=== PATIENT | female | born 1945 | race Caucasian/White ===

== ENCOUNTER → 2020-06-15 10:42 | Outpatient (BNVA) | payer MEDICARE, MEDICAID, SELFPAY | PROVIDERS: PCP Internal Medicine; Visit Provider Anesthesiology | DX: M47.816 Spondylosis without myelopathy or radiculopathy, lumbar region (principal) | CPT/HCPCS: 99203 ==

== ENCOUNTER 2020-08-09 17:00 | Outpatient (RCR) | payer MEDICARE, MEDICAID, SELFPAY ==
--- NOTE | 2020-08-09 17:51 | MHC.PT.DC ---
[facility] [place] Office [place] Office [place] Office [address] Myla Tuttle [address] [phone] F: [phone] F: [phone] F: [phone] F: [phone] Physical Therapy Discharge Report Diagnosis: This is a 74 yo female presenting to skilled PT with a script for spondylosis w/o myelopathy or radiculopathy Date of Surgery: L5 partial discectomy 1982 Date of Evaluation: 07/03/20 Date of Discharge: 08/09/20 Treatments to Date: 6 Cancellations to Date: 0 No Shows to Date: 3 Discharge Status: Achieved Goals Improved Function Independent with HEP Discharge Summary: Patient has been doing well, no pain has been increased throughout our sessions. She feels ready for DC and is independent in herp HEP. She has had improved pain and symptoms, demos good ROM and strength and good tolerance with functional mobility and transfers. DC to HEP at this time. Electronically signed by: Daisy Espinoza PT Please sign and return to therapist. Thank you for your referral.
== END 2020-08-10 11:57 | disposition home or self-care (01) ==
LOC: HO.PTCHIC 17:00
PROVIDERS: PCP Internal Medicine; Visit Provider Anesthesiology
DX: M47.816 Spondylosis without myelopathy or radiculopathy, lumbar region (principal)
CPT/HCPCS: 97110; 97140; 97161

== ENCOUNTER → 2020-09-20 11:38 | Outpatient (BNVA) | payer MEDICARE, MEDICAID, SELFPAY | PROVIDERS: PCP Internal Medicine; Referring Provider Internal Medicine; Visit Provider Internal Medicine Endocrinology, Diabetes & Metabolism | DX: E11.65 Type 2 diabetes mellitus with hyperglycemia (principal); E11.42 Type 2 diabetes mellitus with diabetic polyneuropathy; Z79.4 Long term (current) use of insulin; I10 Essential (primary) hypertension; E78.5 Hyperlipidemia, unspecified; E66.9 Obesity, unspecified | CPT/HCPCS: Q3014 ==

== ENCOUNTER 2020-09-29 11:25 | Outpatient (REF) | payer MEDICARE, MEDICAID, SELFPAY ==
[2020-09-29 13:55] LABS: Estimated Average Glucose 255 mg/dL; Hemoglobin A1c % 10.5 %
[2020-09-29 14:29] LABS: Creatinine Urine 141.17 mg/dL; Microalbum/Creatinine Ratio Ur 18.4 ug/mg cr
[2020-09-29 14:47] LABS: Alanine Aminotransferase 27 U/L (0-31); Albumin Level 4.1 g/dL (3.5-5.0); Alkaline Phosphatase 97 U/L (39-117); Anion Gap 13 (12-20); Aspartate Amino Transferase 23 U/L (5-31); Bilirubin Total 1.8 mg/dL (0.0-1.0); Blood Urea Nitrogen 16 mg/dL (9-16); Calcium 9.5 mg/dL (8.4-10.2); Carbon Dioxide 29 mmol/L (22-29); Chloride 101 mmol/L (96-108); Cholesterol 133 mg/dL; Estimated Glomerular Filt Rate 42; Glucose Fasting 176 mg/dL (60-99); HDL Cholesterol 43 mg/dL; LDL Cholesterol Calculated 65 mg/dl; Potassium 4.7 mmol/L (3.3-5.1); Sodium 138 mmol/L (135-145); Total Protein 6.7 g/dL (6.5-8.0); Triglycerides 128 mg/dL
[2020-09-29 14:59] LABS: Free T4 (Free Thyroxine) 1.11 ng/dL (0.71-1.85)
[2020-09-29 15:01] LABS: Thyroid Stimulating Hormone 2.67 uIU/mL (0.32-4.0)
[2020-09-30 08:17] LABS: LDL Cholesterol Direct 75 mg/dL (<100)
[2020-10-02 16:16] LABS: Vitamin B12 515 pg/mL (200-900)
== END 2020-09-29 11:26 | disposition home or self-care (01) ==
LOC: HO.10HDL 11:25
PROVIDERS: Visit Provider Internal Medicine Endocrinology, Diabetes & Metabolism
DX: E11.65 Type 2 diabetes mellitus with hyperglycemia (principal)
CPT/HCPCS: 36415; 80053; 80061; 82043; 82607; 83036; 83721; 84439; 84443

== ENCOUNTER → 2020-11-21 13:34 | Outpatient (BNVA) | payer MEDICARE, MEDICAID, SELFPAY | PROVIDERS: PCP Internal Medicine; Visit Provider Internal Medicine | DX: I25.10 Atherosclerotic heart disease of native coronary artery without angina pectoris (principal); I10 Essential (primary) hypertension; E11.8 Type 2 diabetes mellitus with unspecified complications; Z95.5 Presence of coronary angioplasty implant and graft | CPT/HCPCS: 93005; 99212 ==

== ENCOUNTER 2020-11-27 08:45 | Outpatient (REF) | payer MEDICARE, MEDICAID, SELFPAY ==
[2020-11-27 10:41] LABS: Alanine Aminotransferase 20 U/L (0-31); Anion Gap 16 (12-20); Aspartate Amino Transferase 22 U/L (5-31); Blood Urea Nitrogen 22 mg/dL (9-16); Calcium 8.9 mg/dL (8.4-10.2); Carbon Dioxide 26 mmol/L (22-29); Chloride 99 mmol/L (96-108); Cholesterol 116 mg/dL; Estimated Glomerular Filt Rate 52; Glucose Fasting 154 mg/dL (60-99); HDL Cholesterol 40 mg/dL; LDL Cholesterol Calculated 53 mg/dl; Sodium 137 mmol/L (135-145); Triglycerides 118 mg/dL
== END 2020-11-27 08:46 | disposition home or self-care (01) ==
LOC: HO.10HDL 08:45
PROVIDERS: Visit Provider Internal Medicine
DX: I10 Essential (primary) hypertension (principal); E78.5 Hyperlipidemia, unspecified
CPT/HCPCS: 36415; 80048; 80061; 84450; 84460

== ENCOUNTER → 2021-02-02 12:54 | Outpatient (BNVA) | payer MEDICARE, MEDICAID, SELFPAY | PROVIDERS: PCP Internal Medicine; Visit Provider Internal Medicine Endocrinology, Diabetes & Metabolism | DX: E11.65 Type 2 diabetes mellitus with hyperglycemia (principal); E11.42 Type 2 diabetes mellitus with diabetic polyneuropathy; E78.5 Hyperlipidemia, unspecified; E66.9 Obesity, unspecified; Z79.4 Long term (current) use of insulin | CPT/HCPCS: 82947; 99212 ==

== ENCOUNTER → 2021-02-20 08:30 | Outpatient (BNVA) | payer MEDICARE, MEDICAID, SELFPAY | PROVIDERS: PCP Internal Medicine; Visit Provider Internal Medicine Endocrinology, Diabetes & Metabolism | CPT/HCPCS: Q3014 ==

== ENCOUNTER 2021-04-02 15:03 | Outpatient (REF) | payer MEDICARE, MEDICAID, SELFPAY | END 2021-04-02 15:04 | disposition home or self-care (01) | LOC: HO.LAB 15:03 | PROVIDERS: Visit Provider Nurse Practitioner Family | DX: N39.0 Urinary tract infection, site not specified (principal) | CPT/HCPCS: 87086; 87088; 87186 ==

== ENCOUNTER 2021-05-11 08:24 | Outpatient (REF) | payer MEDICARE, MEDICAID, SELFPAY ==
--- NOTE | ~2021-05-11 | MM_ITS ---
EXAMINATION: MM SCREENING DIGITAL BREAST TOMOSYNTHESIS, BILATERAL CLINICAL INFORMATION: Screening. Asymptomatic. The lifetime risk of breast cancer based on the Tyrer-Cuzick Model is 2%. COMPARISON: Mammography: 05/05/2020, 02/04/2018, 12/16/2016 TECHNIQUE: Digital breast tomosynthesis is performed in both the craniocaudal and mediolateral oblique views along with computer-aided detection (CAD). Synthesized 2D images are generated from the tomosynthesis. FINDINGS: There are scattered areas of fibroglandular density (ACR BI-RADS breast composition Category b). There are no significant masses, abnormal calcifications, or other abnormalities. Again, there are numerous bilateral scattered ductal secretory and vascular calcifications. The axilla and skin contours are unremarkable. No significant changes. MM/MM tomosynthesis screening BI IMPRESSION: No mammographic evidence of malignancy. ASSESSMENT: BI-RADS 2: Benign RECOMMENDATION: Routine annual mammography screening. This patient's information was entered into a reminder system with a target due date for their next mammogram.
[2021-05-11 12:01] LABS: Alanine Aminotransferase 21 U/L (0-31); Anion Gap 13 (12-20); Aspartate Amino Transferase 22 U/L (5-31); Blood Urea Nitrogen 21 mg/dL (9-16); Calcium 10.3 mg/dL (8.4-10.2); Carbon Dioxide 29 mmol/L (22-29); Chloride 101 mmol/L (96-108); Cholesterol 133 mg/dL; Estimated Glomerular Filt Rate 47; Glucose Fasting 128 mg/dL (60-99); HDL Cholesterol 41 mg/dL; LDL Cholesterol Calculated 69 mg/dl; Potassium 4.4 mmol/L (3.3-5.1); Sodium 139 mmol/L (135-145); Triglycerides 116 mg/dL
== END 2021-05-11 08:25 | disposition home or self-care (01) ==
LOC: HO.MAMMO 08:24
PROVIDERS: PCP Internal Medicine; Visit Provider Internal Medicine
DX: Z12.31 Encounter for screening mammogram for malignant neoplasm of breast (principal); I25.10 Atherosclerotic heart disease of native coronary artery without angina pectoris; I10 Essential (primary) hypertension; E78.5 Hyperlipidemia, unspecified
CPT/HCPCS: 36415; 77063; 77067; 80048; 80061; 84450; 84460

== ENCOUNTER → 2021-05-24 08:52 | Outpatient (BNVA) | payer MEDICARE, MEDICAID, SELFPAY | PROVIDERS: PCP Internal Medicine; Visit Provider Nurse Practitioner Gerontology | DX: E11.42 Type 2 diabetes mellitus with diabetic polyneuropathy (principal); E78.5 Hyperlipidemia, unspecified; E66.9 Obesity, unspecified; I10 Essential (primary) hypertension | CPT/HCPCS: 82947; 99212 ==

== ENCOUNTER 2021-05-24 10:15 | Outpatient (REF) | payer MEDICARE, MEDICAID, SELFPAY ==
[2021-05-24 14:59] LABS: Creatinine Urine 163.15 mg/dL; Microalbum/Creatinine Ratio Ur 7.9 ug/mg cr
== END 2021-05-24 10:16 | disposition home or self-care (01) ==
LOC: HO.10HDL 10:15
PROVIDERS: Visit Provider Nurse Practitioner Gerontology
DX: E11.42 Type 2 diabetes mellitus with diabetic polyneuropathy (principal)
CPT/HCPCS: 82043

== ENCOUNTER → 2021-05-29 12:43 | Outpatient (BNVA) | payer MEDICARE, MEDICAID, SELFPAY | PROVIDERS: PCP Internal Medicine; Referring Provider Internal Medicine; Visit Provider Internal Medicine | DX: I25.10 Atherosclerotic heart disease of native coronary artery without angina pectoris (principal); I10 Essential (primary) hypertension; E11.8 Type 2 diabetes mellitus with unspecified complications; Z95.5 Presence of coronary angioplasty implant and graft | CPT/HCPCS: 99212 ==

== ENCOUNTER 2021-09-10 08:31 | Outpatient (REF) | payer MEDICARE, MEDICAID, SELFPAY ==
[2021-09-10 12:28] LABS: Alanine Aminotransferase 22 U/L (0-31); Anion Gap 12 (12-20); Aspartate Amino Transferase 22 U/L (5-31); Blood Urea Nitrogen 18 mg/dL (9-16); Calcium 9.8 mg/dL (8.4-10.2); Carbon Dioxide 29 mmol/L (22-29); Chloride 99 mmol/L (96-108); Cholesterol 122 mg/dL; Estimated Glomerular Filt Rate 42; Glucose Fasting 110 mg/dL (60-99); HDL Cholesterol 42 mg/dL; LDL Cholesterol Calculated 57 mg/dl; Potassium 4.5 mmol/L (3.3-5.1); Sodium 135 mmol/L (135-145); Triglycerides 117 mg/dL
[2021-09-10 12:50] LABS: Folate 8.1 ng/mL (> or = 4.0); Vitamin B12 666 pg/mL (200-900)
[2021-09-10 12:51] LABS: Vitamin D 25-OH Total 57.4 ng/mL (>30)
== END 2021-09-10 08:32 | disposition home or self-care (01) ==
LOC: HO.HMGCLDS 08:31
PROVIDERS: PCP Internal Medicine; Visit Provider Internal Medicine
DX: E78.5 Hyperlipidemia, unspecified (principal); I10 Essential (primary) hypertension; I25.10 Atherosclerotic heart disease of native coronary artery without angina pectoris; Z95.5 Presence of coronary angioplasty implant and graft; Z78.0 Asymptomatic menopausal state
CPT/HCPCS: 36415; 80048; 80061; 82306; 82607; 82746; 84450; 84460

== ENCOUNTER 2021-10-01 13:46 | Outpatient (REF) | payer MEDICARE, MEDICAID, SELFPAY ==
[2021-10-01 14:07] LABS: Appearance Urine CLEAR; Color Urine STRAW; Glucose Urine UA NEG (NEG); Leukocyte Esterase Urine 3+ (NEG); Nitrite Urine NEG (NEG); Specific Gravity - Urine 1.015 (1.005-1.025); UACC Culture Trigger YES; Urine Blood NEG (NEG); Urine Ketones NEG (NEG); Urine Protein NEG (NEG-TRACE)
[2021-10-01 14:38] LABS: RBC Urine 0 /HPF (0); Squamous Epithelial Cell Urine 2+ /LPF
== END 2021-10-01 13:47 | disposition home or self-care (01) ==
LOC: HO.LNP 13:46
PROVIDERS: Visit Provider Physician Assistant
DX: N39.0 Urinary tract infection, site not specified (principal); J32.9 Chronic sinusitis, unspecified
CPT/HCPCS: 81001; 81003; 87086

== ENCOUNTER → 2021-11-13 13:06 | Outpatient (BNVA) | payer MEDICARE, MEDICAID, SELFPAY | PROVIDERS: PCP Internal Medicine; Referring Provider Internal Medicine; Visit Provider Internal Medicine | DX: I25.10 Atherosclerotic heart disease of native coronary artery without angina pectoris (principal); E11.9 Type 2 diabetes mellitus without complications; I10 Essential (primary) hypertension; I25.2 Old myocardial infarction; Z79.82 Long term (current) use of aspirin; Z79.899 Other long term (current) drug therapy; Z95.5 Presence of coronary angioplasty implant and graft | CPT/HCPCS: 93005; 99212 ==

== ENCOUNTER → 2021-11-21 10:55 | Outpatient (BNVA) | payer MEDICARE, MEDICAID, SELFPAY | PROVIDERS: PCP Internal Medicine; Visit Provider Nurse Practitioner Gerontology | DX: E11.42 Type 2 diabetes mellitus with diabetic polyneuropathy (principal); E78.5 Hyperlipidemia, unspecified; I10 Essential (primary) hypertension; E66.9 Obesity, unspecified; Z68.32 Body mass index [BMI] 32.0-32.9, adult | CPT/HCPCS: 82947; 83036; 99212 ==

== ENCOUNTER 2022-01-18 10:02 | Outpatient (REF) | payer MEDICARE, MEDICAID, SELFPAY ==
[2022-01-18 11:53] LABS: Vitamin D 25-OH Total 49.6 ng/mL (>30)
[2022-01-18 12:04] LABS: Alanine Aminotransferase 22 U/L (0-31); Anion Gap 12 (12-20); Aspartate Amino Transferase 21 U/L (5-31); Blood Urea Nitrogen 24 mg/dL (9-16); Calcium 9.8 mg/dL (8.4-10.2); Carbon Dioxide 30 mmol/L (22-29); Chloride 100 mmol/L (96-108); Cholesterol 134 mg/dL; Estimated Glomerular Filt Rate 42; Glucose Fasting 122 mg/dL (60-99); HDL Cholesterol 39 mg/dL; LDL Cholesterol Calculated 73 mg/dl; Potassium 4.6 mmol/L (3.3-5.1); Sodium 137 mmol/L (135-145); Triglycerides 112 mg/dL
[2022-01-18 16:58] LABS: Creatinine Urine 115.73 mg/dL
== END 2022-01-18 10:03 | disposition home or self-care (01) ==
LOC: HO.HMGCLDS 10:02
PROVIDERS: PCP Internal Medicine; Visit Provider Internal Medicine
DX: E11.8 Type 2 diabetes mellitus with unspecified complications (principal); E78.5 Hyperlipidemia, unspecified; I10 Essential (primary) hypertension; Z95.5 Presence of coronary angioplasty implant and graft
CPT/HCPCS: 36415; 80048; 80061; 82043; 82306; 84450; 84460

== ENCOUNTER → 2022-01-23 10:37 | Outpatient (BNVA) | payer MEDICARE, MEDICAID, SELFPAY | PROVIDERS: PCP Internal Medicine; Visit Provider Registered Nurse Diabetes Educator | DX: E11.9 Type 2 diabetes mellitus without complications (principal) | CPT/HCPCS: 95250 ==

== ENCOUNTER → 2022-02-25 08:48 | Outpatient (BNVA) | payer MEDICARE, MEDICAID, SELFPAY | PROVIDERS: PCP Internal Medicine; Visit Provider Nurse Practitioner Gerontology | DX: E11.42 Type 2 diabetes mellitus with diabetic polyneuropathy (principal); E78.5 Hyperlipidemia, unspecified; I10 Essential (primary) hypertension; E66.9 Obesity, unspecified; Z79.4 Long term (current) use of insulin; Z79.84 Long term (current) use of oral hypoglycemic drugs | CPT/HCPCS: Q3014 ==

== ENCOUNTER → 2022-05-02 13:44 | Outpatient (REF) | payer MEDICARE, MEDICAID, SELFPAY ==
--- NOTE | 2022-05-02 13:47 | CA_ITS ---
Transthoracic Echocardiogram Amended Patient (Last, First, Middle): Savanna Fernandez A Gender: Female Date of : 1945 Age: 76 Procedure Date: 05/02/2022 Procedure Type: Transthoracic Echocardiogram Location: OP Height: 160.02 cm Weight: 82.56 kg BSA: 1.86 m2 Heart Rate: bpm BP: 90 / 50 mmHg Joiners Supervisor: CP/TO Referring MD: Casa Blackburn MD Hydraulic Technician: Austin Ayon MD Symptoms: I25.10 - Atherosclerotic heart disease of [place] coronary... Study Quality: Fair ECG Rhythm: Sinus Conclusions: - 1. Normal LV systolic function with grade 1 diastolic dysfunction 2. Trivial aortic regurgitation 3. No gross pericardial effusion Findings Left Ventricle Normal left ventricular size, thickness, and systolic function. The visually estimated ejection fraction is between 55-60%. Spectral Doppler is indicative of an impaired relaxation filling pattern. E/E prime ratio is <8, consistent with normal filling pressures. Evidence suggests grade I (mild) diastolic dysfunction. Right Ventricle Normal right ventricular cavity size and systolic function. Atria The left atrium is likely dilated. There is no evidence of interatrial shunt. The right atrium is normal in size. Aortic Valve The aortic valve structure and function is likely normal. There is mild calcification of the aortic valve. There is no aortic valve stenosis. There is trace (trivial) aortic valve regurgitation. Mitral Valve There is mild anterior mitral leaflet thickening. There is mild mitral annular calcification. There is trace mitral valve regurgitation. There is no mitral valve stenosis. Pulmonic Valve The pulmonic valve was not well visualized. Tricuspid Valve Likely normal tricuspid valve structure and function. Tricuspid regurgitation envelope is inadequate for calculation of right ventricular systolic pressure. Normal right atrial pressure. Great Vessels All visible segments of the aorta are normal in size. The pulmonary artery was not well visualized. Venous The inferior vena cava is normal in size and collapses greater than 50% with inspiration. Pericardium/Pleural There is no evidence of pericardial effusion. Prior Study Comparison Changes noted compared to prior study dated: 02/20/2018. LV wall thickness is measured to be normal on this study Measurements 2D Linear Measurements IVSd: 1.03 0.6-0.9/0.6-1.0 cm LVIDd: 4.84 3.9-5.3/4.2-5.9 cm LVIDd Index: 2.60 2.4-3.2/2.2-3.1 cm/m2 LVIDs: 3.15 2.0-3.6 cm LVPWd: 0.89 0.7-1.1 cm LA Diam: 3.90 2.7-3.8/3.0-4.0 cm LAIDs Index: 2.10 1.5-2.3 cm/m2 LV Mass: 203.50 67-162/88-224 g LV Mass Index: 109.41 43-95/49-115 g/m2 LVOT Diam: 2.00 3.0+(-)1.3 cm 2D Volumes LA Vol: 26.60 2D Systolic Function EF 4C: 57.70 >55% EF 2C: 53.60 >55% EF BiP: 56.40 >55% Mitral Valve MV Pk E: 0.75 MV PK A: 1.09 MV Decel Time: 300.00 E/A: 0.70 E'Lateral: 4.24 E'Medial: 4.13 E/E' Med: 18.10 E/E' Lat: 17.70 PHT: 88.00 MVA PHT: 2.50 Decel Burnet: 2.50 Aortic Valve AoV Pk Arthur: 1.21 AoV Mn Arthur: 0.89 AoV VTI: 0.29 AoV Pk Grad: 6.00 Aov Mn Grad: 3.00 ELY Cont.VTI: 2.46 AI Pk Arthur: 3.66 AI Burnet: 2.24 LVOT LVOT Pk Arthur: 0.89 LVOT Mn Arthur: 0.66 LVOT VTI: 0.22 LVOT Pk Grad: 3.00 LVOT Mn Grad: 2.00 LVOT Diam: 2.00 LVOT Area: 3.14 Diastolic Function MV Pk E: 0.75 MV Pk A: 1.09 E/A: 0.70 E'Medial: 4.13 E/E' Med: 18.10 E' Laterial: 4.24 E/E' Lat: 17.70 Right Ventricle TAPSE (mm): 20.30 TVS' Arthur: 7.72 Tricuspid Valve RA Press: 3.00 Great Vessels Aorta Sinus of Valsalva: 3.79 2.0-3.[address] Ridge: 2.93 1.7-3.4 cm Ao Asc: 3.70 2.1-3.4 cm Updated in Other Vendor System with Status of Final Austin Ayon MD electronically signed on 05/03/2022 4:17:01 PM with status of Final
== END ==
LOC: HO.CARD 13:44
PROVIDERS: Visit Provider Internal Medicine
DX: I25.10 Atherosclerotic heart disease of native coronary artery without angina pectoris (principal)
CPT/HCPCS: 93306

== ENCOUNTER → 2022-05-14 13:38 | Outpatient (BNVA) | payer MEDICARE, MEDICAID, SELFPAY | PROVIDERS: PCP Internal Medicine; Referring Provider Internal Medicine; Visit Provider Internal Medicine | DX: I25.10 Atherosclerotic heart disease of native coronary artery without angina pectoris (principal); E11.8 Type 2 diabetes mellitus with unspecified complications; I10 Essential (primary) hypertension | CPT/HCPCS: 99212 ==

== ENCOUNTER 2022-05-30 14:01 | Outpatient (REF) | payer MEDICARE, MEDICAID, SELFPAY | END 2022-05-30 14:02 | disposition home or self-care (01) | LOC: HO.LNP 14:01 | PROVIDERS: Visit Provider Internal Medicine | DX: N39.0 Urinary tract infection, site not specified (principal) | CPT/HCPCS: 87086; 87088; 87186 ==

== ENCOUNTER 2022-06-24 11:18 | Outpatient (REF) | payer MEDICARE, MEDICAID, SELFPAY ==
[2022-06-24 14:06] LABS: Alanine Aminotransferase 23 U/L (0-31); Albumin Level 4.1 g/dL (3.5-5.0); Alkaline Phosphatase 105 U/L (39-117); Anion Gap 15 (12-20); Aspartate Amino Transferase 23 U/L (5-31); Bilirubin Total 1.5 mg/dL (0.0-1.0); Blood Urea Nitrogen 16 mg/dL (9-16); Calcium 9.8 mg/dL (8.4-10.2); Carbon Dioxide 29 mmol/L (22-29); Chloride 101 mmol/L (96-108); Cholesterol 147 mg/dL; Estimated Glomerular Filt Rate 47; Glucose Fasting 115 mg/dL (60-99); HDL Cholesterol 46 mg/dL; LDL Cholesterol Calculated 81 mg/dl; Potassium 4.6 mmol/L (3.3-5.1); Sodium 140 mmol/L (135-145); Total Protein 6.9 g/dL (6.5-8.0); Triglycerides 100 mg/dL
[2022-06-24 14:08] LABS: Estimated Average Glucose 151 mg/dL; Hemoglobin A1c % 6.9 %
[2022-06-24 14:29] LABS: Vitamin D 25-OH Total 57.4 ng/mL (>30)
[2022-06-24 14:50] LABS: Folate 5.3 ng/mL (> or = 4.0); Vitamin B12 > 2000 pg/mL (200-900)
== END 2022-06-24 11:19 | disposition home or self-care (01) ==
LOC: HO.HMGCLDS 11:18
PROVIDERS: PCP Internal Medicine; Visit Provider Internal Medicine
DX: N95.9 Unspecified menopausal and perimenopausal disorder (principal); I25.10 Atherosclerotic heart disease of native coronary artery without angina pectoris; E11.42 Type 2 diabetes mellitus with diabetic polyneuropathy; I10 Essential (primary) hypertension; E78.5 Hyperlipidemia, unspecified; E66.9 Obesity, unspecified; Z86.39 Personal history of other endocrine, nutritional and metabolic disease; Z79.4 Long term (current) use of insulin
CPT/HCPCS: 36415; 80053; 80061; 82306; 82607; 82746; 83036

== ENCOUNTER 2022-09-23 11:53 | Outpatient (REF) | payer MEDICARE, MEDICAID, SELFPAY ==
[2022-09-23 14:15] LABS: Estimated Average Glucose 229 mg/dL; Hemoglobin A1c % 9.6 %
[2022-09-23 14:40] LABS: Alanine Aminotransferase 20 U/L (0-31); Anion Gap 14 (12-20); Aspartate Amino Transferase 19 U/L (5-31); Blood Urea Nitrogen 21 mg/dL (9-16); Calcium 9.7 mg/dL (8.4-10.2); Carbon Dioxide 29 mmol/L (22-29); Chloride 101 mmol/L (96-108); Cholesterol 131 mg/dL; Estimated Glomerular Filt Rate 44; Glucose Fasting 220 mg/dL (60-99); HDL Cholesterol 42 mg/dL; LDL Cholesterol Calculated 66 mg/dl; Potassium 4.5 mmol/L (3.3-5.1); Sodium 139 mmol/L (135-145); Triglycerides 118 mg/dL
[2022-09-23 14:44] LABS: Creatinine Urine 172.28 mg/dL
[2022-09-23 14:45] LABS: Vitamin D 25-OH Total 68.7 ng/mL (>30)
[2022-09-23 15:07] LABS: Folate 5.9 ng/mL (> or = 4.0); Vitamin B12 1024 pg/mL (200-900)
== END 2022-09-23 11:54 | disposition home or self-care (01) ==
LOC: HO.HMGCLDS 11:53
PROVIDERS: PCP Internal Medicine; Visit Provider Internal Medicine
DX: E11.42 Type 2 diabetes mellitus with diabetic polyneuropathy (principal); E66.9 Obesity, unspecified; E78.5 Hyperlipidemia, unspecified; I10 Essential (primary) hypertension; N95.9 Unspecified menopausal and perimenopausal disorder; R74.8 Abnormal levels of other serum enzymes; Z79.4 Long term (current) use of insulin
CPT/HCPCS: 36415; 80048; 80061; 82043; 82306; 82607; 82746; 83036; 84450; 84460

== ENCOUNTER 2022-09-24 11:29 | Outpatient (AMB) | payer MEDICARE, MEDICAID, SELFPAY ==
--- NOTE | 2022-09-24 11:51 | A.OFFPC_ITS ---
Vital Signs 09/24/22 11:53 Height 5 ft 3 in Weight 179 lb BMI 31.6 BP 124/52 L Blood Pressure Location Lt brachial Position Sitting Pulse 64 Pulse Source Pulse Oximeter Pulse Oximetry (%) 97 Oxygen Delivery Method Room Air Intake Visit Reasons: 3 MO follow up Intake Note: Pt is here today for her 3 months f/u Allergies codeine [CODEINE] Allergy (Intermediate, Verified 08/16/24 10:15) HIVES morphine [MORPHINE] Allergy (Intermediate, Verified 08/16/24 10:15) HIVES oxycodone [OXYCODONE] Allergy (Intermediate, Verified 08/16/24 10:15) HIVES Sulfa (Sulfonamide Antibiotics) [SULFA (SULFONAMIDE ANTIBIOTICS)] Allergy (Intermediate, Verified 08/16/24 10:15) DEHYDRATION, hives, hives OPIATES Allergy (Unknown, Uncoded 08/16/24 10:15) hives Medication List - Last Reconciled 09/24/22 by Jasmine Vasquez MD aspirin 81 mg PO DAILY atorvastatin 80 mg PO DAILY blood sugar diagnostic ([employer]uch Verio test strips) 3 times a day blood-glucose meter ([employer] Verio Flex Meter) 3 times a day famotidine-Ca carb-mag hydrox 10-800-165 mg (Acid Process Improvement Engineer Complete (famotidine)) 1 tab PO BEDTIME PRN hydrochlorothiazide 25 mg PO QAM insulin degludec (Tresiba FlexTouch U-100 insulin) 36 units (0.36 mL) subcut BEDTIME lancets ([employer] Delica Lancets) 3 times a day liraglutide (Victoza 3-Yoni) 1.2 mg (0.2 mL) subcut DAILY 90 days lisinopril 20 mg PO QAM mecobalamin (vitamin B12) 5,000 mcg PO metformin 500 mg PO BID 90 days metoprolol tartrate 50 mg PO BID naproxen (EC-Naproxen) 500 mg PO BID PRN omega-3 fatty acids 1,000 mg PO DAILY pen needle, diabetic Twice a day triamcinolone acetonide 0.1% 1 appl topical BID 10 days Tobacco use date assessed: 09/24/22 Fall risk assessment: No Falls in past year Last assessed Fall Risk: 09/24/22 HPI 3 MO follow up HPI Details 77-year-old Lady here today for follow-u p on her diabetes mellitus , hypertension and dyslipidemia. Has been taking her medicines as directed but has not been very compliant with taking her metformin, keeps missing her dose and has been off her diet, with no regular exercise. Latest hemoglobin A1c went to 9.6% with decreasing renal function, but lipids are within normal limit. [facility] Medical History Depression with anxiety Generalized anxiety disorder with panic attacks Arthritis of carpometacarpal (CMC) joint of right thumb Tenosynovitis of right wrist Dermatitis, contact Elevated vitamin B12 level Essential hypertension Atherosclerotic cardiovascular disease Obesity (BMI 30-39.9) Dyslipidemia 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 type 2 diabetes mellitus custodial (current) use of insulin Spondylosis of lumbar region without myelopathy or radiculopathy Sacroiliitis Surgical History Stented coronary artery Hx of shoulder surgery History of back surgery Hx of section Hx of hysterectomy Hx of colonoscopy Family History Father Colon cancer Family history of prostate cancer in father Mother Diabetes CVA (cerebral vascular accident) Social History Housing: Apartment Alcohol intake: current Patient Tobacco Use Status: Former Tobacco user Years Smoked: 2 e-Cigarette/Vaping Use: Never Used Advance Directives Date on File: 06/01/24 service: No Current occupational status: retired Cognitive needs: No Hearing needs: No Vision needs: No Questionnaire PHQ-9 Over the last 2 weeks, how often have you been bothered by any of the following problems? 1. Little interest or pleasure in doing things: not at all 2. Feeling down, depressed, or hopeless: not at all 3. Trouble falling or staying asleep, or sleeping too much: not at all 4. Feeling tired or having little energy: not at all 5. Poor appetite or overeating: not at all 6. Feeling bad about yourself - or that you are a failure or have let yourself or your family down: not at all 7. Trouble concentrating on things, such as reading the newspaper or watching television: not at all 8. Moving or speaking so slowly that other people could have noticed. Or the opposite - being so fidgety or restless that you have been moving around a lot more than usual: not at all 9. Thoughts that you would be better off or of hurting yourself in some wa y: not at all Total score: 0 Depression Screening Interpretation: Negative Source: Developed by Drs. Golden Moe, Devin Mckenna and colleagues, with an educational arlen from [employer]. Thrive Questionnaire Date Thrive assessed: 09/24/22 I am a: Patient What is your living situation today?: I have a steady place to live Within the past 12 months, did the food you bought not last and you didn't have the money to get more?: Never true Within the past 12 months, did you worry whether your food would run out before you got money to buy more?: Never true Do you have trouble paying for medicines?: No Do you have trouble getting transportation to medical appointments?: No Do you have trouble paying your heating and electricity bill?: No Do you have trouble taking care of your child, family member or friend?: No Do you have trouble with day-to-day activities such as bathing, preparing meals, shopping, managing finances, etc.?: No Are you currently unemployed and looking for a job?: No Are you interested in more education?: No SACHA-7 AMB Questionnaire SACHA-7 Date SACHA - 7 assessed: 09/24/22 Feeling nervous, anxious, or on edge: 0 = Not at all Not being able to stop or control worryin = Not at all Worrying too much about different things: 0 = Not at all Trouble relaxin = Not at all Being so restless that it is hard to sit still: 0 = Not at all Becoming easily annoyed or irritable: 0 = Not at all Feeling afraid as if something awful might happen: 0 = Not at all Total SACHA-7 score (0-4 normal; 5-9 mild; 10-14 moderate; 15-21 severe): 0 Source: Developed by Drs. Golden Moe, Devin Mckenna and colleagues, with an educational arlen from [employer]. SACHA-7 Assessment Billing SACHA-7 Assessment Tool: SACHA-7 Assessment 12154 Review of Systems Const Denies body aches, Denies difficulty sleeping, Denies fatigue, Denies headache(s), Denies lethargy and Reports weight gain Eyes Denies change in vision ENT Reports Normal hearing present, Denies headache(s) and Denies sore throat Card Denies chest pain, Denies irregular heart rhythm, Denies palpitations and Denies dyspnea Resp Denies cough and Denies dyspnea GI Denies abdominal pain, Denies melena, Denies hematochezia, Denies change in bowel habits, Denies constipation and Denies diarrhea Denies urinary frequency and Denies dysuria Musc Denies muscle cramps, Denies muscle weakness, Reports numbness and Reports tingling Skin/Breast Denies lesions and Denies rash Neuro Reports Normal hearing present, Denies burning sensations, Denies headache(s), Reports numbness, Denies Sensory deficit (Neuro), Reports tingling and Denies paresthesias Psych Denies depression Endo Denies fatigue, Denies polydipsia, Denies polyuria and Denies palpitations Seymour/Lymph Denies easy bruising Aller/Immun Reports no additional complaints Physical exam (Primary Care) Vital Signs: Last Vital Signs Pulse 64 09/24/22 11:53 BP 124/52 L 09/24/22 11:53 Pulse Ox 97 09/24/22 11:53 Oxygen Delivery Method Room Air 09/24/22 11:53 BMI result Body Mass Index 31.6 Tobacco/Smoking Status: Tobacco use Status Tobacco use date assessed 09/24/22 09/24/22 11:59 Patient Tobacco Use Status Former Tobacco user 09/24/22 11:59 e-Cigarette/Vaping Use Never Used 09/24/22 11:59 PHQ-9: PHQ-9 Score PHQ-9: Total score 0 09/24/22 12:48 Depression Screening Interpretation: Negative Thrive Assessment: Date of Thrive Assessment Date Thrive assessed 09/24/22 09/24/22 11:59 Const General: alert and awake Nutritional Appearance: obese Orientation/consciousness: patient oriented x3 HENMT Face and sinus: Yes face symmetric Mouth: Normal oral and palatal mucosa present, oropharynx normal and moist mucous membranes Eyes General: appearance normal, both eyes and all related structures Neck Other: Supple, full range of motion, no lymphadenopathy Resp Effort & Inspection: normal respiratory effort and able to speak in complete sentences Auscultation: clear to auscultation bilaterally Cardio Other: S1-S2 present regular rate and rhythm GI Palpation (GI): Soft to palpation, nontender, no guarding and no masses General: Yes no CVA tenderness Back/Spine/Pelvis Back: no CVA tenderness Skin General skin exam: no rashes or lesions noted Neuro General: patient oriented x3, gait normal, tone normal, moves all extremities, Normal light touch and pain sensation, no focal motor deficits and CN's II-XI intact bilaterally Cranial nerves: Yes Normal hearing present Sensory Exam: No Sensory deficit (Neuro) Extrem General: Yes full ROM, Yes no joint enlargement, Yes no clubbing, cyanosis or edema, Yes no calf tenderness and Yes normal gait Psych Appearance: grossly normal and well kempt Mental Status: mental status grossly normal Speech and movement: Normal speech and movement present Affect: Sad affect present Attitude: cooperative Thought process: Normal thought process present Thought content: Normal thought content present Results Reviewed Results Reviewed: Laboratory Tests 01/18/22 06/24/22 06/24/22 10:15 11:24 11:24 Sodium 140 Potassium 4.6 BUN 16 Creatinine 1.13 Estimated GFR 47 Fasting Glucose 115 H Estimat Average Glucose 151 Hemoglobin A1c % 6.9 Calcium 9.8 Total Bilirubin 1.5 H AST 23 ALT 23 Alkaline Phosphatase 105 Total Protein 6.9 Albumin 4.1 Triglycerides 100 Cholesterol 147 LDL Cholesterol, Calc 81 HDL Cholesterol 46 Vitamin B12 25-OH Vitamin D Total 57.4 Folate Microalb/Creat Ratio 6.0 06/24/22 09/23/22 11:24 12:01 Sodium Potassium BUN Creatinine Estimated GFR Fasting Glucose Estimat Average Glucose 229 Hemoglobin A1c % 9.6 Calcium Total Bilirubin AST ALT Alkaline Phosphatase Total Protein Albumin Triglycerides Cholesterol LDL Cholesterol, Calc HDL Cholesterol Vitamin B12 > 2000 H 25-OH Vitamin D Total Folate 5.3 Microalb/Creat Ratio ENTERED: 09/23/22-1200 OTHR : ORDERED: Met Prof Fast, AST, ALT, Lipid Panel, Vitamin D 25-OH Test Result Flag Reference Site Sodium 139 135-145 mmol/L Potassium 4.5 3.3-5.1 mmol/L CL 101 96-108 mmol/L CO2 29 22-29 mmol/L Gap 14 12-20 BUN 21 H 9-16 mg/dL Creat 1.18 0.5-1.4 mg/dL EGFR 44 NOTE: For -[place] individuals, multiply the result by 1.210. Chronic Kidney Disease: Estimated GFR < 60 mL/min/1.73m2 Severe Kidney Disease: Estimated GFR < 15 mL/min/1.73m2 FBS 220 H 60-99 mg/dL A fasting glucose of 126 mg/dl or greater on more than one occasion is considered diagnostic of diabetes. CA 9.7 8.4-10.2 mg/dL AST (GOT) 19 5-31 U/L ALT (GPT) 20 0-31 U/L Triglyceride 118 mg/dL Desirable Triglyceride: less than 150 mg/dL Borderline High Triglyceride 150-199 mg/dL High Triglyceride: 200-499 mg/dL Very High Triglyceride: greater than or equal to 5OO mg/dL Chol 131 mg/dL Desirable Cholesterol: less than 200 mg/dL Borderline High Cholesterol: 200-239 mg/dL High Cholesterol: greater than 239 mg/dL LDL Calculated 66 mg/dl Desirable LDL: less than 100 mg/dL Near Optimal/Above Optimal LDL: 110-129 mg/dL Borderline High LDL: 130-159 mg/dL High LDL: 160-189 mg/dL Very High LDL: greater than or equal to 190 mg/dL HDL 42 mg/dL Desirable HDL: greater than 40 mg/dL Note: This HDL assay may give artificially low results in patients with liver disease. Vit D 25-OH Tot 68.7 >30 ng/mL Health Based Reference Values* < 20 ng/mL Deficient 20-30 ng/mL Insufficient > 30 ng/mL Sufficient Coding Level of Care Code Est Pt Level 4 (58803) Complex EM visit Add On G2211 Diagnoses 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 type 2 diabetes mellitus E11.42 Dyslipidemia E78.5 Essential hypertension I10 Elevated vitamin B12 level R74.8 Additional Codes SACHA-7 Assessment Billing - SACHA-7 Assessment Tool: SACHA-7 Assessment 59962 ([id number])
[2022-09-24 11:53] VITALS: BP 124/52; PULSE 64; O2SAT 97; BMI 31.6
== END 2022-09-24 13:10 | disposition home or self-care (01) ==
LOC: HO.HMGC 11:29
PROVIDERS: PCP Internal Medicine; Visit Provider Internal Medicine
DX: E11.42 Type 2 diabetes mellitus with diabetic polyneuropathy (principal); E78.5 Hyperlipidemia, unspecified; I10 Essential (primary) hypertension; R74.8 Abnormal levels of other serum enzymes
CPT/HCPCS: 99499

== ENCOUNTER 2022-11-27 10:35 | Outpatient (REF) | payer MEDICARE, MEDICAID, SELFPAY ==
[2022-11-27 12:23] LABS: Anion Gap 12 (12-20); Blood Urea Nitrogen 18 mg/dL (9-16); Calcium 9.7 mg/dL (8.4-10.2); Carbon Dioxide 30 mmol/L (22-29); Chloride 102 mmol/L (96-108); Estimated Glomerular Filt Rate 51; Glucose Fasting 106 mg/dL (60-99); Potassium 4.9 mmol/L (3.3-5.1); Sodium 139 mmol/L (135-145)
== END 2022-11-27 10:36 | disposition home or self-care (01) ==
LOC: HO.HMGCLDS 10:35
PROVIDERS: PCP Internal Medicine; Visit Provider Internal Medicine
DX: E11.42 Type 2 diabetes mellitus with diabetic polyneuropathy (principal); E66.9 Obesity, unspecified; E78.5 Hyperlipidemia, unspecified; I10 Essential (primary) hypertension; N95.9 Unspecified menopausal and perimenopausal disorder; R74.8 Abnormal levels of other serum enzymes; Z79.4 Long term (current) use of insulin
CPT/HCPCS: 36415; 80048

== ENCOUNTER 2022-12-03 11:39 | Outpatient (AMB) | payer MEDICARE, MEDICAID, SELFPAY ==
[2022-12-03 12:10] VITALS: BP 120/58; PULSE 73; O2SAT 98; BMI 31.4
--- NOTE | 2022-12-03 12:10 | A.OFFPC_ITS ---
Vital Signs 12/03/22 12:10 Height 5 ft 3 in Weight 177 lb 8 oz BMI 31.4 BP 120/58 L Blood Pressure Location Lt brachial Position Sitting Pulse 73 Pulse Source Pulse Oximeter Pulse Oximetry (%) 98 Oxygen Delivery Method Room Air Intake Visit Reasons: Annual Physical Intake Note: pt is here for PE Allergies codeine [CODEINE] Allergy (Intermediate, Verified 07/11/24 18:18) HIVES morphine [MORPHINE] Allergy (Intermediate, Verified 07/11/24 18:18) HIVES oxycodone [OXYCODONE] Allergy (Intermediate, Verified 07/11/24 18:18) HIVES Sulfa (Sulfonamide Antibiotics) [SULFA (SULFONAMIDE ANTIBIOTICS)] Allergy (Intermediate, Verified 07/11/24 18:18) DEHYDRATION, hives, hives OPIATES Allergy (Unknown, Uncoded 07/11/24 18:18) hives Medication List - Last Reconciled 12/03/22 by Jasmine Vasquez MD aspirin 81 mg PO DAILY atorvastatin 80 mg PO DAILY blood sugar diagnostic ([employer] Verio test strips) 3 times a day blood-glucose meter (Cater to uTouch Verio Flex Meter) 3 times a day famotidine-Ca carb-mag hydrox 10-800-165 mg (Acid Data Collection Technician Complete (famotidine)) 1 tab PO BEDTIME PRN hydrochlorothiazide 25 mg PO QAM insulin degludec (Tresiba FlexTouch U-100 insulin) 36 units (0.36 mL) subcut BEDTIME lancets (Cater to uTouch Delica Lancets) 3 times a day liraglutide (Victoza 3-Yoni) 1.2 mg (0.2 mL) subcut DAILY 90 days lisinopril 20 mg PO QAM metformin 500 mg PO BID 90 days metoprolol tartrate 50 mg PO BID pen needle, diabetic use for injecting med Twice a day triamcinolone acetonide 0.1% 1 appl topical BID 10 days Tobacco use date assessed: 12/03/22 Fall risk assessment: No Falls in past year Last assessed Fall Risk: 12/03/22 HPI Annual Physical HPI Details 77-year-old lady here history of diabete s mellitus, dyslipidemia, os teoarthritis, obesity, essential hypertension, atherosclerotic cardiovascular disease, here today for a physical examination. She is overdue to get her screening mammogram, last done in 2020, up-to-date with her screening colonoscopy done in 2014, with benign findings seen, repeat again in 2024. She is also overdue for diabetes retinopathy screening, and has not yet had her flu vaccine or shingles vaccine and does not want to get a COVID vaccine. [facility] Medical History (Updated 07/16/24 @ 13:38 by Ирина Arciniega APRN) Depression with anxiety Generalized anxiety disorder with panic attacks Arthritis of carpometacarpal (CMC) joint of right thumb Tenosynovitis of right wrist Dermatitis, contact Elevated vitamin B12 level Essential hypertension Atherosclerotic cardiovascular disease Obesity (BMI 30-39.9) Dyslipidemia 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 type 2 diabetes mellitus residential (current) use of insulin Spondylosis of lumbar region without myelopathy or radiculopathy Sacroiliitis Surgical History Stented coronary artery Hx of shoulder surgery History of back surgery Hx of section Hx of hysterectomy Hx of colonoscopy Family History Father Colon cancer Family history of prostate cancer in father Mother Diabetes CVA (cerebral vascular accident) Social History (Updated 07/11/24 @ 18:31 by Jasmine Vasquez MD) Housing: Apartment Alcohol intake: current Patient Tobacco Use Status: Former Tobacco user Years Smoked: 2 e-Cigarette/Vaping Use: Never Used Advance Directives Date on File: 06/01/24 service: No Current occupational status: retired Cognitive needs: No Hearing needs: No Vision needs: No Questionnaire PHQ-9 Over the last 2 weeks, how often have you been bothered by any of the following problems? 1. Little interest or pleasure in doing things: not at all 2. Feeling down, depressed, or hopeless: not at all 3. Trouble falling or staying asleep, or sleeping too much: not at all 4. Feeling tired or having little energy: several days 5. Poor appetite or overeating: not at all 6. Feeling bad about yourself - or that you are a failure or have let yourself or your family down: not at all 7. Trouble concentrating on things, such as reading the newspaper or watching television: not at all 8. Moving or speaking so slowly that other people could have noticed. Or the opposite - being so fidgety or restless that you have been moving around a lot more than usual: not at all 9. Thoughts that you would be better off or of hurting yourself in some way: not at all Total score: 1 Depression Screening Interpretation: Negative 37537 - PHQ-9 Billing: Yes Source: Developed by Drs. Golden Moe, Palma Sullivan, Deivn Orozco and colleagues, with an educational arlen from [employer]. Thrive Questionnaire Date Thrive assessed: 12/03/22 I am a: Patient What is your living situation today?: I have a steady place to live Within the past 12 months, did the food you bought not last and you didn't have the money to get more?: Never true Within the past 12 months, did you worry whether your food would run out before you got money to buy more?: Never true Do you have trouble paying for medicines?: No Do you have trouble getting transportation to medical appointments?: No Do you have trouble paying your heating and electricity bill?: No Do you have trouble taking care of your child, family member or friend?: No Do you have trouble with day-to-day activities such as bathing, preparing meals, shopping, managing finances, etc.?: No Are you currently unemployed and looking for a job?: No Are you interested in more education?: No SACHA-7 AMB Questionnaire SACHA-7 Date SACHA - 7 assessed: 12/03/22 Feeling nervous, anxious, or on edge: 0 = Not at all Not being able to stop or control worryin = Not at all Worrying too much about different things: 0 = Not at all Trouble relaxin = Not at all Being so restless that it is hard to sit still: 0 = Not at all Becoming easily annoyed or irritable: 0 = Not at all Feeling afraid as if something awful might happen: 0 = Not at all Total SACHA-7 score (0-4 normal; 5-9 mild; 10-14 moderate; 15-21 severe): 0 Source: Developed by Drs. Golden Moe, Palma Sullivan, Devin Orozco and colleagues, with an educational arlen from [employer]. SACHA-7 Assessment Billing SACHA-7 Assessment Tool: SACHA-7 Assessment 65530 Review of Systems Const Denies chills, Denies fever(s), Denies frequent falls, Denies weakness and Reports weight loss Eyes Denies change in vision ENT Denies dizziness Card Denies chest pain, Denies leg edema, Denies lightheadedness, Denies palpitations, Denies dyspnea, Denies dyspnea on exertion and Denies orthopnea Resp Denies cough, Denies dyspnea and Denies dyspnea on exertion GI Denies hematochezia and Denies change in bowel habits Denies genital pruritis, Denies dysuria, Reports urinary hesitancy and Reports urinary urgency Musc Reports as per HPI, Denies abnormal gait, Denies muscle weakness, Denies numbness and Denies tingling Skin/Breast Details: Complaining of pruritic rash underneath both breasts Neuro Denies abnormal gait, Denies dizziness, Denies frequent falls, Denies numbness, Denies tingling and Denies weakness Psych Reports no additional complaints Endo Denies palpitations Seymour/Lymph Reports no additional complaints Aller/Immun Reports no additional complaints Physical exam (Primary Care) Vital Signs: Last Vital Signs Pulse 73 12/03/22 12:10 BP 120/58 L 12/03/22 12:10 Pulse Ox 98 12/03/22 12:10 Oxygen Delivery Method Room Air 12/03/22 12:10 BMI result Body Mass Index 31.4 Tobacco/Smoking Status: Tobacco use Status Tobacco use date assessed 12/03/22 12/03/22 12:17 Patient Tobacco Use Status Former Tobacco user 12/03/22 12:17 e-Cigarette/Vaping Use Never Used 12/03/22 12:17 PHQ-9: PHQ-9 Score PHQ-9: Total score 1 12/03/22 12:45 Depression Screening Interpretation: Negative Thrive Assessment: Date of Thrive Assessment Date Thrive assessed 12/03/22 12/03/22 12:21 Const General: alert and awake Nutritional Appearance: obese Orientation/consciousness: patient oriented x3 HENMT Face and sinus: Yes face symmetric Mouth: Normal oral and palatal mucosa present, oropharynx normal and moist mucous membranes Eyes General: appearance normal, both eyes and all related structures Neck Other: Supple, full range of motion, no lymphadenopathy Resp Effort & Inspection: normal respiratory effort and able to speak in complete sentences Auscultation: clear to auscultation bilaterally Cardio Other: S1-S2 present regular rate and rhythm GI Palpation (GI): Soft to palpation, nontender, no guarding and no masses Back/Spine/Pelvis Back: No back tenderness Skin General skin exam: no rashes or lesions noted Neuro General: patient oriented x3, gait normal, tone normal, moves all extremities, Normal light touch and pain sensation, no focal motor deficits and CN's II-XI intact bilaterally Extrem General: Yes full ROM, Yes no joint enlargement, Yes no clubbing, cyanosis or edema, Yes no calf tenderness and Yes normal gait Psych Appearance: grossly normal and well kempt Mental Status: mental status grossly normal Speech and movement: Normal speech and movement present Affect: Sad affect present Attitude: cooperative Thought process: Normal thought process present Thought content: Normal thought content present Results Reviewed Results Reviewed: RUN: 12/03/22 1243 PAGE 1 [facility] [address] [place] [id number] [place] Operator: Ralf Watkins M.D. Specimen Inquiry Name: Savanna Fernandez Age/Sex: 77/F : 1945 Unit#: [id number] Attend Dr: Jasmine Vasquez MD Re11/27/22 Status: DEP [facility]F [facility] Disch: SPEC : [id number] JEFRY: 11/27/22 STATUS: COMP REQ : [id number] RECD: 11/27/[address]: Jasmine Vasquez MD COMP: 11/27/22 ENTERED: 11/27/22-[address]: ORDERED: Met Prof Fast Test Result Flag Reference Site Sodium 139 135-145 mmol/L Potassium 4.9 3.3-5.1 mmol/L CL 102 96-108 mmol/L CO2 30 H 22-29 mmol/L Gap 12 12-20 BUN 18 H 9-16 mg/dL Creat 1.05 0.5-1.4 mg/dL EGFR 51 NOTE: For -[place] individuals, multiply the result by 1.210. Chronic Kidney Disease: Estimated GFR < 60 mL/min/1.73m2 Severe Kidney Disease: Estimated GFR < 15 mL/min/1.73m2 FBS 106 H 60-99 mg/dL A fasting glucose from 100-125 mg/dl is considered impaired (pre-diabetes). CA 9.7 8.4-10.2 mg/dL Name: Savanna Fernandez Age/Sex: 77/F : 1945 Unit#: [id number] Attend Dr: Jasmine Vasquez MD Re09/23/22 Status: DEP REF Location: [facility] Disch: SPEC : [id number] JEFRY: 09/23/22-120 STATUS: COMP REQ : [id number] RECD: 09/23/22-[address]: Jasmine Vasquez MD COMP: 09/23/22-1445 ENTERED: 09/23/22-[address]: ORDERED: Met Prof Fast, AST, ALT, Lipid Panel, Vitamin D 25-OH Test Result Flag Reference Sodium 139 135-145 mmol/L Potassium 4.5 3.3-5.1 mmol/L CL 101 96-108 mmol/L CO2 29 22-29 mmol/L Gap 14 12-20 BUN 21 H 9-16 mg/dL Creat 1.18 0.5-1.4 mg/dL EGFR 44 NOTE: For -[place] individuals, multiply the result by 1.210. Chronic Kidney Disease: Estimated GFR < 60 mL/min/1.73m2 Severe Kidney Disease: Estimated GFR < 15 mL/min/1 .73m2 FBS 220 H 60-99 mg/dL A fasting glucose of 126 mg/dl or greater on more than one occasion is considered diagnostic of diabetes. CA 9.7 8.4-10.2 mg/dL AST (GOT) 19 5-31 U/L ALT (GPT) 20 0-31 U/L Triglyceride 118 mg/dL Desirable Triglyceride: less than 150 mg/dL Borderline High Triglyceride 150-199 mg/dL High Triglyceride: 200-499 mg/dL Very High Triglyceride: greater than or equal to 5OO mg/dL Chol 131 mg/dL Desirable Cholesterol: less than 200 mg/dL Borderline High Cholesterol: 200-239 mg/dL High Cholesterol: greater than 239 mg/dL LDL Calculated 66 mg/dl Desirable LDL: less than 100 mg/dL Near Optimal/Above Optimal LDL: 110-129 mg/dL Borderline High LDL: 130-159 mg/dL High LDL: 160-189 mg/dL Very High LDL: greater than or equal to 190 mg/dL HDL 42 mg/dL Desirable HDL: greater than 40 mg/dL Note: This HDL assay may give artificially low results in patients with liver disease. Vit D 25-OH Tot 68.7 >30 ng/mL Health Based Reference Values* < 20 ng/mL Deficient 20-30 ng/mL Insufficient > 30 ng/mL Sufficient *Alex MAYO. N Engl J Med. 2007;357:266-280 Care must be taken in interpreting Vitamin D results from different laboratories and methodologies. Published data demonstrated that results from patients undergoing hemodialysis may show a negative bias when tested with various automated 25-OH vitamin D assays when compared to LC-MS/MS. When testing samples from patients whose predominant form of Laboratory Tests 09/23/22 12:01 Vitamin B12 1024 H Laboratory Tests 09/23/22 12:01 Estimat Average Glucose 229 Hemoglobin A1c % 9.6 Coding Level of Care Code Est Pt Prev Care >65y(82589) Diagnoses Annual visit for general adult medical examination with abnormal findings Z00.01 Elevated vitamin B12 level R74.8 Obesity (BMI 30-39.9) E66.9 Essential hypertension I10 Dyslipidemia E78.5 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 type 2 diabetes mellitus E11.42 Additional Codes SACHA-7 Assessment Billing - SACHA-7 Assessment Tool: SACHA-7 Assessment 78425 ([id number])
== END 2022-12-03 13:07 | disposition home or self-care (01) ==
LOC: HO.HMGC 11:39
PROVIDERS: PCP Internal Medicine; Visit Provider Internal Medicine
DX: Z00.01 Encounter for general adult medical examination with abnormal findings (principal); R74.8 Abnormal levels of other serum enzymes; E66.9 Obesity, unspecified; I10 Essential (primary) hypertension; E78.5 Hyperlipidemia, unspecified; E11.42 Type 2 diabetes mellitus with diabetic polyneuropathy
CPT/HCPCS: 99499

== ENCOUNTER → 2022-12-24 12:55 | Outpatient (BNVA) | payer MEDICARE, MEDICAID, SELFPAY | PROVIDERS: PCP Internal Medicine; Referring Provider Internal Medicine; Visit Provider Internal Medicine | DX: I25.10 Atherosclerotic heart disease of native coronary artery without angina pectoris (principal); I10 Essential (primary) hypertension; E11.42 Type 2 diabetes mellitus with diabetic polyneuropathy; E78.5 Hyperlipidemia, unspecified; E67.8 Other specified hyperalimentation; Z79.82 Long term (current) use of aspirin; Z79.4 Long term (current) use of insulin; Z95.5 Presence of coronary angioplasty implant and graft | CPT/HCPCS: 93005; 99212 ==

== ENCOUNTER 2023-01-13 18:03 | Emergency (ER) | payer MEDICARE, MEDICAID, SELFPAY ==
--- NOTE | 2023-01-13 18:28 | ED_ITS ---
HPI - Extremity Injury (Upper) General Chief Complaint: Wound/Laceration <Romina Vigil NP - Last Filed: 01/13/23 18:34> Stated Complaint: right finger injury day <Romina Vigil NP - Last Filed: 01/13/23 18:34> Time Seen by Provider: 01/13/23 19:40 <Romina Vigil NP - Last Filed: 01/13/23 18:34> Source: patient and family (Spouse) <Adina Malin MD - Last Filed: 01/13/23 20:26> Mode of arrival: ambulatory <Adina Malin MD - Last Filed: 01/13/23 20:26> Limitations: no limitations <Adina Malin MD - Last Filed: 01/13/23 20:26> History of Present Illness HPI narrative: Right middle finger injury. Patient sliced her right middle finger in the mandoline while cooking causing skin fold region of the tip of the right 3rd middle finger and the tip of the nail of the finger causing the patient to bleed patient is not taking AC only take aspirin. <Adina Malin MD - Last Filed: 01/13/23 20:26> Related Data Home Medications: Home Medications Medication Instructions Recorded Confirmed aspirin 81 mg tablet,delayed 81 mg PO DAILY 06/15/20 12/24/22 release famotidine-Ca carb-mag hydrox 10 1 tab PO BEDTIME PRN 02/02/21 12/24/22 mg-800 mg-165 mg chewable tablet (Acid Mink Rancher Complete (famotidine)) Previous Rx's Medication Instructions Recorded blood-glucose meter (Surefire SocialTouch #1 ea 02/16/21 Verio Flex Meter) blood sugar diagnostic (Surefire SocialTouch #300 ea 02/01/22 Verio test strips) liraglutide 0.6 mg/0.1 mL (18 mg/3 1.2 mg (0.2 mL) subcut DAILY 90 02/19/22 mL) subcutaneous pen injector days #18 mL (Victoza 3-Yoni) lancets 33 gauge (Surefire SocialTouch Delica #300 ea 08/06/22 Lancets) hydrochlorothiazide 25 mg tablet 25 mg PO QAM #90 tabs 09/04/22 metoprolol tartrate 50 mg tablet 50 mg PO BID #180 tabs 11/05/22 pen needle, diabetic 31 gauge x #200 ea 11/05/22 3/16 atorvastatin 80 mg tablet 80 mg PO DAILY #90 tabs 12/03/22 insulin degludec 100 unit/mL (3 36 unit (0.36 mL) subcut BEDTIME 12/03/22 mL) subcutaneous pen (Tresiba #15 mL FlexTouch U-100 insulin) lisinopril 20 mg tablet 20 mg PO QAM #90 tabs 12/03/22 metformin 500 mg tablet 500 mg PO BID 90 days #180 tabs 12/03/22 <Romina Vigil NP - Last Filed: 01/13/23 18:34> Allergies/Adverse Reactions: Allergies Allergy/AdvReac Type Severity Reaction Status Date / Time codeine [CODEINE] Allergy Intermediate HIVES Verified 01/13/23 18:29 morphine [MORPHINE] Allergy Intermediate HIVES Verified 01/13/23 18:29 oxycodone [OXYCODONE] Allergy Intermediate HIVES Verified 01/13/23 18:29 Sulfa (Sulfonamide Allergy Intermediate DEHYDRATION, Verified 01/13/23 18:29 Antibiotics) hives, [SULFA (SULFONAMIDE hives ANTIBIOTICS)] OPIATES Allergy Unknown hives Uncoded 12/24/22 13:29 <Romina Vigil NP - Last Filed: 01/13/23 18:34> Review of Systems Review of Systems: All other systems are reviewed and are negative Constitutional: Reports as per HPI and Reports no additional constitutional complaints Eyes: Reports as per HPI and Reports no additional eye complaints Reports system reviewed and no additional complaints, except as documented Cardiovascular: Reports as per HPI and Reports no additional cardiovascular complaints Respiratory: Reports as per HPI and Reports no additional respiratory complaints Gastrointestinal: Reports as per HPI and Reports no additional gastrointestinal complaints Genitourinary: Reports no additional female genitourinary complaints Musculoskeletal: Reports no additional musculoskeletal complaints Skin/Breast: Reports system reviewed and no additional complaints, except as docu Psychiatric: Reports no additional psychiatric complaints Endocrine: Reports no additional endocrine complaints Hematologic/Lymphatic: Reports no additional hematologic/lymphatic complaints Allergic/Immunologic: Reports no additional allergic/immunologic complaints Reports system reviewed and no additional complaints, except as documented and Reports Abnormal speech present <Adina Malin MD - Last Filed: 01/13/23 20:26> [facility] Past Medical History Medical History: Medical History Atherosclerotic cardiovascular disease Dermatitis, contact 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 type 2 diabetes mellitus Dyslipidemia Elevated vitamin B12 level Essential hypertension [facility] (current) use of insulin Obesity (BMI 30-39.9) Sacroiliitis Spondylosis of lumbar region without myelopathy or radiculopathy <Romina Vigil NP - Last Filed: 01/13/23 18:34> Surgical History: Surgical History History of back surgery Hx of section Hx of colonoscopy Hx of hysterectomy Hx of shoulder surgery Stented coronary artery <Romina Vigil NP - Last Filed: 01/13/23 18:34> Family History Family History: Family History Father Colon cancer Family history of prostate cancer in father Mother Diabetes CVA (cerebral vascular accident) <Romina Vigil NP - Last Filed: 01/13/23 18:34> Social History Social History: Social History Household Members: Spouse Housing: Apartment Alcohol intake: current Patient Tobacco Use Status: Former Tobacco user Years Smoked: 2 e-Cigarette/Vaping Use: Never Used Advance Directives: No Advance Directives Information Provided: Yes service: No Current occupational status: retired Cognitive needs: No Hearing needs: No Vision needs: No <Romina Vigil NP - Last Filed: 01/13/23 18:34> Physical Exam Vital Signs: Vital Signs: Last Vital Signs Temp 97.8 F 01/13/23 18:29 Pulse 67 01/13/23 18:29 Resp 18 01/13/23 18:29 BP 146/59 H 01/13/23 18:29 Pulse Ox 98 01/13/23 18:29 O2 Del Method Room Air 01/13/23 18:29 BMI result Body Mass Index 32.9 <Romina Vigil NP - Last Filed: 01/13/23 18:34> Vital Signs: Last Vital Signs Temp 97.8 F 01/13/23 18:29 Pulse 67 01/13/23 18:29 Resp 18 01/13/23 18:29 BP 146/59 H 01/13/23 18:29 Pulse Ox 98 01/13/23 18:29 O2 Del Method Room Air 01/13/23 18:29 BMI result Body Mass Index 32.9 Vital signs have been reviewed as appeared to be correct. Blood pressure normal. Heart rate normal. Respiration rate normal. Temperature normal. Oxygen saturation normal. <Adina Malin MD - Last Filed: 01/13/23 20:26> Appearance: Alert. Oriented X3. No acute distress. Head: Normal external exam. Normocephalic. Atraumatic. No Hoffman signs noted. N o raccoon eyes noted Eyes: PERRLA. EOMI. Conjunctiva and sclera normal. Eyelids normal. ENT: TM's Normal. Pharynx normal. Uvula midline. Moist mucous membranes. No trismus noted. No drooling noted. No muffled voice noted. Neck: Normal inspection. Neck supple. FROM. No adenopathy. Thyroid Normal. No meningeal signs. No neck mass noted. CVS: Normal heart rate and rhythm. Heart sound normal. No murmurs noted. Pulses normal throughout. Respiratory: No respiratory distress. Painless inspiration. Breath sounds normal. No wheezes/rales/rhonchi noted. Chest nontender. No accessory muscle usage noted or decreased air movement noted. Abdomen: Soft and nontender. Bowel sounds normal in all 4 quadrants. No distention noted. No organomegaly noted. No visible injury noted. Back: No CVA tenderness. Full range of motion noted. Skin: Skin warm and dry. Normal skin color. Normal skin turgor. No rashes/lesions/lacerations noted. Extremities: Right middle finger with avulsion of 0.5 x 0.5 cm area at the tip of the finger causing active bleeding otherwise neurovascular exam is intact. Neuro: Oriented X 3. Cranial nerve exam: II-XII are grossly intact No motor deficit. No sensory deficit. Reflexes normal. <Adina Malin MD - Last Filed: 01/13/23 20:26> Course Course Course Narrative: This is a rapid medical exam. Deferred additional HPI, ROS, PE to primary provider. 77 yo female with history of DM, HTN, CAD w/ stents, HLD, right handed here with laceration to right hand 3rd digit from mandolin. Too the distal dorsal apsect here is a nail avulsion with active bleeding. Dressing reinforced. Tetanus status unknown. VSS <Romina Vigil NP - Last Filed: 01/13/23 18:34> Reevaluation(s) Reevaluation #1: 77-year-old female not on any AC has an avulsion injury to the tip of the right 3rd finger causing bleeding, bleeding is controlled with applying a pressure dressing on the finger. Missing skin on the tip of the finger suturing will not be an option. <Adina Malin MD - Last Filed: 01/13/23 20:26> Medications Administered Discontinued Medications Generic Name Dose Route Start Last Admin Trade Name Freq PRN Reason Stop Dose Admin Diphtheria/Tetanus/Acell Pertussis 0.5 ml 01/13/23 18:33 01/13/23 19:15 Diphth,Pertus(Acell),Tet Adult 0.5 Ml Syringe IM 01/13/23 18:34 0.5 ml .ONCE ONE Administration <Romina Vigil NP - Last Filed: 01/13/23 18:34> Medications Administered Discontinued Medications Generic Name Dose Route Start Last Admin Trade Name Freq PRN Reason Stop Dose Admin Diphtheria/Tetanus/Acell Pertussis 0.5 ml 01/13/23 18:33 01/13/23 19:15 Diphth,Pertus(Acell),Tet Adult 0.5 Ml Syringe IM 01/13/23 18:34 0.5 ml .ONCE ONE Administration <Adina Malin MD - Last Filed: 01/13/23 20:26> Medical Decision Making Differential Diagnosis Differential Diagnoses: The differential diagnosis associated with the presentation includes (Right finger laceration, bleeding controlled.) <Adina Malin MD - Last Filed: 01/13/23 20:26> Discharge Plan Discharge Clinical Impression: Finger laceration <Romina Vigil NP - Last Filed: 01/13/23 18:34> Patient Disposition: Home, Self-Care <Romina Vigil NP - Last Filed: 01/13/23 18:34> Instructions: Laceration (ED) <Romina Vigil NP - Last Filed: 01/13/23 18:34> Additional Instructions: Do not remain with the dressing from the finger, return to the emergency department in 2 days for dressing removal. <Romina Vigil NP - Last Filed: 01/13/23 18:34> Prescriptions: No Action (DME) blood-glucose meter [OneTouch Verio Flex meter] Misc See Rx Instructions .ROUTE .MEDSUPPLY Qty: 1 0RF Rx Instructions: 3 times a day (DME) OneTouch Verio test strips Strip See Rx Instructions .MEDSUPPLY Qty: 300 2RF Rx Instructions: 3 times a day Victoza 3-Yoni 0.6 mg/0.1 mL (18 mg/3 mL) pen injector 1.2 mg subcut DAILY 90 Days Qty: 18 2RF (DME) lancets [OneTouch Delica Lancets] 33 gauge misc See Rx Instructions miscellaneous .MEDSUPPLY Qty: 300 0RF Rx Instructions: 3 times a day hydrochlorothiazide 25 mg tablet 25 mg PO QAM Qty: 90 1RF metoprolol tartrate 50 mg tablet 50 mg PO BID Qty: 180 1RF (DME) pen needle, diabetic 31 gauge x 3/16 needle See Rx Instructions subcut BID Qty: 200 1RF Rx Instructions: use for injecting med Twice a day atorvastatin 80 mg tablet 80 mg PO DAILY Qty: 90 3RF Tresiba FlexTouch U-100 100 unit/mL (3 mL) insulin pen 36 unit subcut BEDTIME Qty: 15 5RF lisinopril 20 mg tablet 20 mg PO QAM Qty: 90 3RF metformin 500 mg tablet 500 mg PO BID 90 Days Qty: 180 3RF Acid Mink Rancher Complete (famot) 10-800-165 mg tablet,chewable 1 tab PO BEDTIME PRN aspirin 81 mg tablet,delayed release (DR/EC) 81 mg PO DAILY <Romina Vigil NP - Last Filed: 01/13/23 18:34>
[2023-01-13 18:29] VITALS: BP 146/59; PULSE 67; RESP 18; TEMP 36.6; O2SAT 98; BMI 32.9
[2023-01-13] MEDS: Diphth,Pertus(ACell),Tet Adult 0.5 ML SYRINGE IM (19:15)
== END 2023-01-13 20:43 | disposition home or self-care (01) ==
PROVIDERS: Emergency Provider Emergency Medicine; PCP Internal Medicine
DX: S61.212A Laceration without foreign body of right middle finger without damage to nail, initial encounter (principal); S60.412A Abrasion of right middle finger, initial encounter; X58.XXXA Exposure to other specified factors, initial encounter; Y93.9 Activity, unspecified; Y92.9 Unspecified place or not applicable; Y99.9 Unspecified external cause status; Z87.891 Personal history of nicotine dependence; Z79.899 Other long term (current) drug therapy; Z23 Encounter for immunization
CPT/HCPCS: 90471; 90715; 99282; 99284

== ENCOUNTER 2023-01-15 13:56 | Emergency (ER) | payer MEDICARE, MEDICAID, SELFPAY ==
[2023-01-15 14:47] VITALS: BP 93/75; PULSE 72; RESP 18; TEMP 36.7; O2SAT 98; BMI 32.1
--- NOTE | 2023-01-15 14:51 | ED.WOUNDLAC ---
HPI - Wound/Laceration General Chief Complaint: Wound/Laceration Stated Complaint: R middle finger laceration/ redress wound? Time Seen by Provider: 01/15/23 14:58 Source: patient Mode of arrival: ambulatory Limitations: no limitations History of Present Illness HPI narrative: Patient is a 77 yo F with a PMH of diabetes presenting for a dressing change of her finger. She was here on the 15 after being cut by a mandellin and had a dressing put on at that time. There was an alvusion and she was instructed to come back in two days for a dressing chanfe and wound inspection. She has ongoing pain, but no bleeding through the dressing. Onset (ago): day(s) (2) Extremity Location: right: hand Place: home Context: accidental Treatments prior to arrival: bandage Related Data Home Medications Medication Instructions Recorded Confirmed aspirin 81 mg tablet,delayed 81 mg PO DAILY 06/15/20 12/24/22 release famotidine-Ca carb-mag hydrox 10 1 tab PO BEDTIME PRN 02/02/21 12/24/22 mg-800 mg-165 mg chewable tablet (Acid Body Straightener Complete (famotidine)) Previous Rx's Medication Instructions Recorded blood-glucose meter (SocialExpressTouch #1 ea 02/16/21 Verio Flex Meter) blood sugar diagnostic (OneTouch #300 ea 02/01/22 Verio test strips) liraglutide 0.6 mg/0.1 mL (18 mg/3 1.2 mg (0.2 mL) subcut DAILY 90 02/19/22 mL) subcutaneous pen injector days #18 mL (Victoza 3-Yoni) lancets 33 gauge (OneTouch Delica #300 ea 08/06/22 Lancets) hydrochlorothiazide 25 mg tablet 25 mg PO QAM #90 tabs 09/04/22 metoprolol tartrate 50 mg tablet 50 mg PO BID #180 tabs 11/05/22 pen needle, diabetic 31 gauge x #200 ea 11/05/2211/14 atorvastatin 80 mg tablet 80 mg PO DAILY #90 tabs 12/03/22 insulin degludec 100 unit/mL (3 36 unit (0.36 mL) subcut BEDTIME 12/03/22 mL) subcutaneous pen (Tresiba #15 mL FlexTouch U-100 insulin) lisinopril 20 mg tablet 20 mg PO QAM #90 tabs 12/03/22 metformin 500 mg tablet 500 mg PO BID 90 days #180 tabs 12/03/22 Allergies Allergy/AdvReac Type Severity Reaction Status Date / Time codeine [CODEINE] Allergy Intermediate HIVES Verified 01/15/23 14:57 morphine [MORPHINE] Allergy Intermediate HIVES Verified 01/15/23 14:57 oxycodone [OXYCODONE] Allergy Intermediate HIVES Verified 01/15/23 14:57 Sulfa (Sulfonamide Allergy Intermediate DEHYDRATION, Verified 01/15/23 14:57 Antibiotics) hives, [SULFA (SULFONAMIDE hives ANTIBIOTICS)] OPIATES Allergy Unknown hives Uncoded 12/24/22 13:29 Review of Systems Review of Systems: Yes all other systems are reviewed and are negative PMFSH Past Medical History Medical History Atherosclerotic cardiovascular disease Dermatitis, contact 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 type 2 diabetes mellitus Dyslipidemia Elevated vitamin B12 level Essential hypertension residential (current) use of insulin Obesity (BMI 30-39.9) Sacroiliitis Spondylosis of lumbar region without myelopathy or radiculopathy Surgical History History of back surgery Hx of section Hx of colonoscopy Hx of hysterectomy Hx of shoulder surgery Stented coronary artery Family History Family History Father Colon cancer Family history of prostate cancer in father Mother Diabetes CVA (cerebral vascular accident) Social History Social History Household Members: Spouse Housing: Apartment Alcohol intake: current Patient Tobacco Use Status: Former Tobacco user Years Smoked: 2 e-Cigarette/Vaping Use: Never Used Advance Directives: No Advance Directives Information Provided: No service: No Current occupational status: retired Cognitive needs: No Hearing needs: No Vision needs: No Physical Exam Vital Signs: Vital Signs: Last Vital Signs Temp 98.0 F 01/15/23 14:47 Pulse 72 01/15/23 14:47 Resp 18 01/15/23 14:47 BP 93/75 01/15/23 14:47 Pulse Ox 98 01/15/23 14:47 O2 Del Method Room Air 01/15/23 14:47 BMI result Body Mass Index 32.1 Appearance: Alert. Oriented X3. No acute distress. HEENT: normal inspection CVS: Normal heart rate and rhythm. Pulses normal. Respiratory: No respiratory distress. Skin: Right index finger was in a dressing. The finger was bloody when the dressing was removed and there was a tip avulsion not involving the nail, no active bleeding, non-erythematous and non-infectious appearing Neuro: Oriented X 3. No motor deficit. No sensory deficit. Medical Decision Making Medical Decision Making [facility] Narrative: We took the dressing down, redressed it, and sent her ome with wound care supplies. The finger does not appear infected, so she does not need antibiotics. Differential Diagnosis Differential Diagnoses: The differential diagnosis associated with the presentation includes appropriate wound healing delayed wound healing acute wound infection Discharge Plan Discharge Clinical Impression: Avulsion of skin Patient Disposition: Home, Self-Care Instructions: Skin Avulsion (ED) Additional Instructions: Change the dressing daily similar to what we did the ER - small piece of the yellow gauze, followed by nonstick gauze and gentle wrap Allow the wound to be open to air for a few hours between dressing changes so it can dry out. If you develop new or worsening symptoms call 911 or come back to the ER for further evaluation. Prescriptions: No Action (DME) blood-glucose meter [OneTouch Verio Flex meter] Mis See Rx Instructions .ROUTE .MEDSUPPLY Qty: 1 0RF Rx Instructions: 3 times a day (DME) OneTouch Verio test strips Strip See Rx Instructions .MEDSUPPLY Qty: 300 2RF Rx Instructions: 3 times a day Victoza 3-Yoni 0.6 mg/0.1 mL (18 mg/3 mL) pen injector 1.2 mg subcut DAILY 90 Days Qty: 18 2RF (DME) lancets [OneTouch Delica Lancets] 33 gauge misc See Rx Instructions miscellaneous .MEDSUPPLY Qty: 300 0RF Rx Instructions: 3 times a day hydrochlorothiazide 25 mg tablet 25 mg PO QAM Qty: 90 1RF metoprolol tartrate 50 mg tablet 50 mg PO BID Qty: 180 1RF (DME) pen needle, diabetic 31 gauge x 3/16 needle See Rx Instructions subcut BID Qty: 200 1RF Rx Instructions: use for injecting med Twice a day atorvastatin 80 mg tablet 80 mg PO DAILY Qty: 90 3RF Tresiba FlexTouch U-100 100 unit/mL (3 mL) insulin pen 36 unit subcut BEDTIME Qty: 15 5RF lisinopril 20 mg tablet 20 mg PO QAM Qty: 90 3RF metformin 500 mg tablet 500 mg PO BID 90 Days Qty: 180 3RF Acid Body Straightener Complete (famot) 10-800-165 mg tablet,chewable 1 tab PO BEDTIME PRN aspirin 81 mg tablet,delayed release (DR/EC) 81 mg PO DAILY Interventions: ED Discharge Assessment Last Done: 01/15/23 15:08 Discharge Date/Time: 01/15/23 15:10
== END 2023-01-15 15:10 | disposition home or self-care (01) ==
LOC: HO.ED 15:08
PROVIDERS: Emergency Provider Student in an Organized Health Care Education/Training Program; PCP Internal Medicine
DX: S61.202A Unspecified open wound of right middle finger without damage to nail, initial encounter (principal); X58.XXXA Exposure to other specified factors, initial encounter; Y93.9 Activity, unspecified; Y92.9 Unspecified place or not applicable; Y99.9 Unspecified external cause status; Z79.899 Other long term (current) drug therapy; Z87.891 Personal history of nicotine dependence
CPT/HCPCS: 99282

== ENCOUNTER 2023-03-31 10:15 | Outpatient (REF) | payer MEDICARE, MEDICAID, SELFPAY ==
[2023-03-31 14:24] LABS: Creatinine Urine 146.13 mg/dL; Microalbum/Creatinine Ratio Ur 19.1 ug/mg cr
[2023-03-31 14:42] LABS: Folate 7.5 ng/mL (> or = 4.0); Vitamin B12 776 pg/mL (200-900)
[2023-03-31 14:52] LABS: Estimated Average Glucose 223 mg/dL; Hemoglobin A1c % 9.4 %
[2023-03-31 14:58] LABS: Alanine Aminotransferase 25 U/L (0-31); Anion Gap 17 (12-20); Aspartate Amino Transferase 22 U/L (5-31); Blood Urea Nitrogen 25 mg/dL (9-16); Calcium 10.3 mg/dL (8.4-10.2); Carbon Dioxide 25 mmol/L (22-29); Chloride 99 mmol/L (96-108); Cholesterol 115 mg/dL; Estimated Glomerular Filt Rate 34; Glucose Fasting 327 mg/dL (60-99); HDL Cholesterol 34 mg/dL; LDL Cholesterol Calculated 51 mg/dl; Potassium 4.7 mmol/L (3.3-5.1); Sodium 136 mmol/L (135-145); Triglycerides 153 mg/dL; Vitamin D 25-OH Total 52.9 ng/mL (>30)
== END 2023-03-31 10:16 | disposition home or self-care (01) ==
LOC: HO.HMGCLDS 10:15
PROVIDERS: PCP Internal Medicine; Visit Provider Internal Medicine
DX: E11.42 Type 2 diabetes mellitus with diabetic polyneuropathy (principal); E66.9 Obesity, unspecified; E78.5 Hyperlipidemia, unspecified; I10 Essential (primary) hypertension; R74.8 Abnormal levels of other serum enzymes; Z78.0 Asymptomatic menopausal state
CPT/HCPCS: 36415; 80048; 80061; 82043; 82306; 82607; 82746; 83036; 84450; 84460

== ENCOUNTER 2023-04-02 11:55 | Outpatient (AMB) | payer MEDICARE, MEDICAID, SELFPAY ==
--- NOTE | 2023-04-02 12:53 | A.OFFPC_ITS ---
Vital Signs 04/02/23 12:54 Height 5 ft 3 in Weight 174 lb BMI 30.8 BP 118/62 Blood Pressure Location Lt brachial Position Sitting Pulse 48 L Pulse Source Pulse Oximeter Pulse Oximetry (%) 98 Oxygen Delivery Method Room Air Intake Visit Reasons: follow up Intake Note: Pt is here today for her f/u lab results Allergies codeine [CODEINE] Allergy (Intermediate, Verified 04/02/23 13:26) HIVES morphine [MORPHINE] Allergy (Intermediate, Verified 04/02/23 13:26) HIVES oxycodone [OXYCODONE] Allergy (Intermediate, Verified 04/02/23 13:26) HIVES Sulfa (Sulfonamide Antibiotics) [SULFA (SULFONAMIDE ANTIBIOTICS)] Allergy (Intermediate, Verified 04/02/23 13:26) DEHYDRATION, hives, hives OPIATES Allergy (Unknown, Uncoded 04/02/23 13:26) hives Medication List - Last Reconciled 04/02/23 by Jasmine Vasquez MD aspirin 81 mg PO DAILY atorvastatin 80 mg PO DAILY blood sugar diagnostic ([employer] Verio test strips) 3 times a day blood-glucose meter ([employer] Verio Flex Meter) 3 times a day clotrimazole-betamethasone 1-0.05 % 1 appl topical BID 10 days famotidine-Ca carb-mag hydrox 10-800-165 mg (Acid Chemical Sprayer Complete (famotidine)) 1 tab PO BEDTIME PRN hydrochlorothiazide 25 mg PO QAM insulin degludec (Tresiba FlexTouch U-100 insulin) 42 units (0.42 mL) subcut BEDTIME lancets (GoGo TechTouch Delica Lancets) 3 times a day liraglutide (Victoza 3-Yoni) 1.2 mg (0.2 mL) subcut DAILY 90 days lisinopril 20 mg PO QAM metformin 500 mg PO BID 90 days metoprolol tartrate 50 mg PO BID pen needle, diabetic use for injecting med Twice a day Tobacco use date assessed: 04/02/23 Fall risk assessment: No Falls in past year Last assessed Fall Risk: 04/02/23 Dental Screening Dental Screen Date: 04/02/23 Did you have a dental visit in the last 12 months?: Yes Did you have a dental problem in the last 6 months where you did not have access to dental care?: Yes Was dental information given to patient?: Patient has dentist HPI follow up HPI Details 77-year-old lady here today for follow-up on her lipids and diabetes mellitus, currently taking atorvastatin 80 mg daily, and on Victoza 1.2 mg once a day, metformin 500 mg twice a day and takes lisinopril 20 mg daily in a.m. and metoprolol tartrate 50 mg twice a day. She however has not been will compliant with diet and has been staying sedentary, no exercise at all. He also states that she has been forgetting to take her evening does specially her 2nd dose of metformin. Latest fasting labs showed serum creatinine 1.5 with a GFR at 34, marked change from previous, hemoglobin A1c is at 9.4% with fasting lipids within normal limits. Complains of a pruritic rash that is underneath both breasts present now for the last several days. 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 Obesity (BMI 30-39.9) Sacroiliitis Spondylosis of lumbar region without myelopathy or radiculopathy Tenosynovitis of right wrist Surgical History History of back surgery Hx of section Hx of colonoscopy Hx of hysterectomy Hx of shoulder surgery Stented coronary artery Family History Father Colon cancer Family history of prostate cancer in father Mother Diabetes CVA (cerebral vascular accident) Social History Household Members: Spouse Housing: Apartment Alcohol intake: current Patient Tobacco Use Status: Former Tobacco user Years Smoked: 2 e-Cigarette/Vaping Use: Never Used service: No Current occupational status: retired Cognitive needs: No Hearing needs: No Vision needs: No Questionnaire Thrive Questionnaire Date Thrive assessed: 12/03/22 AUDIT C Alcohol Use Questionnaire (AUDIT-C) 1. How often do you have a drink containing alcohol?: Never Total Score: 0 SACHA-7 AMB Questionnaire SACHA-7 Date SACHA - 7 assessed: 12/03/22 Source: Developed by Drs. Golden Moe, Palma Sullivan, Devin Orozco and colleagues, with an educational arlen from [employer]. Review of Systems Const Denies chills, Denies fever(s), Denies frequent falls, Denies weakness and Reports weight loss Eyes Denies change in vision ENT Denies dizziness Card Denies chest pain, Denies leg edema, Denies lightheadedness, Denies palpitations, Denies dyspnea, Denies dyspnea on exertion and Denies orthopnea Resp Denies cough, Denies dyspnea and Denies dyspnea on exertion GI Denies hematochezia and Denies change in bowel habits Denies genital pruritis, Denies dysuria, Reports urinary hesitancy and Reports urinary urgency Musc Reports as per HPI, Denies abnormal gait, Denies muscle weakness, Denies numbness and Denies tingling Skin/Breast Details: Complaining of pruritic rash underneath both breasts Neuro Denies abnormal gait, Denies dizziness, Denies frequent falls, Denies numbness, Denies tingling and Denies weakness Psych Reports no additional complaints Endo Denies palpitations Seymour/Lymph Reports no additional complaints Aller/Immun Reports no additional complaints Physical exam (Primary Care) Vital Signs: Last Vital Signs Pulse 48 L 04/02/23 12:54 BP 118/62 04/02/23 12:54 Pulse Ox 98 04/02/23 12:54 Oxygen Delivery Method Room Air 04/02/23 12:54 BMI result Body Mass Index 30.8 BMI Assessment/Plan discussion: High BMI High, discussed plan: lifestyle, weight reduction, dietary and physical activity Tobacco/Smoking Status: Tobacco use Status Tobacco use date assessed 04/02/23 04/02/23 12:57 Patient Tobacco Use Status Former Tobacco user 04/02/23 12:57 e-Cigarette/Vaping Use Never Used 04/02/23 12:57 Thrive Assessment: Date of Thrive Assessment Date Thrive assessed 12/03/22 04/02/23 12:57 Const Other: Alert oriented x3, no acute distress noted ambulatory with normal gait, able to get up and walk without any assistance, present in room Nutritional Appearance: obese Orientation/consciousness: patient oriented x3 HENTX Ears: hearing grossly normal bilaterally and external ears normal General nose exam: Normal external nose present and No nasal discharge present Face and sinus: Yes face symmetric Mouth: Normal oral and palatal mucosa present, tongue normal, oropharynx normal and moist mucous membranes Eyes General: appearance normal, both eyes and all related structures Neck Other: Supple, full range of motion, no lymphadenopathy Chest Other: Erythematous moist patch underneath both breasts Chest palpation & inspection: normal inspection of the chest Breast/axilla inspection: normal inspection of the breasts Breast/axilla palpation: normal palpation of the breasts Resp Effort & Inspection: normal respiratory effort and able to speak in complete sentences Auscultation: clear to auscultation bilaterally Cardio Other: S1-S2 present regular rate and rhythm GI Palpation (GI): Soft to palpation, nontender, no guarding and no masses General: Yes no CVA tenderness Back/Spine/Pelvis Back: no CVA tenderness and No back tenderness Skin Other: Erythematous moist patch underneath both breasts Neuro General: patient oriented x3, gait normal, tone normal, moves all extremities, N ormal light touch and pain sensation, no focal motor deficits and CN's II-XI intact bilaterally Extrem Other: Tenderness on palpation over right MCP joint, with aching sitting hyper flexion and extension of right thumb, positive Yulisa's test General: Yes full ROM, Yes no joint enlargement, Yes no clubbing, cyanosis or edema, Yes no calf tenderness and Yes normal gait Results Reviewed Results Reviewed: SPEC : [id number] JEFRY: 03/31/23 STATUS: COMP REQ : [id number] RECD: 03/31/[address]: Jasmine Vasquez MD COMP: 03/31/23 ENTERED: 03/31/231025 OTHR DR: ORDERED: Met Prof Fast, AST, ALT, Lipid Panel, Vitamin D 25-OH Test Result Flag Reference Site Sodium 136 135-145 mmol/L Potassium 4.7 3.3-5.1 mmol/L CL 99 96-108 mmol/L CO2 25 22-29 mmol/L Gap 17 12-20 BUN 25 H 9-16 mg/dL Creat 1.50 H 0.5-1.4 mg/dL EGFR 34 NOTE: For -[place] individuals, multiply the result by 1.210. Chronic Kidney Disease: Estimated GFR < 60 mL/min/1.73m2 Severe Kidney Disease: Estimated GFR < 15 mL/min/1.73m2 FBS 327 H 60-99 mg/dL A fasting glucose of 126 mg/dl or greater on more than one occasion is considered diagnostic of diabetes. CA 10.3 # H 8.4-10.2 mg/dL AST (GOT) 22 5-31 U/L ALT (GPT) 25 0-31 U/L Triglyceride 153 mg/dL Desirable Triglyceride: less than 150 mg/dL Borderline High Triglyceride 150-199 mg/dL High Triglyceride: 200-499 mg/dL Very High Triglyceride: greater than or equal to 5OO mg/dL Chol 115 mg/dL Desirable Cholesterol: less than 200 mg/dL Borderline High Cholesterol: 200-239 mg/dL High Cholesterol: greater than 239 mg/dL LDL Calculated 51 mg/dl Desirable LDL: less than 100 mg/dL Near Optimal/Above Optimal LDL: 110-129 mg/dL Borderline High LDL: 130-159 mg/dL High LDL: 160-189 mg/dL Very High LDL: greater than or equal to 190 mg/dL HDL 34 mg/dL Desirable HDL: greater than 40 mg/dL Note: This HDL assay may give artificially low results in patients with liver disease. Vit D 25-OH Tot 52.9 >30 ng/mL Health Based Reference Values* < 20 ng/mL Deficient 20-30 ng/mL Insufficient > 30 ng/mL Sufficient Laboratory Tests 03/31/23 03/31/23 10:24 10:26 Estimat Average Glucose 223 Hemoglobin A1c % 9.4 Urine Creatinine 146.13 Urine Microalbumin 28.0 Microalb/Creat Ratio 19.1 Assessment and Plan Assessment & Plan (1) Obesity (BMI 30-39.9): Code(s): E66.9 - Obesity, unspecified Plan: Discussed need to increase activity and wt reduction. Recommended focusing on improving your health instead of dieting. : Eat Mediterranean diet, limit foods high in fat, sugar, and calories, eat slowly, pay attention to portion sizes, plan your meals ahead of time, start regular physical activity 150 minutes of moderate intensity exercise or 90 minutes/week of vigorous exercise and increase water intake. (2) Essential hypertension: Code(s): I10 - Essential (primary) hypertension Plan: Blood pressure at goal of less than 130/80. Continue with current medication. Reinforced importance of following a low sodium diet, getting regular exercise, and lowering stress levels. 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 Referred to double end chucking machine operator for guidance with diet and how to manage diabetes (5) Dyslipidemia: Code(s): E78.5 - Hyperlipidemia, unspecified Plan: Reviewed recent fasting lipid profile with patient with levels within normal limit . Continue with atorvastatin 80 mg daily , in addition to adherence to low-cholesterol diet and regular exercise, at least 30 minutes 3 to 4 times a week. Advised patient to make healthy food choices, eat more fruits, vegetables, whole grains, wild caught fish and low-fat dairy. Limit amount of meat and fried or fatty food products, as well as processed foods and fast foods. Follow-up scheduled with repeat fasting lipid panel in 3 months. (6) Pruritic intertrigo: Code(s): L30.4 - Erythema intertrigo Plan: Prescription sent for clotrimazole-betamethasone cream to apply sparingly to affected areas under both breasts twice a day for no more than 10 days. Apply to clean dry areas, (7) Tenosynovitis of right wrist: Code(s): M65.9 - Synovitis and tenosynovitis, unspecified Plan: Referred to orthopedics (8) Urinary frequency: Code(s): R35.0 - Frequency of micturition Plan: Urine analysis with reflex culture ordered (9) Decreased GFR: Code(s): R94.4 - Abnormal results of kidney function studies Plan: Reached Tyrel another BMP in a month, advised to stay well-hydrated, avoid NSAIDs Orders: Orders UA CC w/rflx Micro + Cult Today R35.0 - Frequency of micturition Basic Metabolic Panel Fasting Today R94.4 - Abnormal results of kidney function studies Hemoglobin A1c 3 Months E11.42 - Type 2 diabetes mellitus with diabetic polyneuropathy, E66.9 - Obesity, unspecified, E78.5 - Hyperlipidemia, unspecified, I10 - Essential (primary) hypertension Lipid Panel 3 Months E11.42 - Type 2 diabetes mellitus with diabetic polyneuropathy, E66.9 - Obesity, unspecified, E78.5 - Hyperlipidemia, unspecified, I10 - Essential (primary) hypertension Basic Metabolic Panel Fasting 3 Months E11.42 - Type 2 diabetes mellitus with diabetic polyneuropathy, E66.9 - Obesity, unspecified, E78.5 - Hyperlipidemia, unspecified, I10 - Essential (primary) hypertension Alanine Aminotransferase 3 Months E11.42 - Type 2 diabetes mellitus with diabetic polyneuropathy, E66.9 - Obesity, unspecified, E78.5 - Hyperlipidemia, unspecified, I10 - Essential (primary) hypertension Aspartate Amino Transferase 3 Months E11.42 - Type 2 diabetes mellitus with diabetic polyneuropathy, E66.9 - Obesity, unspecified, E78.5 - Hyperlipidemia, unspecified, I10 - Essential (primary) hypertension Referrals Orthopedics Referral M65.9 - Synovitis and tenosynovitis, unspecified Medications: New clotrimazole-betamethasone 1-0.05 % 1 appl topical BID 45 grams 0RF 10 days L30.4 - Erythema intertrigo Changed From pen needle, diabetic use for injecting med Twice a day 200 ea 1RF E11.65 - Type 2 diabetes mellitus with hyperglycemia To pen needle, diabetic use for injecting med Twice a day E11.65 - Type 2 diabetes mellitus with hyperglycemia From insulin degludec (Tresiba FlexTouch U-100 insulin) 36 units (0.36 mL) subcut BEDTIME 15 mL 5RF E11.65 - Type 2 diabetes mellitus with hyperglycemia To insulin degludec (Tresiba FlexTouch U-100 insulin) 42 units (0.42 mL) subcut BEDTIME 15 mL 5RF E11.65 - Type 2 diabetes mellitus with hyperglycemia Coding Level of Care Code Est Pt Level 4 (98483) Diagnoses Obesity (BMI 30-39.9) E66.9 Essential hypertension I10 shelter (current) use of insulin Z79.4 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 type 2 diabetes mellitus E11.42 Dyslipidemia E78.5 Pruritic intertrigo L30.4 Tenosynovitis of right wrist M65.9 Urinary frequency R35.0 Decreased GFR R94.4
[2023-04-02 12:54] VITALS: BP 118/62; PULSE 48; O2SAT 98; BMI 30.8
== END 2023-04-02 14:02 | disposition home or self-care (01) ==
PROVIDERS: Visit Provider Internal Medicine
DX: E11.42 Type 2 diabetes mellitus with diabetic polyneuropathy (principal); Z79.4 Long term (current) use of insulin; E66.9 Obesity, unspecified; Z68.30 Body mass index [BMI] 30.0-30.9, adult; I10 Essential (primary) hypertension; E78.5 Hyperlipidemia, unspecified; L30.4 Erythema intertrigo; M65.9 Synovitis and tenosynovitis, unspecified; R35.0 Frequency of micturition; R94.4 Abnormal results of kidney function studies
CPT/HCPCS: 99214

== ENCOUNTER 2023-04-02 13:45 | Outpatient (REF) | payer MEDICARE, MEDICAID, SELFPAY ==
[2023-04-02 16:28] LABS: Appearance Urine Turbid; Color Urine Yellow; Glucose Urine UA 500 mg/dL (Negative); Leukocyte Esterase Urine Large (3+) (Negative); Nitrite Urine Positive (Negative); PH 5.5 (5.0-9.0); UMIC TRIGGER UACC YES; Urine Blood Small (1+) (Negative); Urine Ketones Negative (Negative); Urine Protein 30 (1+) mg/dL (Neg-Trace)
[2023-04-02 16:32] LABS: Anion Gap 16 (12-20); Blood Urea Nitrogen 19 mg/dL (9-16); Calcium 9.6 mg/dL (8.4-10.2); Carbon Dioxide 24 mmol/L (22-29); Chloride 100 mmol/L (96-108); Estimated Glomerular Filt Rate 41; Glucose Fasting 242 mg/dL (60-99); Sodium 136 mmol/L (135-145)
[2023-04-02 16:49] LABS: Bacteria Urine 4+ (None Seen); Hyaline Casts Urine 0-2 /LPF (0-2); UACC Culture Trigger YES; WBC Urine >50 /HPF (0-5)
== END 2023-04-02 13:46 | disposition home or self-care (01) ==
LOC: HO.HMGCLDS 13:45
PROVIDERS: PCP Internal Medicine; Visit Provider Internal Medicine
DX: R94.4 Abnormal results of kidney function studies (principal); R35.0 Frequency of micturition
CPT/HCPCS: 36415; 80048; 81001; 87086; 87088; 87186

== ENCOUNTER 2023-04-30 10:10 | Outpatient (REF) | payer MEDICARE, MEDICAID, SELFPAY ==
--- NOTE | ~2023-04-30 | XR_ITS ---
EXAMINATION: XR WRIST, RIGHT XR HAND, RIGHT CLINICAL INFORMATION: Primary osteoarthritis COMPARISON: None available. TECHNIQUE: PA, lateral, and oblique views of the right wrist and PA, lateral, and oblique views of the right hand FINDINGS: RIGHT WRIST: Mineralization is normal. There is no fracture or dislocation. The joint spaces appear preserved. There is minimal marginal spurring at the distal interphalangeal joints. No erosive changes are seen. There is no focal soft tissue swelling. RIGHT HAND: Mineralization is normal. There is no fracture or malalignment. There is joint space narrowing and subchondral sclerosis at the first carpometacarpal joint. The other joint spaces are preserved. No erosive changes are seen. There is no focal soft tissue swelling. XR/XR hand wrist RT IMPRESSION: Mild degenerative arthritis in the distal interphalangeal joints. Moderate degenerative arthritis at the first carpometacarpal joint.
== END 2023-04-30 10:11 | disposition home or self-care (01) ==
LOC: HO.HOSX 10:10
PROVIDERS: PCP Internal Medicine; Visit Provider Physical Medicine & Rehabilitation
DX: M19.041 Primary osteoarthritis, right hand (principal); M65.9 Synovitis and tenosynovitis, unspecified
CPT/HCPCS: 73110; 73130; 99202

== ENCOUNTER 2023-04-30 10:10 | Outpatient (AMB) | payer MEDICARE, MEDICAID, SELFPAY ==
[2023-04-30 10:13] VITALS: BMI 30.8
--- NOTE | 2023-04-30 10:13 | A.OFFVIS_ITS ---
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 Patient reports that she has had ongoing right wrist pain for about a month now with no injury. No previous treatment. She was wearing a brace that she purchased over the counter, which she does report offered mild releif. She does not take anything currently for her pain. Denies numbness and tingling Allergies codeine [CODEINE] Allergy (Intermediate, Verified 04/02/23 13:26) HIVES morphine [MORPHINE] Allergy (Intermediate, Verified 04/02/23 13:26) HIVES oxycodone [OXYCODONE] Allergy (Intermediate, Verified 04/02/23 13:26) HIVES Sulfa (Sulfonamide Antibiotics) [SULFA (SULFONAMIDE ANTIBIOTICS)] Allergy (Intermediate, Verified 04/02/23 13:26) DEHYDRATION, hives, hives OPIATES Allergy (Unknown, Uncoded 04/02/23 13:26) hives HPI HPI Comments History of Present Illness Details 1 month of right thumb/wrist pain. No falls or injury. 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 Got over the counter wrist brace which did not help much. No new numbness. no swelling on fingers. No weakness. Still doing the essie/peeling despite the pain. Treatment done so far: NSAIDs - none therapy - none injection - none History of diabetic neuropathy. 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 Obesity (BMI 30-39.9) Sacroiliitis Spondylosis of lumbar region without myelopathy or radiculopathy Tenosynovitis of right wrist Surgical History History of back surgery Hx of section Hx of colonoscopy Hx of hysterectomy Hx of shoulder surgery Stented coronary artery Family History Father Colon cancer Family history of prostate cancer in father Mother Diabetes CVA (cerebral vascular accident) Social History Household Members: Spouse Housing: Apartment Alcohol intake: current Patient Tobacco Use Status: Former Tobacco user Years Smoked: 2 e-Cigarette/Vaping Use: Never Used service: No Current occupational status: retired Cognitive needs: No Hearing needs: No Vision needs: No Review of Systems Const All systems reviewed & are unremarkable except as noted in HPI and below Physical Exam Vital Signs: BMI result Body Mass Index 30.8 Constitutional: Patient appears to be in no acute distress, well nourished and well developed. MSK: Inspection reveals appropriate head and neck positioning. No pain with palpation over the neck musculature. Cervical ROM was full. Spurling's sign negative. Bilateral shoulder ROM WNL. No ligamentous laxity or crepitance. No increased effusion. Hawkin's test is negative. No joint effusion noted. No deformity noted. No intrinsic hand weakness noted. No atrophy noted. Yulisa test right positive. Carpal compression test negative. Tinel sign negative. Tender right CMC joint. Strength is 5/5 in all muscle groups tested. No increased tone noted. Neurological: Neurologic examination of the upper and lower extremities was nonfocal with intact sensation, muscle stretch reflexes and without focal motor deficits . Buenrostro?s negative bilaterally Gait is non-antalgic without loss of balance. Results Reviewed Results Reviewed: No prior imaging done. I reviewed records from the following: PCP Assessment & Plan Assessment & Plan (1) CMC arthritis: Code(s): M19.049 - Primary osteoarthritis, unspecified hand (2) Tenosynovitis of right wrist: Code(s): M65.9 - Synovitis and tenosynovitis, unspecified Plan Most likely right de Quervain tenosynovitis, repetitive use with scanning at home. Ruling out CMC joint arthritis. Getting x-ray today. Advising/providing a better fitted thumb spica splint, to wear during the day. Assessment and plan discussed with patent, and patient was agreeable. All questions were answered thoroughly. Re-evaluate in 1 month. Orders: Orders XR hand wrist RT Today M19.049 - Primary osteoarthritis, unspecified hand, M65.9 - Synovitis and tenosynovitis, unspecified Coding Level of Care Code New Pt Level 3 (28823) Diagnoses CMC arthritis M19.049 Tenosynovitis of right wrist M65.9
== END 2023-04-30 10:53 | disposition home or self-care (01) ==
PROVIDERS: PCP Internal Medicine; Visit Provider Physical Medicine & Rehabilitation
DX: M19.041 Primary osteoarthritis, right hand (principal); M65.9 Synovitis and tenosynovitis, unspecified
CPT/HCPCS: 99203

== ENCOUNTER 2023-06-04 11:03 | Outpatient (AMB) | payer MEDICARE, MEDICAID, SELFPAY ==
[2023-06-04 11:15] VITALS: BMI 30.8
--- NOTE | 2023-06-04 11:15 | A.OFFVIS_ITS ---
Intake Vital Signs 06/04/23 11:15 Height 5 ft 3 in Weight 174 lb BMI 30.8 Intake Visit Reasons: OV-Right wrist F/U Intake Note: Savanna 77 yr old female presents today for her follow up visit for her right hand CMC arthritis & Tenosynovitis of right wrist. States she cont's to have soreness. States she is wearing brace as directed and also purchased another brace so she is able to switch for hygiene purposes. Allergies codeine [CODEINE] Allergy (Intermediate, Verified 06/04/23 11:23) HIVES morphine [MORPHINE] Allergy (Intermediate, Verified 06/04/23 11:23) HIVES oxycodone [OXYCODONE] Allergy (Intermediate, Verified 06/04/23 11:23) HIVES Sulfa (Sulfonamide Antibiotics) [SULFA (SULFONAMIDE ANTIBIOTICS)] Allergy (Intermediate, Verified 06/04/23 11:23) DEHYDRATION, hives, hives OPIATES Allergy (Unknown, Uncoded 06/04/23 11:23) hives HPI HPI Comments History of Present Illness Details I saw previously for at least 1 month of right thumb/wrist pain. No falls or injury. 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 Got over the counter wrist brace which did not help much. No new numbness. no swelling on fingers. No weakness. Still doing the essie/peeling despite the pain. History of diabetic neuropathy. We gave her a thumb spica splint which she said was too small and kept falling off. She preferred to wear to resting wrist splint she got [id number]. Pain is about the same but not constant. On and off. No swelling. 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 Spondylosis of lumbar region without myelopathy or radiculopathy Sacroiliitis Surgical History Stented coronary artery Hx of shoulder surgery History of back surgery Hx of section Hx of hysterectomy Hx of colonoscopy Family History Father Colon cancer Family history of prostate cancer in father Mother Diabetes CVA (cerebral vascular accident) Social History Household Members: Spouse Housing: Apartment Alcohol intake: current Patient Tobacco Use Status: Former Tobacco user Years Smoked: 2 e-Cigarette/Vaping Use: Never Used service: No Current occupational status: retired Cognitive needs: No Hearing needs: No Vision needs: No Physical Exam Vital Signs: BMI result Body Mass Index 30.8 Constitutional: Patient appears to be in no acute distress, well nourished and well developed. MSK: Inspection reveals appropriate head and neck positioning. No joint effusion noted. No deformity noted. No intrinsic hand weakness noted. No atrophy noted. Yulisa test is now negative. There is no tenderness in the soft tissue are tendons. Carpal compression test negative. Tinel sign negative. Tender right CMC joint. Strength is 5/5 in all muscle groups tested. No increased tone noted. Neurological: Neurologic examination of the upper and lower extremities was nonfocal with intact sensation, muscle stretch reflexes and without focal motor deficits . Buenrostro?s negative bilaterally Gait is non-antalgic without loss of balance. Results Reviewed Results Reviewed: FINDINGS: RIGHT WRIST: Mineralization is normal. There is no fracture or dislocation. The joint spaces appear preserved. There is minimal marginal spurring at the distal interphalangeal joints. No erosive changes are seen. There is no focal soft tissue swelling. RIGHT HAND: Mineralization is normal. There is no fracture or malalignment. There is joint space narrowing and subchondral sclerosis at the first carpometacarpal joint. The other joint spaces are preserved. No erosive changes are seen. There is no focal soft tissue swelling. XR/XR hand wrist RT IMPRESSION: Mild degenerative arthritis in the distal interphalangeal joints. Moderate degenerative arthritis at the first carpometacarpal joint. Assessment & Plan Assessment & Plan (1) Arthritis of carpometacarpal (CMC) joint of right thumb: Code(s): M18.11 - Unilateral primary osteoarthritis of first carpometacarpal joint, right hand Plan We looked at the x-ray images together. There is arthritis on right CMC joint. The de Quervain tenosynovitis has resolved with wearing the wrist splint/thumb spica. Offered to do steroid injection today but her pain is not constant and she is diabetic. She decides to reserve this for when pain is more severe. Continue to wear the wrist splint as much as possible. Assessment and plan discussed with patient, and patient was agreeable. All questions were answered thoroughly. Sangeetha Berger MD, SUZAN Board Certified, [place] [employer] and Rehabilitation (ABPMR) Board Certified, [place] Board [employer] Electrodiagnostic [employer] (ABEM) Coding Level of Care Code Est Pt Level 3 (91311) Diagnoses Arthritis of carpometacarpal (CMC) joint of right thumb M18.11
== END 2023-06-04 11:42 | disposition home or self-care (01) ==
PROVIDERS: PCP Internal Medicine; Visit Provider Physical Medicine & Rehabilitation
DX: M18.11 Unilateral primary osteoarthritis of first carpometacarpal joint, right hand (principal)
CPT/HCPCS: 99213

== ENCOUNTER → 2023-06-04 11:03 | Outpatient (BNVA) | payer MEDICARE, MEDICAID, SELFPAY | PROVIDERS: PCP Internal Medicine; Visit Provider Physical Medicine & Rehabilitation | DX: M18.11 Unilateral primary osteoarthritis of first carpometacarpal joint, right hand (principal) | CPT/HCPCS: 99212 ==

== ENCOUNTER 2023-07-01 10:39 | Outpatient (AMB) | payer MEDICARE, MEDICAID, SELFPAY ==
[2023-07-01 10:44] VITALS: BP 132/58; PULSE 65; BMI 31.0
--- NOTE | 2023-07-01 10:44 | A.OFFVIS_ITS ---
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 Required: No Accompanied by: Self / Same As Patient Allergies codeine [CODEINE] Allergy (Intermediate, Verified 07/01/23 10:46) HIVES morphine [MORPHINE] Allergy (Intermediate, Verified 07/01/23 10:46) HIVES oxycodone [OXYCODONE] Allergy (Intermediate, Verified 07/01/23 10:46) HIVES Sulfa (Sulfonamide Antibiotics) [SULFA (SULFONAMIDE ANTIBIOTICS)] Allergy (Intermediate, Verified 07/01/23 10:46) DEHYDRATION, hives, hives OPIATES Allergy (Unknown, Uncoded 07/01/23 10:46) hives Medication List - Last Reconciled 07/01/23 by Casa Blackburn MD aspirin 81 mg PO DAILY atorvastatin 80 mg PO DAILY blood sugar diagnostic ([employer] Verio test strips) 3 times a day blood-glucose meter (OneAdenovir [employer] Verio Flex Meter) 3 times a day ciprofloxacin HCl 250 mg PO Q12H 7 days clotrimazole-betamethasone 1-0.05 % 1 appl topical BID 10 days famotidine-Ca carb-mag hydrox 10-800-165 mg (Acid Wrapper Operator Complete (famotidine)) 1 tab PO BEDTIME PRN hydrochlorothiazide 25 mg PO QAM insulin degludec (Tresiba FlexTouch U-100 insulin) 42 units (0.42 mL) subcut BEDTIME lancets (OneTouch Delica Lancets) 3 times a day liraglutide (Victoza 3-Yoni) 1.2 mg (0.2 mL) subcut DAILY 90 days lisinopril 20 mg PO QAM metformin 500 mg PO BID 90 days metoprolol tartrate 50 mg PO BID pen needle, diabetic use for injecting med Twice a day HPI HPI Comments History of Present Illness Details Savanna returns for follow-up regarding coronary disease. To recall, she has a history of myocardial infarction and stent placement around 2000. Multiple cardiovascular risk factors including diabetes, hypertension, dyslipidemia. She states that she is doing okay from cardiac. No complaints like angina or shortness of breath or in fact anything cardiac sounding. Seems to be getting along fine. 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 Spondylosis of lumbar region without myelopathy or radiculopathy Sacroiliitis Surgical History Stented coronary artery Hx of shoulder surgery History of back surgery Hx of section Hx of hysterectomy Hx of colonoscopy Family History Father Colon cancer Family history of prostate cancer in father Mother Diabetes CVA (cerebral vascular accident) Social History Household Members: Spouse Housing: Apartment Alcohol intake: current Patient Tobacco Use Status: Former Tobacco user Years Smoked: 2 e-Cigarette/Vaping Use: Never Used service: No Current occupational status: retired Cognitive needs: No Hearing needs: No Vision needs: No Review of Systems Const Denies weakness ENT Denies dizziness Card Denies chest pain, Denies chest pain with activity, Denies syncope, Denies rapid heart rate, Denies pedal edema, Denies edema, Denies leg edema, Denies lighth eadedness, Denies palpitations, Denies dyspnea, Denies dyspnea on exertion and Denies orthopnea Resp Denies cough, Denies dyspnea and Denies dyspnea on exertion GI Denies hematochezia and Denies change in stool character Musc Denies abnormal gait, Denies muscle cramps, Denies muscle weakness, Denies numbness, Denies radiating pain into limb and Denies tingling Neuro Denies abnormal gait, Denies dizziness, Denies syncope, Denies numbness, Denies tingling and Denies weakness Endo Denies palpitations Physical Exam Vital Signs: Last Vital Signs Pulse 65 07/01/23 10:44 BP 132/58 L 07/01/23 10:44 BMI result Body Mass Index 31.0 Const General: comfortable and no acute distress Orientation/consciousness: patient oriented x3 HEENT Other: Unremarkable Head: Yes normal to inspection Neck Neck: Yes normal visual inspection Chest Chest palpation & inspection: normal inspection of the chest Resp Auscultation: clear to auscultation bilaterally Cardio Palpation: normal PMI Heart sounds: S1 normal heart sound present, S2 normal heart sound present, no gallops, no murmurs and no rubs GI Palpation (GI): Soft to palpation Back/Spine/Pelvis Other: unremarkable Skin General skin exam: no rashes or lesions noted Neuro General: patient oriented x3 Extrem General: Yes normal to inspection Psych Mental Status: mental status grossly normal Assessment & Plan Assessment & Plan (1) Atherosclerotic cardiovascular disease: Code(s): I25.10 - Atherosclerotic heart disease of [place] coronary artery without angina pectoris Plan: Cardiac [id number] occluded circumflex; status post balloon angioplasty and stenting; indeterminate mid LAD lesion, FFR negative. Myocardial perfusion [id number] and apical ischemia. She has absolutely no symptoms, continue medical management. Continue aspirin, beta-blockers and high-dose statins. Well controlled lipids. (2) Type 2 diabetes mellitus with unspecified complications: Code(s): E11.8 - Type 2 diabetes mellitus with unspecified complications Plan: On combination regimen including insulin, Victoza, metformin. Hemoglobin A1c is quite high at 9.4%. Discussed. (3) Essential hypertension: Code(s): I10 - Essential (primary) hypertension Plan: Stable. No changes. Plan Total time spent including review of data, counseling, documentation, coordination of care-31 minutes. Coding Level of Care Code Est Pt Level 4 (41660) Diagnoses Atherosclerotic cardiovascular disease I25.10 Type 2 diabetes mellitus with unspecified complications E11.8 Essential hypertension I10
== END 2023-07-01 10:55 | disposition home or self-care (01) ==
PROVIDERS: Visit Provider Internal Medicine
DX: I25.10 Atherosclerotic heart disease of native coronary artery without angina pectoris (principal); E11.8 Type 2 diabetes mellitus with unspecified complications; I10 Essential (primary) hypertension
CPT/HCPCS: 99214

== ENCOUNTER → 2023-07-01 10:39 | Outpatient (BNVA) | payer MEDICARE, MEDICAID, SELFPAY | PROVIDERS: Visit Provider Internal Medicine | DX: I25.10 Atherosclerotic heart disease of native coronary artery without angina pectoris (principal); I10 Essential (primary) hypertension; E11.8 Type 2 diabetes mellitus with unspecified complications | CPT/HCPCS: 99212 ==

== ENCOUNTER 2023-07-21 11:56 | Outpatient (AMB) | payer MEDICARE, MEDICAID, SELFPAY ==
[2023-07-21 12:07] VITALS: BP 118/52; PULSE 63; O2SAT 97; BMI 30.5
--- NOTE | 2023-07-21 12:07 | AM.OFFWIN_ITS ---
Intake Vital Signs 07/21/23 12:07 Height 5 ft 3 in Weight 172 lb 2 oz BMI 30.5 BP 118/52 L Blood Pressure Location Lt brachial Position Sitting Pulse 63 Pulse Source Pulse Oximeter Pulse Oximetry (%) 97 Oxygen Delivery Method Room Air Intake Visit Reasons: EST.nerve pain (lobby) Intake Note: Patient is here today for nerve pain Patient Tobacco Use Status: Former Tobacco user Allergies codeine [CODEINE] Allergy (Intermediate, Verified 07/21/23 12:17) HIVES morphine [MORPHINE] Allergy (Intermediate, Verified 07/21/23 12:17) HIVES oxycodone [OXYCODONE] Allergy (Intermediate, Verified 07/21/23 12:17) HIVES Sulfa (Sulfonamide Antibiotics) [SULFA (SULFONAMIDE ANTIBIOTICS)] Allergy ( Intermediate, Verified 07/21/23 12:17) DEHYDRATION, hives, hives OPIATES Allergy (Unknown, Uncoded 07/21/23 12:17) hives Medication List - Last Reconciled 07/21/23 by Manoj Berg MD aspirin 81 mg PO DAILY atorvastatin 80 mg PO DAILY blood sugar diagnostic ([employer] Verio test strips) 3 times a day blood-glucose meter ([employer] Verio Flex Meter) 3 times a day ciprofloxacin HCl 250 mg PO Q12H 7 days clotrimazole-betamethasone 1-0.05 % 1 appl topical BID 10 days famotidine-Ca carb-mag hydrox 10-800-165 mg (Acid Roof Service Technician Complete (famotidine)) 1 tab PO BEDTIME PRN hydrochlorothiazide 25 mg PO QAM insulin degludec (Tresiba FlexTouch U-100 insulin) 42 units (0.42 mL) subcut BEDTIME lancets (OneTouch Delica Lancets) 3 times a day liraglutide (Victoza 3-Yoni) 1.2 mg (0.2 mL) subcut DAILY 90 days lisinopril 20 mg PO QAM metformin 500 mg PO BID 90 days metoprolol tartrate 50 mg PO BID pen needle, diabetic use for injecting med Twice a day Do you need a note to return to daycare/school/sports/work: No HPI EST.nerve pain (lobby) HPI Details 78-year-old female presents to [facility] [place] [facility] for a sick visit. Patient is complaining of right hip pain. Symptoms started a few days ago after she was trying to pull a mattress. Pain radiating up to the right knee. Patient ambulates with a cane at baseline. 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 Spondylosis of lumbar region without myelopathy or radiculopathy Sacroiliitis Surgical History Stented coronary artery Hx of shoulder surgery History of back surgery Hx of section Hx of hysterectomy Hx of colonoscopy Family History Father Colon cancer Family history of prostate cancer in father Mother Diabetes CVA (cerebral vascular accident) Social History Household Members: Spouse Housing: Apartment Alcohol intake: current Patient Tobacco Use Status: Former Tobacco user Years Smoked: 2 e-Cigarette/Vaping Use: Never Used service: No Current occupational status: retired Cognitive needs: No Hearing needs: No Vision needs: No Physical Exam Vital Signs: Last Vital Signs Pulse 63 07/21/23 12:07 BP 118/52 L 07/21/23 12:07 Pulse Ox 97 07/21/23 12:07 Oxygen Delivery Method Room Air 07/21/23 12:07 BMI result Body Mass Index 30.5 Extrem Other: Right hip: Urine internal and external rotation elicits no pain. Flexion at the hip elicits minimal discomfort. No tenderness over the bursa. Assessment & Plan Assessment & Plan (1) Right hip pain: Code(s): M25.551 - Pain in right hip Plan: Anti-inflammatories and muscle relaxant called in. Physical therapy ordered. If symptoms do not improve to follow-up here. Coding Level of Care Code Est Pt Level 4 (50981) Diagnoses Right hip pain M25.551
== END 2023-07-21 12:46 | disposition home or self-care (01) ==
PROVIDERS: PCP Internal Medicine; Visit Provider Internal Medicine
DX: M25.551 Pain in right hip (principal)
CPT/HCPCS: 99214

== ENCOUNTER 2023-07-29 09:19 | Outpatient (REF) | payer MEDICARE, MEDICAID, SELFPAY ==
[2023-07-29 11:29] LABS: Estimated Average Glucose 166 mg/dL; Hemoglobin A1c % 7.4 % (<6.0)
[2023-07-29 11:38] LABS: Alanine Aminotransferase 16 U/L (0-31); Anion Gap 11 (12-20); Aspartate Amino Transferase 21 U/L (5-31); Blood Urea Nitrogen 26 mg/dL (9-16); Calcium 9.6 mg/dL (8.4-10.2); Carbon Dioxide 28 mmol/L (22-29); Chloride 103 mmol/L (96-108); Cholesterol 117 mg/dL (<200); Estimated Glomerular Filt Rate 38; Glucose Fasting 82 mg/dL (60-99); HDL Cholesterol 38 mg/dL (>40); LDL Cholesterol Calculated 62 mg/dL (<100); Potassium 3.9 mmol/L (3.3-5.1); Sodium 138 mmol/L (135-145); Triglycerides 87 mg/dL (<150)
== END 2023-07-29 09:20 | disposition home or self-care (01) ==
LOC: HO.HMGCLDS 09:19
PROVIDERS: PCP Internal Medicine; Visit Provider Internal Medicine
DX: E66.9 Obesity, unspecified (principal); I10 Essential (primary) hypertension; E11.42 Type 2 diabetes mellitus with diabetic polyneuropathy; E78.5 Hyperlipidemia, unspecified
CPT/HCPCS: 36415; 80048; 80061; 83036; 84450; 84460

== ENCOUNTER 2023-09-26 14:05 | Outpatient (AMB) | payer MEDICARE, MEDICAID, SELFPAY ==
[2023-09-26 14:22] VITALS: BP 120/60; PULSE 73; TEMP 36.3; O2SAT 96; BMI 30.6
--- NOTE | 2023-09-26 14:22 | AM.OFFWIN_ITS ---
Intake Vital Signs 09/26/23 14:22 Height 5 ft 3 in Weight 78.471 kg BMI 30.6 BP 120/60 Blood Pressure Location Lt brachial Position Sitting Pulse 73 Pulse Source Pulse Oximeter Temp 97.4 F Temp Source Temporal Artery Scan Pulse Oximetry (%) 96 Oxygen Delivery Method Room Air Intake Visit Reasons: EP UTI Intake Note: pt is here today for uti started 2 daus ago Patient Tobacco Use Status: Former Tobacco user Allergies codeine [CODEINE] Allergy (Intermediate, Verified 09/26/23 14:33) HIVES morphine [MORPHINE] Allergy (Intermediate, Verified 09/26/23 14:33) HIVES oxycodone [OXYCODONE] Allergy (Intermediate, Verified 09/26/23 14:33) HIVES Sulfa (Sulfonamide Antibiotics) [SULFA (SULFONAMIDE ANTIBIOTICS)] Allergy (Intermediate, Verified 09/26/23 14:33) DEHYDRATION, hives, hives OPIATES Allergy (Unknown, Uncoded 07/21/23 12:17) hives Do you need a note to return to daycare/school/sports/work: No HPI HPI Comments History of Present Illness Details 1424 70-year-old female history of diabetes, dermatitis, obesity, hypertension, presenting for evaluation of urinary frequency, urgency, dysuria for the past few days worsening. History of UTIs this feels similar. Denies flank pain, fevers, chills, nausea, vomiting, abdominal pain, chest pain, shortness of b reath. Physical exam benign Concerns for UTI or cystitis. Unlikely obstructing uropathy, pyelonephritis, systemic illness. rapid urine with UTI Plan will treat for UTI with outpatient p.o. antibiotics. Educated patient on diagnosis and treatment plan, answered all question, patient verbalizes understanding. At this time patient will be discharged home, advised to return with new or worsening symptoms. Educated on worrisome signs and symptoms and when to return. At this time I feel comfortable discharge home. [facility] Medical History Arthritis of carpometacarpal (CMC) joint of right thumb Tenosynovitis of right wrist Dermatitis, contact Elevated vitamin B12 level Essential hypertension Atherosclerotic cardiovascular disease Obesity (BMI 30-39.9) Dyslipidemia 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 type 2 diabetes mellitus custodial (current) use of insulin Spondylosis of lumbar region without myelopathy or radiculopathy Sacroiliitis Surgical History Stented coronary artery Hx of shoulder surgery History of back surgery Hx of section Hx of hysterectomy Hx of colonoscopy Family History Father Colon cancer Family history of prostate cancer in father Mother Diabetes CVA (cerebral vascular accident) Social History Household Members: Spouse Housing: Apartment Alcohol intake: current Patient Tobacco Use Status: Former Tobacco user Years Smoked: 2 e-Cigarette/Vaping Use: Never Used service: No Current occupational status: retired Cognitive needs: No Hearing needs: No Vision needs: No Review of Systems Const All systems reviewed & are unremarkable except as noted in HPI and below Physical Exam Vital Signs: Last Vital Signs Temp 97.4 F 09/26/23 14:22 Pulse 73 09/26/23 14:22 BP 120/60 09/26/23 14:22 Pulse Ox 96 09/26/23 14:22 Oxygen Delivery Method Room Air 09/26/23 14:22 BMI result Body Mass Index 30.6 vss Appearance: Alert.? Oriented X3.? No acute distress.? Head: Normocephalic, atraumatic, no step-offs or deformities Eyes: Pupils equal, round and reactive to light.? CVS: Normal heart rate and rhythm.? Pulses normal.? Respiratory: No respiratory distress.? Breath sounds normal.? Abdomen: Soft and nontender.? Skin: Skin warm and dry.? Normal skin color.? Normal skin turgor.? Extremities: No lower extremity edema.? No calf ttp. 5/5 strength to bilateral upper and lower extremities Back: No midline tenderness, no C-spine tenderness, full range of motion, no CVA tenderness bilaterally Neuro: Oriented X 3.? No motor deficit.? No sensory deficit. CN 2-12 intact Results AMB Urinalysis, Automated UA Leukoctes 500 Nae/uL Last Edit by Radha Iglesias CMA on 09/26/23 14:35 UA Nitrite Positive Last Edit by Radha Iglesias CMA on 09/26/23 14:35 UA Urobilinogen 0.2 mg/dL Last Edit by Radha Iglesias, ARSENIO on 09/26/23 14:35 UA Protein 30 mg/dL Last Edit by Radha Iglesias, COLOR GRINDER on 09/26/23 14:35 UA pH 6.0 Last Edit by Radha Iglesias, COLOR GRINDER on 09/26/23 14:35 UA Blood 10 Rakesh/uL Last Edit by Radha Iglesias, COLOR GRINDER on 09/26/23 14:35 UA Specific [place] 1.020 Last Edit by Radha Iglesias, COLOR GRINDER on 09/26/23 14:35 UA Ketone Negative Last Edit by Radha Iglesias, COLOR GRINDER on 09/26/23 14:35 UA Bilirubin 1 mg/dL Last Edit by Radha Iglesias, COLOR GRINDER on 09/26/23 14:35 UA Glucose 0 mg/dL Last Edit by Radha Iglesias, COLOR GRINDER on 09/26/23 14:35 Results Reviewed Results Reviewed: Laboratory Last Values Urine pH (Auto) 6.0 09/26/23 14:32 Specific [place] (Auto) 1.020 09/26/23 14:32 Urine Protein (Auto) 30 mg/dL 09/26/23 14:32 Glucose (UA)(Auto) 0 mg/dL 09/26/23 14:32 Urine Ketones (Auto) Negative 09/26/23 14:32 Urine Blood (Auto) 10 Rakesh/uL 09/26/23 14:32 Urine Nitrite (Auto) Positive 09/26/23 14:32 Urine Bilirubin (Auto) 1 mg/dL 09/26/23 14:32 Urine Urobilinogen (Auto) 0.2 mg/dL 09/26/23 14:32 Leukocyte Esterase (Auto) 500 Nae/uL 09/26/23 14:32 Assessment & Plan Assessment & Plan (1) UTI symptoms: Code(s): R39.9 - Unspecified symptoms and signs involving the genitourinary system Plan Take your medications as prescribed. If you were prescribed antibiotics today, it is important that you take your medication to their entirety, do not skip any doses, do not finish them early. Follow-up with your primary care provider this week. Return to the emergency department with new or worsening symptoms. Such as fevers, chills, chest pain, shortness of breath, nausea, vomiting, dizziness, headache, vision changes, lethargy In case of emergency call 911 Orders: Orders AMB Urinalysis Automated Today Z13.9 - Encounter for screening, unspecified Medications: New cefuroxime axetil 250 mg PO BID 14 tabs 0RF 7 days Coding Level of Care Code Est Pt Level 3 (99475) Diagnoses UTI symptoms R39.9
== END 2023-09-26 16:01 | disposition home or self-care (01) ==
PROVIDERS: PCP Internal Medicine; Visit Provider Physician Assistant
DX: R39.9 Unspecified symptoms and signs involving the genitourinary system (principal)
CPT/HCPCS: 81003; 99213

== ENCOUNTER 2023-10-17 13:00 | Outpatient (RCR) | payer MEDICARE, MEDICAID, SELFPAY ==
--- NOTE | 2023-09-24 13:52 | MHC.PT.EP ---
[facility] [place] [facility] [place] [facility] [place] [facility] [address] Myla Tuttle [address] [phone] F: [phone] F: [phone] F: [phone] F: [phone] Physical Therapy Plan of Care Date of Evaluation: 09/24/23 Date of Surgery: Diagnosis: This is a 78 yo female presenting to skilled PT with a script for pain in the R hip. Assessment: This is a 78 yo female presenting to skilled PT with a script for pain in the R hip. Patient reporting symptoms starting in Jun, insidiously. She reports that her symptoms have improved some since then. Pain is located R buttock/low back and is described as achy. Pain comes and goes. Pain increases with walking around 200 ft, rolling to the R and standing. She is here with a straight cane and has been using it since the pain started. She denies falls but is fearful of falling. These symptoms have happened before and she came to PT which was helpful (this was about a year ago). Assessment reveals pain that ranges from up to a 6/10 at the worst. Patient demos decreased R hip ROM, strength of R hip, core and back, TTP at R side low back and impaired posture with forward head and rounded shoulders as well as decreased gait pattern and balance. She demos some s/s of + illium rotation as noted above. Based on functional limitations, impaired QOL and pain tolerance patient is a good candidate for skilled PT 2x/wk for 4wks. Frequency and Duration: The patient will be seen 2x/wk for 4wks Short Term Goals: Pt will demonstrate improved postural awareness and understanding of core engagement with supine and standing tasks without cues throughout session to improve overall back safety in 2 weeks. Pt will continue to reinforce precautions, sitting, standing and ADL modifications with proper body mechanics in 2 wks. Pt will improve subjective pain and function by 50% in 3wks Barge Master Goals: Pt will demonstrate improved outcome measure by 5 points in 4 weeks for improved functional mobility. Pt will demonstrate ability to bend and lift WNL min to no pain for household tasks in 4 wks. Pt will be I in HEP and compliant in 4wks Return to normal gait pattern with subjective report of improved fear of falling. Treatment Plan: Modalities to reduce pain, spasms and effusion. Manual therapy to restore motion and function. Therapeutic exercise to improve strength and flexibility. Neuromuscular re-education for posture and balance. Therapeutic activities to return to functional activities of daily living. Electronically signed by: Daisy Espinoza PT Please sign and return to therapist. Thank you for your referral.
--- NOTE | 2023-10-24 08:15 | MHC.PT.DC ---
[facility] [place] Office [place] Office [place] Office [address] 140 [facility] [phone] F: [phone] F: [phone] F: [phone] F: [phone] Physical Therapy Discharge Report Diagnosis: This is a 78 yo female presenting to skilled PT with a script for pain in the R hip. Date of Surgery: Date of Evaluation: 09/24/23 Date of Discharge: 10/24/23 Treatments to Date: 6 Cancellations to Date: 0 No Shows to Date: 0 Discharge Status: Achieved Goals Improved Function Independent with HEP Patient Elected to Stop Discharge Summary: Patient demos normal ROM, MMT, gait and improved pain tolerance. She has met her goals and is I with her program. She has called and is ready for DC at this time. Electronically signed by: Daisy Espinoza PT Please sign and return to therapist. Thank you for your referral.
== END 2023-10-24 08:14 | disposition home or self-care (01) ==
LOC: HO.PTCHIC 13:00
PROVIDERS: PCP Internal Medicine; Visit Provider Internal Medicine
DX: M25.551 Pain in right hip (principal)
CPT/HCPCS: 97110; 97162

== ENCOUNTER 2023-12-10 14:19 | Outpatient (AMB) | payer MEDICARE, MEDICAID, SELFPAY ==
--- NOTE | 2023-12-10 14:31 | AM.OFFWIN_ITS ---
Intake Vital Signs 12/10/23 14:32 Height 5 ft 3 in Weight 173 lb 6 oz BMI 30.7 BP 104/66 Blood Pressure Location Lt brachial Position Sitting Pulse 70 Pulse Source Pulse Oximeter Temp 98.1 F Temp Source Temporal Artery Scan Pulse Oximetry (%) 96 Oxygen Delivery Method Room Air Intake Visit Reasons: EP UTI/cough traveling to [facility] (lobby) Intake Note: Pt presents to the office today for c/o UTI symptoms (burning and frequency) that started about 2 weeks ago. She also states she has a cough that started last week. Patient Tobacco Use Status: Former Tobacco user Allergies codeine [CODEINE] Allergy (Intermediate, Verified 12/10/23 14:34) HIVES morphine [MORPHINE] Allergy (Intermediate, Verified 12/10/23 14:34) HIVES oxycodone [OXYCODONE] Allergy (Intermediate, Verified 12/10/23 14:34) HIVES Sulfa (Sulfonamide Antibiotics) [SULFA (SULFONAMIDE ANTIBIOTICS)] Allergy (Intermediate, Verified 12/10/23 14:34) DEHYDRATION, hives, hives OPIATES Allergy (Unknown, Uncoded 12/10/23 14:34) hives HPI HPI Comments History of Present Illness Details 78 y/o female patient who presents to [facility] in clinic with c/o UTI symptoms. Reports urinary burning with frequency for few days. Pt also c/o Cough with chest tightness x 4 days. She has been using OTC medications with minimal relief. Denies any recent Sick contacts. Denies fevers, chills, nausea or vomiting. [facility] Medical History Arthritis of carpometacarpal (CMC) joint of right thumb Tenosynovitis of right wrist Dermatitis, contact Elevated vitamin B12 level Essential hypertension Atherosclerotic cardiovascular disease Obesity (BMI 30-39.9) Dyslipidemia 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 type 2 diabetes mellitus half-way (current) use of insulin Spondylosis of lumbar region without myelopathy or radiculopathy Sacroiliitis Surgical History Stented coronary artery Hx of shoulder surgery History of back surgery Hx of section Hx of hysterectomy Hx of colonoscopy Family History Father Colon cancer Family history of prostate cancer in father Mother Diabetes CVA (cerebral vascular accident) Social History Household Members: Spouse Housing: Apartment Alcohol intake: current Patient Tobacco Use Status: Former Tobacco user Years Smoked: 2 e-Cigarette/Vaping Use: Never Used service: No Current occupational status: retired Cognitive needs: No Hearing needs: No Vision needs: No Review of Systems Const All systems reviewed & are unremarkable except as noted in HPI and below Physical Exam Vital Signs: Last Vital Signs Temp 98.1 F 12/10/23 14:32 Pulse 70 12/10/23 14:32 BP 104/66 12/10/23 14:32 Pulse Ox 96 12/10/23 14:32 Oxygen Delivery Method Room Air 12/10/23 14:32 BMI result Body Mass Index 30.7 Const General: comfortable and no acute distress Nutritional Appearance: overweight Orientation/consciousness: patient oriented x3 HEENT Head: Yes normocephalic Ears: external ears normal and TM's normal bilaterally General nose exam: Abnormal mucous membranes and turbinates present boggy and erythematous Face and sinus: Yes sinuses nontender Mouth: moist mucous membranes Throat: Yes posterior oropharynx normal Resp Effort & Inspection: normal respiratory effort, able to speak in complete sentences, no audible wheezes and Actively coughing Auscultation: clear to auscultation bilaterally, no crackles, no rales, no rhonchi and no wheezes Cardio Rate: regular rate Rhythm: regular rhythm Neuro General: patient oriented x3, gait normal and moves all extremities Psych Speech and movement: Normal speech and movement present Results AMB Urinalysis, Automated UA Leukoctes 125 Nae/uL Last Edit by Leann Wei CMA on 12/10/23 14:47 UA Nitrite Positive Last Edit by Leann Wei CMA on 12/10/23 14:47 UA Urobilinogen 0.2 mg/dL Last Edit by Leann Wei CMA on 12/10/23 14:47 UA Protein 0 mg/dL Last Edit by Leann Wei CMA on 12/10/23 14:47 UA pH 5.0 Last Edit by Leann Wei CMA on 12/10/23 14:47 UA Blood Rakesh/uL Last Edit by Leann Wei CMA on 12/10/23 14:47 UA Specific [place] 1.015 Last Edit by Leann Wei CMA on 12/10/23 14:47 UA Ketone Negative Last Edit by Leann Wei CMA on 12/10/23 14:47 UA Bilirubin 0 mg/dL Last Edit by Laenn Wei CMA on 12/10/23 14:47 UA Glucose 100 mg/dL Last Edit by Leann Wei CMA on 12/10/23 14:47 Results Reviewed Results Reviewed: Laboratory Last Values Urine pH (Auto) 5.0 12/10/23 14:47 Specific [place] (Auto) 1.015 12/10/23 14:47 Urine Protein (Auto) 0 mg/dL 12/10/23 14:47 Glucose (UA)(Auto) 100 mg/dL 12/10/23 14:47 Urine Ketones (Auto) Negative 12/10/23 14:47 Urine Nitrite (Auto) Positive 12/10/23 14:47 Urine Bilirubin (Auto) 0 mg/dL 12/10/23 14:47 Urine Urobilinogen (Auto) 0.2 mg/dL 12/10/23 14:47 Leukocyte Esterase (Auto) 125 Nae/uL 12/10/23 14:47 Assessment & Plan Assessment & Plan (1) Cystitis: Code(s): N30.90 - Cystitis, unspecified without hematuria Plan: - Take medications as directed - Hydrate with plenty of fluids (2) Cough in adult: Code(s): R05.9 - Cough, unspecified Plan: - OTC cough remedies. Orders: Orders AMB Urinalysis Automated Today Z13.9 - Encounter for screening, unspecified SARS-CoV2/FLU/RSV Today R05.9 - Cough, unspecified Medications: New levofloxacin 500 mg PO Q24H 7 tabs 0RF 7 days N30.90 - Cystitis, unspecified without hematuria benzonatate 100 mg PO TID 30 caps 0RF R05.9 - Cough, unspecified Coding Level of Care Code Est Pt Level 3 (52491) Diagnoses Cystitis N30.90 Cough in adult R05.9 Time Spent (min) 15
[2023-12-10 14:32] VITALS: BP 104/66; PULSE 70; TEMP 36.7; O2SAT 96; BMI 30.7
== END 2023-12-10 15:02 | disposition home or self-care (01) ==
PROVIDERS: PCP Internal Medicine; Visit Provider Nurse Practitioner Family
DX: N30.90 Cystitis, unspecified without hematuria (principal); R05.9 Cough, unspecified
CPT/HCPCS: 81003; 99213

== ENCOUNTER 2023-12-10 15:02 | Outpatient (REF) | payer MEDICARE, MEDICAID, SELFPAY ==
[2023-12-10 17:29] LABS: Influenza A PCR NEGATIVE (Negative); Influenza B PCR NEGATIVE (Negative); Resp Syncy Virus RNA Qual PCR NEGATIVE (Negative); SARS COV2 PCR INHOUSE NEGATIVE (Negative)
== END 2023-12-10 15:03 | disposition home or self-care (01) ==
LOC: HO.LAB 15:02
PROVIDERS: Visit Provider Nurse Practitioner Family
DX: R05.9 Cough, unspecified (principal)
CPT/HCPCS: 0241U

== ENCOUNTER 2024-01-14 14:41 | Outpatient (AMB) | payer MEDICARE, MEDICAID, SELFPAY ==
--- NOTE | 2024-01-14 14:45 | AM.OFFWIN_ITS ---
Intake Vital Signs 01/14/24 14:47 Height 5 ft 3 in Weight 173 lb BMI 30.6 BP 106/62 Blood Pressure Location Rt brachial Position Sitting Pulse 64 Pulse Source Pulse Oximeter Temp 97.4 F Temp Source Temporal Artery Scan Pulse Oximetry (%) 97 Oxygen Delivery Method Room Air Intake Visit Reasons: EST/uti (lobby) Intake Note: pt is here for possible uti Patient Tobacco Use Status: Former Tobacco user Allergies codeine [CODEINE] Allergy (Intermediate, Verified 01/14/24 14:47) HIVES morphine [MORPHINE] Allergy (Intermediate, Verified 01/14/24 14:47) HIVES oxycodone [OXYCODONE] Allergy (Intermediate, Verified 01/14/24 14:47) HIVES Sulfa (Sulfonamide Antibiotics) [SULFA (SULFONAMIDE ANTIBIOTICS)] Allergy (Intermediate, Verified 01/14/24 14:47) DEHYDRATION, hives, hives OPIATES Allergy (Unknown, Uncoded 12/10/23 14:34) hives Do you need a note to return to daycare/school/sports/work: No HPI HPI Comments History of Present Illness Details Patient is a 78year old female who presents with concern of UTI She states ongoing since last week + urinary frequency and urgency No hematuria or dysuria but + discomfort No back pain or fevers States sweating at night No medicine taken for symptoms PFSH Medical History Arthritis of carpometacarpal (CMC) joint of right thumb Tenosynovitis of right wrist Dermatitis, contact Elevated vitamin B12 level Essential hypertension Atherosclerotic cardiovascular disease Obesity (BMI 30-39.9) Dyslipidemia 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 type 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 Spondylosis of lumbar region without myelopathy or radiculopathy Sacroiliitis Surgical History Stented coronary artery Hx of shoulder surgery History of back surgery Hx of section Hx of hysterectomy Hx of colonoscopy Family History Father Colon cancer Family history of prostate cancer in father Mother Diabetes CVA (cerebral vascular accident) Social History Household Members: Spouse Housing: Apartment Alcohol intake: current Patient Tobacco Use Status: Former Tobacco user Years Smoked: 2 e-Cigarette/Vaping Use: Never Used service: No Current occupational status: retired Cognitive needs: No Hearing needs: No Vision needs: No Review of Systems Const Denies body aches, Denies fatigue and Reports night sweats Eyes Denies blurry vision Card Denies chest pain Resp Denies cough GI Reports abdominal pain Denies hematuria, Denies dysuria, Reports urinary hesitancy and Reports urinary urgency Endo Denies fatigue Physical Exam Vital Signs: Last Vital Signs Temp 97.4 F 01/14/24 14:47 Pulse 64 01/14/24 14:47 BP 106/62 01/14/24 14:47 Pulse Ox 97 01/14/24 14:47 Oxygen Delivery Method Room Air 01/14/24 14:47 BMI result Body Mass Index 30.6 General: Non-toxic, NAD. Speaking full sentences. Skin: Warm dry throughout Eye: EOMI Respiratory: CTA bilaterally. No wheezes, rales or rhonchi Cardiac: RRR. No murmur Abdominal: BS present x 4. No tenderness. No CVAT MSK: Full ROM extremities. Neurology: A/O. No aphasia or facial droop. Gait without abnormality Psych: Good mood and affect Assessment & Plan Assessment & Plan (1) UTI (urinary tract infection): Code(s): N39.0 - Urinary tract infection, site not specified Qualifiers: Urinary tract infection type: acute cystitis Hematuria presence: with hematuria Qualified Code(s): N30.01 - Acute cystitis with hematuria Plan: Patient seen and evaluated. + leuks, nitrates and blood No CVAT on exam and abdomen not acute Keflex with food F/U with PCP as needed Increase fluid hydration Discussed e/r symptoms such as urinary retention, worsening abdominal or back pain Patient gave verbal understanding and had no additional questions or concerns at time of discharge All questions answered Medications: New cephalexin 500 mg PO BID 14 caps 0RF Coding Level of Care Code Est Pt Level 3 (43295) Diagnoses Acute cystitis with hematuria N30.01 Urinary tract infection type: acute cystitis Hematuria presence: with hematuria
[2024-01-14 14:47] VITALS: BP 106/62; PULSE 64; TEMP 36.3; O2SAT 97; BMI 30.6
== END 2024-01-14 16:12 | disposition home or self-care (01) ==
PROVIDERS: PCP Internal Medicine; Visit Provider Physician Assistant
DX: N30.01 Acute cystitis with hematuria (principal)
CPT/HCPCS: 99213

== ENCOUNTER 2024-01-19 13:40 | Outpatient (AMB) | payer MEDICARE, MEDICAID, SELFPAY ==
--- NOTE | 2024-01-19 13:47 | A.OFFVIS_ITS ---
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 Accompanied by: Significant Other Allergies codeine [CODEINE] Allergy (Intermediate, Verified 01/14/24 14:47) HIVES morphine [MORPHINE] Allergy (Intermediate, Verified 01/14/24 14:47) HIVES oxycodone [OXYCODONE] Allergy (Intermediate, Verified 01/14/24 14:47) HIVES Sulfa (Sulfonamide Antibiotics) [SULFA (SULFONAMIDE ANTIBIOTICS)] Allergy (Intermediate, Verified 01/14/24 14:47) DEHYDRATION, hives, hives OPIATES Allergy (Unknown, Uncoded 12/10/23 14:34) hives Medication List - Last Reconciled 01/19/24 by Casa Blackburn MD aspirin 81 mg PO DAILY atorvastatin 80 mg PO DAILY blood sugar diagnostic ([place] Verio test strips) 3 times a day blood-glucose meter ([place] Verio Flex Meter) 3 times a day cephalexin 500 mg PO BID famotidine-Ca carb-mag hydrox 10-800-165 mg (Acid [employer] Complete (famotidine)) 1 tab PO BEDTIME PRN flash glucose scanning reader (FreeStyle Halina 2 [place]) use as directed flash glucose sensor (FreeStyle Halina 2 Sensor kit) use As directed hydrochlorothiazide 25 mg PO QAM insulin degludec (Tresiba FlexTouch U-100 insulin) 42 units (0.42 mL) subcut BEDTIME lancets (BioFire DiagnosticsTouch Delica Lancets) 3 times a day lisinopril 20 mg PO QAM metformin 500 mg PO BID 90 days metoprolol tartrate 50 mg PO BID pen needle, diabetic use for injecting med once a day Trulicity (dulaglutide) 0.75 mg (0.5 mL) subcut QWEEK NS HPI Comments Details: Savanna returns for follow-up regarding coronary disease. To recall, she has a history of myocardial infarction and stent placement around 2000. Multiple cardiovascular risk factors including diabetes, hypertension, dyslipidemia. Since last seen, she does not have any new cardiac issues. Generally doing well. No chest pains or shortness of breath or any cardiac concerns whatsoever. 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 Spondylosis of lumbar region without myelopathy or radiculopathy Sacroiliitis Surgical History Stented coronary artery Hx of shoulder surgery History of back surgery Hx of section Hx of hysterectomy Hx of colonoscopy Family History Father Colon cancer Family history of prostate cancer in father Mother Diabetes CVA (cerebral vascular accident) Social History Household Members: Spouse Housing: Apartment Alcohol intake: current Patient Tobacco Use Status: Former Tobacco user Years Smoked: 2 e-Cigarette/Vaping Use: Never Used service: No Current occupational status: retired Cognitive needs: No Hearing needs: No Vision needs: No Review of Systems Const Denies chills, Denies fatigue, Denies fever(s), Denies frequent falls, Denies weakness, Denies weight gain and Denies weight loss ENT Denies dizziness Card Denies chest pain, Denies leg edema, Denies lightheadedness, Denies palpitations, Denies dyspnea and Denies dyspnea on exertion Resp Denies cough, Denies dyspnea and Denies dyspnea on exertion GI Denies hematochezia Musc Denies abnormal gait, Denies muscle weakness, Denies numbness, Denies radiating pain into limb and Denies tingling Neuro Denies abnormal gait, Denies dizziness, Denies frequent falls, Denies numbness, Denies tingling and Denies weakness Endo Denies fatigue and Denies palpitations Physical Exam Vital Signs: Last Vital Signs Pulse 65 01/19/24 13:48 BP 124/56 L 01/19/24 13:48 BMI result Body Mass Index 28.5 Const General: comfortable and no acute distress Orientation/consciousness: patient oriented x3 HEENT Other: Unremarkable Head: Yes normal to inspection Neck Neck: Yes normal visual inspection Chest Chest palpation & inspection: normal inspection of the chest Resp Auscultation: clear to auscultation bilaterally Cardio Palpation: normal PMI Heart sounds: S1 normal heart sound present, S2 normal heart sound present, no gallops, no murmurs and no rubs GI Palpation (GI): Soft to palpation Back/Spine/Pelvis Other: unremarkable Skin General skin exam: no rashes or lesions noted Neuro General: patient oriented x3 Extrem General: Yes normal to inspection Psych Mental Status: mental status grossly normal Office Procedures EKG Details: EKG with sinus rhythm at 65/Min; no significant ST-T changes. [id number], Complete Assessment & Plan Assessment & Plan (1) Atherosclerotic cardiovascular disease: Code(s): I25.10 - Atherosclerotic heart disease of qagan [place] coronary artery without angina pectoris Category: Medical Plan: Cardiac [id number] occluded circumflex; status post balloon angioplasty and stenting; indeterminate mid LAD lesion, FFR negative. Myocardial perfusion [id number] and apical ischemia. Clinically, she has got no symptoms whatsoever. No angina. Hence continue optimal medical therapy. Or aspirin, beta-blockers, statins. Last LDL 62 mg/dL. Triglycerides 87 mg/dL. (2) Type 2 diabetes mellitus with unspecified complications: Code(s): E11.8 - Type 2 diabetes mellitus with unspecified complications Category: Medical Plan: Current regimen includes insulin, metformin, Trulicity. Last hemoglobin A1c is 7.4%. (3) Essential hypertension: Code(s): I10 - Essential (primary) hypertension Category: Medical Plan: Stable. No changes. Coding Level of Care Code Est Pt Level 4 (61741) Diagnoses Atherosclerotic cardiovascular disease I25.10 Type 2 diabetes mellitus with unspecified complications E11.8 Essential hypertension I10 CPT Codes EKG - CPT: 87063-[id number], Complete ([id number])
[2024-01-19 13:48] VITALS: BP 124/56; PULSE 65; BMI 28.5
== END 2024-01-19 14:05 | disposition home or self-care (01) ==
LOC: HO.HCS 13:40
PROVIDERS: PCP Internal Medicine; Visit Provider Internal Medicine
DX: I25.10 Atherosclerotic heart disease of native coronary artery without angina pectoris (principal); E11.8 Type 2 diabetes mellitus with unspecified complications; I10 Essential (primary) hypertension
CPT/HCPCS: 93010; 99214

== ENCOUNTER → 2024-01-19 13:40 | Outpatient (BNVA) | payer MEDICARE, MEDICAID, SELFPAY | PROVIDERS: PCP Internal Medicine; Visit Provider Internal Medicine | DX: I25.10 Atherosclerotic heart disease of native coronary artery without angina pectoris (principal); I10 Essential (primary) hypertension; E11.8 Type 2 diabetes mellitus with unspecified complications | CPT/HCPCS: 93005; 99212 ==

== ENCOUNTER 2024-02-11 12:38 | Outpatient (AMB) | payer MEDICARE, MEDICAID, SELFPAY ==
[2024-02-11 12:38] VITALS: BP 132/64; PULSE 64; O2SAT 97; BMI 28.7
--- NOTE | 2024-02-11 12:38 | MHC.OFFWIV ---
Intake Vital Signs 02/11/24 12:38 Height 5 ft 3 in Weight 162 lb BMI 28.7 BP 132/64 Blood Pressure Location Rt brachial Position Sitting Pulse 64 Pulse Source Pulse Oximeter Pulse Oximetry (%) 97 Oxygen Delivery Method Room Air Intake Visit Reasons: EP UTI Patient Tobacco Use Status: Former Tobacco user Allergies codeine [CODEINE] Allergy (Intermediate, Verified 02/11/24 12:39) HIVES morphine [MORPHINE] Allergy (Intermediate, Verified 02/11/24 12:39) HIVES oxycodone [OXYCODONE] Allergy (Intermediate, Verified 02/11/24 12:39) HIVES Sulfa (Sulfonamide Antibiotics) [SULFA (SULFONAMIDE ANTIBIOTICS)] Allergy (Intermediate, Verified 02/11/24 12:39) DEHYDRATION, hives, hives OPIATES Allergy (Unknown, Uncoded 12/10/23 14:34) hives Medication List - Last Reconciled 02/11/24 by Celeste Louis MD aspirin 81 mg PO DAILY atorvastatin 80 mg PO DAILY blood sugar diagnostic ([employer] Verio test strips) 3 times a day blood-glucose meter ([employer] Verio Flex Meter) 3 times a day famotidine-Ca carb-mag hydrox 10-800-165 mg (Acid Firmware Manager Complete (famotidine)) 1 tab PO BEDTIME PRN flash glucose scanning reader (FreeStyle Halina 2 [place]) use as directed flash glucose sensor (FreeStyle Halina 2 Sensor kit) use As directed hydrochlorothiazide 25 mg PO QAM insulin degludec (Tresiba FlexTouch U-100 insulin) 42 units (0.42 mL) subcut BEDTIME lancets (Higher OneTouch Delica Lancets) 3 times a day lisinopril 20 mg PO QAM metformin 500 mg PO BID 90 days metoprolol tartrate 50 mg PO BID pen needle, diabetic use for injecting med once a day Trulicity (dulaglutide) 0.75 mg (0.5 mL) subcut QWEEK NS Do you need a note to return to daycare/school/sports/work: No HPI EP UTI HPI Details Patient is a 78-year-old female came in today to be evaluated for possible bladder infection Patient had similar infection in September I see she was treated with Cipro Patient is having frequency of urination and some dysuria Urinalysis shows positive leuk esterase and positive nitrite I have sent Cipro script again for the patient to 50 mg b.i.d. for 5 days We will also send culture Review system: There is no fever no chills, there is no nausea or vomiting, mild discomfort suprapubic just a feeling of pressure No new back pain. [facility] Medical History Arthritis of carpometacarpal (CMC) joint of right thumb Tenosynovitis of right wrist Dermatitis, contact Elevated vitamin B12 level Essential hypertension Atherosclerotic cardiovascular disease Obesity (BMI 30-39.9) Dyslipidemia 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 type 2 diabetes mellitus alf (current) use of insulin Spondylosis of lumbar region without myelopathy or radiculopathy Sacroiliitis Surgical History Stented coronary artery Hx of shoulder surgery History of back surgery Hx of section Hx of hysterectomy Hx of colonoscopy Family History Father Colon cancer Family history of prostate cancer in father Mother Diabetes CVA (cerebral vascular accident) Social History Household Members: Spouse Housing: Apartment Alcohol intake: current Patient Tobacco Use Status: Former Tobacco user Years Smoked: 2 e-Cigarette/Vaping Use: Never Used service: No Current occupational status: retired Cognitive needs: No Hearing needs: No Vision needs: No Review of Systems Const All systems reviewed & are unremarkable except as noted in HPI and below Physical Exam Vital Signs: Last Vital Signs Pulse 64 02/11/24 12:38 BP 132/64 02/11/24 12:38 Pulse Ox 97 02/11/24 12:38 Oxygen Delivery Method Room Air 02/11/24 12:38 BMI result Body Mass Index 28.7 Const General: no acute distress Orientation/consciousness: patient oriented x3 Eyes General: appearance normal, both eyes and all related structures Resp Effort & Inspection: normal respiratory effort and able to speak in complete sentences GI Other: Mild suprapubic pressure General: Yes no CVA tenderness Back/Spine/Pelvis Back: no CVA tenderness Neuro General: patient oriented x3 Psych Mental Status: mental status grossly normal Assessment & Plan Assessment & Plan (1) Acute cystitis: Code(s): N30.00 - Acute cystitis without hematuria Qualifiers: Hematuria presence: without hematuria Qualified Code(s): N30.00 - Acute cystitis without hematuria Plan Patient is a 78-year-old female came in today to be evaluated for possible bladder infection Patient had similar infection in September I see she was treated with Cipro Patient is having frequency of urination and some dysuria Urinalysis shows positive leuk esterase and positive nitrite I have sent Cipro script again for the patient to 50 mg b.i.d. for 5 days We will also send culture Review system: There is no fever no chills, there is no nausea or vomiting, mild discomfort suprapubic just a feeling of pressure No new back pain. Orders: Orders Urine Culture Today N30.00 - Acute cystitis without hematuria Medications: Changed From ciprofloxacin HCl 250 mg PO Q12H 7 days 14 tabs 0RF To ciprofloxacin HCl 250 mg PO Q12H 10 tabs 0RF 5 days Coding Level of Care Code Est Pt Level 3 (40459) Diagnoses Acute cystitis without hematuria N30.00 Hematuria presence: without hematuria
== END 2024-02-11 13:26 | disposition home or self-care (01) ==
PROVIDERS: PCP Internal Medicine; Visit Provider Internal Medicine
DX: N30.00 Acute cystitis without hematuria (principal)
CPT/HCPCS: 81003; 99213

== ENCOUNTER 2024-02-11 16:13 | Outpatient (REF) | payer MEDICARE, MEDICAID, SELFPAY | END 2024-02-11 16:14 | disposition home or self-care (01) | LOC: HO.LNP 16:13 | PROVIDERS: Visit Provider Internal Medicine | DX: N30.00 Acute cystitis without hematuria (principal); Z13.9 Encounter for screening, unspecified | CPT/HCPCS: 87086; 87088; 87186 ==

== ENCOUNTER 2024-02-28 19:41 | Emergency (ER) | payer MEDICARE, MEDICAID, SELFPAY ==
--- NOTE | 2024-02-28 | ECG_ITS ---
Test Reason : SOB Blood Pressure : / mmHG Vent. Rate : 070 BPM Atrial Rate : 070 BPM P-R Int : 178 ms QRS Dur : 094 ms QT Int : 420 ms P-R-T Axes : 045 017 052 degrees QTc Int : 453 ms Normal sinus rhythm with sinus arrhythmia Normal ECG When compared with ECG of 25-JAN-2015 14:15, No significant change was found Referred By: Chantelle Moore Electronically Signed By:KADEEM LEMA MD
--- NOTE | ~2024-02-28 | XR_ITS ---
EXAMINATION: XR CHEST CLINICAL INFORMATION: Shortness of breath. COMPARISON: None available. TECHNIQUE: Frontal view of the chest was obtained. FINDINGS: No significant abnormality is noted involving the heart, lungs, mediastinum, or soft tissues. Mild degenerative changes of the shoulders and spine. XR/XR chest 1V IMPRESSION: Unremarkable examination.
[2024-02-28 19:46] VITALS: BP 152/50; BP 160/80; PULSE 73; PULSE 84; RESP 23; TEMP 36.8; O2SAT 98; O2SAT 99; BMI 31.4
--- NOTE | 2024-02-28 20:05 | MHC.EDTECH ---
Patient BIBA,changed into hospital attire,vitals taken and placed on the clinical research monitor ,EKG completed per order and signed by provider,call arvizu in reach
[2024-02-28 20:19] LABS: MANUAL DIFF FLAG NO
[2024-02-28 20:21] LABS: Basophils Absolute Auto 0.1 X10*3/uL (0.0-0.2); Basophils Percent Auto 0.7 % (0-2); Eosinophils Absolute Auto 0.1 X10*3/uL (0.0-0.4); Eosinophils Percent Auto 1.6 % (0-4); Hemoglobin 12.1 g/dl (12.0-16.0); Imm Gran Abs Auto 0.02 X10*3/uL (0.00-0.03); Imm Gran Pct Auto 0.2 % (0.0-0.4); Lymphocytes Absolute Auto 2.9 X10*3/uL (1.2-4.9); Lymphocytes Percent Auto 32.6 % (20-40); Mean Corpuscular HGB Conc 35.6 g/dl (31.0-35.0); Mean Corpuscular Hemoglobin 31.4 pg (27.0-33.0); Mean Corpuscular Volume 88.3 fL (80.0-98.0); Mean Platelet Volume 10.9 fL (9.4-12.3); Monocytes Absolute Auto 0.8 X10*3/uL (0.1-1.2); Monocytes Percent Auto 8.6 % (2-11); Neutrophils Percent Auto 56.3 % (45-73); Platelet Count 314 X10*3/uL (160-400); Red Blood Count 3.85 X10*6/uL (4.20-5.50); Red Cell Distribution Width 13.2 % (11.0-16.0); White Blood Count 8.8 X10*3/uL (4.8-10.8)
[2024-02-28 20:34] LABS: Alanine Aminotransferase 17 U/L (0-31); Albumin Level 3.9 g/dL (3.5-5.0); Alkaline Phosphatase 79 U/L (39-117); Anion Gap 15 (12-20); Aspartate Amino Transferase 22 U/L (5-31); Bilirubin Total 1.2 mg/dL (0.0-1.0); Blood Urea Nitrogen 20 mg/dL (9-16); Calcium 9.9 mg/dL (8.4-10.2); Carbon Dioxide 24 mmol/L (22-29); Chloride 102 mmol/L (96-108); Creatinine Clr Calc Pharmacy 36.3; Estimated Glomerular Filt Rate 40; Glucose Random 156 mg/dL (60-115); Magnesium 1.7 mg/dL (1.6-2.6); Sodium 137 mmol/L (135-145); Total Protein 6.6 g/dL (6.5-8.0)
[2024-02-28 20:41] LABS: Troponin-I High Sensitivity 2.9 ng/L (<3.5-17.0)
[2024-02-28 20:50] LABS: B Type Natriuretic Peptide 28 pg/mL (<100)
[2024-02-28 21:05] VITALS: BP 154/52; BP 161/61; PULSE 68; PULSE 74
[2024-02-28 21:06] VITALS: BP 151/67; PULSE 76; O2SAT 98
--- NOTE | 2024-02-28 21:07 | MHC.EDTECH ---
Per providers request ,orthostatic vitals taken,O2 Sat on ambulation is 98% MD made aware
[2024-02-28 21:49] VITALS: BP 148/54; PULSE 69; RESP 17; TEMP 36.6
[2024-02-28 21:51] VITALS: BP 135/55; PULSE 62; RESP 11; TEMP 36.4; O2SAT 96
--- NOTE | 2024-02-28 22:04 | MHC.EDTECH ---
Vitals checked, documented, pt resting quietly with 3 family members, no questions asked, call arvizu within reach.
--- NOTE | 2024-02-28 22:43 | ED_ITS ---
HPI - General Adult General Chief complaint: Dyspnea Stated complaint: poss anxiety attack, hx of [place], HTN, diabetes Time Seen by Provider: 02/28/24 19:49 Source: patient Mode of arrival: ambulatory Limitations: no limitations History of Present Illness ED Provider: Dr. Chantelle Moore HPI narrative: Patient comes to the emergency room complaining of getting overwhelmed. Patient states that in the morning she had shortness of breath and it went away, then she started having random pains in her arms, legs. Than a went away. Patient is started feeling anxious around 19:00. 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 Patient states that now she has VNA services, a lot of people coming in and out of her house this is all new for her. Patient states that this time she has no chest pain or shortness of breath. Patient denies SI or HI Related Data Home Medications ?Medication ?Instructions ?Recorded ?Confirmed aspirin 81 mg tablet,delayed 81 mg PO DAILY 06/15/20 02/11/24 release famotidine-Ca carb-mag hydrox 10 1 tab PO BEDTIME PRN 02/02/21 02/11/24 mg-800 mg-165 mg chewable tablet (Acid Ship Steward Complete (famotidine)) Previous Rx's ?Medication ?Instructions ?Recorded blood-glucose meter (OneTouch #1 ea 02/16/21 Verio Flex Meter) blood sugar diagnostic (OneTouch #300 ea 02/01/22 Verio test strips) lancets 33 gauge (OneTouch Delica #300 ea 08/06/22 Lancets) flash glucose scanning reader #2 ea 08/01/23 (FreeStyle Halina 2 [place]) flash glucose sensor (FreeStyle #2 ea 08/01/23 Halina 2 Sensor kit) hydrochlorothiazide 25 mg tablet 25 mg PO QAM #90 tabs 09/14/23 metoprolol tartrate 50 mg tablet 50 mg PO BID #180 tabs 11/02/23 pen needle, diabetic 31 gauge x #100 ea 11/02/2311/14 lisinopril 20 mg tablet 20 mg PO QAM #90 tabs 12/07/23 insulin degludec 100 unit/mL (3 42 unit (0.42 mL) subcut BEDTIME 01/20/24 mL) subcutaneous pen (Tresiba #15 mL FlexTouch U-100 insulin) atorvastatin 80 mg tablet 80 mg PO DAILY #90 tabs 01/27/24 ciprofloxacin HCl 250 mg tablet 250 mg PO Q12H 5 days #10 tabs 02/11/24 metformin 500 mg tablet 500 mg PO BID 90 days #180 tabs 02/13/24 Trulicity 0.75 mg/0.5 mL 0.75 mg (0.5 mL) subcut QWEEK #2 mL 02/20/24 subcutaneous pen injector (dulaglutide) Allergies Allergy/AdvReac Type Severity Reaction Status Date / Time codeine [CODEINE] Allergy Intermediate HIVES Verified 02/11/24 12:39 morphine [MORPHINE] Allergy Intermediate HIVES Verified 02/28/24 19:54 oxycodone [OXYCODONE] Allergy Intermediate HIVES Verified 02/28/24 19:54 Sulfa (Sulfonamide Allergy Intermediate DEHYDRATION, Verified 02/28/24 19:54 Antibiotics) hives, [SULFA (SULFONAMIDE hives ANTIBIOTICS)] OPIATES Allergy Unknown hives Uncoded 02/28/24 19:54 Review of Systems 2 Review of Systems: Constitutional : No Weight loss, No Fever, No Chills, No Night Sweats, No Fatigue, No Malaise ENT/Mouth : No Hearing loss, No Ear Pain, No Nasal Congestion, No Sinus Pain, No Hoarseness, No sore throat, No Rhinorrhea, No Swallowing Difficulty Eyes: No Eye Pain, No Swelling, No Redness, No Foreign Body, No Discharge, No Vision Changes Cardiovascular : No Chest Pain, No SOB, No Dyspnea on Exertion, No Orthopnea, No Edema, No Palpitations Respiratory : No Cough, No Sputum, No Wheezing, No Smoke Exposure, No Dyspnea Gastrointestinal : No Nausea, No Vomiting, No Diarrhea, No Constipation, No abdominal Pain, No Hematochezia, No Melena Genitourinary : no irregular bleeding, No Dysuria, No Urinary Frequency, No Hematuria, No Urinary Incontinence, No Urgency, No Flank Pain, No Urinary Flow Changes, No Hesitancy Musculoskeletal : No joint pain, No Myalgias, No Joint Swelling Skin : No Skin Lesions, No rash Neuro : No Weakness, No Numbness, No Paresthesias, No Loss of Consciousness, No Dizziness, No Headache Psych : Complaining of feeling anxious and overwhelmed, No Depression, No SI/HI/AH/VH, No Social Issues, Heme/Lymph: No Bruising, No Bleeding,No Lymphadenopathy Endocrine : No Polyuria, No Polydipsia, No Temperature Intolerance [facility] Past Medical History Medical History Arthritis of carpometacarpal (CMC) joint of right thumb Tenosynovitis of right wrist Dermatitis, contact Elevated vitamin B12 level Essential hypertension Atherosclerotic cardiovascular disease Obesity (BMI 30-39.9) Dyslipidemia 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 type 2 diabetes mellitus retirement (current) use of insulin Spondylosis of lumbar region without myelopathy or radiculopathy Sacroiliitis Surgical History Stented coronary artery Hx of shoulder surgery History of back surgery Hx of section Hx of hysterectomy Hx of colonoscopy Family History Family History Father Colon cancer Family history of prostate cancer in father Mother Diabetes CVA (cerebral vascular accident) Social History Social History Household Members: Spouse Housing: Apartment Alcohol intake: current Patient Tobacco Use Status: Former Tobacco user Years Smoked: 2 Smoked in Last 30 Days: No e-Cigarette/Vaping Use: Never Used Advance Directives: No Advance Directives Information Provided: No Do you have a plan to hurt others: No Plan service: No Current occupational status: retired Cognitive needs: No Hearing needs: No Vision needs: No Physical Exam ED Vital Signs: Vital Signs - 24 hr 02/28/24 19:46 02/28/24 21:05 02/28/24 21:05 Temperature 98.2 F Pulse Rate 73 74 68 Respiratory Rate 23 H Blood Pressure 152/50 H 161/61 H 154/52 H Pulse Oximetry 98 Oxygen Delivery Method Room Air 02/28/24 21:06 02/28/24 21:06 02/28/24 21:49 Temperature 97.9 F Pulse Rate 76 69 Respiratory Rate 17 Blood Pressure 151/67 H 148/54 H Pulse Oximetry 98 Oxygen Delivery Method Room Air Room Air 02/28/24 21:51 Temperature 97.6 F Pulse Rate 62 Respiratory Rate 11 L Blood Pressure 135/55 L Pulse Oximetry 96 Oxygen Delivery Method Room Air BMI result Body Mass Index 31.4 Const Other: Appearance: Alert. Oriented X3. No acute distress. Eyes: Pupils equal, round and reactive to light. ENT: Pharynx normal. Neck: Normal inspection. Neck supple. No lymph nodes noted. No crepitus CVS: Normal heart rate and rhythm. Pulses normal. Normal S1 and S2 Respiratory: No respiratory distress. Breath sounds normal. No Wheezing. No rales Abdomen: Soft and nontender. No rigidity. No distention. Skin: Skin warm and dry. Normal skin color. Normal skin turgor. Extremities: No lower extremity edema. No Lacerations. No Rash Neuro: Oriented X 3. No motor deficit. No sensory deficit. Moving all extremities. No slurred speech. CN 2 through 12 grossly intact Psych: calm, cooperative, normal affect Medical Decision Making Medical Decision Making MDM Narrative: My interpretation of labs, hematology and chemistry within normal limits, troponin negative, BNP negative -my interpretation of chest x-ray, no pneumonia -my interpretation of EKG, normal sinus rhythm, heart rate 70, no ST segment depression or elevation, no T-wave inversion, QTC 453 -patient was walked around the emergency room, patient has good steady gait by herself, no oxygen desaturations, no tachycardia, no dizziness. Patient states that she feels well. Differential Diagnosis Differential Diagnoses: The differential diagnosis associated with the presentation includes (Anxiety, depression, viral syndrome) Lab Data [facility] Lab Attestation statement: I reviewed the patient's lab results. 02/28/24 20:14 02/28/24 20:14 Labs: Lab Results 02/28/24 Range/Units 20:14 WBC 8.8 (4.8-10.8) X10*3/uL RBC 3.85 L (4.20-5.50) X10*6/uL Hgb 12.1 (12.0-16.0) g/dl Hct 34.0 L (37.0-47.0) % MCV 88.3 (80.0-98.0) fL MCH 31.4 (27.0-33.0) pg MCHC 35.6 H (31.0-35.0) g/dl RDW 13.2 (11.0-16.0) % Plt Count 314 (160-400) X10*3/uL MPV 10.9 (9.4-12.3) fL Immature Gran % (Auto) 0.2 (0.0-0.4) % Neut % (Auto) 56.3 (45-73) % Lymph % (Auto) 32.6 (20-40) % [place] % (Auto) 8.6 (2-11) % Eos % (Auto) 1.6 (0-4) % Baso % (Auto) 0.7 (0-2) % Lymph # (Auto) 2.9 (1.2-4.9) X10*3/uL [place] # (Auto) 0.8 (0.1-1.2) X10*3/uL Eos # (Auto) 0.1 (0.0-0.4) X10*3/uL Baso # (Auto) 0.1 (0.0-0.2) X10*3/uL Abs Immat Gran (auto) 0.02 (0.00-0.03) X10*3/uL Absolute Neuts (auto) 5.0 (2.0-8.3) x10*3/uL Absolute Nucleated RBC 0.000 (0.0-0.012) X10*3/uL Nucleated RBC % (auto) 0.0 (0.0-0.2) /100WBC Sodium 137 (135-145) mmol/L Potassium 4.0 (3.3-5.1) mmol/L Chloride 102 (96-108) mmol/L Carbon Dioxide 24 (22-29) mmol/L Anion Gap 15 (12-20) BUN 20 H (9-16) mg/dL Creatinine 1.28 (0.5-1.4) mg/dL Estim Creat Clear Calc 36.3 Estimated GFR 40 Random Glucose 156 H (60-115) mg/dL Calcium 9.9 (8.4-10.2) mg/dL Magnesium 1.7 (1.6-2.6) mg/dL Total Bilirubin 1.2 H (0.0-1.0) mg/dL AST 22 (5-31) U/L ALT 17 (0-31) U/L Alkaline Phosphatase 79 (39-117) U/L Troponin I High Sens 2.9 (<3.5-17.0) ng/L B-Natriuretic Peptide 28 (<100) pg/mL Total Protein 6.6 (6.5-8.0) g/dL Albumin 3.9 (3.5-5.0) g/dL Independent Interpretation I performed an independent interpretation of an: EKG and Plain X-Ray Radiology Impression Discussion of test interpretation with radiology: I have reviewed the radiologist's reading. Radiologist Impression: FINDINGS: No significant abnormality is noted involving the heart, lungs, mediastinum, or soft tissues. Mild degenerative changes of the shoulders and spine. XR/XR chest 1V IMPRESSION: Unremarkable examination. Independent Historian Clinical information obtained from an independent historian. History obtained from or confirmed by: Other (Son) Discharge Plan Discharge Clinical Impression: Anxiety Patient Disposition: Home, Self-Care Instructions: Anxiety (ED) Additional Instructions: Please follow-up with your primary care physician tomorrow. If you have any worsening or new symptoms, please return to the emergency room or call 911 Prescriptions: No Action (DME) blood-glucose meter [OneTouch Verio Flex meter] Misc See Rx Instructions .ROUTE .MEDSUPPLY Qty: 1 0RF Rx Instructions: 3 times a day (DME) OneTouch Verio test strips Strip See Rx Instructions .MEDSUPPLY Qty: 300 2RF Rx Instructions: 3 times a day (DME) lancets [OneTouch Delica Lancets] 33 gauge misc See Rx Instructions miscellaneous .MEDSUPPLY Qty: 300 0RF Rx Instructions: 3 times a day (DME) FreeStyle Halina 2 [place] Misc See Rx Instructions .Route Qty: 2 11RF Rx Instructions: use as directed (DME) FreeStyle Halina 2 Sensor Kit See Rx Instructions .Route Qty: 2 11RF Rx Instructions: use As directed hydrochlorothiazide 25 mg tablet 25 mg PO QAM Qty: 90 1RF metoprolol tartrate 50 mg tablet 50 mg PO BID Qty: 180 1RF (DME) pen needle, diabetic 31 gauge x 3/16 needle See Rx Instructions subcut BID Qty: 100 1RF Rx Instructions: use for injecting med once a day lisinopril 20 mg tablet 20 mg PO QAM Qty: 90 1RF insulin degludec [Tresiba FlexTouch U-100] 100 unit/mL (3 mL) insulin pen 42 unit subcut BEDTIME Qty: 15 5RF atorvastatin 80 mg tablet 80 mg PO DAILY Qty: 90 1RF metformin 500 mg tablet 500 mg PO BID 90 Days Qty: 180 1RF Trulicity 0.75 mg/0.5 mL pen injector 0.75 mg subcut QWEEK Qty: 2 0RF ciprofloxacin HCl 250 mg tablet 250 mg PO Q12H 5 Days Qty: 10 0RF Acid Ship Steward Complete (famot) 10-800-165 mg tablet,chewable 1 tab PO BEDTIME PRN aspirin 81 mg tablet,delayed release (DR/EC) 81 mg PO DAILY Print Language: Mauritian
[2024-02-28 22:53] VITALS: BP 135/55; PULSE 62; RESP 11; TEMP 36.4; O2SAT 96
== END 2024-02-28 22:57 | disposition home or self-care (01) ==
PROVIDERS: Emergency Provider Emergency Medicine; PCP Internal Medicine
DX: F41.9 Anxiety disorder, unspecified (principal); R06.02 Shortness of breath; I10 Essential (primary) hypertension; E78.5 Hyperlipidemia, unspecified; Z79.4 Long term (current) use of insulin; Z79.84 Long term (current) use of oral hypoglycemic drugs; Z79.85 Long-term (current) use of injectable non-insulin antidiabetic drugs; Z79.899 Other long term (current) drug therapy; Z87.891 Personal history of nicotine dependence
CPT/HCPCS: 36415; 71045; 80053; 83735; 83880; 84484; 85025; 93005; 99283; 99284

== ENCOUNTER → 2024-02-28 19:56 | Outpatient (BNV) | payer MEDICARE, MEDICAID, SELFPAY | PROVIDERS: Emergency Provider Emergency Medicine; PCP Internal Medicine; Visit Provider Internal Medicine Cardiovascular Disease | DX: R06.02 Shortness of breath (principal) | CPT/HCPCS: 93010 ==

== ENCOUNTER 2024-03-08 11:18 | Outpatient (REF) | payer MEDICARE, MEDICAID, SELFPAY ==
[2024-03-08 14:19] LABS: Estimated Average Glucose 151 mg/dL; Hemoglobin A1c % 6.9 % (<6.0)
[2024-03-08 14:54] LABS: Microalbum/Creatinine Ratio Ur 7.2 ug/mg cr (<30)
[2024-03-08 15:19] LABS: Alanine Aminotransferase 19 U/L (0-31); Albumin Level 3.9 g/dL (3.5-5.0); Alkaline Phosphatase 76 U/L (39-117); Anion Gap 13 (12-20); Aspartate Amino Transferase 23 U/L (5-31); Bilirubin Total 1.3 mg/dL (0.0-1.0); Blood Urea Nitrogen 19 mg/dL (9-16); Calcium 9.8 mg/dL (8.4-10.2); Carbon Dioxide 25 mmol/L (22-29); Chloride 104 mmol/L (96-108); Cholesterol 123 mg/dL (<200); Estimated Glomerular Filt Rate 44; Glucose Fasting 101 mg/dL (60-99); HDL Cholesterol 41 mg/dL (>40); LDL Cholesterol Calculated 65 mg/dL (<100); Potassium 4.4 mmol/L (3.3-5.1); Sodium 138 mmol/L (135-145); Total Protein 6.7 g/dL (6.5-8.0); Triglycerides 87 mg/dL (<150); Vitamin D 25-OH Total 51.8 ng/mL (>30)
== END 2024-03-08 11:19 | disposition home or self-care (01) ==
LOC: HO.HMGCLDS 11:18
PROVIDERS: PCP Internal Medicine; Visit Provider Internal Medicine
DX: E66.9 Obesity, unspecified (principal); I10 Essential (primary) hypertension; I25.10 Atherosclerotic heart disease of native coronary artery without angina pectoris; E11.42 Type 2 diabetes mellitus with diabetic polyneuropathy; E78.5 Hyperlipidemia, unspecified
CPT/HCPCS: 36415; 80053; 80061; 82043; 82306; 82570; 83036

== ENCOUNTER 2024-03-29 21:23 | Emergency (ER) | payer MEDICARE, MEDICAID, SELFPAY ==
--- NOTE | 2024-03-29 | ECG_ITS ---
Test Reason : chest pain Blood Pressure : / mmHG Vent. Rate : 066 BPM Atrial Rate : 066 BPM P-R Int : 176 ms QRS Dur : 088 ms QT Int : 434 ms P-R-T Axes : 035 002 028 degrees QTc Int : 454 ms Normal sinus rhythm Normal ECG When compared with ECG of 28-FEB-2024 19:56, No significant change was found Referred By: Generic ED Physician Electronically Signed By:Shemar Thomas
--- NOTE | ~2024-03-29 | XR_ITS ---
EXAMINATION: XR CHEST CLINICAL INFORMATION: Chest pain. COMPARISON: Chest 02/28/2024 TECHNIQUE: Frontal view of the chest was obtained. FINDINGS: No significant abnormality is noted involving the heart, lungs, mediastinum, bony thorax or soft tissues. XR/XR chest 1V IMPRESSION: Unremarkable chest examination.
[2024-03-29 21:35] VITALS: BP 155/60; BP 162/64; PULSE 75; PULSE 79; RESP 22; TEMP 36.8; O2SAT 97; O2SAT 98; BMI 30.5
[2024-03-29 21:51] LABS: MANUAL DIFF FLAG NO
[2024-03-29 21:53] LABS: Basophils Percent Auto 0.4 % (0-2); Eosinophils Absolute Auto 0.1 X10*3/uL (0.0-0.4); Eosinophils Percent Auto 1.2 % (0-4); Hematocrit 34.4 % (37.0-47.0); Hemoglobin 12.6 g/dl (12.0-16.0); Imm Gran Abs Auto 0.02 X10*3/uL (0.00-0.03); Imm Gran Pct Auto 0.2 % (0.0-0.4); Lymphocytes Absolute Auto 2.8 X10*3/uL (1.2-4.9); Lymphocytes Percent Auto 29.6 % (20-40); Mean Corpuscular HGB Conc 36.6 g/dl (31.0-35.0); Mean Corpuscular Hemoglobin 31.3 pg (27.0-33.0); Mean Corpuscular Volume 85.6 fL (80.0-98.0); Monocytes Absolute Auto 0.9 X10*3/uL (0.1-1.2); Neutrophils Absolute Auto 5.6 x10*3/uL (2.0-8.3); Neutrophils Percent Auto 59.6 % (45-73); Platelet Count 294 X10*3/uL (160-400); Red Blood Count 4.02 X10*6/uL (4.20-5.50); White Blood Count 9.4 X10*3/uL (4.8-10.8)
--- NOTE | 2024-03-29 21:54 | ED.GENADULT ---
HPI - General Adult General Chief complaint: General Medical Stated complaint: L SHOULDER PAIN Time Seen by Provider: 03/29/24 21:45 History of Present Illness HPI narrative: Patient is a 78-year-old female with a history of diabetes, hypertension, high cholesterol. Previous history of having a cardiac stent. Presents today with having left shoulder blade pain that started about 18:00. It was sharp. Happened while patient was driving. There is no leg swelling. Patient is not on any blood thinners. No fever no chills. It is worsened with movement it is worsened with deep breath. No fever no chills. No coughing or congestion or upper respiratory symptoms. Patient is from home. The pain is different than previous bouts of chest pain. No history of travel. No history of leg swelling. No history of cancer Related Data Home Medications ?Medication ?Instructions ?Recorded ?Confirmed aspirin 81 mg tablet,delayed 81 mg PO DAILY 06/15/20 02/11/24 release famotidine-Ca carb-mag hydrox 10 1 tab PO BEDTIME PRN 02/02/21 02/11/24 mg-800 mg-165 mg chewable tablet (Acid Wind Turbine Performance Engineer Complete (famotidine)) Previous Rx's ?Medication ?Instructions ?Recorded blood-glucose meter (OneTouch #1 ea 02/16/21 Verio Flex Meter) blood sugar diagnostic (OneTouch #300 ea 02/01/22 Verio test strips) lancets 33 gauge (OneTouch Delica #300 ea 08/06/22 Lancets) flash glucose scanning reader #2 ea 08/01/23 (FreeStyle Halina 2 [place]) flash glucose sensor (FreeStyle #2 ea 08/01/23 Halina 2 Sensor kit) metoprolol tartrate 50 mg tablet 50 mg PO BID #180 tabs 11/02/23 pen needle, diabetic 31 gauge x #100 ea 11/02/2311/14 lisinopril 20 mg tablet 20 mg PO QAM #90 tabs 12/07/23 insulin degludec 100 unit/mL (3 42 unit (0.42 mL) subcut BEDTIME 01/20/24 mL) subcutaneous pen (Tresiba #15 mL FlexTouch U-100 insulin) atorvastatin 80 mg tablet 80 mg PO DAILY #90 tabs 01/27/24 ciprofloxacin HCl 250 mg tablet 250 mg PO Q12H 5 days #10 tabs 02/11/24 metformin 500 mg tablet 500 mg PO BID 90 days #180 tabs 02/13/24 hydrochlorothiazide 25 mg tablet 25 mg PO QAM #90 tabs 03/05/24 Trulicity 0.75 mg/0.5 mL 0.75 mg (0.5 mL) subcut QWEEK #2 mL 03/18/24 subcutaneous pen injector (dulaglutide) Allergies Allergy/AdvReac Type Severity Reaction Status Date / Time codeine [CODEINE] Allergy Intermediate HIVES Verified 03/29/24 21:50 morphine [MORPHINE] Allergy Intermediate HIVES Verified 03/29/24 21:50 oxycodone [OXYCODONE] Allergy Intermediate HIVES Verified 03/29/24 21:50 Sulfa (Sulfonamide Allergy Intermediate DEHYDRATION, Verified 03/29/24 21:50 Antibiotics) hives, [SULFA (SULFONAMIDE hives ANTIBIOTICS)] OPIATES Allergy Unknown hives Uncoded 03/29/24 21:50 Review of Systems Review of Systems: Positive left shoulder pain left scapular pain Yes all other systems are reviewed and are negative PMFSH Past Medical History Attestation statement: The following information was validated with the patient. Medical History Arthritis of carpometacarpal (CMC) joint of right thumb Tenosynovitis of right wrist Dermatitis, contact Elevated vitamin B12 level Essential hypertension Atherosclerotic cardiovascular disease Obesity (BMI 30-39.9) Dyslipidemia 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 type 2 diabetes mellitus residential (current) use of insulin Spondylosis of lumbar region without myelopathy or radiculopathy Sacroiliitis Surgical History Stented coronary artery Hx of shoulder surgery History of back surgery Hx of section Hx of hysterectomy Hx of colonoscopy Family History Family History Father Colon cancer Family history of prostate cancer in father Mother Diabetes CVA (cerebral vascular accident) Social History Social History Household Members: Spouse Housing: Apartment Alcohol intake: current Patient Tobacco Use Status: Former Tobacco user Years Smoked: 2 Smoked in Last 30 Days: No e-Cigarette/Vaping Use: Never Used Use of substances other than those prescribed or required for medical reasons: No Advance Directives: No Advance Directives Information Provided: No Do you have a plan to hurt others: No Plan service: No Current occupational status: retired Cognitive needs: No Hearing needs: No Vision needs: No Physical Exam ED Vital Signs: Vital Signs - 24 hr 03/29/24 21:35 Temperature 98.3 F Pulse Rate 75 Respiratory Rate 22 H Blood Pressure 155/60 H Pulse Oximetry 97 Oxygen Delivery Method Room Air BMI result Body Mass Index 30.5 Appearance: Alert. Oriented X3. No acute distress. Eyes: Pupils equal, round and reactive to light. ENT: Pharynx normal. Neck: Normal inspection. Neck supple. No lymph nodes noted. No crepitus CVS: Normal heart rate and rhythm. Pulses normal. Normal S1 and S2 Respiratory: No respiratory distress. Breath sounds normal. No Wheezing. No rales Abdomen: Soft and nontender. No rigidity. No distention. good BS x4 Skin: Skin warm and dry. Normal skin color. Normal skin turgor. Extremities: No lower extremity edema. Neurovascular intact to all extremities. No Lacerations. No Rash Neuro: Oriented X 3. No motor deficit. No sensory deficit. Moving all extermities. No slurred speech Medical Decision Making Medical Decision Making [facility] Narrative: Patient's scapular pain atypical for ACS. White count was normal. Troponin was negative. Patient's D-dimer when age adjusted is negative. In the setting of low risk unlikely secondary to PE. Chest x-ray showed no focal infiltrate no pneumonia no pneumothorax. Will discharge patient home Differential Diagnosis Differential Diagnoses: The differential diagnosis associated with the presentation includes ACS, pneumonia, pneumothorax, PE, dissection, musculoskeletal Admission/Observation Consideration of admission/observation: Escalation of care including admission/observation considered Lab Data [facility] Lab Attestation statement: I reviewed the patient's lab results. 03/29/24 21:46 03/29/24 21:46 Labs: Lab Results 03/29/24 03/29/24 03/29/24 Range/Units 21:46 22:52 23:53 WBC 9.4 (4.8-10.8) X10*3/uL RBC 4.02 L (4.20-5.50) X10*6/uL Hgb 12.6 (12.0-16.0) g/dl Hct 34.4 L (37.0-47.0) % MCV 85.6 (80.0-98.0) fL MCH 31.3 (27.0-33.0) pg MCHC 36.6 H (31.0-35.0) g/dl RDW 13.0 (11.0-16.0) % Plt Count 294 (160-400) X10*3/uL MPV 11.0 (9.4-12.3) fL Immature Gran % (Auto) 0.2 (0.0-0.4) % Neut % (Auto) 59.6 (45-73) % Lymph % (Auto) 29.6 (20-40) % [place] % (Auto) 9.0 (2-11) % Eos % (Auto) 1.2 (0-4) % Baso % (Auto) 0.4 (0-2) % Lymph # (Auto) 2.8 (1.2-4.9) X10*3/uL [place] # (Auto) 0.9 (0.1-1.2) X10*3/uL Eos # (Auto) 0.1 (0.0-0.4) X10*3/uL Baso # (Auto) 0.0 (0.0-0.2) X10*3/uL Abs Immat Gran (auto) 0.02 (0.00-0.03) X10*3/uL Absolute Neuts (auto) 5.6 (2.0-8.3) x10*3/uL Absolute Nucleated RBC 0.000 (0.0-0.012) X10*3/uL Nucleated RBC % (auto) 0.0 (0.0-0.2) /100WBC D-Dimer High Sensitivty 292 NG/ML Sodium 132 L (135-145) mmol/L Potassium 4.0 (3.3-5.1) mmol/L Chloride 97 (96-108) mmol/L Carbon Dioxide 25 (22-29) mmol/L Anion Gap 14 (12-20) BUN 16 (9-16) mg/dL Creatinine 1.07 (0.5-1.4) mg/dL Estim Creat Clear Calc 42.8 Estimated GFR 50 Random Glucose 117 H (60-115) mg/dL Calcium 9.9 (8.4-10.2) mg/dL Total Bilirubin 1.5 H (0.0-1.0) mg/dL AST 25 (5-31) U/L ALT 19 (0-31) U/L Alkaline Phosphatase 83 (39-117) U/L Troponin I High Sens 2.8 3.0 (<3.5-17.0) ng/L Total Protein 6.9 (6.5-8.0) g/dL Albumin 4.1 (3.5-5.0) g/dL Independent Interpretation I performed an independent interpretation of an: EKG (Sinus heart rate is 60 AR QRS QTC normal no acute ST segment elevation noted.) and Plain X-Ray (Chest x-ray negative for pneumonia no pneumothorax) Radiology Impression Discussion of test interpretation with radiology: I have reviewed the radiologist's reading. Independent Historian Clinical information obtained from an independent historian. History obtained from or confirmed by: EMS and Other (Family [facility]) External Record Review External record reviewed: Inpatient record Chronic Conditions Patient?s care impacted by: Hypertension Discharge Plan Discharge Clinical Impression: Pain in scapula Patient Disposition: Home, Self-Care Instructions: Chest Pain (ED) Prescriptions: No Action (DME) blood-glucose meter [OneTouch Verio Flex meter] Misc See Rx Instructions .ROUTE .MEDSUPPLY Qty: 1 0RF Rx Instructions: 3 times a day (DME) OneTouch Verio test strips Strip See Rx Instructions .MEDSUPPLY Qty: 300 2RF Rx Instructions: 3 times a day (DME) lancets [OneTouch Delica Lancets] 33 gauge misc See Rx Instructions miscellaneous .MEDSUPPLY Qty: 300 0RF Rx Instructions: 3 times a day (DME) FreeStyle Halina 2 [place] Misc See Rx Instructions .Route Qty: 2 11RF Rx Instructions: use as directed (DME) FreeStyle Halina 2 Sensor Kit See Rx Instructions .Route Qty: 2 11RF Rx Instructions: use As directed metoprolol tartrate 50 mg tablet 50 mg PO BID Qty: 180 1RF (DME) pen needle, diabetic 31 gauge x 3/16 needle See Rx Instructions subcut BID Qty: 100 1RF Rx Instructions: use for injecting med once a day lisinopril 20 mg tablet 20 mg PO QAM Qty: 90 1RF insulin degludec [Tresiba FlexTouch U-100] 100 unit/mL (3 mL) insulin pen 42 unit subcut BEDTIME Qty: 15 5RF atorvastatin 80 mg tablet 80 mg PO DAILY Qty: 90 1RF metformin 500 mg tablet 500 mg PO BID 90 Days Qty: 180 1RF hydrochlorothiazide 25 mg tablet 25 mg PO QAM Qty: 90 0RF Trulicity 0.75 mg/0.5 mL pen injector 0.75 mg subcut QWEEK Qty: 2 4RF ciprofloxacin HCl 250 mg tablet 250 mg PO Q12H 5 Days Qty: 10 0RF Acid Wind Turbine Performance Engineer Complete (famot) 10-800-165 mg tablet,chewable 1 tab PO BEDTIME PRN aspirin 81 mg tablet,delayed release (DR/EC) 81 mg PO DAILY Referrals: Shemar Thomas MD [Physician] - Physician,Unknown J [Primary Care Provider] - 04/02/24 Print Language: Malay
[2024-03-29 22:07] LABS: Alanine Aminotransferase 19 U/L (0-31); Albumin Level 4.1 g/dL (3.5-5.0); Alkaline Phosphatase 83 U/L (39-117); Anion Gap 14 (12-20); Aspartate Amino Transferase 25 U/L (5-31); Bilirubin Total 1.5 mg/dL (0.0-1.0); Blood Urea Nitrogen 16 mg/dL (9-16); Calcium 9.9 mg/dL (8.4-10.2); Carbon Dioxide 25 mmol/L (22-29); Chloride 97 mmol/L (96-108); Creatinine Clr Calc Pharmacy 42.8; Estimated Glomerular Filt Rate 50; Glucose Random 117 mg/dL (60-115); Sodium 132 mmol/L (135-145); Total Protein 6.9 g/dL (6.5-8.0)
[2024-03-29 22:14] LABS: Troponin-I High Sensitivity 2.8 ng/L (<3.5-17.0)
--- NOTE | 2024-03-29 22:31 | PC.NURSE ---
Pt presents to ED from home, reports 3 days of left shoulder pain, intermittent, sharp and dull, 02/08. Reports recent significant stressors in her life, is on hospice here at [facility] [place]. Denies falls or recent illnesses, no SOB. Alert and oriented, breathing even and unlabored, skin warm and dry. NSR on bedside vehicle monitor technician.
[2024-03-29 23:11] LABS: D Dimer High Sensitivity 292 NG/ML
[2024-03-30 02:09] VITALS: BP 155/60; PULSE 75; RESP 22; TEMP 36.8; O2SAT 97
== END 2024-03-30 01:50 | disposition home or self-care (01) ==
PROVIDERS: Emergency Provider Emergency Medicine Emergency Medical Services
DX: M25.512 Pain in left shoulder (principal); R07.89 Other chest pain; Z79.899 Other long term (current) drug therapy
CPT/HCPCS: 36415; 71045; 80053; 84484; 85025; 85379; 93005; 99283; 99284

== ENCOUNTER → 2024-03-29 21:35 | Outpatient (BNV) | payer MEDICARE, MEDICAID, SELFPAY | PROVIDERS: Emergency Provider Emergency Medicine Emergency Medical Services; Visit Provider Internal Medicine Cardiovascular Disease | DX: R07.9 Chest pain, unspecified (principal) | CPT/HCPCS: 93010 ==

== ENCOUNTER 2024-03-31 13:19 | Outpatient (AMB) | payer MEDICARE, MEDICAID, SELFPAY ==
--- NOTE | 2024-03-31 13:40 | MHC.PC.OV ---
Vital Signs 03/31/24 13:43 Height 5 ft 3 in Weight 172 lb BMI 30.5 BP 120/60 Blood Pressure Location Lt brachial Position Sitting Pulse 68 Pulse Source Pulse Oximeter Pulse Oximetry (%) 99 Oxygen Delivery Method Room Air Intake Visit Reasons: Anxiety disorder with panic attacks Intake Note: Pt is here today c/o panic attack due to in hospice Allergies codeine [CODEINE] Allergy (Intermediate, Verified 04/01/24 03:52) HIVES morphine [MORPHINE] Allergy (Intermediate, Verified 04/01/24 03:52) HIVES oxycodone [OXYCODONE] Allergy (Intermediate, Verified 04/01/24 03:52) HIVES Sulfa (Sulfonamide Antibiotics) [SULFA (SULFONAMIDE ANTIBIOTICS)] Allergy (Intermediate, Verified 04/01/24 03:52) DEHYDRATION, hives, hives OPIATES Allergy (Unknown, Uncoded 04/01/24 03:52) hives Medication List - Last Reconciled 04/01/24 by Jasmine Vasquez MD aspirin 81 mg PO DAILY atorvastatin 80 mg PO DAILY blood sugar diagnostic (PEMREDuch Verio test strips) 3 times a day blood-glucose meter (PEMREDuch Verio Flex Meter) 3 times a day escitalopram oxalate 10 mg PO DAILY famotidine-Ca carb-mag hydrox 10-800-165 mg (Acid Natural Gas Plant Technician Complete (famotidine)) 1 tab PO BEDTIME PRN flash glucose scanning reader (FreeStyle Halina 2 [place]) use as directed flash glucose sensor (FreeStyle Halina 2 Sensor kit) use As directed hydrochlorothiazide 25 mg PO QAM insulin degludec (Tresiba FlexTouch U-100 insulin) 42 units (0.42 mL) subcut BEDTIME lancets (PEMREDuch Delica Lancets) 3 times a day lisinopril 20 mg PO QAM lorazepam 0.5 mg PO DAILY PRN metformin 500 mg PO BID 90 days metoprolol tartrate 50 mg PO BID pen needle, diabetic use for injecting med once a day Trulicity (dulaglutide) 0.75 mg (0.5 mL) subcut QWEEK NS Tobacco use date assessed: 03/31/24 Fall risk assessment: No Falls in past year Last assessed Fall Risk: 03/31/24 Dental Screening Dental Screen Date: 03/31/24 Did you have a dental visit in the last 12 months?: No Did you have a dental problem in the last 6 months where you did not have access to dental care?: No Was dental information given to patient?: Patient declined HPI HPI Comments History of Present Illness Details 70-year-old lady with history of myocardial infarction status post stent placement in 2000, has diabetes mellitus, hypertension and dyslipidemia, here today complaining of generalized anxiety disorder with acute panic attacks. Patient is feeling overwhelmed, with recently diagnosed with liver cancer, now being transferred to hospice at [facility] today. States that she was on her way to visit him when she had a sudden panic attack while driving and had to return back home. She has a good family support system . Has had anxiety with panic attacks in the past but was always able to control it at taking any medication. 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 Spondylosis of lumbar region without myelopathy or radiculopathy Sacroiliitis Surgical History Stented coronary artery Hx of shoulder surgery History of back surgery Hx of section Hx of hysterectomy Hx of colonoscopy Family History Father Colon cancer Family history of prostate cancer in father Mother Diabetes CVA (cerebral vascular accident) Social History Household Members: Spouse Housing: Apartment Alcohol intake: current Patient Tobacco Use Status: Former Tobacco user Years Smoked: 2 e-Cigarette/Vaping Use: Never Used service: No Current occupational status: retired Cognitive needs: No Hearing needs: No Vision needs: No Questionnaire PHQ-9 Over the last 2 weeks, how often have you been bothered by any of the following problems? 1. Little interest or pleasure in doing things: several days 2. Feeling down, depressed, or hopeless: more than half the days 3. Trouble falling or staying asleep, or sleeping too much: not at all 4. Feeling tired or having little energy: several days 5. Poor appetite or overeating: several days 6. Feeling bad about yourself - or that you are a failure or have let yourself or your family down: not at all 7. Trouble concentrating on things, such as reading the newspaper or watching television: not at all 8. Moving or speaking so slowly that other people could have noticed. Or the opposite - being so fidgety or restless that you have been moving around a lot more than usual: not at all 9. Thoughts that you would be better off or of hurting yourself in some way: not at all Total score: 5 Depression Screening Interpretation: Positive Depression Screening Done: Yes 76958 - PHQ-9 Billing: Yes Source: Developed by Drs. Golden Moe, Palma Sullivan, Devin Orozco and colleagues, with an educational arlen from [employer]. Thrive Questionnaire Date Thrive assessed: 03/31/24 I am a: Patient What is your living situation today?: I have a steady place to live Within the past 12 months, did the food you bought not last and you didn't have the money to get more?: Never true Within the past 12 months, did you worry whether your food would run out before you got money to buy more?: Never true Do you have trouble paying for medicines?: No Do you have trouble getting transportation to medical appointments?: No Do you have trouble paying your heating and electricity bill?: No Do you have trouble taking care of your child, family member or friend?: No Do you have trouble with day-to-day activities such as bathing, preparing meals, shopping, managing finances, etc.?: No Are you currently unemployed and looking for a job?: No Are you interested in more education?: No THRIVE Score: 0 AUDIT C Alcohol Use Questionnaire (AUDIT-C) 1. How often do you have a drink containing alcohol?: Never Total Score: 0 SACHA-7 AMB Questionnaire SACHA-7 Date SACHA - 7 assessed: 03/31/24 Feeling nervous, anxious, or on edge: 2 = More than half the days Not being able to stop or control worryin = Nearly every day Worrying too much about different things: 2 = More than half the days Trouble relaxin = Several days Being so restless that it is hard to sit still: 2 = More than half the days Becoming easily annoyed or irritable: 0 = Not at all Feeling afraid as if something awful might happen: 1 = Several days Total SACHA-7 score (0-4 normal; 5-9 mild; 10-14 moderate; 15-21 severe): 11 Source: Developed by Drs. Golden Moe, Palma Sullivan, Devin Orozco and colleagues, with an educational arlen from [employer]. SACHA-7 Assessment Billing SACHA-7 Assessment Tool: SACHA-7 Assessment 31910 Review of Systems Const Denies fever(s), Denies frequent falls and Denies weakness ENT Denies dizziness Card Denies chest pain, Denies leg edema, Denies lightheadedness, Denies palpitations and Denies dyspnea Resp Denies cough and Denies dyspnea GI Denies abdominal pain, Denies melena, Denies hematochezia, Denies change in bowel habits and Denies heartburn Reports no additional complaints Musc Denies abnormal gait, Denies muscle weakness and Denies radiating pain into limb Neuro Denies abnormal gait, Denies dizziness, Denies frequent falls and Denies weakness Psych Reports as per HPI Endo Denies palpitations Physical exam (Primary Care) Vital Signs: Last Vital Signs Pulse 68 03/31/24 13:43 BP 120/60 03/31/24 13:43 Pulse Ox 99 03/31/24 13:43 Oxygen Delivery Method Room Air 03/31/24 13:43 BMI result Body Mass Index 30.5 Tobacco/Smoking Status: Tobacco use Status Tobacco use date assessed 03/31/24 03/31/24 13:46 Patient Tobacco Use Status Former Tobacco user 03/31/24 13:41 e-Cigarette/Vaping Use Never Used 03/31/24 13:41 Depression Screening Interpretation: Positive Thrive Assessment: Date of Thrive Assessment Date Thrive assessed 12/03/22 03/31/24 13:41 Const Other: tearful General: alert and awake Nutritional Appearance: obese Orientation/consciousness: patient oriented x3 HENMT Face and sinus: Yes face symmetric Mouth: Normal oral and palatal mucosa present, tongue normal, oropharynx normal and moist mucous membranes Eyes General: appearance normal, both eyes and all related structures Neck Other: Supple, full range of motion, no lymphadenopathy Resp Effort & Inspection: normal respiratory effort and able to speak in complete sentences Auscultation: clear to auscultation bilaterally Cardio Other: S1-S2 present regular rate and rhythm GI Palpation (GI): Soft to palpation, nontender, no guarding and no masses Neuro General: patient oriented x3, gait normal, tone normal, moves all extremities, Normal light touch and pain sensation, no focal motor deficits and CN's II-XI intact bilaterally Extrem General: Yes full ROM, Yes no joint enlargement, Yes no clubbing, cyanosis or edema, Yes no calf tenderness and Yes normal gait Psych Appearance: grossly normal and well kempt Mental Status: mental status grossly normal Speech and movement: Normal speech and movement present Affect: Sad affect present Attitude: cooperative Thought process: Normal thought process present Thought content: Normal thought content present Assessment and Plan Assessment & Plan (1) Generalized anxiety disorder with panic attacks: Code(s): F41.1 - Generalized anxiety disorder; F41.0 - Panic disorder [episodic paroxysmal anxiety] Plan: Will start on escitalopram 10 mg per tablet to take once a day in a.m., and prescription also sent for lorazepam 0.5 mg, to take 1 tablet once a day only for treatment of acute panic attacks. Patient warned that medication is habit forming, not to take on a regular basis. Referred to outpatient psychiatry for further evaluation management. Referred to Paty [facility] mental health coordinator for assistance as well in getting appointments for psychiatry. Will see her back for follow-up in 1 month Orders: Referrals Psychiatry Outpatient Consultation Service F41.0 - Panic disorder [episodic paroxysmal anxiety], F41.1 - Generalized anxiety disorder Medications: New escitalopram oxalate 10 mg PO DAILY 30 tabs 0RF F41.0 - Panic disorder [episodic paroxysmal anxiety], F41.1 - Generalized anxiety disorder lorazepam 0.5 mg PO DAILY PRN 14 tabs 0RF Acute panic attack Coding Level of Care Code Est Pt Level 4 (00107) Diagnoses Generalized anxiety disorder with panic attacks F41.1; F41.0 Additional Codes SACHA-7 Assessment Billing - SACHA-7 Assessment Tool: SACHA-7 Assessment 50342 ([id number])
[2024-03-31 13:43] VITALS: BP 120/60; PULSE 68; O2SAT 99; BMI 30.5
== END 2024-03-31 14:33 | disposition home or self-care (01) ==
PROVIDERS: Visit Provider Internal Medicine
DX: F41.1 Generalized anxiety disorder (principal); F41.0 Panic disorder [episodic paroxysmal anxiety]
CPT/HCPCS: 96127; 99214

== ENCOUNTER 2024-04-01 21:23 | Observation (INO) | payer MEDICARE, OTHER, SELFPAY ==
--- NOTE | 2024-04-01 | ECG_ITS ---
Test Reason : SOB Blood Pressure : / mmHG Vent. Rate : 063 BPM Atrial Rate : 063 BPM P-R Int : 160 ms QRS Dur : 090 ms QT Int : 452 ms P-R-T Axes : 000 009 058 degrees QTc Int : 462 ms Normal sinus rhythm T wave abnormality, consider lateral ischemia Abnormal ECG When compared with ECG of 29-MAR-2024 21:35, T wave inversion now evident in Lateral leads Referred By: Nancy Hayes Electronically Signed By:Shemar Thomas
--- NOTE | ~2024-04-01 | XR_ITS ---
EXAMINATION: XR CHEST CLINICAL INFORMATION: Dyspnea. COMPARISON: Chest radiograph dated 03/29/2024. TECHNIQUE: Frontal view of the chest was obtained. FINDINGS: The heart remains normal in size. Linear opacity at the right lung base is consistent with discoid atelectasis. No consolidation. No pleural effusion or pneumothorax. No acute osseous abnormality. XR/XR chest 1V IMPRESSION: No acute cardiopulmonary disease. Stable appearance of the heart and lungs.
[2024-04-01 21:29] VITALS: BP 130/94; PULSE 64; O2SAT 98
[2024-04-01 21:34] VITALS: BMI 33.4
[2024-04-01 21:40] VITALS: BP 142/52; PULSE 65; RESP 16; TEMP 36.4; O2SAT 97
[2024-04-01 21:51] LABS: Glucose, Whole Blood 124 mg/dL (60-115)
--- NOTE | 2024-04-01 21:51 | MHC.EDTECH ---
PATIENT WAS BIBA FROM HOME ,VITALS TAKEN ,EKG DONE AND WAS READ BY PROVIDER ,,PATIENT WAS HOOKED UP TO MINER OPERATOR ,PT GOT CHANGE INTO HOSPITAL GOWN ,BLOOD SUGAR CHECK ,CALL [facility] WITHIN REACH .
[2024-04-01] MEDS: LORazepam 0.5 MG TABLET PO (21:53)
[2024-04-01 21:54] LABS: MANUAL DIFF FLAG NO
[2024-04-01 21:55] LABS: Basophils Percent Auto 0.4 % (0-2); Eosinophils Absolute Auto 0.1 X10*3/uL (0.0-0.4); Eosinophils Percent Auto 0.7 % (0-4); Hematocrit 32.7 % (37.0-47.0); Hemoglobin 12.1 g/dl (12.0-16.0); Imm Gran Abs Auto 0.04 X10*3/uL (0.00-0.03); Imm Gran Pct Auto 0.4 % (0.0-0.4); Lymphocytes Absolute Auto 3.5 X10*3/uL (1.2-4.9); Lymphocytes Percent Auto 31.8 % (20-40); Mean Corpuscular Hemoglobin 31.4 pg (27.0-33.0); Mean Corpuscular Volume 84.9 fL (80.0-98.0); Mean Platelet Volume 11.1 fL (9.4-12.3); Monocytes Percent Auto 9.3 % (2-11); Neutrophils Absolute Auto 6.4 x10*3/uL (2.0-8.3); Neutrophils Percent Auto 57.4 % (45-73); Platelet Count 312 X10*3/uL (160-400); Red Blood Count 3.85 X10*6/uL (4.20-5.50); White Blood Count 11.1 X10*3/uL (4.8-10.8)
--- NOTE | 2024-04-01 22:10 | ED_ITS ---
HPI - Chest Pain General Chief Complaint: Chest Pain Stated Complaint: SOB Time Seen by Provider: 04/01/24 21:28 Source: patient and old records reviewed Mode of arrival: EMS Limitations: no limitations History of Present Illness ED Provider: AUDREY HPI narrative: 78 yo female with PMH of anxiety in ativan 0.5mg daily, escitalopram 10mg daily, arthritis, DM, CAD s/p stent, HLD has been dealing with significant stress due to her being at [facility] and terminally ill she also just got news that they do not take his insurance and they have to put through a new [facility] application. The patient notes she took a nap today and then woke up at 8am with sweats, rapid breathing, burning in her chest that will not go away. Her legs feel numb. She states she is very anxious she has to go to the [facility] office with her step son tomorrow. Was seen on 03/29 for similar event had negative age adjusted ddimer at that time MD complaint: chest pain Pertinent past history: coronary artery disease Onset (ago): hour(s) (8pm) Timing of current episode: constant Prior episodes: Yes Onset: during rest Pain location: substernal Pain radiation: none Severity: mild Quality: burning Relieving factors: nothing Exacerbating factors: stress Associated symptoms: nausea, diaphoresis and dyspnea Treatment prior to arrival: none Related Data Home Medications ?Medication ?Instructions ?Recorded ?Confirmed aspirin 81 mg tablet,delayed 81 mg PO DAILY 06/15/20 02/11/24 release famotidine-Ca carb-mag hydrox 10 1 tab PO BEDTIME PRN 02/02/21 02/11/24 mg-800 mg-165 mg chewable tablet (Acid Assistant Manager Of Operations Complete (famotidine)) Previous Rx's ?Medication ?Instructions ?Recorded blood-glucose meter (OneTouch #1 ea 02/16/21 Verio Flex Meter) blood sugar diagnostic (OneTouch #300 ea 02/01/22 Verio test strips) lancets 33 gauge (OneTouch Delica #300 ea 08/06/22 Lancets) flash glucose scanning reader #2 ea 08/01/23 (FreeStyle Halina 2 Shellman) flash glucose sensor (FreeStyle #2 ea 08/01/23 Halina 2 Sensor kit) metoprolol tartrate 50 mg tablet 50 mg PO BID #180 tabs 11/02/23 pen needle, diabetic 31 gauge x #100 ea 11/02/23 3/16 lisinopril 20 mg tablet 20 mg PO QAM #90 tabs 12/07/23 insulin degludec 100 unit/mL (3 42 unit (0.42 mL) subcut BEDTIME 01/20/24 mL) subcutaneous pen (Tresiba #15 mL FlexTouch U-100 insulin) atorvastatin 80 mg tablet 80 mg PO DAILY #90 tabs 01/27/24 metformin 500 mg tablet 500 mg PO BID 90 days #180 tabs 02/13/24 hydrochlorothiazide 25 mg tablet 25 mg PO QAM #90 tabs 03/05/24 Trulicity 0.75 mg/0.5 mL 0.75 mg (0.5 mL) subcut QWEEK #2 mL 03/18/24 subcutaneous pen injector (dulaglutide) escitalopram oxalate 10 mg tablet 10 mg PO DAILY #30 tabs 03/31/24 lorazepam 0.5 mg tablet 0.5 mg PO DAILY PRN Acute panic 03/31/24 attack #14 tabs Allergies Allergy/AdvReac Type Severity Reaction Status Date / Time codeine [CODEINE] Allergy Intermediate HIVES Verified 04/01/24 21:36 morphine [MORPHINE] Allergy Intermediate HIVES Verified 04/01/24 21:36 oxycodone [OXYCODONE] Allergy Intermediate HIVES Verified 04/01/24 21:36 Sulfa (Sulfonamide Allergy Intermediate DEHYDRATION, Verified 04/01/24 21:36 Antibiotics) hives, [SULFA (SULFONAMIDE hives ANTIBIOTICS)] OPIATES Allergy Unknown hives Uncoded 04/01/24 21:36 Review of Systems 2 Review of Systems: Constitutional : No Weight loss, No Fever, No Chills ENT/Mouth : No sore throat, No Rhinorrhea Eyes: No Eye Pain, No Swelling Cardiovascular : pos Chest Pain, pos SOB, no Dyspnea on Exertion, No Orthopnea, No Edema, No Palpitations Respiratory : No Cough, No Sputum Gastrointestinal : no Nausea, No Vomiting, No Diarrhea, No abdominal Pain, No Hematochezia, No Melena Genitourinary : No Dysuria, No Urinary Frequency Musculoskeletal : No joint pain, No Myalgias, No Joint Swelling Skin : No Skin Lesions, No rash Neuro : No Weakness, No Numbness, No Dizziness, No Headache Psych : No Anxiety/Panic, No Depression All other systems reviewed and are negative PMFSH Past Medical History Attestation statement: The following information was validated with the patient. Source: old records reviewed Medical History Generalized anxiety disorder with panic attacks Arthritis of carpometacarpal (CMC) joint of right thumb Tenosynovitis of right wrist Dermatitis, contact Elevated vitamin B12 level Essential hypertension Atherosclerotic cardiovascular disease Obesity (BMI 30-39.9) Dyslipidemia 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 type 2 diabetes mellitus penitentiary (current) use of insulin Spondylosis of lumbar region without myelopathy or radiculopathy Sacroiliitis Surgical History Stented coronary artery Hx of shoulder surgery History of back surgery Hx of section Hx of hysterectomy Hx of colonoscopy Family History Family History Father Colon cancer Family history of prostate cancer in father Mother Diabetes CVA (cerebral vascular accident) Social History Social History Household Members: Spouse Housing: Apartment Alcohol intake: current Patient Tobacco Use Status: Former Tobacco user Years Smoked: 2 e-Cigarette/Vaping Use: Never Used Advance Directives: No Advance Directives Information Provided: No Do you have a plan to hurt others: No Plan Nutrition Risks: No Nutritional Risk service: No Current occupational status: retired Cognitive needs: No Hearing needs: No Vision needs: No Physical Exam 2 Vital Signs: Vital Signs: Last Vital Signs Temp 98.1 F 04/02/24 05:07 Pulse 61 04/02/24 05:07 Resp 17 04/02/24 05:07 BP 148/50 H 04/02/24 05:07 Pulse Ox 96 04/02/24 05:07 O2 Del Method Room Air 04/02/24 05:07 BMI result Body Mass Index 33.4 Appearance: Alert. Oriented X3. No acute distress. Hyperventilating Eyes: Pupils equal, round and reactive to light. ENT: Pharynx normal. Neck: Normal inspection. Neck supple. CVS: Normal heart rate and rhythm. Pulses normal. Respiratory: No respiratory distress. Breath sounds normal. Abdomen: Soft and non-tender. Skin: Skin warm and dry. Normal skin color. Normal skin turgor. Extremities: No lower extremity edema. Neuro: Oriented X 3. No motor deficit. No sensory deficit. Course Course Course Narrative: patient states she is drinking a large amount of water a day Medications Administered Discontinued Medications Generic Name Dose Route Start Last Admin Trade Name Freq PRN Reason Stop Dose Admin Al Hydroxide/Mg Hydroxide 30 ml 04/02/24 02:07 04/02/24 03:11 Magnesium Hydrox/Alum Hydrox 30 Ml Oral.Susp PO 04/02/24 02:08 30 ml ONCE ONE Administration Insulin Glargine 20 unit 04/02/24 01:59 04/02/24 02:59 Insulin Glargine,Hum.Rec.Anlog 100 Unit/Ml 10 Ml Vial SUBCUT 04/02/24 02:00 Not Given ONCE ONE Lorazepam 0.5 mg 04/01/24 21:44 04/01/24 21:53 Lorazepam 0.5 Mg Tablet PO 04/01/24 21:45 0.5 mg ONCE ONE Administration Potassium Chloride 40 meq 04/02/24 02:04 04/02/24 03:11 Potassium Chloride Packet 20 Meq Packet PO 04/02/24 02:05 40 meq ONCE ONE Administration Sodium Chloride 1 gm 04/02/24 01:00 04/02/24 01:54 Sodium Chloride Tab 1 Gm Tablet PO 04/02/24 01:01 1 gm ONCE ONE Administration Medical Decision Making Medical Decision Making MDM Narrative: 78 yo female with PMH of anxiety in ativan 0.5mg daily, escitalopram 10mg daily, arthritis, DM, CAD s/p stent, HLD here with c/o waking up and just not feeling well with some burning in chest, nausea, more anxious than normal. No recent fevers, cough. She is under a lot of stress. Just had negative ddimer on 03/29. At this time will obtain EKG, troponin x 2 given CAD hx, lytes, PO ativan 0.5mg given anxiety. Dispo pending results. Differential Diagnosis Differential Diagnoses: The differential diagnosis associated with the presentation includes anxiety, atypical chest pain, atypical ACS Admission/Observation Consideration of admission/observation: Escalation of care including admission/observation considered repeat Na 128 ordered tab she swears she only drinks 20 ounces of water a day has no signs of volume overload could just be her meds will admit for monitoring Consult Healthcare Provider Management of the patient was discussed with: Hospitalist (will admit) Lab Data MDM Lab Attestation statement: I reviewed the patient's lab results. Na 129 on HCTZ and escitalopram 04/02/24 05:15 04/02/24 05:15 Labs: Lab Results 04/01/24 04/01/24 04/02/24 Range/Units 21:40 21:49 00:34 WBC 11.1 H (4.8-10.8) X10*3/uL RBC 3.85 L (4.20-5.50) X10*6/uL Hgb 12.1 (12.0-16.0) g/dl Hct 32.7 L (37.0-47.0) % MCV 84.9 (80.0-98.0) fL MCH 31.4 (27.0-33.0) pg MCHC 37.0 H (31.0-35.0) g/dl RDW 13.0 (11.0-16.0) % Plt Count 312 (160-400) X10*3/uL MPV 11.1 (9.4-12.3) fL Immature Gran % (Auto) 0.4 (0.0-0.4) % Neut % (Auto) 57.4 (45-73) % Lymph % (Auto) 31.8 (20-40) % [place] % (Auto) 9.3 (2-11) % Eos % (Auto) 0.7 (0-4) % Baso % (Auto) 0.4 (0-2) % Lymph # (Auto) 3.5 (1.2-4.9) X10*3/uL [place] # (Auto) 1.0 (0.1-1.2) X10*3/uL Eos # (Auto) 0.1 (0.0-0.4) X10*3/uL Baso # (Auto) 0.0 (0.0-0.2) X10*3/uL Abs Immat Gran (auto) 0.04 H (0.00-0.03) X10*3/uL Absolute Neuts (auto) 6.4 (2.0-8.3) x10*3/uL Absolute Nucleated RBC 0.000 (0.0-0.012) X10*3/uL Nucleated RBC % (auto) 0.0 (0.0-0.2) /100WBC Sodium 129 L 128 L (135-145) mmol/L Potassium 3.4 3.2 L (3.3-5.1) mmol/L Chloride 96 94 L (96-108) mmol/L Carbon Dioxide 21 L 23 (22-29) mmol/L Anion Gap 15 14 (12-20) BUN 20 H 19 H (9-16) mg/dL Creatinine 1.09 0.92 (0.5-1.4) mg/dL Estim Creat Clear Calc 47.4 56.2 Estimated GFR 49 59 POC Glucose 124 H (60-115) mg/dL Random Glucose 121 H 108 (60-115) mg/dL Calcium 9.3 D 9.4 (8.4-10.2) mg/dL Troponin I High Sens < 2.7 < 2.7 (<3.5-17.0) ng/L B-Natriuretic Peptide 34 (<100) pg/mL COVID-19 (KALLIE) Negative (Negative) COVID-19 Clin Com See Note Independent Interpretation I performed an independent interpretation of an: EKG and Plain X-Ray Interpretation: Rate: 63 Rhythm: NSR [place]: normal Normal P waves. Normal NIC. Normal QRS complex. ST T wave : nonspecific ST T wave changes lateral leads, no ASHLIE, inverted t waves V1 and V2 qTC: 462 prior studies: no acute ischemia The study has been interpreted contemporaneously by me. . Radiology Impression Discussion of test interpretation with radiology: I have reviewed the radiologist's reading. Independent Historian Clinical information obtained from an independent historian. History obtained from or confirmed by: EMS External Record Review External record reviewed: Inpatient record Discharge Plan Discharge Clinical Impression: Acute hyponatremia, Weakness Patient Disposition: Admitted As Inpatient
[2024-04-01 22:11] LABS: Anion Gap 15 (12-20); Blood Urea Nitrogen 20 mg/dL (9-16); Calcium 9.3 mg/dL (8.4-10.2); Carbon Dioxide 21 mmol/L (22-29); Chloride 96 mmol/L (96-108); Creatinine Clr Calc Pharmacy 47.4; Estimated Glomerular Filt Rate 49; Glucose Random 121 mg/dL (60-115); Potassium 3.4 mmol/L (3.3-5.1); Sodium 129 mmol/L (135-145)
[2024-04-01 22:24] LABS: Troponin-I High Sensitivity < 2.7 ng/L (<3.5-17.0)
[2024-04-01 22:29] LABS: COVID-19 Test Negative (Negative); IDNOW Serial# 58CA691E
[2024-04-01 22:33] LABS: B Type Natriuretic Peptide 34 pg/mL (<100)
[2024-04-02 00:29] VITALS: BP 138/49; PULSE 67; RESP 13; TEMP 36.4; O2SAT 97
[2024-04-02 00:52] LABS: Anion Gap 14 (12-20); Blood Urea Nitrogen 19 mg/dL (9-16); Calcium 9.4 mg/dL (8.4-10.2); Carbon Dioxide 23 mmol/L (22-29); Chloride 94 mmol/L (96-108); Creatinine Clr Calc Pharmacy 56.2; Estimated Glomerular Filt Rate 59; Glucose Random 108 mg/dL (60-115); Potassium 3.2 mmol/L (3.3-5.1); Sodium 128 mmol/L (135-145)
[2024-04-02 01:01] LABS: Troponin-I High Sensitivity < 2.7 ng/L (<3.5-17.0)
--- NOTE | 2024-04-02 01:49 | P.HPHOSP_ITS ---
History of Present Illness Date of Service: 04/02/24 Chief Complaint: dizziness, lethargy This is a 78-year-old female with pertinent history of insulin-dependent diabetes mellitus, coronary artery disease status post stent, hypertension, mood disorder who presents to the emergency department for evaluation of dizziness. Patient has multiple complaints at the time of my evaluation. States she felt a burning sensation in her chest on the day of presentation. Also complains of lethargy, dizziness and nausea. Patient states she has been stressed lately as her is ill. No fever, chills, confusion, nausea, vomiting, shortness of breath, palpitations, abdominal pain, changes in urinary or bowel habits. Of note, patient was seen in the ER on 03/29 for left shoulder blade pain and discharged home from the ER after ACS was ruled out In the emergency department, sodium was found to be 128 Review of Systems 2 Constitutional: Constitutional: Reports fatigue and Reports malaise ENT: Reports dizziness Cardiovascular: Cardiovascular: Reports no additional cardiovascular complaints Respiratory: Respiratory: Reports no additional respiratory complaints Gastrointestinal: Gastrointestinal: Reports nausea Genitourinary: Genitourinary: Reports no additional female genitourinary complaints Neurologic: Reports dizziness Endocrine: Endocrine: Reports fatigue PMFSH Medical History Generalized anxiety disorder with panic attacks Arthritis of carpometacarpal (CMC) joint of right thumb Tenosynovitis of right wrist Dermatitis, contact Elevated vitamin B12 level Essential hypertension Atherosclerotic cardiovascular disease Obesity (BMI 30-39.9) Dyslipidemia 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 type 2 diabetes mellitus halfway (current) use of insulin Spondylosis of lumbar region without myelopathy or radiculopathy Sacroiliitis Family History Father Colon cancer Family history of prostate cancer in father Mother Diabetes CVA (cerebral vascular accident) Surgical History Stented coronary artery Hx of shoulder surgery History of back surgery Hx of section Hx of hysterectomy Hx of colonoscopy Social History Household Members: Spouse Housing: Apartment Alcohol intake: current Patient Tobacco Use Status: Former Tobacco user Years Smoked: 2 e-Cigarette/Vaping Use: Never Used Advance Directives: No Advance Directives Information Provided: No Do you have a plan to hurt others: No Plan service: No Current occupational status: retired Cognitive needs: No Hearing needs: No Vision needs: No Meds Allergies Allergy/AdvReac Type Severity Reaction Status Date / Time codeine [CODEINE] Allergy Intermediate HIVES Verified 04/01/24 21:36 morphine [MORPHINE] Allergy Intermediate HIVES Verified 04/01/24 21:36 oxycodone [OXYCODONE] Allergy Intermediate HIVES Verified 04/01/24 21:36 Sulfa (Sulfonamide Allergy Intermediate DEHYDRATION, Verified 04/01/24 21:36 Antibiotics) hives, [SULFA (SULFONAMIDE hives ANTIBIOTICS)] OPIATES Allergy Unknown hives Uncoded 04/01/24 21:36 Home Medications ?Medication ?Instructions ?Recorded ?Confirmed ?Last Taken ?Type aspirin 81 mg tablet,delayed 81 mg PO DAILY 06/15/20 02/11/24 Unknown History release famotidine-Ca carb-mag hydrox 10 1 tab PO BEDTIME PRN 02/02/21 02/11/24 Unknown History mg-800 mg-165 mg chewable tablet (Acid Brazing Machine Operator Complete (famotidine)) Physical Exam 2 Vital Signs and Narrative: Vital Signs: Last Vital Signs Temp 97.6 F 04/02/24 00:29 Pulse 67 04/02/24 00:29 Resp 13 04/02/24 00:29 BP 138/49 L 04/02/24 00:29 Pulse Ox 97 04/02/24 00:29 O2 Del Method Room Air 04/02/24 00:29 BMI result Body Mass Index 33.4 Middle-aged female lying in bed in no distress Neck supple, no JVD Regular rate and rhythm, S1-S2 heard Regular breath sounds bilaterally, no wheezing or crackles appreciated Abdomen soft nontender, no guarding, no rigidity Patient is awake, alert and oriented to self, place, time and person ; no focal motor deficit Psych: Normal mood No pedal edema Results Labs 04/01/24 21:49 04/02/24 00:34 Labs: Laboratory Results - last 24 hr 04/01/24 04/01/24 04/02/24 21:40 21:49 00:34 MCV 84.9 MCH 31.4 MCHC 37.0 H RDW 13.0 Plt Count 312 MPV 11.1 Immature Gran % (Auto) 0.4 Neut % (Auto) 57.4 Lymph % (Auto) 31.8 [place] % (Auto) 9.3 Eos % (Auto) 0.7 Baso % (Auto) 0.4 Lymph # (Auto) 3.5 [place] # (Auto) 1.0 Eos # (Auto) 0.1 Baso # (Auto) 0.0 Abs Immat Gran (auto) 0.04 H Absolute Neuts (auto) 6.4 Absolute Nucleated RBC 0.000 Nucleated RBC % (auto) 0.0 Anion Gap 15 14 Estim Creat Clear Calc 47.4 56.2 Estimated GFR 49 59 POC Glucose 124 H Random Glucose 121 H 108 Calcium 9.3 D 9.4 Troponin I High Sens < 2.7 < 2.7 B-Natriuretic Peptide 34 COVID-19 (KALLIE) Negative COVID-19 Clin Com See Note Imaging Radiologist's Impressions: Impressions Chest X-Ray 04/01/24 22:05 IMPRESSION: No acute cardiopulmonary disease. Stable appearance of the heart and lungs. Assessment and Plan (1) Acute hyponatremia: Status: Acute Plan This is a 78-year-old female with pertinent history of insulin-dependent diabetes mellitus, coronary artery disease status post stent, hypertension, mood disorder who presents to the emergency department for evaluation of dizziness. #. Acute moderate symptomatic hyponatremia: Serum osmolality and urine studies pending. Will hold hydrochlorothiazide. Continue to monitor. #. Insulin-dependent diabetes mellitus: Initiating basal plus insulin regimen #. Hypokalemia: Repleted #. Coronary artery disease: On aspirin and high-intensity statin #. Hypertension: Continue home antihypertensives, hold hydrochlorothiazide as above #. Mood disorder: Continue home mood stabilizers Med rec pending DVT prophylaxis: Lovenox Full code Quality Stroke Does the patient have a stroke diagnosis?: No VTE Prior VTE?: No VTE Risk Level:: Medical - moderate - high VTE Device Contraindication: Treatment Not Indicated VTE Drug Contraindication: N/A - Med Ordered
[2024-04-02] MEDS: Sodium Chloride Tab 1 GM TABLET PO (01:54)
[2024-04-02 02:18] VITALS: BP 149/60; PULSE 57; RESP 16; TEMP 36.7; O2SAT 96
[2024-04-02 02:21] LABS: Osmolality, Serum 262 mosm/kg (281-305)
--- NOTE | 2024-04-02 02:35 | MHC.EDTECH ---
0200 ROUNDING DONE ,VITALS TAKEN ,BLOOD SUGAR CHECK ,EDY ATKINSON AWARE OF RESULT OF 109 ,PATIENT BELONGINGS LIST DONE , RN DEMETRIO HAS PATIENT PRESCRIPTION BOTTLE OF LORAZEPAM TO BRING TO PHARMACY ,PT CHOOSE TO KEEP HER JEANS ON ,PATIENT REQUESTED APPLE JUICE ,CALL [facility] WITHIN REACH .
[2024-04-02 02:45] LABS: Glucose, Whole Blood 109 mg/dL (60-115)
[2024-04-02] MEDS: Magnesium Hydrox/Alum Hydrox 30 ML ORAL.SUSP PO (03:11)
[2024-04-02] MEDS: Potassium Chloride Packet 20 MEQ PACKET 40 MEQ PO (03:11)
[2024-04-02 05:07] VITALS: BP 148/50; PULSE 61; RESP 17; TEMP 36.7; O2SAT 96
--- NOTE | 2024-04-02 05:15 | PC.NURSE ---
Admit for hyponatremia . 78 year old comes in with SOB and numbness to bilateral legs. Denies CP but sts been under a lot of stress lately with her who is terminally ill. PMH : Anxiety, , DM, CAD Bilateral IV in ACs. NA 129/128 repeat labs
[2024-04-02 05:30] LABS: MANUAL DIFF FLAG NO
[2024-04-02 05:39] LABS: Basophils Percent Auto 0.4 % (0-2); Eosinophils Absolute Auto 0.1 X10*3/uL (0.0-0.4); Eosinophils Percent Auto 0.7 % (0-4); Hematocrit 33.7 % (37.0-47.0); Hemoglobin 12.1 g/dl (12.0-16.0); Imm Gran Abs Auto 0.03 X10*3/uL (0.00-0.03); Imm Gran Pct Auto 0.3 % (0.0-0.4); Lymphocytes Absolute Auto 3.4 X10*3/uL (1.2-4.9); Lymphocytes Percent Auto 33.1 % (20-40); Mean Corpuscular HGB Conc 35.9 g/dl (31.0-35.0); Mean Corpuscular Hemoglobin 31.1 pg (27.0-33.0); Mean Corpuscular Volume 86.6 fL (80.0-98.0); Mean Platelet Volume 11.2 fL (9.4-12.3); Monocytes Absolute Auto 0.9 X10*3/uL (0.1-1.2); Monocytes Percent Auto 9.1 % (2-11); Neutrophils Absolute Auto 5.8 x10*3/uL (2.0-8.3); Neutrophils Percent Auto 56.4 % (45-73); Platelet Count 278 X10*3/uL (160-400); Red Blood Count 3.89 X10*6/uL (4.20-5.50); Red Cell Distribution Width 12.8 % (11.0-16.0); White Blood Count 10.3 X10*3/uL (4.8-10.8)
[2024-04-02 05:51] LABS: Anion Gap 13 (12-20); Blood Urea Nitrogen 17 mg/dL (9-16); Calcium 8.9 mg/dL (8.4-10.2); Carbon Dioxide 24 mmol/L (22-29); Chloride 95 mmol/L (96-108); Creatinine Clr Calc Pharmacy 57.5; Estimated Glomerular Filt Rate > 60; Glucose Random 106 mg/dL (60-115); Potassium 3.5 mmol/L (3.3-5.1); Sodium 128 mmol/L (135-145)
--- NOTE | 2024-04-02 06:27 | PC.NURSE ---
meds to pharmacy
--- NOTE | 2024-04-02 07:24 | PC.NURSE ---
Resumed care of pt at 0700, pt resting in bed quietly, respirations even and unlabored, no increased WOB/SOB, pt denies cp. Call ar[facility]u within reach, pt aware of plan of care.
[2024-04-02 07:39] LABS: Glucose, Whole Blood 102 mg/dL (60-115)
--- NOTE | 2024-04-02 08:26 | PM.DS ---
DS: Providers Provider Date of Service: 04/02/24 Date of admission: 04/02/24 01:43 Primary care physician: Jasmine Vasquez MD DS: Diagnosis Discharge Diagnosis (1) Acute hyponatremia: Status: Acute DS: Summary Hospital Course Hospital Course: from initial hpi: 78-year-old female with pertinent history of insulin-dependent diabetes mellitus, coronary artery disease status post stent, hypertension, mood disorder who presents to the emergency department for evaluation of dizziness. Patient has multiple complaints at the time of my evaluation. States she felt a burning sensation in her chest on the day of presentation. Also complains of lethargy, dizziness and nausea. Patient states she has been stressed lately as her is ill. No fever, chills, confusion, nausea, vomiting, shortness of breath, palpitations, abdominal pain, changes in urinary or bowel habits. Of note, patient was seen in the ER on 03/29 for left shoulder blade pain and discharged home from the ER after ACS was ruled out In the emergency department, sodium was found to be 128 hospital course: Patient was admitted for heartburn, diaphoresis likely triggered by increased vagal tone. Patient's symptoms have resolved. We will continue antacid at home. Also noted to incidentally have hyponatremia, likely combination of dehydration and hydrochlorothiazide. Given IV normal saline and hydrochlorothiazide has been held. Ideally would continue to monitor inpatient, however, patient has important obligations to take care of. Sodium is 128, minimally symptomatic, reasonable to follow up closely outpatient. Patient should have repeat labs next week follow up with PCP. For diabetes was continued on basal bolus insulin. For hypokalemia received replacement. For coronary disease was continued on aspirin statin. For hypertension HCTZ held as mentioned. Time Attestation Discharge Coordination Time (in mins): 32 Quality: Safe Use of Opioids Does Pt have an Active Cancer Diagnosis on the Problem List?: No Quality: Stroke Does the patient have a stroke diagnosis?: No Physical Exam Vital Signs: Vital Signs: Last Vital Signs Temp 98.1 F 04/02/24 05:07 Pulse 61 04/02/24 05:07 Resp 17 04/02/24 05:07 BP 148/50 H 04/02/24 05:07 Pulse Ox 96 04/02/24 05:07 O2 Del Method Room Air 04/02/24 05:07 BMI result Body Mass Index 33.4 Appearance: Alert. Oriented X3. No acute distress. Hyperventilating Eyes: Pupils equal, round and reactive to light. ENT: Pharynx normal. Neck: Normal inspection. Neck supple. CVS: Normal heart rate and rhythm. Pulses normal. Respiratory: No respiratory distress. Breath sounds normal. Abdomen: Soft and non-tender. Skin: Skin warm and dry. Normal skin color. Normal skin turgor. Extremities: No lower extremity edema. Neuro: Oriented X 3. No motor deficit. No sensory deficit. DS: Data Data Completed and Pending Labs on day of discharge: Laboratory Results - last 24 hr 04/01/24 04/01/24 04/02/24 21:40 21:49 00:34 WBC 11.1 H RBC 3.85 L Hgb 12.1 Hct 32.7 L MCV 84.9 MCH 31.4 MCHC 37.0 H RDW 13.0 Plt Count 312 MPV 11.1 Immature Gran % (Auto) 0.4 Neut % (Auto) 57.4 Lymph % (Auto) 31.8 Graves % (Auto) 9.3 Eos % (Auto) 0.7 Baso % (Auto) 0.4 Lymph # (Auto) 3.5 Graves # (Auto) 1.0 Eos # (Auto) 0.1 Baso # (Auto) 0.0 Abs Immat Gran (auto) 0.04 H Absolute Neuts (auto) 6.4 Absolute Nucleated RBC 0.000 Nucleated RBC % (auto) 0.0 Sodium 129 L 128 L Potassium 3.4 3.2 L Chloride 96 94 L Carbon Dioxide 21 L 23 Anion Gap 15 14 BUN 20 H 19 H Creatinine 1.09 0.92 Estim Creat Clear Calc 47.4 56.2 Estimated GFR 49 59 POC Glucose 124 H Random Glucose 121 H 108 Osmolality Calcium 9.3 D 9.4 Troponin I High Sens < 2.7 < 2.7 B-Natriuretic Peptide 34 COVID-19 (KALLIE) Negative COVID-19 Clin Com See Note 04/02/24 04/02/24 04/02/24 02:06 02:35 05:15 WBC 10.3 RBC 3.89 L Hgb 12.1 Hct 33.7 L MCV 86.6 MCH 31.1 MCHC 35.9 H RDW 12.8 Plt Count 278 MPV 11.2 Immature Gran % (Auto) 0.3 Neut % (Auto) 56.4 Lymph % (Auto) 33.1 Graves % (Auto) 9.1 Eos % (Auto) 0.7 Baso % (Auto) 0.4 Lymph # (Auto) 3.4 Graves # (Auto) 0.9 Eos # (Auto) 0.1 Baso # (Auto) 0.0 Abs Immat Gran (auto) 0.03 Absolute Neuts (auto) 5.8 Absolute Nucleated RBC 0.000 Nucleated RBC % (auto) 0.0 Sodium 128 L Potassium 3.5 Chloride 95 L Carbon Dioxide 24 Anion Gap 13 BUN 17 H Creatinine 0.90 Estim Creat Clear Calc 57.5 Estimated GFR > 60 POC Glucose 109 Random Glucose 106 Osmolality 262 L Calcium 8.9 Troponin I High Sens B-Natriuretic Peptide COVID-19 (KALLIE) COVID-[employer] 04/02/24 07:33 WBC RBC Hgb Hct MCV MCH MCHC RDW Plt Count MPV Immature Gran % (Auto) Neut % (Auto) Lymph % (Auto) Graves % (Auto) Eos % (Auto) Baso % (Auto) Lymph # (Auto) Graves # (Auto) Eos # (Auto) Baso # (Auto) Abs Immat Gran (auto) Absolute Neuts (auto) Absolute Nucleated RBC Nucleated RBC % (auto) Sodium Potassium Chloride Carbon Dioxide Anion Gap BUN Creatinine Estim Creat Clear Calc Estimated GFR POC Glucose 102 Random Glucose Osmolality Calcium Troponin I High Sens B-Natriuretic Peptide COVID-19 (KALLIE) COVID-[employer] Discharge Plan Discharge Anticipated Discharge Date/Time: 04/02/24 08:22 Patient Disposition: Home, Self-Care Discharge Diagnosis: heartburn, hyponatremia Referrals: Jasmine Vasquez MD [Primary Care Provider] - 1 Week Discharge Medications: Continued (DME) blood-glucose meter [OneTouch Verio Flex meter] Misc See Rx Instructions .ROUTE .MEDSUPPLY Qty: 1 0RF Rx Instructions: 3 times a day (DME) OneTouch Verio test strips Strip See Rx Instructions .MEDSUPPLY Qty: 300 2RF Rx Instructions: 3 times a day (DME) lancets [OneTouch Delica Lancets] 33 gauge misc See Rx Instructions miscellaneous .MEDSUPPLY Qty: 300 0RF Rx Instructions: 3 times a day (DME) FreeStyle Halina 2 [place] Misc See Rx Instructions .Route Qty: 2 11RF Rx Instructions: use as directed (DME) FreeStyle Halina 2 Sensor Kit See Rx Instructions .Route Qty: 2 11RF Rx Instructions: use As directed metoprolol tartrate 50 mg tablet 50 mg PO BID Qty: 180 1RF (DME) pen needle, diabetic 31 gauge x 3/16 needle See Rx Instructions subcut BID Qty: 100 1RF Rx Instructions: use for injecting med once a day lisinopril 20 mg tablet 20 mg PO QAM Qty: 90 1RF atorvastatin 80 mg tablet 80 mg PO DAILY Qty: 90 1RF metformin 500 mg tablet 500 mg PO BID 90 Days Qty: 180 1RF Trulicity 0.75 mg/0.5 mL pen injector 0.75 mg subcut QWEEK Qty: 2 4RF insulin degludec [Tresiba FlexTouch U-100] 100 unit/mL (3 mL) insulin pen 42 unit subcut BEDTIME escitalopram oxalate 10 mg tablet 10 mg PO DAILY Qty: 30 0RF lorazepam 0.5 mg tablet 0.5 mg PO DAILY PRN (Reason: Acute panic attack) Qty: 14 0RF Acid Chief Solution Architect Complete (famot) 10-800-165 mg tablet,chewable 1 tab PO BEDTIME PRN aspirin 81 mg tablet,delayed release (DR/EC) 81 mg PO DAILY Held hydrochlorothiazide 25 mg tablet 25 mg PO QAM Qty: 90 0RF Hold Instructions: Resume on 04/08/24. Discharge Orders: Discharge Order (Routine); Ordered 04/02/24 Ordered By: Doenll Teague Diet: Advance to usual diet Activity on Discharge: As tolerated Stand Alone Forms: Patient Portal Discharge page Print Language: Dominican Other Ambulatory Orders: Basic Metabolic Panel (Routine) Timeframe: 1 Week Facility: [facility] - Location: Laboratory Ordered By: Donell Teague Care Plan Goals: recvoery Health Concerns: low sodium, heart burn Plan of Treatment: check sodium levels next week, follow up with pcp, hold hctz for now Assessment: see above
[2024-04-02] MEDS: 0.9 % Sodium Chloride 1,000 ML 999 ML IV (08:32)
--- NOTE | 2024-04-02 09:03 | MHC.CM.PN ---
DP: PT HAS BEEN MEDICALLY CLEARED FOR DC HOME, NO SERVICES. PT HAS OWN RIDE HOME
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
--- NOTE | 2024-04-02 09:40 | HE.PHANOTE ---
Pharmacy attempted med rec, however when pharmacy technician infusion went to obtain patients medication list. RN stated patient is being discharged and to not bother with the med rec. Please reach out to pharmacy if anything changes. thank you.
[2024-04-02] MEDS: Famotidine 20 MG TABLET PO (09:53)
[2024-04-02] MEDS: Enoxaparin Sodium 40 MG/0.4 ML SYRINGE SUBCUT (09:53)
[2024-04-02 10:57] VITALS: BP 145/65; PULSE 65; RESP 18; TEMP 36.8; O2SAT 98
== END 2024-04-02 11:30 | disposition home or self-care (01) ==
LOC: HO.ED 04-02 01:06 → HO.EDOVER 04-02 01:51 → HO.S3 04-02 07:52 → HO.EDOVER 04-02 08:58
PROVIDERS: Admitting Provider Student in an Organized Health Care Education/Training Program; Emergency Provider Emergency Medicine; PCP Internal Medicine; Visit Provider Internal Medicine
DX: E87.1 Hypo-osmolality and hyponatremia (principal); R12 Heartburn; E11.9 Type 2 diabetes mellitus without complications; E87.6 Hypokalemia; R06.02 Shortness of breath; I10 Essential (primary) hypertension; I25.10 Atherosclerotic heart disease of native coronary artery without angina pectoris; R61 Generalized hyperhidrosis; R07.9 Chest pain, unspecified; E78.5 Hyperlipidemia, unspecified; R53.1 Weakness; R42 Dizziness and giddiness; Z79.4 Long term (current) use of insulin; Z79.899 Other long term (current) drug therapy
CPT/HCPCS: 36415; 71045; 80048; 82947; 83880; 83930; 84484; 85025; 87635; 93005; 96372; 99221; 99285; J1650

== ENCOUNTER → 2024-04-01 21:31 | Outpatient (BNV) | payer MEDICARE, MEDICAID, SELFPAY | PROVIDERS: Admitting Provider Student in an Organized Health Care Education/Training Program; Emergency Provider Emergency Medicine; PCP Internal Medicine; Visit Provider Internal Medicine Cardiovascular Disease | DX: R06.02 Shortness of breath (principal); R94.31 Abnormal electrocardiogram [ECG] [EKG] | CPT/HCPCS: 93010 ==

== ENCOUNTER → 2024-04-02 01:43 | Outpatient (BNV) | payer MEDICARE, MEDICAID, SELFPAY | PROVIDERS: Admitting Provider Student in an Organized Health Care Education/Training Program; Emergency Provider Emergency Medicine; PCP Internal Medicine; Visit Provider Student in an Organized Health Care Education/Training Program | DX: E87.1 Hypo-osmolality and hyponatremia (principal) | CPT/HCPCS: 99234; 99499 ==

== ENCOUNTER 2024-04-06 11:42 | Outpatient (AMB) | payer MEDICARE, MEDICAID, SELFPAY ==
[2024-04-06 12:14] VITALS: BP 130/64; PULSE 55; O2SAT 98
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
== END 2024-04-06 13:29 | disposition home or self-care (01) ==
PROVIDERS: PCP Internal Medicine; Visit Provider Internal Medicine
DX: E87.1 Hypo-osmolality and hyponatremia (principal); F41.1 Generalized anxiety disorder; F41.0 Panic disorder [episodic paroxysmal anxiety]
CPT/HCPCS: 99214; G2211

== ENCOUNTER 2024-04-06 13:12 | Outpatient (AMB) | payer MEDICARE, SELFPAY ==
--- NOTE | 2024-04-06 13:25 | MHC.OFFVISPS ---
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 Required: No Allergies codeine [CODEINE] Allergy (Intermediate, Verified 04/06/24 12:15) HIVES morphine [MORPHINE] Allergy (Intermediate, Verified 04/06/24 12:15) HIVES oxycodone [OXYCODONE] Allergy (Intermediate, Verified 04/06/24 12:15) HIVES Sulfa (Sulfonamide Antibiotics) [SULFA (SULFONAMIDE ANTIBIOTICS)] Allergy (Intermediate, Verified 04/06/24 12:15) DEHYDRATION, hives, hives OPIATES Allergy (Unknown, Uncoded 04/06/24 12:15) hives Medication List - Last Reconciled 04/06/24 by Ирина Arciniega APRN aspirin 81 mg PO DAILY atorvastatin 80 mg PO DAILY blood sugar diagnostic (Dgimed [employer]ouch Verio test strips) 3 times a day blood-glucose meter (Dgimed Orthouch Verio Flex Meter) 3 times a day escitalopram oxalate 10 mg PO DAILY famotidine-Ca carb-mag hydrox 10-800-165 mg (Acid Air Quality Manager Complete (famotidine)) 1 tab PO BEDTIME PRN flash glucose scanning reader (KXENStyle [place] 2 [place]) use as directed flash glucose sensor (FreeStyle Halina 2 Sensor kit) use As directed hydrochlorothiazide 25 mg PO QAM insulin degludec (Tresiba FlexTouch U-100 insulin) 42 units subcut BEDTIME lancets (FannectTouch Delica Lancets) 3 times a day lisinopril 20 mg PO QAM lorazepam 0.5 mg PO DAILY PRN metformin 500 mg PO BID 90 days metoprolol tartrate 50 mg PO BID pen needle, diabetic use for injecting med once a day Trulicity (dulaglutide) 0.75 mg (0.5 mL) subcut QWEEK NS HPI- Psychiatric Chief Complaint: consultation HPI Narrative: 78 yo woman referred by PCP for eval and treatment of SACHA with panic attacks pt states she took one dose of lexapro and felt sweaty and faint; says she has been to [facility] 3 times; her 04/02 after being very ill since July; she is tearful; denies SI or HI; pt states she has a big family that is keeping her busy and that is helping. She is taking ativan 0.5mg one tablet daily as need if she feels panicky; she denies sedation or dizziness from it; she says it does not make her tired; she thinks she will only need it for a few weeks; she does not want any new medication as she is afraid of side effects again; we discussed managing the hyponatremia and dehydration. She denies SI or HI Her PHQ9= 6 and her GAD7 = 8 Past Psychiatric History: outpt tx SACHA Subjective Subjective Subjective Medication Compliance: Yes Side effects from medications: No Review of Systems Medical Review of Systems: unchanged Mental Status Exam Mental Status Exam Patient Appearance: Well Grooomed and Appropriate Patient Orientation: Person, Place, Time and Situation Level of Consciousness: Awake Patient Behavior: Appropriate Mood Description: Sad Affect Description: Sad Patient Cognition Impaired: No Ability to Follow Directions: Good Speech Pattern: Clear Memory Description: Intact Hallucinations: None Thought Process: Intact Thought Content: positive for Intact Judgement: Fair Assessment and Plan Assessment & Plan (1) Generalized anxiety disorder with panic attacks: Status: Acute Code(s): F41.1 - Generalized anxiety disorder; F41.0 - Panic disorder [episodic paroxysmal anxiety] Plan continue ativan 0.5mg daily prn panic advised her to not take if doesn't need it return in one month to discuss alternatives if anxiety and panic still problematic Medications: Refilled lorazepam 0.5 mg PO DAILY PRN 12 tabs 0RF Acute panic attack lorazepam 0.5 mg PO DAILY PRN 14 tabs 0RF Acute panic attack Counseling and coordination of Care Medication management counseling: Effectiveness, Side effects, Dosing range, Duration, Drug interaction, Adherence and Other (alternatives) Diagnosis and Prognosis Counseling: Accuracy of diagnosis, Prognosis over time, Impact of diagnosis on life functions and Adequacy of current interventions Details: I spent 60 minutes reviewing the record, seeing the patient and documenting in the medical record. Counseling provided to the patient/caregiver as outlined below. Addressed patient/caregiver concerns regarding current medication regime including effective adherence. Addressed patient/caregiver concerns regarding diagnosis and prognosis including accuracy of diagnosis, prognosis over time, impact of diagnosis. Addressed patient/caregiver concerns regarding impact of recent stressors. 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 Spondylosis of lumbar region without myelopathy or radiculopathy Sacroiliitis Surgical History Stented coronary artery Hx of shoulder surgery History of back surgery Hx of section Hx of hysterectomy Hx of colonoscopy Family History Father Colon cancer Family history of prostate cancer in father Mother Diabetes CVA (cerebral vascular accident) Social History Household Members: Spouse Housing: Apartment Alcohol intake: current Patient Tobacco Use Status: Former Tobacco user Years Smoked: 2 e-Cigarette/Vaping Use: Never Used service: No Current occupational status: retired Cognitive needs: No Hearing needs: No Vision needs: No Social History: lives alone has 3 adult children and 13 grandchildren who all live nearby Substance History: denies Trauma History: loss of Coding Level of Care Code Psych Diag Eval w/Med (07201) Diagnoses Generalized anxiety disorder with panic attacks F41.1; F41.0
== END 2024-04-06 13:44 | disposition home or self-care (01) ==
LOC: HO.HOP 13:12
PROVIDERS: PCP Internal Medicine; Visit Provider Clinical Nurse Specialist Psychiatric/Mental Health
DX: F41.1 Generalized anxiety disorder (principal); F41.0 Panic disorder [episodic paroxysmal anxiety]
CPT/HCPCS: 90792

== ENCOUNTER → 2024-04-06 13:12 | Outpatient (BNVA) | payer MEDICARE, OTHER, SELFPAY | PROVIDERS: PCP Internal Medicine; Visit Provider Clinical Nurse Specialist Psychiatric/Mental Health ==

== ENCOUNTER 2024-04-06 13:52 | Outpatient (REF) | payer MEDICARE, OTHER, SELFPAY ==
[2024-04-06 15:07] LABS: Anion Gap 11 (12-20); Blood Urea Nitrogen 18 mg/dL (9-16); Calcium 9.8 mg/dL (8.4-10.2); Carbon Dioxide 28 mmol/L (22-29); Chloride 102 mmol/L (96-108); Estimated Glomerular Filt Rate 55; Glucose Random 76 mg/dL (60-115); Potassium 4.6 mmol/L (3.3-5.1); Sodium 136 mmol/L (135-145)
== END 2024-04-06 13:53 | disposition home or self-care (01) ==
LOC: HO.LAB 13:52
PROVIDERS: PCP Internal Medicine; Visit Provider Internal Medicine
DX: E87.1 Hypo-osmolality and hyponatremia (principal); F41.1 Generalized anxiety disorder; F41.0 Panic disorder [episodic paroxysmal anxiety]; Z79.899 Other long term (current) drug therapy
CPT/HCPCS: 36415; 80048; 90792

== ENCOUNTER 2024-04-10 11:37 | Outpatient (AMB) | payer MEDICARE, MEDICAID, SELFPAY ==
--- NOTE | 2024-04-10 12:20 | MHC.OFFWIV ---
Intake Vital Signs 04/10/24 12:25 Height 5 ft 3 in Weight 170 lb BMI 30.1 BP 138/72 Blood Pressure Location Lt brachial Position Sitting Pulse 56 Pulse Source Pulse Oximeter Temp 97.9 F Temp Source Oral Pulse Oximetry (%) 97 Intake Visit Reasons: EP ?tremors Intake Note: pt is here for tremors Patient Tobacco Use Status: Former Tobacco user Allergies codeine [CODEINE] Allergy (Intermediate, Verified 04/26/24 14:47) HIVES morphine [MORPHINE] Allergy (Intermediate, Verified 04/26/24 14:47) HIVES oxycodone [OXYCODONE] Allergy (Intermediate, Verified 04/26/24 14:47) HIVES Sulfa (Sulfonamide Antibiotics) [SULFA (SULFONAMIDE ANTIBIOTICS)] Allergy (Intermediate, Verified 04/26/24 14:47) DEHYDRATION, hives, hives OPIATES Allergy (Unknown, Uncoded 04/26/24 14:47) hives Do you need a note to return to daycare/school/sports/work: No HPI EP ?tremors HPI Details Patient is a 78-year-old female with multiple comorbidities including coronary artery disease, hypertension, diabetes with polyneuropathy, anxiety and depression, who comes to the walk-in clinic complaining of shaking/tremor like activity just after of her a few days ago. She had recent hospitalization for hyponatremia and associated panic attacks, also. She reports that she recently had an appointment with her psychiatrist regarding her panic attacks, which she attributes to acute grief response. She noticed this morning that she was shaking upon wakening, her arms and her legs, and it resolved with walking and doing daily activities of living. She denies loss of consciousness, fatigue or myalgias, altered mental status, vision changes, headache or dizziness, numbness or tingling, pain to the extremities, color changes, headache or dizziness, generalized weakness, difficulty ambulating, or other associated symptoms. She reports that her shaking has since stopped, and feels like symptoms are resolved now. 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 Spondylosis of lumbar region without myelopathy or radiculopathy Sacroiliitis Surgical History Stented coronary artery Hx of shoulder surgery History of back surgery Hx of section Hx of hysterectomy Hx of colonoscopy Family History Father Colon cancer Family history of prostate cancer in father Mother Diabetes CVA (cerebral vascular accident) Social History Household Members: Spouse Housing: Apartment Alcohol intake: current Patient Tobacco Use Status: Former Tobacco user Years Smoked: 2 e-Cigarette/Vaping Use: Never Used service: No Current occupational status: retired Cognitive needs: No Hearing needs: No Vision needs: No Review of Systems Const All systems reviewed & are unremarkable except as noted in HPI and below Neuro Denies Abnormal speech present and Denies confusion Psych Denies confusion Physical Exam Vital Signs: Last Vital Signs Temp 97.9 F 04/10/24 12:25 Pulse 56 04/10/24 12:25 BP 138/72 04/10/24 12:25 Pulse Ox 97 04/10/24 12:25 BMI result Body Mass Index 30.1 Const General: cooperative, healthy appearing, comfortable, no acute distress, alert, awake, Physically active and well groomed; No anxious, confusion, diaphoretic, ill appearing, intoxicated appearing, poor hygiene or tired appearing Orientation/consciousness: patient oriented x3 and No confusion Limitations: no limitations HEENT Head: Yes normal to inspection, Yes normocephalic and Yes atraumatic Neck Neck: Yes normal visual inspection and Yes full ROM Resp Effort & Inspection: normal respiratory effort, able to speak in complete sentences, no audible wheezes and no cough Cardio Rate: regular rate Skin Other: Good color, warm and dry Neuro Other: No tremors noted General: patient oriented x3, gait normal, tone normal, moves all extremities, CN's II-XI intact bilaterally and No confusion Cognition (Neuro): normal cognition Speech: No Abnormal speech present Motor exam (neuro): 5/5 motor strength present throughout and Normal motor muscle tone present throughout Coordination: [id number] test normal and rapid alternating movements of the distal lower extremity normal Romberg Test: Negative Extrem Right lower extremity: normal to inspection, full ROM and normal capillary refill Left lower extremity: normal to inspection, full ROM and normal capillary refill Psych Appearance: grossly normal Mental Status: mental status grossly normal Speech and movement: Normal speech and movement present Affect: normal affect Attitude: cooperative Thought process: Normal thought process present Insight: Good insight present (Psych) Judgement: Good judgement present (Psych) Assessment & Plan Assessment & Plan (1) Anxiety: Code(s): F41.9 - Anxiety disorder, unspecified Plan: Patient is a 78-year-old female with multiple comorbidities including coronary artery disease, hypertension, diabetes with polyneuropathy, anxiety and depression, who comes to the walk-in clinic complaining of shaking/tremor like activity upon wakening from sleep just after of her a few days ago. She had recent hospitalization for hyponatremia and associated panic attacks, also. She reports that she recently had an appointment with her psychiatrist regarding her panic attacks, which she attributes to acute grief response. She noticed this morning that she was shaking upon wakening, her arms and her legs, and it resolved with walking and doing daily activities of living. She denies loss of consciousness, fatigue or myalgias, altered mental status, vision changes, headache or dizziness, numbness or tingling, pain to the extremities, color changes, headache or dizziness, generalized weakness, difficulty ambulating, or other associated symptoms. She reports that her shaking has since stopped, and feels like symptoms are resolved now. I think she was likely having an anxious dream when she woke from sleep, as symptoms resolved with ambulating. There was no apparent seizure-like activity, and her neuro exam is normal now. We discussed how she is having panic attacks, and how shaking can be associated with that. It is also possible as she experienced some restless like feeling to her legs in the past, that she is developing restless leg syndrome. We discussed doing an iron profile, and monitoring symptoms. She should follow up if she has any worrisome symptoms, or go to the emergency department as needed. She has follow-up soon in regards to her hyponatremic hospitalization also. Plan Improved sodium level in setting of recent hyponatremia. Orders: Orders IRON PROFILE 04/10/24 G47.61 - Periodic limb movement disorder Coding Level of Care Code Est Pt Level 4 (27434) Diagnoses Anxiety F41.9
[2024-04-10 12:25] VITALS: BP 138/72; PULSE 56; TEMP 36.6; O2SAT 97; BMI 30.1
== END 2024-04-10 13:30 | disposition home or self-care (01) ==
PROVIDERS: PCP Internal Medicine; Visit Provider Physician Assistant Medical
DX: F41.9 Anxiety disorder, unspecified (principal)
CPT/HCPCS: 99051; 99214

== ENCOUNTER 2024-04-26 14:15 | Outpatient (AMB) | payer MEDICARE, MEDICAID, SELFPAY ==
--- NOTE | 2024-04-26 14:47 | MHC.OFFWIV ---
Intake Vital Signs 04/26/24 14:48 Height 5 ft 3 in Weight 172 lb BMI 30.5 BP 130/82 Blood Pressure Location Lt brachial Position Sitting Pulse 72 Pulse Source Pulse Oximeter Temp 98.2 F Temp Source Oral Pulse Oximetry (%) 98 Oxygen Delivery Method Room Air Intake Visit Reasons: EP UTI? Intake Note: pt c/o urinary frequency and foul smelling urine, Started 3 days ago Patient Tobacco Use Status: Former Tobacco user Allergies codeine [CODEINE] Allergy (Intermediate, Verified 04/26/24 14:47) HIVES morphine [MORPHINE] Allergy (Intermediate, Verified 04/26/24 14:47) HIVES oxycodone [OXYCODONE] Allergy (Intermediate, Verified 04/26/24 14:47) HIVES Sulfa (Sulfonamide Antibiotics) [SULFA (SULFONAMIDE ANTIBIOTICS)] Allergy (Intermediate, Verified 04/26/24 14:47) DEHYDRATION, hives, hives OPIATES Allergy (Unknown, Uncoded 04/26/24 14:47) hives Do you need a note to return to daycare/school/sports/work: No HPI HPI Comments History of Present Illness Details Patient is a 78-year-old female complaining of 3 days of increased urgency and frequency of urination. She states she usually does not get up at night to go to the bathroom or maybe we will get up once but she has been getting up 4 or 5 times a night to urinate. She denies any blood in her urine or fevers or low back pain. She denies a history of kidney stones. She denies any burning with urination. [facility] Medical History Generalized anxiety disorder with panic attacks Arthritis of carpometacarpal (CMC) joint of right thumb Tenosynovitis of right wrist Dermatitis, contact Elevated vitamin B12 level Essential hypertension Atherosclerotic cardiovascular disease Obesity (BMI 30-39.9) Dyslipidemia 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 type 2 diabetes mellitus [facility] (current) use of insulin Spondylosis of lumbar region without myelopathy or radiculopathy Sacroiliitis Surgical History Stented coronary artery Hx of shoulder surgery History of back surgery Hx of section Hx of hysterectomy Hx of colonoscopy Family History Father Colon cancer Family history of prostate cancer in father Mother Diabetes CVA (cerebral vascular accident) Social History Household Members: Spouse Housing: Apartment Alcohol intake: current Patient Tobacco Use Status: Former Tobacco user Years Smoked: 2 e-Cigarette/Vaping Use: Never Used service: No Current occupational status: retired Cognitive needs: No Hearing needs: No Vision needs: No Review of Systems Const All systems reviewed & are unremarkable except as noted in HPI and below Physical Exam Vital Signs: Last Vital Signs Temp 98.2 F 04/26/24 14:48 Pulse 72 04/26/24 14:48 BP 130/82 04/26/24 14:48 Pulse Ox 98 04/26/24 14:48 Oxygen Delivery Method Room Air 04/26/24 14:48 BMI result Body Mass Index 30.5 Const General: cooperative, healthy appearing, comfortable, no acute distress and well developed Orientation/consciousness: patient oriented x3 Limitations: no limitations HEENT Head: Yes normal to inspection Ears: hearing grossly normal bilaterally General nose exam: Normal external nose present Face and sinus: Yes normal facial exam Eyes General: appearance normal, both eyes and all related structures Neck Neck: Yes normal visual inspection and Yes full ROM Resp Effort & Inspection: normal respiratory effort and able to speak in complete sentences General: Yes no CVA tenderness Back/Spine/Pelvis Back: no CVA tenderness Skin General skin exam: no rashes or lesions noted Neuro General: patient oriented x3 Extrem General: Yes normal to inspection Results AMB Urinalysis, Automated UA Leukoctes 0 Nae/uL Last Edit by Rodney Rain CMA on 04/26/24 15:02 UA Nitrite Negative Last Edit by Rodney Rain CMA on 04/26/24 15:02 UA Urobilinogen 0.2 mg/dL Last Edit by Rodney Rain CMA on 04/26/24 15:02 UA Protein 0 mg/dL Last Edit by Rodney Rain CMA on 04/26/24 15:02 UA pH 6.0 Last Edit by Rodney Rain CMA on 04/26/24 15:02 UA Blood 0 Rakesh/uL Last Edit by Rodney Rain CMA on 04/26/24 15:02 UA Specific [place] 1.015 Last Edit by Rodney Rain, ARSNEIO on 04/26/24 15:02 UA Ketone Negative Last Edit by Rodney Rain CMA on 04/26/24 15:02 UA Bilirubin 0 mg/dL Last Edit by Rodney Rain, ARSENIO on 04/26/24 15:02 UA Glucose 0 mg/dL Last Edit by Rodney Rain CMA on 04/26/24 15:02 Results Reviewed Results Reviewed: Laboratory Last Values Urine pH (Auto) 6.0 04/26/24 15:01 Specific [place] (Auto) 1.015 04/26/24 15:01 Urine Protein (Auto) 0 mg/dL 04/26/24 15:01 Glucose (UA)(Auto) 0 mg/dL 04/26/24 15:01 Urine Ketones (Auto) Negative 04/26/24 15:01 Urine Blood (Auto) 0 Rakesh/uL 04/26/24 15:01 Urine Nitrite (Auto) Negative 04/26/24 15:01 Urine Bilirubin (Auto) 0 mg/dL 04/26/24 15:01 Urine Urobilinogen (Auto) 0.2 mg/dL 04/26/24 15:01 Leukocyte Esterase (Auto) 0 Nae/uL 04/26/24 15:01 Assessment & Plan Assessment & Plan (1) UTI (urinary tract infection): Code(s): N39.0 - Urinary tract infection, site not specified Qualifiers: Urinary tract infection type: acute cystitis Hematuria presence: with hematuria Qualified Code(s): N30.01 - Acute cystitis with hematuria Plan: Gave patient red flag warning signs on a kidney stone, there is no blood in her urine and the UA was negative however I will treat her for the UTI based on her symptoms Plan See above Orders: Orders AMB Urinalysis Automated Today Kimber Haro NP Z13.9 - Encounter for screening, unspecified Medications: New cefuroxime axetil 500 mg PO Q12H 10 tabs 0RF Ev Thomason PA-C Coding Level of Care Code Est Pt Level 3 (67991) Diagnoses Acute cystitis with hematuria N30.01 Urinary tract infection type: acute cystitis Hematuria presence: with hematuria
[2024-04-26 14:48] VITALS: BP 130/82; PULSE 72; TEMP 36.8; O2SAT 98; BMI 30.5
== END 2024-04-26 15:30 | disposition home or self-care (01) ==
PROVIDERS: PCP Internal Medicine; Visit Provider Physician Assistant
DX: N30.01 Acute cystitis with hematuria (principal); Z13.9 Encounter for screening, unspecified
CPT/HCPCS: 81003; 99213

== ENCOUNTER 2024-05-14 10:57 | Outpatient (REF) | payer MEDICARE, OTHER, SELFPAY | END 2024-05-14 10:58 | disposition home or self-care (01) | LOC: HO.LAB 10:57 | PROVIDERS: PCP Internal Medicine; Visit Provider Clinical Nurse Specialist Psychiatric/Mental Health | DX: F41.1 Generalized anxiety disorder (principal); F41.0 Panic disorder [episodic paroxysmal anxiety]; F43.21 Adjustment disorder with depressed mood; F32.A Depression, unspecified; N39.0 Urinary tract infection, site not specified | CPT/HCPCS: 87086; 87088; 87186; 99212 ==

== ENCOUNTER 2024-05-14 10:57 | Outpatient (AMB) | payer MEDICARE, SELFPAY ==
--- NOTE | 2024-05-14 11:06 | A.OFFPSYCH_ITS ---
Intake Intake Visit Reasons: Depression Allergies codeine [CODEINE] Allergy (Intermediate, Verified 04/26/24 14:47) HIVES morphine [MORPHINE] Allergy (Intermediate, Verified 04/26/24 14:47) HIVES oxycodone [OXYCODONE] Allergy (Intermediate, Verified 04/26/24 14:47) HIVES Sulfa (Sulfonamide Antibiotics) [SULFA (SULFONAMIDE ANTIBIOTICS)] Allergy (Intermediate, Verified 04/26/24 14:47) DEHYDRATION, hives, hives OPIATES Allergy (Unknown, Uncoded 04/26/24 14:47) hives Medication List - Last Reconciled 05/14/24 by Ирина Arciniega APRN aspirin 81 mg PO DAILY atorvastatin 80 mg PO DAILY blood sugar diagnostic (Tango Verio test strips) 3 times a day blood-glucose meter ([employer] Verio Flex Meter) 3 times a day cefuroxime axetil 500 mg PO Q12H escitalopram oxalate 10 mg PO DAILY famotidine-Ca carb-mag hydrox 10-800-165 mg (Acid Suit Maker Complete (famotidine)) 1 tab PO BEDTIME PRN flash glucose scanning reader (Synergis EducationStyle Halina 2 [place]) use as directed flash glucose sensor (FreeStyle Halina 2 Sensor kit) use As directed hydrochlorothiazide 25 mg PO QAM insulin degludec (Tresiba FlexTouch U-100 insulin) 42 units subcut BEDTIME lancets (OneTouch Delica Lancets) 3 times a day lisinopril 20 mg PO QAM lorazepam 0.5 mg PO DAILY PRN metformin 500 mg PO BID 90 days metoprolol tartrate 50 mg PO BID pen needle, diabetic use for injecting med once a day Trulicity (dulaglutide) 0.75 mg (0.5 mL) subcut QWEEK NS HPI- Psychiatric Chief Complaint: Depression HPI Narrative: pt reports improvement overall with mood symptoms; she is much less anxious most of the time; she does have specific triggers and uses the ativan approximately 2 times a week with good results and no side effects; no sedation no dizziness. she is trying to cope with 's and [place]. she has a celebration of life ceremony planned for next week. her family is supportive. no SI no HI; cries easily when talking about 's Past Psychiatric History: outpt tx SACHA Mental Status Exam Mental Status Exam Patient Appearance: Well Grooomed and Appropriate Patient Orientation: Person, Place, Time and Situation Level of Consciousness: Awake and Appropriate Patient Behavior: Appropriate and Cooperative Mood Description: Sad Affect Description: Appropriate and Sad Patient Cognition Impaired: No Ability to Follow Directions: Good Speech Pattern: Clear Memory Description: Intact Hallucinations: None Delusions: Not Present Thought Process: Intact Thought Content: positive for Intact Judgement: Good Assessment and Plan Assessment & Plan (1) Generalized anxiety disorder with panic attacks: Status: Acute Code(s): F41.1 - Generalized anxiety disorder; F41.0 - Panic disorder [episodic paroxysmal anxiety] (2) Complicated bereavement: Status: Acute Code(s): F43.21 - Adjustment disorder with depressed mood Plan conitnue ativan- encouraged not to take daily stay hydrated use care when taking ativan to reduce falls,accidents may retrun to PCP for follow up care and pcp can re-refer if needed Medications: Refilled lorazepam 0.5 mg PO DAILY PRN 14 tabs 1RF Acute panic attack Counseling and coordination of Care Pt. Self Management counseling: Maintenance-social rhythm, Mod caffeine/ETOH intake, Sleep hygiene, Behavior activation, General coping skills and Greif counseling Medication management counseling: Effectiveness, Side effects, Dosing range, Duration, Drug interaction and Adherence Diagnosis and Prognosis Counseling: Accuracy of diagnosis and Adequacy of current interventions Details: I spent [] minutes reviewing the record, seeing the patient and documenting in the medical record. Counseling provided to the patient/caregiver as outlined below. Addressed patient/caregiver concerns regarding current medication regime including effective adherence. Addressed patient/caregiver concerns regarding diagnosis and prognosis including accuracy of diagnosis, prognosis over time, impact of diagnosis. Addressed patient/caregiver concerns regarding impact of recent stressors. 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 Spondylosis of lumbar region without myelopathy or radiculopathy Sacroiliitis Surgical History Stented coronary artery Hx of shoulder surgery History of back surgery Hx of section Hx of hysterectomy Hx of colonoscopy Family History Father Colon cancer Family history of prostate cancer in father Mother Diabetes CVA (cerebral vascular accident) Social History Household Members: Spouse Housing: Apartment Alcohol intake: current Patient Tobacco Use Status: Former Tobacco user Years Smoked: 2 e-Cigarette/Vaping Use: Never Used service: No Current occupational status: retired Cognitive needs: No Hearing needs: No Vision needs: No Social History: lives alone has 3 adult children and 13 grandchildren who all live nearby Substance History: denies Trauma History: loss of Coding Level of Care Code Est Pt Level 4 (43667) Therapy 30m w/E&M (01673) Diagnoses Generalized anxiety disorder with panic attacks F41.1; F41.0 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
== END 2024-05-14 11:30 | disposition home or self-care (01) ==
LOC: HO.HOP 10:57
PROVIDERS: PCP Internal Medicine; Visit Provider Clinical Nurse Specialist Psychiatric/Mental Health
DX: F41.1 Generalized anxiety disorder (principal); F41.0 Panic disorder [episodic paroxysmal anxiety]; F43.21 Adjustment disorder with depressed mood
CPT/HCPCS: 90833; 99214

== ENCOUNTER 2024-05-14 14:24 | Outpatient (AMB) | payer MEDICARE, MEDICAID, SELFPAY ==
--- NOTE | 2024-05-14 14:28 | AM.OFFWIN_ITS ---
Intake Vital Signs 05/14/24 14:30 Height 5 ft 3 in Weight 174 lb BMI 30.8 BP 120/60 Blood Pressure Location Lt brachial Position Sitting Pulse 71 Pulse Source Pulse Oximeter Temp 98.4 F Temp Source Oral Pulse Oximetry (%) 98 Oxygen Delivery Method Room Air Intake Visit Reasons: EP-UTI Intake Note: pt c/o urinary frequency, and pain while urinating. Ongoing. States Cefuroxime did not work Patient Tobacco Use Status: Former Tobacco user Allergies codeine [CODEINE] Allergy (Intermediate, Verified 05/14/24 14:37) HIVES morphine [MORPHINE] Allergy (Intermediate, Verified 05/14/24 14:37) HIVES oxycodone [OXYCODONE] Allergy (Intermediate, Verified 05/14/24 14:37) HIVES Sulfa (Sulfonamide Antibiotics) [SULFA (SULFONAMIDE ANTIBIOTICS)] Allergy (Intermediate, Verified 05/14/24 14:37) DEHYDRATION, hives, hives OPIATES Allergy (Unknown, Uncoded 05/14/24 14:37) hives Do you need a note to return to daycare/school/sports/work: No HPI EP-UTI HPI Details 78 year old female patient presents to [facility] clinic today with report of urinary frequency, urgency, burning. She was seen at the [place] clinic on 04/26 for similar complaints and started on Cefuroxime for UTI. She returns today with worsening symptoms. States she never improved while on abx. This is at least her 4th UTI in the last 4-5 months per records. Denies fever, chills, or flank pain. 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 Spondylosis of lumbar region without myelopathy or radiculopathy Sacroiliitis Surgical History Stented coronary artery Hx of shoulder surgery History of back surgery Hx of section Hx of hysterectomy Hx of colonoscopy Family History Father Colon cancer Family history of prostate cancer in father Mother Diabetes CVA (cerebral vascular accident) Social History Household Members: Spouse Housing: Apartment Alcohol intake: current Patient Tobacco Use Status: Former Tobacco user Years Smoked: 2 e-Cigarette/Vaping Use: Never Used service: No Current occupational status: retired Cognitive needs: No Hearing needs: No Vision needs: No Review of Systems Const All systems reviewed & are unremarkable except as noted in HPI and below Physical Exam Vital Signs: Last Vital Signs Temp 98.4 F 05/14/24 14:30 Pulse 71 05/14/24 14:30 BP 120/60 05/14/24 14:30 Pulse Ox 98 05/14/24 14:30 Oxygen Delivery Method Room Air 05/14/24 14:30 BMI result Body Mass Index 30.8 Const General: cooperative, healthy appearing, comfortable and no acute distress Neck Neck: Yes no lymphadenopathy Resp Effort & Inspection: normal respiratory effort Auscultation: clear to auscultation bilaterally Cardio Rate: regular rate Rhythm: regular rhythm General: Yes bladder normal to palpation and Yes no CVA tenderness Bimanual exam- vagina & uterus: bladder normal to palpation Back/Spine/Pelvis Back: no CVA tenderness Skin General skin exam: no rashes or lesions noted Extrem General: Yes no clubbing, cyanosis or edema Psych Appearance: grossly normal Mental Status: mental status grossly normal Speech and movement: Normal speech and movement present Results AMB Urinalysis, Automated UA Leukoctes 500 Nae/uL Last Edit by Rodney Rain CMA on 05/14/24 14:44 UA Nitrite Positive Last Edit by Rodney Rain CMA on 05/14/24 14:44 UA Urobilinogen 0.2 mg/dL Last Edit by Rodney Rain CMA on 05/14/24 14:44 UA Protein 15 mg/dL Last Edit by Rodney Rain CMA on 05/14/24 14:44 UA pH 6.0 Last Edit by Rodney Rain CMA on 05/14/24 14:44 UA Blood 10 Rakesh/uL Last Edit by Rodney Rain CMA on 05/14/24 14:44 UA Specific [place] 1.020 Last Edit by Rodney Rain CMA on 05/14/24 14:44 UA Ketone Negative Last Edit by Rodney Rain CMA on 05/14/24 14:44 UA Bilirubin 1 mg/dL Last Edit by Rodney Rain CMA on 05/14/24 14:44 UA Glucose 0 mg/dL Last Edit by Rodney Rain CMA on 05/14/24 14:44 Results Reviewed Results Reviewed: Laboratory Last Values Urine pH (Auto) 6.0 05/14/24 14:42 Specific [place] (Auto) 1.020 05/14/24 14:42 Urine Protein (Auto) 15 mg/dL 05/14/24 14:42 Glucose (UA)(Auto) 0 mg/dL 05/14/24 14:42 Urine Ketones (Auto) Negative 05/14/24 14:42 Urine Blood (Auto) 10 Rakesh/uL 05/14/24 14:42 Urine Nitrite (Auto) Positive 05/14/24 14:42 Urine Bilirubin (Auto) 1 mg/dL 05/14/24 14:42 Urine Urobilinogen (Auto) 0.2 mg/dL 05/14/24 14:42 Leukocyte Esterase (Auto) 500 Nae/uL 05/14/24 14:42 Assessment & Plan Assessment & Plan (1) Urinary tract infection: Code(s): N39.0 - Urinary tract infection, site not specified Qualifiers: Hematuria presence: with hematuria Urinary tract infection type: acute cystitis Qualified Code(s): N30.01 - Acute cystitis with hematuria Plan: Persistent UTI despite recent treatment with cefuroxime. This is now 4+ UTIs in the last 5-6 months. Urine culture ordered/sent. Patient has an upcoming visit with her PCP, and I suggested she discuss possible urology referral due to frequent/recurrent UTIs. I am going to start her on a fluoroquinolone - Cipro b.i.d. 7 days. I will also send Pyridium due to her dysuria. We reviewed indications, use, possible side effects of these medications. Advised increased water intake. We reviewed red flags for return to clinic or emergency department, including fever/chills, flank pain. Patient verbalizes understanding and agrees to plan. Orders: Orders AMB Urinalysis Automated 05/14/24 Z13.9 - Encounter for screening, unspecified Urine Culture 05/14/24 N39.0 - Urinary tract infection, site not specified Medications: New ciprofloxacin HCl Take one tablet twice a day by mouth for 7 days. 500 mg PO BID 14 tabs 0RF 7 days N30.01 - Acute cystitis with hematuria phenazopyridine 200 mg PO TID PRN 6 tabs 0RF pain 6 doses R30.0 - Dysuria Coding Level of Care Code Est Pt Level 4 (66982) Diagnoses Acute cystitis with hematuria N30.01 Hematuria presence: with hematuria Urinary tract infection type: acute cystitis
[2024-05-14 14:30] VITALS: BP 120/60; PULSE 71; TEMP 36.9; O2SAT 98; BMI 30.8
== END 2024-05-14 15:01 | disposition home or self-care (01) ==
PROVIDERS: PCP Internal Medicine; Visit Provider Nurse Practitioner Family
DX: R35.0 Frequency of micturition (principal)
CPT/HCPCS: 81003; 99214

== ENCOUNTER 2024-05-26 10:22 | Outpatient (AMB) | payer MEDICARE, SELFPAY ==
[2024-05-26 10:39] VITALS: BP 130/64; PULSE 67; O2SAT 97; BMI 31.4
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
== END 2024-05-26 11:46 | disposition home or self-care (01) ==
PROVIDERS: PCP Internal Medicine; Visit Provider Internal Medicine
DX: F41.1 Generalized anxiety disorder (principal); F41.0 Panic disorder [episodic paroxysmal anxiety]

== ENCOUNTER → 2024-05-26 10:22 | Outpatient (BNVA) | payer MEDICARE, OTHER, SELFPAY | PROVIDERS: PCP Internal Medicine; Visit Provider Internal Medicine | DX: F41.1 Generalized anxiety disorder (principal); F41.0 Panic disorder [episodic paroxysmal anxiety]; E11.42 Type 2 diabetes mellitus with diabetic polyneuropathy; Z79.4 Long term (current) use of insulin | CPT/HCPCS: 96127; 99212 ==

== ENCOUNTER 2024-06-11 12:09 | Outpatient (AMB) | payer MEDICARE, SELFPAY ==
[2024-06-11 12:35] VITALS: BP 100/58; PULSE 67; O2SAT 95; BMI 32.3
--- NOTE | 2024-06-11 12:35 | AM.OFFWIN_ITS ---
Intake Vital Signs 06/11/24 12:35 Height 5 ft 1 in Weight 171 lb BMI 32.3 BP 100/58 L Blood Pressure Location Lt brachial Position Sitting Pulse 67 Pulse Source Pulse Oximeter Pulse Oximetry (%) 95 Oxygen Delivery Method Room Air Intake Visit Reasons: EP sharp pain on her back hurts when breathing Patient Tobacco Use Status: Former Tobacco user Allergies codeine [CODEINE] Allergy (Intermediate, Verified 05/26/24 11:23) HIVES morphine [MORPHINE] Allergy (Intermediate, Verified 05/26/24 11:23) HIVES oxycodone [OXYCODONE] Allergy (Intermediate, Verified 05/26/24 11:23) HIVES Sulfa (Sulfonamide Antibiotics) [SULFA (SULFONAMIDE ANTIBIOTICS)] Allergy (Intermediate, Verified 05/26/24 11:23) DEHYDRATION, hives, hives OPIATES Allergy (Unknown, Uncoded 05/26/24 11:23) hives HPI HPI Comments History of Present Illness Details This is a 78-year-old female with PMHx: CAD, HTN, HLD, T2DM who presented to the walk-in clinic complaining of pleuritic chest pain and shortness of breath x5 days. Patient states she is unable to take a deep breath as she gets a ?stabbing? pain in her right chest, which radiates into her right upper back. She denies any lower extremity edema, recent travel/surgeries, or estrogen use. She denies any cough. Patient does report a significant amount of stress and anxiety as her recently and she is having a difficult time paying for her rent. 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 Spondylosis of lumbar region without myelopathy or radiculopathy Sacroiliitis Surgical History Stented coronary artery Hx of shoulder surgery History of back surgery Hx of section Hx of hysterectomy Hx of colonoscopy Family History Father Colon cancer Family history of prostate cancer in father Mother Diabetes CVA (cerebral vascular accident) Social History Household Members: Spouse Housing: Apartment Alcohol intake: current Patient Tobacco Use Status: Former Tobacco user Years Smoked: 2 e-Cigarette/Vaping Use: Never Used service: No Current occupational status: retired Cognitive needs: No Hearing needs: No Vision needs: No Review of Systems Const All systems reviewed & are unremarkable except as noted in HPI and below Reports no additional complaints Eyes Reports no additional complaints ENT Reports no additional complaints Card Reports no additional complaints Resp Reports no additional complaints GI Reports no additional complaints Reports no additional complaints Musc Reports no additional complaints Skin/Breast Reports system reviewed and no additional complaints, except as documented Neuro Reports no additional complaints Psych Reports no additional complaints Endo Reports no additional complaints Seymour/Lymph Reports no additional complaints Aller/Immun Reports no additional complaints Physical Exam Vital Signs: Last Vital Signs Pulse 67 06/11/24 12:35 BP 100/58 L 06/11/24 12:35 Pulse Ox 95 06/11/24 12:35 Oxygen Delivery Method Room Air 06/11/24 12:35 BMI result Body Mass Index 32.3 Const Other: Vital signs reviewed. Constitutional: Non-toxic appearing. No acute distress. Well-developed and well-nourished. HEENT: Normocephalic and atraumatic. Skin: Warm and dry. No rashes or lesions noted. Neck: Full and painless range of motion. No cervical lymphadenopathy. Cardio: Regular rate and rhythm. No murmurs, gallops, or rubs. No lower extremity edema. No JVD. Pulmonary: No respiratory distress. No accessory muscle usage. Clear to auscultation bilaterally without wheezing, crackles, or rhonchi. Gastrointestinal: Soft, nontender, and nondistended in all 4 quadrants. Normoactive bowel sounds in all 4 quadrants. Genitourinary: No CVA tenderness. Musculoskeletal: Normal range of motion in joints throughout the body. No deformity or other signs of injury. Neuro: Alert and oriented x4. Cranial nerves 2-12 grossly intact. No focal deficits appreciated. Psych: Normal mood and affect. Assessment & Plan Assessment & Plan (1) Pleuritic chest pain: Code(s): R07.81 - Pleurodynia Plan: This is a 78-year-old female who presented to the walk-in clinic complaining of pleuritic chest pain radiating into her back with deep breaths and shortness of breath. Differential diagnosis includes costochondritis versus pleuritis versus pulmonary embolism versus anxiety. I explained to the patient that I can not rule out a pulmonary embolism at the walk-in clinic and recommended that she proceed to the emergency room for further workup. Patient verbalized und erstanding and states that she will be heading to [facility] Emergency room. I spoke with Sara at [facility] regarding patient's history, physical exam, and recommendations. Patient offered an ambulance; however she refused and prefers to drive herself. Patient is alert and oriented x4 and in my opinion, she has capacity to make her own medical decisions. Orders: Orders AMB EKG-In Office Today R07.9 - Chest pain, unspecified Coding Level of Care Code Est Pt Level 3 (29161) Diagnoses Pleuritic chest pain R07.81
== END 2024-06-11 13:25 | disposition home or self-care (01) ==
PROVIDERS: PCP Internal Medicine; Visit Provider Physician Assistant Medical
DX: R07.81 Pleurodynia (principal)

== ENCOUNTER → 2024-06-11 12:09 | Outpatient (BNVA) | payer MEDICARE, SELFPAY | PROVIDERS: PCP Internal Medicine; Visit Provider Physician Assistant Medical | DX: R07.81 Pleurodynia (principal) | CPT/HCPCS: 93005; 99212 ==

== ENCOUNTER 2024-06-11 13:49 | Emergency (ER) | payer MEDICARE, SELFPAY ==
--- NOTE | ~2024-06-11 | XR_ITS ---
EXAMINATION: XR RIBS, RIGHT CLINICAL INFORMATION: Pain in the right deep cage following injury COMPARISON: Chest radiograph from April 01, 2024 TECHNIQUE: 3 views of the right ribs were obtained. FINDINGS: Lungs are clear. No consolidation, pneumothorax, or pleural effusion. The cardiomediastinal silhouette and pulmonary vasculature are normal. Osseous structures are unremarkable. Ribs are intact. No fractures are identified. XR/XR ribs RT min 3V w CXR1V IMPRESSION: Unremarkable examination. Electronically signed by: Saulo Diaz MD 06/11/2024 08:45 PM EDT
[2024-06-11 14:06] VITALS: BP 133/56; PULSE 63; RESP 16; TEMP 36.3; O2SAT 98; BMI 31.0
[2024-06-11 17:35] VITALS: BP 133/53; PULSE 67; RESP 19; TEMP 36.3; O2SAT 98
--- NOTE | 2024-06-11 18:34 | ED_ITS ---
HPI - General Adult General Chief complaint: Back Pain/Injury Stated complaint: Back pain sent by urgent care Time Seen by Provider: 06/11/24 18:33 Source: patient Mode of arrival: ambulatory Limitations: no limitations History of Present Illness ED Provider: Komal Fletcher PA-C HPI narrative: 78 yof presents for evaluation for right shoulder pain and rib pain. She says that her pain began 1 week ago when she fell. Says she was hit by a closing door, was knocked forward and landed on a bent right upper extremity. She denies LOC, head strike. Says that her shoulder has not gotten better over the week but her right rib pain is preventing her from sleeping soundly. 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 She says she has increased pain when sleeping on the affected side. She has not used tylenol or motrin. Onset (ago): week(s) Location: right and upper extremity Radiation: non-radiation Severity: mild Quality: stabbing Pain Consistency: constant Relieving factors: none Exacerbating factors: other (sleeping on affected side ) Associated symptoms: denies other symptoms Treatments prior to arrival: NSAID and other (tylenol) Related Data Home Medications ?Medication ?Instructions ?Recorded ?Confirmed aspirin 81 mg tablet,delayed 81 mg PO DAILY 06/15/20 05/26/24 release famotidine-Ca carb-mag hydrox 10 1 tab PO BEDTIME PRN 02/02/21 05/26/24 mg-800 mg-165 mg chewable tablet (Acid Steward/Stewardess Tourist Class Complete (famotidine)) insulin degludec 100 unit/mL (3 42 unit subcut QAM 05/14/24 05/26/24 mL) subcutaneous pen (Tresiba FlexTouch U-100 insulin) Previous Rx's ?Medication ?Instructions ?Recorded blood-glucose meter (OneTouch #1 ea 02/16/21 Verio Flex Meter) blood sugar diagnostic (OneTouch #300 ea 02/01/22 Verio test strips) lancets 33 gauge (OneTouch Delica #300 ea 08/06/22 Lancets) flash glucose scanning reader #2 ea 08/01/23 (FreeStyle Halina 2 [place]) flash glucose sensor (FreeStyle #2 ea 08/01/23 Halina 2 Sensor kit) pen needle, diabetic 31 gauge x #100 ea 11/02/23 3/16 atorvastatin 80 mg tablet 80 mg PO DAILY #90 tabs 01/27/24 hydrochlorothiazide 25 mg tablet 25 mg PO QAM #90 tabs 03/05/24 metoprolol tartrate 50 mg tablet 50 mg PO BID #180 tabs 04/21/24 lorazepam 0.5 mg tablet 0.5 mg PO DAILY PRN Acute panic 05/14/24 attack #14 tabs lisinopril 20 mg tablet 20 mg PO QAM #90 tabs 05/25/24 BD Ultra-Fine Short Pen Needle 31 #100 ea 05/26/24 gauge x 5/16 (pen needle, diabetic) Trulicity 0.75 mg/0.5 mL 0.75 mg (0.5 mL) subcut QWEEK #2 mL 05/26/24 subcutaneous pen injector (dulaglutide) metformin 500 mg tablet 500 mg PO BID 90 days #180 tabs 06/10/24 Allergies Allergy/AdvReac Type Severity Reaction Status Date / Time codeine [CODEINE] Allergy Intermediate HIVES Verified 06/11/24 14:12 morphine [MORPHINE] Allergy Intermediate HIVES Verified 06/11/24 14:12 oxycodone [OXYCODONE] Allergy Intermediate HIVES Verified 06/11/24 14:12 Sulfa (Sulfonamide Allergy Intermediate DEHYDRATION, Verified 06/11/24 14:12 Antibiotics) hives, [SULFA (SULFONAMIDE hives ANTIBIOTICS)] OPIATES Allergy Unknown hives Uncoded 06/11/24 14:12 Review of Systems 2 Constitutional: Constitutional: Reports no additional constitutional complaints, Denies chills, Denies fever(s), Denies frequent falls and Denies night sweats Eyes: Eyes: Reports no additional eye complaints, Denies blurry vision, Denies change in vision, Denies diplopia, Denies eye discharge, Denies loss of vision and Denies eye pain ENT: Denies dizziness and Denies disequilibrium Cardiovascular: Cardiovascular: Reports no additional cardiovascular complaints, Denies chest pain, Denies lightheadedness, Denies Loss of Consciousness and Denies dyspnea Respiratory: Respiratory: Reports no additional respiratory complaints and Denies dyspnea Gastrointestinal: Gastrointestinal: Reports no additional gastrointestinal complaints, Denies abdominal pain, Denies melena, Denies hematochezia, Denies change in bowel habits and Denies change in stool character Genitourinary: Genitourinary: Denies hematuria, Denies urinary frequency, Denies dysuria, Denies urinary incontinence, Denies urinary hesitancy and Denies urinary urgency Musculoskeletal: Musculoskeletal: Denies numbness and Denies tingling C omments: right rib pain Neurologic: Denies dizziness, Denies frequent falls, Denies loss of vision, Denies numbness, Denies tingling and Denies disequilibrium Psychiatric: Psychiatric: Reports no additional psychiatric complaints Endocrine: Endocrine: Reports no additional endocrine complaints Hematologic/Lymphatic: Hematologic/Lymphatic: Reports no additional hematologic/lymphatic complaints Allergic/Immunologic: Allergic/Immunologic: Reports no additional allergic/immunologic complaints [facility] Past Medical History Attestation statement: The following information was validated with the patient. Source: old records reviewed and nursing notes reviewed Medical History Generalized anxiety disorder with panic attacks Arthritis of carpometacarpal (CMC) joint of right thumb Tenosynovitis of right wrist Dermatitis, contact Elevated vitamin B12 level Essential hypertension Atherosclerotic cardiovascular disease Obesity (BMI 30-39.9) Dyslipidemia 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 type 2 diabetes mellitus detention (current) use of insulin Spondylosis of lumbar region without myelopathy or radiculopathy Sacroiliitis Surgical History Stented coronary artery Hx of shoulder surgery History of back surgery Hx of section Hx of hysterectomy Hx of colonoscopy Family History Family History Father Colon cancer Family history of prostate cancer in father Mother Diabetes CVA (cerebral vascular accident) Social History Social History Household Members: Spouse Housing: Apartment Alcohol intake: current Patient Tobacco Use Status: Former Tobacco user Years Smoked: 2 e-Cigarette/Vaping Use: Never Used Advance Directives: No Advance Directives Information Provided: No Do you have a plan to hurt others: No Plan service: No Current occupational status: retired Cognitive needs: No Hearing needs: No Vision needs: No Physical Exam ED Vital Signs: Vital Signs - 24 hr 06/11/24 14:06 06/11/24 17:35 10/11/24 21:14 Temperature 97.3 F 97.4 F 97.8 F Pulse Rate 63 67 60 Respiratory Rate 16 19 14 Blood Pressure 133/56 L 133/53 L 145/57 H Pulse Oximetry 98 98 98 Oxygen Delivery Method Room Air Room Air Room Air BMI result Body Mass Index 31.0 Const General: cooperative, no acute distress, alert and awake Nutritional Appearance: well nourished Orientation/consciousness: patient oriented x3 Limitations: no limitations HENMT Head: Yes normal to inspection and Yes atraumatic Ears: hearing grossly normal bilaterally and external ears normal General nose exam: Normal external nose present, no nasal discharge noted and no epistaxis Face and sinus: Yes normal facial exam, No abrasion and No laceration Mouth: Normal oral and palatal mucosa present, no drooling and no muffled voice Eyes General: appearance normal, both eyes and all related structures Periorbital: periorbital findings normal Eyelids: Yes eyelids normal Conjunctivae: conjunctivae normal Pupils: Equal, round and reactive pupils present EOM: EOMs intact bilaterally Neck Neck: Yes normal visual inspection, Yes full ROM and Yes no lymphadenopathy Chest Other: pain with palpation of right ribs Chest palpation & inspection: normal inspection of the chest Resp Effort & Inspection: normal respiratory effort and able to speak in complete sentences GI Inspection: Yes normal to inspection General: No no CVA tenderness Back/Spine/Pelvis Other: TTP over right flank, pain is infrascapular. Back: No no CVA tenderness Thoracic/Lumbar Spine: thoraco-lumbar ROM normal Back/spine/pelvis image: 2 1. TTP Neuro General: patient oriented x3 and moves all extremities Cranial nerves: Yes Equal, round and reactive pupils present Cognition (Neuro): normal cognition Extrem General: Yes normal to inspection, Yes full ROM and Yes capillary refill normal Right upper extremity: normal to inspection, full ROM, normal capillary refill and shoulder/upper arm Details: normal to inspection and normal ROM Psych Appearance: grossly normal Mental Status: mental status grossly normal Affect: normal affect Attitude: cooperative Thought process: Normal thought process present Thought content: Normal thought content present Insight: Good insight present (Psych) Medications Administered Discontinued Medications Generic Name Dose Route Start Last Admin Trade Name Freq PRN Reason Stop Dose Admin Ketorolac Tromethamine 15 mg 06/11/24 18:51 06/11/24 19:06 Ketorolac Tromethamine 15 Mg/Ml Vial IM 06/11/24 18:52 15 mg ONCE ONE Administration Medical Decision Making Medical Decision Making [facility] Narrative: Patient is a 78 year old assigned female at with a history of DM, HTN, CAD, and OA presenting to the emergency department today with right rib pain after a fall. Patient's physical exam showed pain with palpation to the right rib cage but was otherwise unremarkable. Patient's ROM was intact. Patient's right rib / chest x-ray was negative for any acute process. I explained my physical exam findings to the patient. I answered all questions asked by the patient. I stressed the importance of the patient taking her medication as directed (either prescribed or as the over the counter packaging recommends). I stressed the importance of the patient following up with her primary care provider. I stressed the importance of the patient returning to the emergency department immediately if her symptoms were to worsen or if she were to develop any dizziness, shortness of breath, difficulty breathing, chest pain, blurry vision, loss of vision, nausea, vomiting, abdominal pain, fever, chills, back pain, or any other complaints. Patient verbalized agreement and understanding with this treatment plan and discharge. Differential Diagnosis Differential Diagnoses: The differential diagnosis associated with the presentation includes Rib fracture Rib contusion Musculoskeletal pain Admission/Observation Consideration of admission/observation: Escalation of care including admission/observation considered Patient would have been admitted to the hospital had her work up had any findings where hospital admission was appropriate and her clinical presentation warranted hospital admission. Independent Interpretation I performed an independent interpretation of an: Plain X-Ray Interpretation: My interpretation is in agreement with the radiologist's impression of this imaging study. L EXAMINATION: XR RIBS, RIGHT CLINICAL INFORMATION: Pain in the right deep cage following injury COMPARISON: Chest radiograph from April 01, 2024 TECHNIQUE: 3 views of the right ribs were obtained. FINDINGS: Lungs are clear. No consolidation, pneumothorax, or pleural effusion. The cardiomediastinal silhouette and pulmonary vasculature are normal. Osseous structures are unremarkable. Ribs are intact. No fractures are identified. XR/XR ribs RT min 3V w CXR1V IMPRESSION: Unremarkable examination. Electronically signed by: Saulo Diaz MD 06/11/2024 08:45 PM EDT Dictated By: Saulo Diaz MD Signed By: Electronically signed by Saulo Diaz MD 06/11/242044 Radiology Impression Discussion of test interpretation with radiology: I have reviewed the radiologist's reading. Discharge Plan Discharge Clinical Impression: Pain in rib Patient Disposition: Home, Self-Care Instructions: Musculoskeletal Pain (ED) Additional Instructions: Your x-ray showed nothing acute / broken. Follow up with your primary care provider. Return to the emergency department immediately if your symptoms worsen or if you develop any dizziness, shortness of breath, difficulty breathing, chest pain, blurry vision, loss of vision, nausea, vomiting, abdominal pain, fever, chills, back pain, or any other complaints. Prescriptions: No Action (DME) blood-glucose meter [OneTouch Verio Flex meter] Misc See Rx Instructions .ROUTE .MEDSUPPLY Qty: 1 0RF Rx Instructions: 3 times a day (DME) OneTouch Verio test strips Strip See Rx Instructions .MEDSUPPLY Qty: 300 2RF Rx Instructions: 3 times a day (DME) lancets [OneTouch Delica Lancets] 33 gauge misc See Rx Instructions miscellaneous .MEDSUPPLY Qty: 300 0RF Rx Instructions: 3 times a day (DME) FreeStyle Halina 2 [place] Misc See Rx Instructions .Route Qty: 2 11RF Rx Instructions: use as directed (DME) FreeStyle Halina 2 Sensor Kit See Rx Instructions .Route Qty: 2 11RF Rx Instructions: use As directed (DME) pen needle, diabetic 31 gauge x 3/16 needle See Rx Instructions subcut BID Qty: 100 1RF Rx Instructions: use for injecting med once a day atorvastatin 80 mg tablet 80 mg PO DAILY Qty: 90 1RF hydrochlorothiazide 25 mg tablet 25 mg PO QAM Qty: 90 0RF metoprolol tartrate 50 mg tablet 50 mg PO BID Qty: 180 0RF lisinopril 20 mg tablet 20 mg PO QAM Qty: 90 0RF metformin 500 mg tablet 500 mg PO BID 90 Days Qty: 180 0RF insulin degludec [Tresiba FlexTouch U-100] 100 unit/mL (3 mL) insulin pen 42 unit subcut QAM Acid Steward/Stewardess Tourist Class Complete (famot) 10-800-165 mg tablet,chewable 1 tab PO BEDTIME PRN aspirin 81 mg tablet,delayed release (DR/EC) 81 mg PO DAILY Trulicity 0.75 mg/0.5 mL pen injector 0.75 mg subcut QWEEK Qty: 2 5RF (DME) pen needle, diabetic [BD Ultra-Fine Short Pen Needle] 31 gauge x 5/16 needle See Rx Instructions .Route Qty: 100 5RF Rx Instructions: As directed once a day lorazepam 0.5 mg tablet 0.5 mg PO DAILY PRN (Reason: Acute panic attack) Qty: 14 1RF Referrals: Jasmine Vasquez MD [Primary Care Provider] - Interventions: ED Discharge Assessment Last Done: 06/11/24 21:45 Discharge Date/Time: 06/11/24 21:45 Print Language: Malay
[2024-06-11] MEDS: Ketorolac Tromethamine 15 MG/ML VIAL IM (19:06)
--- NOTE | 2024-06-11 19:07 | PC.NURSE ---
pt a&ox3, vss, pt c/o 12/09 back pain, pt medicated for pain per order, will continue to monitor
--- NOTE | 2024-06-11 19:10 | PC.NURSE ---
pt awaiting radiology
[2024-06-11 21:14] VITALS: BP 145/57; PULSE 60; RESP 14; TEMP 36.6; O2SAT 98
[2024-06-11 21:45] VITALS: BP 145/57; PULSE 60; RESP 14; TEMP 36.6; O2SAT 98
== END 2024-06-11 21:45 | disposition home or self-care (01) ==
PROVIDERS: Emergency Provider Emergency Medicine; PCP Internal Medicine
DX: R07.81 Pleurodynia (principal); M25.511 Pain in right shoulder; Z91.81 History of falling; E11.9 Type 2 diabetes mellitus without complications; I10 Essential (primary) hypertension; E78.5 Hyperlipidemia, unspecified; Z87.891 Personal history of nicotine dependence; Z79.4 Long term (current) use of insulin; Z79.02 Long term (current) use of antithrombotics/antiplatelets; Z79.84 Long term (current) use of oral hypoglycemic drugs; Z79.85 Long-term (current) use of injectable non-insulin antidiabetic drugs
CPT/HCPCS: 71101; 96372; 99283; 99284; J1885

== ENCOUNTER 2024-06-18 11:14 | Outpatient (AMB) | payer MEDICARE, SELFPAY ==
--- NOTE | 2024-06-18 11:15 | AM.OFFWIN_ITS ---
Intake Vital Signs 06/18/24 11:16 Weight 173 lb 8 oz BP 150/90 H Blood Pressure Location Lt brachial Position Sitting Pulse 57 Pulse Source Pulse Oximeter Pulse Oximetry (%) 98 Oxygen Delivery Method Room Air Intake Visit Reasons: EP Sharp pain in back/rt shoulder. Intake Note: Patient here for sharp back pain and shoulder pain that has been present for about 2 weeks. Patient Tobacco Use Status: Former Tobacco user Allergies codeine [CODEINE] Allergy (Intermediate, Verified 06/18/24 11:16) HIVES morphine [MORPHINE] Allergy (Intermediate, Verified 06/18/24 11:16) HIVES oxycodone [OXYCODONE] Allergy (Intermediate, Verified 06/18/24 11:16) HIVES Sulfa (Sulfonamide Antibiotics) [SULFA (SULFONAMIDE ANTIBIOTICS)] Allergy (Intermediate, Verified 06/18/24 11:16) DEHYDRATION, hives, hives OPIATES Allergy (Unknown, Uncoded 06/18/24 11:16) hives Do you need a note to return to daycare/school/sports/work: No HPI HPI Comments History of Present Illness Details 78 y/o female patient who presents to [facility] walk in clinic for right shoulder pain and rib pain. Reports that pain started ~ 1 week ago when she fell. Was hit by a closing door, knocked forward and landed on a bent right upper extremity. Denies LOC, head strike. Shoulder has not gotten any better over the week but her right rib pain is preventing her from sleeping soundly. 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 [facility] Medical History Generalized anxiety disorder with panic attacks Arthritis of carpometacarpal (CMC) joint of right thumb Tenosynovitis of right wrist Dermatitis, contact Elevated vitamin B12 level Essential hypertension Atherosclerotic cardiovascular disease Obesity (BMI 30-39.9) Dyslipidemia 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 type 2 diabetes mellitus senior care (current) use of insulin Spondylosis of lumbar region without myelopathy or radiculopathy Sacroiliitis Surgical History Stented coronary artery Hx of shoulder surgery History of back surgery Hx of section Hx of hysterectomy Hx of colonoscopy Family History Father Colon cancer Family history of prostate cancer in father Mother Diabetes CVA (cerebral vascular accident) Social History Household Members: Spouse Housing: Apartment Alcohol intake: current Patient Tobacco Use Status: Former Tobacco user Years Smoked: 2 e-Cigarette/Vaping Use: Never Used service: No Current occupational status: retired Cognitive needs: No Hearing needs: No Vision needs: No Physical Exam Vital Signs: Last Vital Signs Pulse 57 06/18/24 11:16 BP 150/90 H 06/18/24 11:16 Pulse Ox 98 06/18/24 11:16 Oxygen Delivery Method Room Air 06/18/24 11:16 Const General: cooperative, comfortable and no acute distress Nutritional Appearance: obese Orientation/consciousness: patient oriented x3 Neuro General: patient oriented x3, gait normal and moves all extremities Extrem Right upper extremity: shoulder/upper arm (Pain with Active/Passive ROM) Details: normal to inspection, tenderness (Back shoulder Trapezius muscle TTP) and normal ROM; no swelling Left upper extremity: normal to inspection, full ROM and shoulder/upper arm Details: inspection abnormal Psych Speech and movement: Normal speech and movement present Assessment & Plan Assessment & Plan (1) Right shoulder pain: Code(s): M25.511 - Pain in right shoulder Qualifiers: Chronicity: acute Qualified Code(s): M25.511 - Pain in right shoulder Plan: Images done in ED, Negtaive for Fx Ordered Physical Therapy. NSAIDs and Acetaminophen. Ice/Hot Orders: Orders PT Evaluation and Treatment Today M25.511 - Pain in right shoulder Coding Level of Care Code Est Pt Level 3 (45569) Diagnoses Acute pain of right shoulder M25.511 Chronicity: acute Time Spent (min) 15
[2024-06-18 11:16] VITALS: BP 150/90; PULSE 57; O2SAT 98
== END 2024-06-18 12:19 | disposition home or self-care (01) ==
PROVIDERS: PCP Internal Medicine; Visit Provider Nurse Practitioner Family
DX: M25.511 Pain in right shoulder (principal)

== ENCOUNTER → 2024-06-18 11:14 | Outpatient (BNVA) | payer MEDICARE, SELFPAY | PROVIDERS: PCP Internal Medicine; Visit Provider Internal Medicine | DX: M25.511 Pain in right shoulder (principal) | CPT/HCPCS: 99212 ==

== ENCOUNTER 2024-06-27 17:43 | Emergency (ER) | payer MEDICARE, OTHER, SELFPAY ==
--- NOTE | ~2024-06-27 | CT_ITS ---
EXAMINATION: CT ABDOMEN AND PELVIS WITH CONTRAST CLINICAL INFORMATION: Left lower quadrant pain COMPARISON: None available. TECHNIQUE: Multidetector volumetric images were obtained from the superior aspect of the liver through the pubic symphysis following administration 85 mL of Omnipaque 350 intravenous contrast. Sagittal and coronal reformatted images were obtained on the technologist's workstation. Oral contrast: No This CT examination was performed using dose optimization techniques as appropriate, variously including the following: *Automated exposure control *Adjustment of mA and/or kV according to patient size (this includes techniques or standardized protocols for targeted exams where dose is matched to indication/reason for exam; i.e. extremities or head) *Use of iterative reconstruction technique DLP: 512 mGy-cm FINDINGS: LUNG BASES: The lung bases are clear. The heart size is normal. There is a small hiatal hernia. LIVER, GALLBLADDER, AND BILIARY TREE: The liver is normal in size, shape, and attenuation. No focal hepatic lesion or biliary ductal dilatation is present. The gallbladder is unremarkable with no evidence of radiopaque gallstones, gallbladder wall thickening, or obvious pericholecystic inflammatory changes. PANCREAS: Unremarkable. SPLEEN: Unremarkable. ADRENAL GLANDS: Unremarkable. KIDNEYS AND URETERS: The kidneys are normal in size, shape, and attenuation. No hydronephrosis, hydroureter, or calculi seen. No perinephric stranding. There are small bilateral renal exophytic cysts. BLADDER: Unremarkable. GASTROINTESTINAL TRACT: There is diffuse colonic diverticulosis and stool without distention. There is diffuse mural thickening involving the entire colon with mild pericolonic fat stranding likely colitis secondary to inflammatory or infectious etiology. Moderate stool is seen in the right colon. The small bowel loops are normal caliber. Appendix is not visualized. No free air or free fluid seen. ABDOMINAL WALL: Small umbilical hernia containing fat. LYMPH NODES: Normal. VASCULAR: Unremarkable. PELVIC VISCERA: Unremarkable. OSSEOUS STRUCTURES: There is degenerative disc changes throughout lumbar spine spurring L4-with spondylosis. No lytic or sclerotic process seen. CT/CT abdomen pelvis w IV con IMPRESSION: Diffuse colonic diverticulosis with no diverticulitis suspected right Diffuse mural thickening involving the entire colon with mild pericolic stranding likely colitis. Fleischner guidelines were followed. Electronically signed by: Jan Garsia MD 06/27/2024 08:24 PM EDT
--- NOTE | 2024-06-27 17:47 | ED.GENADULT ---
HPI - General Adult General Chief complaint: GI Bleed Stated complaint: rectal bleeding Time Seen by Provider: 06/27/24 18:09 Source: patient Limitations: no limitations History of Present Illness ED Provider: Katheryn Ramirez PA-C HPI narrative: Patient is a 78 year old female who presents with rectal bleeding and abdominal pain x1 day. Her abdominal pain began this AM and was followed by a large amount of loose stools and light red blood when wiping. At this time she felt SOB, dizzy, nauseous, and was sweating. Patient has a history of constipation for which she takes metamucil, and said she had been straining for 2 days. She states her abdominal pain is 7/10 and describes it as a burning pain in the periumbilical region with no radiation. She admits to limited water intake and poor diet, consisting of mainly fast food. States she does not take her ASA 81 every day and hasn't in about a week. She denies recent illness, trauma to the abdomen, and history of same illness. Related Data Home Medications ?Medication ?Instructions ?Recorded ?Confirmed aspirin 81 mg tablet,delayed 81 mg PO DAILY 06/15/20 05/26/24 release famotidine-Ca carb-mag hydrox 10 1 tab PO BEDTIME PRN 02/02/21 05/26/24 mg-800 mg-165 mg chewable tablet (Acid Passenger Service Supervisor Complete (famotidine)) insulin degludec 100 unit/mL (3 42 unit subcut QAM 05/14/24 05/26/24 mL) subcutaneous pen (Tresiba FlexTouch U-100 insulin) cholecalciferol (vitamin D3) 25 25 mcg PO DAILY 06/18/24 mcg (1,000 unit) capsule Previous Rx's ?Medication ?Instructions ?Recorded blood-glucose meter (OneTouch #1 ea 02/16/21 Verio Flex Meter) blood sugar diagnostic (OneTouch #300 ea 02/01/22 Verio test strips) lancets 33 gauge (OneTouch Delica #300 ea 08/06/22 Lancets) flash glucose scanning reader #2 ea 08/01/23 (FreeStyle Halina 2 Virgilina) flash glucose sensor (FreeStyle #2 ea 08/01/23 Halina 2 Sensor kit) pen needle, diabetic 31 gauge x #100 ea 11/02/2311/14 atorvastatin 80 mg tablet 80 mg PO DAILY #90 tabs 01/27/24 hydrochlorothiazide 25 mg tablet 25 mg PO QAM #90 tabs 03/05/24 metoprolol tartrate 50 mg tablet 50 mg PO BID #180 tabs 04/21/24 lorazepam 0.5 mg tablet 0.5 mg PO DAILY PRN Acute panic 05/14/24 attack #14 tabs lisinopril 20 mg tablet 20 mg PO QAM #90 tabs 05/25/24 BD Ultra-Fine Short Pen Needle 31 #100 ea 05/26/24 gauge x 5/16 (pen needle, diabetic) Trulicity 0.75 mg/0.5 mL 0.75 mg (0.5 mL) subcut QWEEK #2 mL 05/26/24 subcutaneous pen injector (dulaglutide) metformin 500 mg tablet 500 mg PO BID 90 days #180 tabs 06/10/24 ciprofloxacin HCl 500 mg tablet 500 mg PO Q12H #14 tabs 06/27/24 metronidazole 500 mg tablet 500 mg PO Q8H #21 tabs 06/27/24 Allergies Allergy/AdvReac Type Severity Reaction Status Date / Time codeine [CODEINE] Allergy Intermediate HIVES Verified 06/27/24 17:51 morphine [MORPHINE] Allergy Intermediate HIVES Verified 06/27/24 17:51 oxycodone [OXYCODONE] Allergy Intermediate HIVES Verified 06/27/24 17:51 Sulfa (Sulfonamide Allergy Intermediate DEHYDRATION, Verified 06/27/24 17:51 Antibiotics) hives, [SULFA (SULFONAMIDE hives ANTIBIOTICS)] OPIATES Allergy Unknown hives Uncoded 06/18/24 11:16 Review of Systems Review of Systems: Yes all other systems are reviewed and are negative Constitutional: Constitutional: Denies fever(s) and Denies headache(s) Eyes: Eyes: Denies loss of vision ENT: Reports dizziness and Denies headache(s) Cardiovascular: Cardiovascular: Denies Abdominal Distension, Denies chest pain, Denies Epigastric Pain, Denies syncope, Denies leg edema, Denies palpitations and Reports dyspnea Respiratory: Respiratory: Denies cough and Reports dyspnea Gastrointestinal: Gastrointestinal: Reports abdominal pain, Denies melena, Reports constipation, Reports diarrhea, Reports loose stools, Reports nausea and Denies vomiting Genitourinary: Genitourinary: Denies hematuria, Denies dysuria and Denies urinary urgency Musculoskeletal: Musculoskeletal: Denies myalgias, Denies numbness and Denies tingling Neurologic: Denies confusion, Reports dizziness, Denies syncope, Denies headache(s), Denies loss of vision, Denies numbness and Denies tingling Psychiatric: Psychiatric: Reports anxiety, Denies confusion, Reports panic attacks, Denies homicidal ideation and Denies suicidal ideation Endocrine: Endocrine: Denies palpitations PMFSH Past Medical History Medical History Generalized anxiety disorder with panic attacks Arthritis of carpometacarpal (CMC) joint of right thumb Tenosynovitis of right wrist Dermatitis, contact Elevated vitamin B12 level Essential hypertension Atherosclerotic cardiovascular disease Obesity (BMI 30-39.9) Dyslipidemia 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 type 2 diabetes mellitus 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 Spondylosis of lumbar region without myelopathy or radiculopathy Sacroiliitis Surgical History Stented coronary artery Hx of shoulder surgery History of back surgery Hx of section Hx of hysterectomy Hx of colonoscopy Family History Family History Father Colon cancer Family history of prostate cancer in father Mother Diabetes CVA (cerebral vascular accident) Social History Social History Household Members: Spouse Housing: Apartment Alcohol intake: current Patient Tobacco Use Status: Former Tobacco user Years Smoked: 2 Smoked in Last 30 Days: No e-Cigarette/Vaping Use: Never Used Use of substances other than those prescribed or required for medical reasons: No Advance Directives: Yes Advance Directives Information Provided: No Advance Directives on File: No Advance Directives Date on File: 06/01/24 Do you have a plan to hurt others: No Plan service: No Current occupational status: retired Cognitive needs: No Hearing needs: No Vision needs: No Physical Exam ED Vital Signs: Vital Signs - 24 hr 06/27/24 17:49 06/27/24 18:17 06/27/24 19:53 Temperature 96.1 F L Pulse Rate 70 68 Respiratory Rate 20 25 H 14 Blood Pressure 142/51 H 132/40 L Pulse Oximetry 100 97 Oxygen Delivery Method Room Air Room Air 06/27/24 20:04 06/27/24 22:13 Temperature 97.6 F Pulse Rate 66 76 Respiratory Rate 19 16 Blood Pressure 129/47 L 144/60 H Pulse Oximetry 100 99 Oxygen Delivery Method Room Air Room Air BMI result Body Mass Index 31.0 Const General: cooperative, healthy appearing, comfortable and no acute distress; No confusion Nutritional Appearance: overweight Orientation/consciousness: patient oriented x3 and No confusion Limitations: no limitations Neck Neck: Yes normal visual inspection, Yes full ROM and Yes no meningeal signs Resp Effort & Inspection: normal respiratory effort, able to speak in complete sentences, no cough, no respiratory distress and no use of accessory muscles Auscultation: clear to auscultation bilaterally Cardio Jugular venous distension: no JVD Palpation: normal PMI Rate: regular rate Rhythm: regular rhythm Heart sounds: S1 normal heart sound present, S2 normal heart sound present, no gallops, no murmurs and no rubs GI Inspection: Yes normal to inspection, No distended and No visible herniation Palpation (GI): Soft to palpation, Tenderness to palpation present (GI) in the LLQ, no guarding, not rigid and No Rebound tenderness present Skin Other: warm and dry, no rash Neuro General: patient oriented x3, moves all extremities, no meningeal signs, no focal motor deficits, CN's II-XI intact bilaterally and No confusion Cranial nerves: Yes CN's II-XII intact bilaterally Cognition (Neuro): normal cognition Extrem General: Yes normal to inspection Psych Other: calm and cooperative Appearance: grossly normal Mental Status: mental status grossly normal Speech and movement: Normal speech and movement present and Clear speech present Affect: normal affect Attitude: cooperative Thought process: Normal thought process present Thought content: Normal thought content present Insight: Good insight present (Psych) Judgement: Good judgement present (Psych) Course Course Course Narrative: This is a rapid medical exam. Deferred additional HPI, ROS, PE to primary provider. 78 yo female with history of DM, HLD, HTN, CAD here with complaints of bloody stools x several hours, initially had normal colored diarrhea then several hours ago had several episodes of bloody stools with clots. +abdominal discomfort. +nausea. No vomiting. Takes 81mg ASA daily. Will obtain labs, EKG VSS -A. Pascucci MATERIALS HANDLER Medications Administered Discontinued Medications Generic Name Dose Route Start Last Admin Trade Name Deepthi PRN Reason Stop Dose Admin Sodium Chloride 500 mls @ 500 mls/hr 06/27/24 18:35 06/27/24 21:20 Ns IV 06/27/24 19:34 Infused .Q1H ONE Infusion Iohexol 85 ml 06/27/24 19:41 06/27/24 19:42 Iohexol 350 Mg/Ml 100 Ml Infus..Btl IV 06/27/24 19:42 85 ml ONCE ONE Administration Levofloxacin 750 mg 06/27/24 21:53 06/27/24 22:13 Levofloxacin 750 Mg Tablet PO 06/27/24 21:54 750 mg ONCE ONE Administration Metronidazole 500 mg 06/27/24 21:53 06/27/24 22:13 Metronidazole 500 Mg Tablet PO 06/27/24 21:54 500 mg ONCE ONE Administration Medical Decision Making Medical Decision Making [facility] Narrative: I Katheryn Ramirez PA-C have personally assessed and manage the patient, Jessica SWAN observed and helped to formulate the documentation Patient is a 78 year old female who presents with rectal bleeding and abdominal pain x1 day. Her abdominal pain began this AM and was followed by a large amount of loose stools and light red blood when wiping. At this time she felt SOB, dizzy, nauseous, and was sweating. Patient has a history of constipation for which she takes metamucil, and said she had been straining for 2 days. She states her abdominal pain is 7/10 and describes it as a burning pain in the periumbilical region with no radiation. She admits to limited water intake and poor diet, consisting of mainly fast food. States she does not take her ASA 81 every day and hasn't in about a week. She denies recent illness, trauma to the abdomen, and history of same illness. Patient has a history of HTN, dyslipidemia, atherosclerotic CVD, and DM. DDx: mesenteric ischemia, constipation, electrolyte imbalance, diverticulitis, UC, internal hemorrhoids, SBO, LBO, viral syndrome, UGIB Plan: Given the fact that this patient has chronic constipation and admits to straining for multiple days prior to her symptoms, lack of rectal pain, and blood on the toilet paper, it is likely that her symptoms are due to constipation and internal hemorrhoids. Mesenteric ischemia was considered as patient has multiple risk factors, however pain does not appear severe enough to equate an acute episode. Will rule out more likely causes first. Considered SBO and LBO, however patient was able to defecate today, has no distension, and N/V is not present at this time. It is possible that the patient has viral syndrome, however she denies upper respiratory symptoms and recent illness. It could be electrolyte imbalance as she admits to poor diet, however denies current weakness, headaches, and palpitations. Will rule out with CBC and CMP. As the LLQ is tender upon palpation and the patient has blood in her stools, she could have diverticulitis or UC. Given her history of chronic constipation, lack of fever, and likelihood of hemorrhoids being the cause of bleeding, I think this is unlikely. Will check X-Ray of abdomen and CBC to rule out constipation first. UGIB was considered, however, given that there was no melena, this is unlikely as well. Per Katheryn Ramirez PA-C I am concerned for lower GI bleed, she has objective blood-tinged stool on exam. She is having focal left lower quadrant pain, there was concern for diverticulitis. Obtaining a CT scan, giving gentle IV fluid. Right now, she has no pain. Screening labs were obtained from triage I have independently reviewed the following tests: Labs: Leukocytosis with left shift, not anemic, no electrolyte abnormality, creatinine bumped at 1.47 CT abdomen and pelvis: CT/CT abdomen pelvis w IV con IMPRESSION: Diffuse colonic diverticulosis with no diverticulitis suspected right Diffuse mural thickening involving the entire colon with mild pericolic stranding likely colitis. Fleischner guidelines were followed. Electronically signed by: Jan Garsia MD 06/27/2024 08:24 PM EDT RP Lab Data 06/27/24 18:03 06/27/24 21:30 Labs: Lab Results 06/27/24 06/27/24 Range/Units 18:03 21:30 WBC 18.9 H (4.8-10.8) X10*3/uL RBC 4.55 (4.20-5.50) X10*6/uL Hgb 13.8 (12.0-16.0) g/dl Hct 39.9 (37.0-47.0) % MCV 87.7 (80.0-98.0) fL MCH 30.3 (27.0-33.0) pg MCHC 34.6 (31.0-35.0) g/dl RDW 13.0 (11.0-16.0) % Plt Count 376 D (160-400) X10*3/uL MPV 10.9 (9.4-12.3) fL Immature Gran % (Auto) 0.5 H (0.0-0.4) % Neut % (Auto) 84.0 H (45-73) % Lymph % (Auto) 9.5 L (20-40) % [place] % (Auto) 5.5 (2-11) % Eos % (Auto) 0.2 (0-4) % Baso % (Auto) 0.3 (0-2) % Lymph # (Auto) 1.8 (1.2-4.9) X10*3/uL [place] # (Auto) 1.0 (0.1-1.2) X10*3/uL Eos # (Auto) 0.0 (0.0-0.4) X10*3/uL Baso # (Auto) 0.1 (0.0-0.2) X10*3/uL Abs Immat Gran (auto) 0.10 H (0.00-0.03) X10*3/uL Absolute Neuts (auto) 15.8 H (2.0-8.3) x10*3/uL Absolute Nucleated RBC 0.000 (0.0-0.012) X10*3/uL Nucleated RBC % (auto) 0.0 (0.0-0.2) /100WBC PT 10.2 L (10.9-12.4) SEC INR 0.9 (0.9-1.1) Sodium 133 L (135-145) mmol/L Potassium 4.1 (3.3-5.1) mmol/L Chloride 99 (96-108) mmol/L Carbon Dioxide 21 L (22-29) mmol/L Anion Gap 17 (12-20) BUN 29 H (9-16) mg/dL Creatinine 1.47 H 1.39 (0.5-1.4) mg/dL Estim Creat Clear Calc 31.5 33.2 Estimated GFR 34 37 Random Glucose 111 (60-115) mg/dL Calcium 10.3 H (8.4-10.2) mg/dL Total Bilirubin 1.4 H (0.0-1.0) mg/dL Direct Bilirubin 0.5 (0.0-0.5) mg/dL AST 49 H (5-31) U/L ALT 30 (0-31) U/L Alkaline Phosphatase 93 (39-117) U/L Total Protein 6.9 (6.5-8.0) g/dL Albumin 4.1 (3.5-5.0) g/dL Blood Type A Positive Antibody Screen NEGATIVE Discharge Plan Discharge Clinical Impression: Colitis Patient Disposition: Home, Self-Care Instructions: Colitis (ED) Additional Instructions: You were found to have colitis on the CT scan. See home care instructions. Take the ciprofloxacin and the metronidazole as directed, these are both antibiotics. Follow up with your primary care provider for a recheck within 5-7 days. Prescriptions: New ciprofloxacin HCl 500 mg tablet 500 mg PO Q12H Qty: 14 0RF metronidazole 500 mg tablet 500 mg PO Q8H Qty: 21 0RF No Action (DME) blood-glucose meter [OneTouch Verio Flex meter] Misc See Rx Instructions .ROUTE .MEDSUPPLY Qty: 1 0RF Rx Instructions: 3 times a day (DME) OneTouch Verio test strips Strip See Rx Instructions .MEDSUPPLY Qty: 300 2RF Rx Instructions: 3 times a day (DME) lancets [OneTouch Delica Lancets] 33 gauge misc See Rx Instructions miscellaneous .MEDSUPPLY Qty: 300 0RF Rx Instructions: 3 times a day (DME) FreeStyle Halina 2 Virgilina Misc See Rx Instructions .Route Qty: 2 11RF Rx Instructions: use as directed (DME) FreeStyle Halina 2 Sensor Kit See Rx Instructions .Route Qty: 2 11RF Rx Instructions: use As directed (DME) pen needle, diabetic 31 gauge x 3/16 needle See Rx Instructions subcut BID Qty: 100 1RF Rx Instructions: use for injecting med once a day atorvastatin 80 mg tablet 80 mg PO DAILY Qty: 90 1RF hydrochlorothiazide 25 mg tablet 25 mg PO QAM Qty: 90 0RF metoprolol tartrate 50 mg tablet 50 mg PO BID Qty: 180 0RF lisinopril 20 mg tablet 20 mg PO QAM Qty: 90 0RF metformin 500 mg tablet 500 mg PO BID 90 Days Qty: 180 0RF insulin degludec [Tresiba FlexTouch U-100] 100 unit/mL (3 mL) insulin pen 42 unit subcut QAM Acid Passenger Service Supervisor Complete (famot) 10-800-165 mg tablet,chewable 1 tab PO BEDTIME PRN aspirin 81 mg tablet,delayed release (DR/EC) 81 mg PO DAILY Trulicity 0.75 mg/0.5 mL pen injector 0.75 mg subcut QWEEK Qty: 2 5RF (DME) pen needle, diabetic [BD Ultra-Fine Short Pen Needle] 31 gauge x 5/16 needle See Rx Instructions .Route Qty: 100 5RF Rx Instructions: As directed once a day lorazepam 0.5 mg tablet 0.5 mg PO DAILY PRN (Reason: Acute panic attack) Qty: 14 1RF cholecalciferol (vitamin D3) 25 mcg (1,000 unit) capsule 25 mcg PO DAILY Print Language: Montserratian
[2024-06-27 17:49] VITALS: BP 142/51; PULSE 70; RESP 20; TEMP 35.6; O2SAT 100; BMI 31.0
--- NOTE | 2024-06-27 17:50 | ECG_ITS ---
Test Reason : WEAKNESS Blood Pressure : / mmHG Vent. Rate : 061 BPM Atrial Rate : 061 BPM P-R Int : 182 ms QRS Dur : 092 ms QT Int : 442 ms P-R-T Axes : 038 004 047 degrees QTc Int : 444 ms Normal sinus rhythm Cannot rule out Anterior infarct , age undetermined Abnormal ECG When compared with ECG of 01-APR-2024 21:31, No significant change was found Referred By: Romina Vigil Electronically Signed By:CESAR BENNETT
[2024-06-27 18:11] LABS: MANUAL DIFF FLAG NO
[2024-06-27 18:17] VITALS: RESP 25
[2024-06-27 18:19] LABS: INTERNATIONAL NORM RATIO 0.9 (0.9-1.1); Prothrombin Time 10.2 SEC (10.9-12.4)
--- NOTE | 2024-06-27 18:19 | PC.NURSE ---
patient presents through external triage from home with daughter. states this last week she was constipated and then today at home she had a few episodes of diarrhea of which the most recent two she noticed to have bright red blood in them. patient denies blood thinners, denies abdominal pain, or nausea or vomiting. states she feels weak, noted to be tachypneic upon assessment however O2 saturation WNL and HR WNL. BP 120s SBP. patient abdomen soft nontender. denies any other symptoms.
--- NOTE | 2024-06-27 18:23 | PC.NURSE ---
upon changing patient into gown patient noted to have blood tinged bowel movement in pamper. placed on monitoring and evaluation advisor, VS WNL, 18g PIV placed in LAC. blood work and EKG completed in triage. awaiting MD balderrama
[2024-06-27 18:27] LABS: Alanine Aminotransferase 30 U/L (0-31); Albumin Level 4.1 g/dL (3.5-5.0); Alkaline Phosphatase 93 U/L (39-117); Anion Gap 17 (12-20); Aspartate Amino Transferase 49 U/L (5-31); Basophils Absolute Auto 0.1 X10*3/uL (0.0-0.2); Basophils Percent Auto 0.3 % (0-2); Bilirubin Direct 0.5 mg/dL (0.0-0.5); Bilirubin Total 1.4 mg/dL (0.0-1.0); Blood Urea Nitrogen 29 mg/dL (9-16); Calcium 10.3 mg/dL (8.4-10.2); Carbon Dioxide 21 mmol/L (22-29); Chloride 99 mmol/L (96-108); Creatinine Clr Calc Pharmacy 31.5; Eosinophils Percent Auto 0.2 % (0-4); Estimated Glomerular Filt Rate 34; Glucose Random 111 mg/dL (60-115); Hematocrit 39.9 % (37.0-47.0); Hemoglobin 13.8 g/dl (12.0-16.0); Imm Gran Pct Auto 0.5 % (0.0-0.4); Lymphocytes Absolute Auto 1.8 X10*3/uL (1.2-4.9); Lymphocytes Percent Auto 9.5 % (20-40); Mean Corpuscular HGB Conc 34.6 g/dl (31.0-35.0); Mean Corpuscular Hemoglobin 30.3 pg (27.0-33.0); Mean Corpuscular Volume 87.7 fL (80.0-98.0); Mean Platelet Volume 10.9 fL (9.4-12.3); Monocytes Percent Auto 5.5 % (2-11); Neutrophils Absolute Auto 15.8 x10*3/uL (2.0-8.3); Platelet Count 376 X10*3/uL (160-400); Potassium 4.1 mmol/L (3.3-5.1); Red Blood Count 4.55 X10*6/uL (4.20-5.50); Sodium 133 mmol/L (135-145); Total Protein 6.9 g/dL (6.5-8.0); White Blood Count 18.9 X10*3/uL (4.8-10.8)
[2024-06-27] MEDS: 0.9 % Sodium Chloride 500 ML IV (18:43)
[2024-06-27] MEDS: iohexoL 350 MG/ML 100 ML INFUS..BTL 85 ML IV (19:42)
[2024-06-27 19:53] VITALS: BP 132/40; PULSE 68; RESP 14; O2SAT 97
[2024-06-27 20:04] VITALS: BP 129/47; PULSE 66; RESP 19; TEMP 36.4; O2SAT 100
--- NOTE | 2024-06-27 20:31 | PC.NURSE ---
pt is axox4 speaking full clear sentences, denies abd pain/n/v at this time. states last BM about 1 hour ago with blood, states bloody stools onset approx 1500 and 4x episodes since. vitals as documented, unable to obtain oral temp. rectal temp wnl. ivf infusing. daughter at bedside. call arvizu within reach.
[2024-06-27 21:48] LABS: Creatinine Clr Calc Pharmacy 33.2; Estimated Glomerular Filt Rate 37
[2024-06-27 22:13] VITALS: BP 144/60; PULSE 76; RESP 16; O2SAT 99
[2024-06-27] MEDS: metroNIDAZOLE 500 MG TABLET PO (22:13)
[2024-06-27] MEDS: levoFLOXacin 750 MG TABLET PO (22:13)
[2024-06-27 22:21] VITALS: BP 144/60; PULSE 76; RESP 16; TEMP 36.6; O2SAT 99
== END 2024-06-27 22:22 | disposition home or self-care (01) ==
PROVIDERS: Nurse Practitioner Family; Physician Assistant Medical; Emergency Provider Internal Medicine; PCP Internal Medicine
DX: K52.9 Noninfective gastroenteritis and colitis, unspecified (principal); R10.2 Pelvic and perineal pain; R11.2 Nausea with vomiting, unspecified; R06.02 Shortness of breath; R94.31 Abnormal electrocardiogram [ECG] [EKG]; R42 Dizziness and giddiness; I10 Essential (primary) hypertension; I25.10 Atherosclerotic heart disease of native coronary artery without angina pectoris; Z79.899 Other long term (current) drug therapy; Z87.891 Personal history of nicotine dependence; Z79.01 Long term (current) use of anticoagulants
CPT/HCPCS: 36415; 74177; 80048; 80076; 82565; 85025; 85610; 86850; 86900; 86901; 93005; 96360; 99284; 99285; Q9967

== ENCOUNTER → 2024-06-27 17:50 | Outpatient (BNV) | payer MEDICARE, SELFPAY | PROVIDERS: Emergency Provider Internal Medicine; PCP Internal Medicine; Visit Provider Internal Medicine | DX: R94.31 Abnormal electrocardiogram [ECG] [EKG] (principal); R53.1 Weakness | CPT/HCPCS: 93010 ==

== ENCOUNTER 2024-07-01 02:54 | Emergency (ER) | payer MEDICARE, OTHER, SELFPAY ==
[2024-07-01 03:00] VITALS: BP 102/40; BP 154/80; PULSE 74; PULSE 81; RESP 22; TEMP 36.6; O2SAT 100; O2SAT 99; BMI 32.0
--- NOTE | 2024-07-01 05:19 | ED.GENADULT ---
HPI - General Adult General Chief complaint: General Medical Stated complaint: Numb feet Time Seen by Provider: 07/01/24 05:15 Source: patient and EMS Mode of arrival: EMS Limitations: no limitations History of Present Illness ED Provider: Dr. Perkins HPI narrative: Patient is a 78 yo female with CAD, diabetes, and anxiety who presents with heart palpitations after taking her antibiotics. She is being treated for colitis. In addition, the she has neuropathy of her feet and this woke her up this morning Onset (ago): hour(s) Related Data Home Medications ?Medication ?Instructions ?Recorded ?Confirmed aspirin 81 mg tablet,delayed 81 mg PO DAILY 06/15/20 05/26/24 release famotidine-Ca carb-mag hydrox 10 1 tab PO BEDTIME PRN 02/02/21 05/26/24 mg-800 mg-165 mg chewable tablet (Acid Indoor Plant Technician Complete (famotidine)) insulin degludec 100 unit/mL (3 42 unit subcut QAM 05/14/24 05/26/24 mL) subcutaneous pen (Tresiba FlexTouch U-100 insulin) cholecalciferol (vitamin D3) 25 25 mcg PO DAILY 06/18/24 mcg (1,000 unit) capsule Previous Rx's ?Medication ?Instructions ?Recorded blood-glucose meter (OneTouch #1 ea 02/16/21 Verio Flex Meter) blood sugar diagnostic (OneTouch #300 ea 02/01/22 Verio test strips) lancets 33 gauge (OneTouch Delica #300 ea 08/06/22 Lancets) flash glucose scanning reader #2 ea 08/01/23 (FreeStyle Halina 2 [place]) flash glucose sensor (FreeStyle #2 ea 08/01/23 Halina 2 Sensor kit) pen needle, diabetic 31 gauge x #100 ea 11/02/23/ atorvastatin 80 mg tablet 80 mg PO DAILY #90 tabs 01/27/24 hydrochlorothiazide 25 mg tablet 25 mg PO QAM #90 tabs 03/05/24 metoprolol tartrate 50 mg tablet 50 mg PO BID #180 tabs 04/21/24 lorazepam 0.5 mg tablet 0.5 mg PO DAILY PRN Acute panic 05/14/24 attack #14 tabs lisinopril 20 mg tablet 20 mg PO QAM #90 tabs 05/25/24 BD Ultra-Fine Short Pen Needle 31 #100 ea 05/26/24 gauge x 5/16 (pen needle, diabetic) Trulicity 0.75 mg/0.5 mL 0.75 mg (0.5 mL) subcut QWEEK #2 mL 05/26/24 subcutaneous pen injector (dulaglutide) metformin 500 mg tablet 500 mg PO BID 90 days #180 tabs 06/10/24 ciprofloxacin HCl 500 mg tablet 500 mg PO Q12H #14 tabs 06/27/24 metronidazole 500 mg tablet 500 mg PO Q8H #21 tabs 06/27/24 Allergies Allergy/AdvReac Type Severity Reaction Status Date / Time codeine [CODEINE] Allergy Intermediate HIVES Verified 07/01/24 03:00 morphine [MORPHINE] Allergy Intermediate HIVES Verified 07/01/24 03:00 oxycodone [OXYCODONE] Allergy Intermediate HIVES Verified 07/01/24 03:00 Sulfa (Sulfonamide Allergy Intermediate DEHYDRATION, Verified 07/01/24 03:00 Antibiotics) hives, [SULFA (SULFONAMIDE hives ANTIBIOTICS)] OPIATES Allergy Unknown hives Uncoded 07/01/24 03:00 Review of Systems Review of Systems: Yes all other systems are reviewed and are negative Neurologic: Denies Sensory deficit (Neuro) PMFSH Past Medical History Medical History Generalized anxiety disorder with panic attacks Arthritis of carpometacarpal (CMC) joint of right thumb Tenosynovitis of right wrist Dermatitis, contact Elevated vitamin B12 level Essential hypertension Atherosclerotic cardiovascular disease Obesity (BMI 30-39.9) Dyslipidemia 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 type 2 diabetes mellitus detention (current) use of insulin Spondylosis of lumbar region without myelopathy or radiculopathy Sacroiliitis Surgical History Stented coronary artery Hx of shoulder surgery History of back surgery Hx of section Hx of hysterectomy Hx of colonoscopy Family History Family History Father Colon cancer Family history of prostate cancer in father Mother Diabetes CVA (cerebral vascular accident) Social History Social History Household Members: Spouse Housing: Apartment Alcohol intake: current Patient Tobacco Use Status: Former Tobacco user Years Smoked: 2 Smoked in Last 30 Days: No e-Cigarette/Vaping Use: Never Used Use of substances other than those prescribed or required for medical reasons: No Advance Directives: Yes Advance Directives on File: No Advance Directives Date on File: 06/01/24 Do you have a plan to hurt others: No Plan service: No Current occupational status: retired Cognitive needs: No Hearing needs: No Vision needs: No Physical Exam ED Vital Signs: Vital Signs - 24 hr 07/01/24 03:00 07/01/24 06:00 Temperature 97.9 F 97.8 F Pulse Rate 74 67 Respiratory Rate 22 H 16 Blood Pressure 102/40 L 140/43 H Pulse Oximetry 100 98 Oxygen Delivery Method Room Air Room Air BMI result Body Mass Index 32.0 Const General: healthy appearing Nutritional Appearance: average body habitus Orientation/consciousness: oriented to person and patient oriented x3 Limitations: no limitations HENMT Head: Yes normal to inspection Ears: external ears normal General nose exam: Normal external nose present Mouth: Normal oral and palatal mucosa present and oropharynx normal Throat: Yes posterior oropharynx normal Eyes General: appearance normal, both eyes and all related structures Neck Neck: Yes normal visual inspection Chest Chest palpation & inspection: normal inspection of the chest Resp Auscultation: clear to auscultation bilaterally Cardio Jugular venous distension: no JVD Rate: regular rate Rhythm: regular rhythm Heart sounds: S1 normal heart sound present and S2 normal heart sound present GI Inspection: Yes normal to inspection Palpation (GI): Soft to palpation, nontender and No hepatosplenomegaly present Auscultation: normal bowel sounds General: Yes no CVA tenderness Back/Spine/Pelvis Back: no CVA tenderness Skin General skin exam: no rashes or lesions noted Neuro General: oriented to person and patient oriented x3 Cranial nerves: Yes CN's II-XII intact bilaterally Motor exam (neuro): 5/5 motor strength present throughout Sensory Exam: No Sensory deficit (Neuro) Extrem Other: good pedal pulses General: Yes normal to inspection Psych Appearance: grossly normal Course Reevaluation(s) Reevaluation #1: Normal ekg and labs, no evidence of arterial insufficiency will dc home Time: 06:51 Medical Decision Making Differential Diagnosis Differential Diagnoses: The differential diagnosis associated with the presentation includes (cardiac ischemia, cardiac arrythmia, medication reaction, neuropathy) Admission/Observation Consideration of admission/observation: Escalation of care including admission/observation considered (upon arrival patient considered for admission) Lab Data 07/01/24 05:29 07/01/24 05:29 Labs: Lab Results 07/01/24 Range/Units 05:29 WBC 10.3 (4.8-10.8) X10*3/uL RBC 3.88 L (4.20-5.50) X10*6/uL Hgb 12.0 (12.0-16.0) g/dl Hct 33.4 L (37.0-47.0) % MCV 86.1 (80.0-98.0) fL MCH 30.9 (27.0-33.0) pg MCHC 35.9 H (31.0-35.0) g/dl RDW 13.0 (11.0-16.0) % Plt Count 279 D (160-400) X10*3/uL MPV 9.9 (9.4-12.3) fL Immature Gran % (Auto) 0.3 (0.0-0.4) % Neut % (Auto) 70.2 (45-73) % Lymph % (Auto) 19.8 L (20-40) % [place] % (Auto) 8.1 (2-11) % Eos % (Auto) 1.2 (0-4) % Baso % (Auto) 0.4 (0-2) % Lymph # (Auto) 2.0 (1.2-4.9) X10*3/uL [place] # (Auto) 0.8 (0.1-1.2) X10*3/uL Eos # (Auto) 0.1 (0.0-0.4) X10*3/uL Baso # (Auto) 0.0 (0.0-0.2) X10*3/uL Abs Immat Gran (auto) 0.03 (0.00-0.03) X10*3/uL Absolute Neuts (auto) 7.2 (2.0-8.3) x10*3/uL Absolute Nucleated RBC 0.000 (0.0-0.012) X10*3/uL Nucleated RBC % (auto) 0.0 (0.0-0.2) /100WBC Sodium 134 L (135-145) mmol/L Potassium 4.0 (3.3-5.1) mmol/L Chloride 99 (96-108) mmol/L Carbon Dioxide 22 (22-29) mmol/L Anion Gap 17 (12-20) BUN 22 H (9-16) mg/dL Creatinine 1.23 (0.5-1.4) mg/dL Estim Creat Clear Calc 38.2 Estimated GFR 42 Random Glucose 91 (60-115) mg/dL Calcium 9.1 D (8.4-10.2) mg/dL Troponin I High Sens < 2.7 (<3.5-17.0) ng/L Independent Interpretation I performed an independent interpretation of an: EKG (sinus [address] or twave changes) Independent Historian Clinical information obtained from an independent historian. History obtained from or confirmed by: EMS Chronic Conditions Patient?s care impacted by: Hypertension Discharge Plan Discharge Clinical Impression: Heart palpitations, Neuropathy Patient Disposition: Home, Self-Care Instructions: Heart Palpitations (ED), Peripheral Neuropathy (ED) Prescriptions: No Action (DME) blood-glucose meter [OneTouch Verio Flex meter] Misc See Rx Instructions .ROUTE .MEDSUPPLY Qty: 1 0RF Rx Instructions: 3 times a day (DME) OneTouch Verio test strips Strip See Rx Instructions .MEDSUPPLY Qty: 300 2RF Rx Instructions: 3 times a day (DME) lancets [OneTouch Delica Lancets] 33 gauge misc See Rx Instructions miscellaneous .MEDSUPPLY Qty: 300 0RF Rx Instructions: 3 times a day (DME) FreeStyle Halina 2 [place] Misc See Rx Instructions .Route Qty: 2 11RF Rx Instructions: use as directed (DME) FreeStyle Halina 2 Sensor Kit See Rx Instructions .Route Qty: 2 11RF Rx Instructions: use As directed (DME) pen needle, diabetic 31 gauge x 3/16 needle See Rx Instructions subcut BID Qty: 100 1RF Rx Instructions: use for injecting med once a day atorvastatin 80 mg tablet 80 mg PO DAILY Qty: 90 1RF hydrochlorothiazide 25 mg tablet 25 mg PO QAM Qty: 90 0RF metoprolol tartrate 50 mg tablet 50 mg PO BID Qty: 180 0RF lisinopril 20 mg tablet 20 mg PO QAM Qty: 90 0RF metformin 500 mg tablet 500 mg PO BID 90 Days Qty: 180 0RF insulin degludec [Tresiba FlexTouch U-100] 100 unit/mL (3 mL) insulin pen 42 unit subcut QAM ciprofloxacin HCl 500 mg tablet 500 mg PO Q12H Qty: 14 0RF metronidazole 500 mg tablet 500 mg PO Q8H Qty: 21 0RF Acid Indoor Plant Technician Complete (famot) 10-800-165 mg tablet,chewable 1 tab PO BEDTIME PRN aspirin 81 mg tablet,delayed release (DR/EC) 81 mg PO DAILY Trulicity 0.75 mg/0.5 mL pen injector 0.75 mg subcut QWEEK Qty: 2 5RF (DME) pen needle, diabetic [BD Ultra-Fine Short Pen Needle] 31 gauge x 5/16 needle See Rx Instructions .Route Qty: 100 5RF Rx Instructions: As directed once a day lorazepam 0.5 mg tablet 0.5 mg PO DAILY PRN (Reason: Acute panic attack) Qty: 14 1RF cholecalciferol (vitamin D3) 25 mcg (1,000 unit) capsule 25 mcg PO DAILY Referrals: Jasmine Vasquez MD [Primary Care Provider] - 5 days Print Language: Turkish
--- NOTE | 2024-07-01 05:24 | ECG_ITS ---
Test Reason : NUMBNESS Blood Pressure : / mmHG Vent. Rate : 061 BPM Atrial Rate : 061 BPM P-R Int : 210 ms QRS Dur : 094 ms QT Int : 440 ms P-R-T Axes : 049 003 029 degrees QTc Int : 442 ms Sinus rhythm with 1st degree A-V block Otherwise normal ECG When compared with ECG of 27-JUN-2024 17:48, No significant change was found Referred By: Ish Perkins Electronically Signed By:CESAR BENNETT
--- NOTE | 2024-07-01 05:31 | PC.NURSE ---
Labs drawn and sent to lab for processing.
[2024-07-01 05:33] LABS: Basophils Percent Auto 0.4 % (0-2); Eosinophils Absolute Auto 0.1 X10*3/uL (0.0-0.4); Eosinophils Percent Auto 1.2 % (0-4); Hematocrit 33.4 % (37.0-47.0); Imm Gran Abs Auto 0.03 X10*3/uL (0.00-0.03); Imm Gran Pct Auto 0.3 % (0.0-0.4); Lymphocytes Percent Auto 19.8 % (20-40); MANUAL DIFF FLAG NO; Mean Corpuscular HGB Conc 35.9 g/dl (31.0-35.0); Mean Corpuscular Hemoglobin 30.9 pg (27.0-33.0); Mean Corpuscular Volume 86.1 fL (80.0-98.0); Mean Platelet Volume 9.9 fL (9.4-12.3); Monocytes Absolute Auto 0.8 X10*3/uL (0.1-1.2); Monocytes Percent Auto 8.1 % (2-11); Neutrophils Absolute Auto 7.2 x10*3/uL (2.0-8.3); Neutrophils Percent Auto 70.2 % (45-73); Platelet Count 279 X10*3/uL (160-400); Red Blood Count 3.88 X10*6/uL (4.20-5.50); White Blood Count 10.3 X10*3/uL (4.8-10.8)
[2024-07-01 05:46] LABS: Anion Gap 17 (12-20); Blood Urea Nitrogen 22 mg/dL (9-16); Calcium 9.1 mg/dL (8.4-10.2); Carbon Dioxide 22 mmol/L (22-29); Chloride 99 mmol/L (96-108); Creatinine Clr Calc Pharmacy 38.2; Estimated Glomerular Filt Rate 42; Glucose Random 91 mg/dL (60-115); Sodium 134 mmol/L (135-145)
[2024-07-01 05:57] LABS: Troponin-I High Sensitivity < 2.7 ng/L (<3.5-17.0)
[2024-07-01 06:00] VITALS: BP 140/43; PULSE 67; RESP 16; TEMP 36.6; O2SAT 98
[2024-07-01 07:21] VITALS: BP 140/43; PULSE 67; RESP 16; TEMP 36.6; O2SAT 98
== END 2024-07-01 07:22 | disposition home or self-care (01) ==
PROVIDERS: Emergency Provider Emergency Medicine; PCP Internal Medicine
DX: R00.2 Palpitations (principal); G62.9 Polyneuropathy, unspecified; E11.9 Type 2 diabetes mellitus without complications; I25.10 Atherosclerotic heart disease of native coronary artery without angina pectoris; F41.9 Anxiety disorder, unspecified; K52.9 Noninfective gastroenteritis and colitis, unspecified; I10 Essential (primary) hypertension; Z79.4 Long term (current) use of insulin; Z79.899 Other long term (current) drug therapy
CPT/HCPCS: 36415; 80048; 84484; 85025; 93005; 99283; 99284

== ENCOUNTER → 2024-07-01 05:24 | Outpatient (BNV) | payer MEDICARE, SELFPAY | PROVIDERS: Emergency Provider Emergency Medicine; PCP Internal Medicine; Visit Provider Internal Medicine | DX: I44.0 Atrioventricular block, first degree (principal) | CPT/HCPCS: 93010 ==

== ENCOUNTER 2024-07-02 02:19 | Emergency (ER) | payer MEDICARE, OTHER, SELFPAY ==
[2024-07-02] VITALS (8 sets, daily range): BP systolic 90–166; BP diastolic 41–90; PULSE 63–84; RESP 16–24; TEMP 36.6–36.8; O2SAT 94–99; BMI 31.6
--- NOTE | 2024-07-02 02:59 | PC.NURSE ---
Patient complains of numbness and tingling in her feet, able to stand and take steps to bed. Neuros all in tact, moves all extremities equally.
--- NOTE | 2024-07-02 03:00 | MHC.EDTECH ---
Patient biba from home ,,vitals taken ,Patient was change into hospital gown ,call arvizu within Pt reach .
--- NOTE | 2024-07-02 04:12 | MHC.EDTECH ---
0400 rounding dont ,vitals taken ,Patient Personal blood sugar monitor was beeping This pct check Patient blood sugar ,RN aware of result of 69 ,Patient was given orange juice to drink .
[2024-07-02 04:55] LABS: Glucose, Whole Blood 69 mg/dL (60-115)
--- NOTE | 2024-07-02 06:03 | MHC.EDTECH ---
0600 rounding done ,vitals taken ,blood sugar check ,RN Christel is aware of result of 73 ,Patient was given turkey sandwich and juice for snack .
[2024-07-02 06:05] LABS: Glucose, Whole Blood 73 mg/dL (60-115)
--- NOTE | 2024-07-02 06:55 | PC.NURSE ---
report given to Andra SNOW
--- NOTE | 2024-07-02 07:35 | ED_ITS ---
HPI - Anxiety General Chief Complaint: Anxiety Stated Complaint: Anxiety attack Time Seen by Provider: 07/02/24 05:35 Source: patient and EMS Limitations: no limitations History of Present Illness ED Provider: Dr. Perkins HPI narrative: 78 yo female with DM, neuropathy and recent colitis was seen by me yesterday for palpitations and neuropathy of the lower extremities. Yesterday I assumed that part of her issue was anxiety but when I questioned her today she started to cry. She states that her in April and that her rent has been increased by $1000. She is not suicidal but does not know what she is going to do. Related Data Home Medications ?Medication ?Instructions ?Recorded ?Confirmed aspirin 81 mg tablet,delayed 81 mg PO DAILY 06/15/20 05/26/24 release famotidine-Ca carb-mag hydrox 10 1 tab PO BEDTIME PRN Acid Reflux 02/02/21 05/26/24 mg-800 mg-165 mg chewable tablet (Acid Account Maintenance Representative Complete (famotidine)) insulin degludec 100 unit/mL (3 42 unit subcut QAM 05/14/24 05/26/24 mL) subcutaneous pen (Tresiba FlexTouch U-100 insulin) cholecalciferol (vitamin D3) 25 25 mcg PO DAILY 06/18/24 mcg (1,000 unit) capsule ciprofloxacin HCl 500 mg tablet 500 mg PO Q12H 07/02/24 hydrochlorothiazide 25 mg tablet 25 mg PO DAILY 07/02/24 lisinopril 20 mg tablet 20 mg PO DAILY 07/02/24 metronidazole 500 mg tablet 500 mg PO TID 07/02/24 Previous Rx's ?Medication ?Instructions ?Recorded blood-glucose meter (OneTouch #1 ea 02/16/21 Verio Flex Meter) blood sugar diagnostic (OneTouch #300 ea 02/01/22 Verio test strips) lancets 33 gauge (OneTouch Delica #300 ea 08/06/22 Lancets) flash glucose scanning reader #2 ea 08/01/23 (FreeStyle Halina 2 [place]) flash glucose sensor (FreeStyle #2 ea 08/01/23 Halina 2 Sensor kit) pen needle, diabetic 31 gauge x #100 ea 11/02/2311/14 atorvastatin 80 mg tablet 80 mg PO DAILY #90 tabs 01/27/24 metoprolol tartrate 50 mg tablet 50 mg PO BID #180 tabs 04/21/24 lorazepam 0.5 mg tablet 0.5 mg PO DAILY PRN Acute panic 05/14/24 attack #14 tabs BD Ultra-Fine Short Pen Needle 31 #100 ea 05/26/24 gauge x 5/16 (pen needle, diabetic) Trulicity 0.75 mg/0.5 mL 0.75 mg (0.5 mL) subcut QWEEK #2 mL 05/26/24 subcutaneous pen injector (dulaglutide) metformin 500 mg tablet 500 mg PO BID 90 days #180 tabs 06/10/24 amoxicillin 875 mg-potassium 1 tab PO BID #10 tabs 07/01/24 clavulanate 125 mg tablet Allergies Allergy/AdvReac Type Severity Reaction Status Date / Time codeine [CODEINE] Allergy Intermediate HIVES Verified 07/02/24 02:31 morphine [MORPHINE] Allergy Intermediate HIVES Verified 07/02/24 02:31 oxycodone [OXYCODONE] Allergy Intermediate HIVES Verified 07/02/24 02:31 Sulfa (Sulfonamide Allergy Intermediate DEHYDRATION, Verified 07/02/24 02:31 Antibiotics) hives, [SULFA (SULFONAMIDE hives ANTIBIOTICS)] OPIATES Allergy Unknown hives Uncoded 07/02/24 02:31 Review of Systems Review of Systems: Yes all other systems are reviewed and are negative Neurologic: Denies Sensory deficit (Neuro) PMFSH Past Medical History Medical History Generalized anxiety disorder with panic attacks Arthritis of carpometacarpal (CMC) joint of right thumb Tenosynovitis of right wrist Dermatitis, contact Elevated vitamin B12 level Essential hypertension Atherosclerotic cardiovascular disease Obesity (BMI 30-39.9) Dyslipidemia 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 type 2 diabetes mellitus meterman (current) use of insulin Spondylosis of lumbar region without myelopathy or radiculopathy Sacroiliitis Surgical History Stented coronary artery Hx of shoulder surgery History of back surgery Hx of section Hx of hysterectomy Hx of colonoscopy Family History Family History Father Colon cancer Family history of prostate cancer in father Mother Diabetes CVA (cerebral vascular accident) Social History Social History Household Members: Spouse Housing: Apartment Alcohol intake: current Patient Tobacco Use Status: Former Tobacco user Years Smoked: 2 Smoked in Last 30 Days: No e-Cigarette/Vaping Use: Never Used Use of substances other than those prescribed or required for medical reasons: No Advance Directives: Yes Advance Directives Information Provided: Yes Advance Directives on File: No Advance Directives Date on File: 06/01/24 Do you have a plan to hurt others: No Plan service: No Current occupational status: retired Cognitive needs: No Hearing needs: No Vision needs: No Physical Exam Vital Signs: Vital Signs: Last Vital Signs Temp 98.2 F 07/02/24 12:07 Pulse 68 07/02/24 12:07 Resp 16 07/02/24 12:07 BP 136/41 L 07/02/24 12:07 Pulse Ox 97 07/02/24 12:07 O2 Del Method Room Air 07/02/24 12:07 BMI result Body Mass Index 31.6 Const: Other: elderly female in no acute distress General: healthy appearing Nutritional Appearance: average body habitus Orientation/consciousness: oriented to person and patient oriented x3 Limitations: no limitations HEENT: Head: Yes normal to inspection Ears: external ears normal General nose exam: Normal external nose present Mouth: Normal oral and palatal mucosa present and oropharynx normal Throat: Yes posterior oropharynx normal Eyes: General: appearance normal, both eyes and all related structures Neck: Other: supple Neck: Yes normal visual inspection Chest: Chest palpation & inspection: normal inspection of the chest Resp: Auscultation: clear to auscultation bilaterally Cardio: Jugular venous distension: no JVD Rate: regular rate Rhythm: regular rhythm Heart sounds: S1 normal heart sound present and S2 normal heart sound present GI: Inspection: Yes normal to inspection Palpation (GI): Soft to palpation, nontender and No hepatosplenomegaly present Auscultation: normal bowel sounds : General: Yes no CVA tenderness Back/Spine/Pelvis: Back: no CVA tenderness Skin: General skin exam: no rashes or lesions noted Neuro: General: oriented to person and patient oriented x3 Cranial nerves: Yes CN's II-XII intact bilaterally Motor exam (neuro): 5/5 motor strength present throughout Sensory Exam: No Sensory deficit (Neuro) Extrem: General: Yes normal to inspection Psych: Appearance: grossly normal Course Reevaluation(s) Reevaluation #1: I have put her in for Care team and case management evaluation Time: 07:40 Reevaluation #2: physician observation started now, patient to be evaluated for her anxiety and depression by CARE team. Currently she is resting comfortably Time: 07:44 Reevaluation #3: 07/02/24--1243 -- Physician observation completed at 1245 on 07/02/2024. Patient was evaluated by CARE team and cleared for discharge. Will go home with [facility] for [facility]. Son or daughter will be here around 1215 for d/c. Patient does not meet medical necessity for hospitalization. Final disposition discussed with patient and family who verbalized understanding and are in agreement. Medical Decision Making Differential Diagnosis Differential Diagnoses: The differential diagnosis associated with the presentation includes (anxiety, depression) Admission/Observation Consideration of admission/observation: Escalation of care including admission/observation considered (upon arrival patient was considered for admission) Consult Healthcare Provider Management of the patient was discussed with: Behavioral Health Provider Lab Data Labs: Lab Results 07/02/24 07/02/24 Range/Units 04:01 06:01 POC Glucose 69 73 (60-115) mg/dL Independent Historian Clinical information obtained from an independent historian. History obtained from or confirmed by: EMS Chronic Conditions Patient?s care impacted by: Diabetes and Hypertension Social Determinants Patient?s care significantly limited by Social Determinants of Health including: Low income Discharge Plan Discharge Clinical Impression: Acute anxiety, Depression Patient Disposition: Still a Patient Prescriptions: No Action (DME) blood-glucose meter [OneTouch Verio Flex meter] Misc See Rx Instructions .ROUTE .MEDSUPPLY Qty: 1 0RF Rx Instructions: 3 times a day (DME) OneTouch Verio test strips Strip See Rx Instructions .MEDSUPPLY Qty: 300 2RF Rx Instructions: 3 times a day (DME) lancets [OneTouch Delica Lancets] 33 gauge misc See Rx Instructions miscellaneous .MEDSUPPLY Qty: 300 0RF Rx Instructions: 3 times a day (DME) FreeStyle Halina 2 [place] Misc See Rx Instructions .Route Qty: 2 11RF Rx Instructions: use as directed (DME) FreeStyle Halina 2 Sensor Kit See Rx Instructions .Route Qty: 2 11RF Rx Instructions: use As directed (DME) pen needle, diabetic 31 gauge x 3/16 needle See Rx Instructions subcut BID Qty: 100 1RF Rx Instructions: use for injecting med once a day atorvastatin 80 mg tablet 80 mg PO DAILY Qty: 90 1RF metoprolol tartrate 50 mg tablet 50 mg PO BID Qty: 180 0RF metformin 500 mg tablet 500 mg PO BID 90 Days Qty: 180 0RF amoxicillin-pot clavulanate 875-125 mg tablet 1 tab PO BID Qty: 10 0RF insulin degludec [Tresiba FlexTouch U-100] 100 unit/mL (3 mL) insulin pen 42 unit subcut QAM metronidazole 500 mg tablet 500 mg PO TID ciprofloxacin HCl 500 mg tablet 500 mg PO Q12H lisinopril 20 mg tablet 20 mg PO DAILY hydrochlorothiazide 25 mg tablet 25 mg PO DAILY Acid Account Maintenance Representative Complete (famot) 10-800-165 mg tablet,chewable 1 tab PO BEDTIME PRN (Reason: Acid Reflux) aspirin 81 mg tablet,delayed release (DR/EC) 81 mg PO DAILY Trulicity 0.75 mg/0.5 mL pen injector 0.75 mg subcut QWEEK Qty: 2 5RF (DME) pen needle, diabetic [BD Ultra-Fine Short Pen Needle] 31 gauge x 5/16 needle See Rx Instructions .Route Qty: 100 5RF Rx Instructions: As directed once a day lorazepam 0.5 mg tablet 0.5 mg PO DAILY PRN (Reason: Acute panic attack) Qty: 14 1RF cholecalciferol (vitamin D3) 25 mcg (1,000 unit) capsule 25 mcg PO DAILY Referrals: [facility] [Outside] Print Language: Singaporean
--- NOTE | 2024-07-02 08:30 | MHC.CM.ED ---
Received case management consult overnight. CM deferred until cleared by Care Team. Continue to monitor for d/c needs.
--- NOTE | 2024-07-02 09:26 | PC.NURSE ---
Late charting d/t pt care. Resumed care of pt at 0700. Resting in bed quietly with eyes closed, respirations even and unlabored, no increased sob/wob noted. Pending CARE team evaluation and then plan for case management consult. Call arvizu within reach, all needs met at this time.
--- NOTE | 2024-07-02 12:14 | MHC.CM.ED ---
Patient cleared by Care Team. Per Mirna, patient would benefit from VNA. Met with patient in regards to discharge planning. Patient's son, John was on speaker phone. Both are agreable to [facility] for behavioral health. [facility] able [facility]. Both are agreeable. John or his sister will come to ER to transport patient home. Patient, Andra Lopez RN and Caro HEAD aware. Continue to monitor for d/c needs.
== END 2024-07-02 12:58 | disposition home or self-care (01) ==
PROVIDERS: Emergency Provider Emergency Medicine; PCP Internal Medicine
DX: F41.1 Generalized anxiety disorder (principal); F33.1 Major depressive disorder, recurrent, moderate; E11.9 Type 2 diabetes mellitus without complications; Z79.899 Other long term (current) drug therapy; Z79.4 Long term (current) use of insulin; Z87.891 Personal history of nicotine dependence
CPT/HCPCS: 82947; 99284; S9485

== ENCOUNTER 2024-07-06 08:24 | Outpatient (REF) | payer MEDICARE, OTHER, SELFPAY ==
[2024-07-06 10:12] LABS: MANUAL DIFF FLAG NO
[2024-07-06 10:22] LABS: Basophils Absolute Auto 0.1 X10*3/uL (0.0-0.2); Basophils Percent Auto 0.9 % (0-2); Eosinophils Absolute Auto 0.3 X10*3/uL (0.0-0.4); Eosinophils Percent Auto 3.7 % (0-4); Hematocrit 36.1 % (37.0-47.0); Hemoglobin 12.4 g/dl (12.0-16.0); Imm Gran Abs Auto 0.03 X10*3/uL (0.00-0.03); Imm Gran Pct Auto 0.3 % (0.0-0.4); Lymphocytes Absolute Auto 3.2 X10*3/uL (1.2-4.9); Lymphocytes Percent Auto 37.2 % (20-40); Mean Corpuscular HGB Conc 34.3 g/dl (31.0-35.0); Mean Corpuscular Hemoglobin 30.4 pg (27.0-33.0); Mean Corpuscular Volume 88.5 fL (80.0-98.0); Mean Platelet Volume 11.5 fL (9.4-12.3); Monocytes Absolute Auto 0.9 X10*3/uL (0.1-1.2); Monocytes Percent Auto 9.8 % (2-11); Neutrophils Absolute Auto 4.2 x10*3/uL (2.0-8.3); Neutrophils Percent Auto 48.1 % (45-73); Platelet Count 365 X10*3/uL (160-400); Red Blood Count 4.08 X10*6/uL (4.20-5.50); Red Cell Distribution Width 13.3 % (11.0-16.0); White Blood Count 8.7 X10*3/uL (4.8-10.8)
[2024-07-06 10:50] LABS: Alanine Aminotransferase 32 U/L (0-31); Anion Gap 10 (12-20); Aspartate Amino Transferase 42 U/L (5-31); Blood Urea Nitrogen 15 mg/dL (9-16); Calcium 9.2 mg/dL (8.4-10.2); Carbon Dioxide 28 mmol/L (22-29); Chloride 100 mmol/L (96-108); Cholesterol 94 mg/dL (<200); Estimated Average Glucose 128 mg/dL; Estimated Glomerular Filt Rate 55; Glucose Fasting 102 mg/dL (60-99); HDL Cholesterol 44 mg/dL (>40); Hemoglobin A1C 129.1284 umol/L; Hemoglobin A1c % 6.1 % (<6.0); LDL Cholesterol Calculated 37 mg/dL (<100); Potassium 4.3 mmol/L (3.3-5.1); Sodium 134 mmol/L (135-145); Total Hemoglobin (HGBA1C) 2997.7474 umol/L; Triglycerides 65 mg/dL (<150)
[2024-07-06 11:17] LABS: Creatinine Urine 104.64 mg/dL; Microalbum/Creatinine Ratio Ur 7.6 ug/mg cr (<30)
== END 2024-07-06 08:25 | disposition home or self-care (01) ==
LOC: HO.HMGCLDS 08:24
PROVIDERS: PCP Internal Medicine; Visit Provider Internal Medicine
DX: F41.1 Generalized anxiety disorder (principal); F41.0 Panic disorder [episodic paroxysmal anxiety]; E11.42 Type 2 diabetes mellitus with diabetic polyneuropathy; I10 Essential (primary) hypertension; Z79.4 Long term (current) use of insulin; E66.9 Obesity, unspecified; E78.5 Hyperlipidemia, unspecified; K92.2 Gastrointestinal hemorrhage, unspecified
CPT/HCPCS: 36415; 80048; 80061; 82043; 82306; 82570; 83036; 84450; 84460; 85025

== ENCOUNTER 2024-07-07 11:03 | Outpatient (AMB) | payer MEDICARE, SELFPAY ==
--- NOTE | 2024-07-07 11:47 | A.OFFPC_ITS ---
Vital Signs 07/07/24 11:56 Height 5 ft 3 in Weight 173 lb BMI 30.6 BP 100/50 L Blood Pressure Location Rt brachial Position Sitting Pulse 65 Pulse Source Pulse Oximeter Pulse Oximetry (%) 98 Oxygen Delivery Method Room Air Intake Visit Reasons: [facility] [place] ER colitis Intake Note: Pt is here today to f/u [facility] ER colitis Allergies codeine [CODEINE] Allergy (Intermediate, Verified 07/11/24 18:18) HIVES morphine [MORPHINE] Allergy (Intermediate, Verified 07/11/24 18:18) HIVES oxycodone [OXYCODONE] Allergy (Intermediate, Verified 07/11/24 18:18) HIVES Sulfa (Sulfonamide Antibiotics) [SULFA (SULFONAMIDE ANTIBIOTICS)] Allergy (Intermediate, Verified 07/11/24 18:18) DEHYDRATION, hives, hives OPIATES Allergy (Unknown, Uncoded 07/11/24 18:18) hives Medication List - Last Reconciled 07/11/24 by Jasmine Vasquez MD amoxicillin-pot clavulanate 875-125 mg 1 tab PO BID aspirin 81 mg PO DAILY atorvastatin 80 mg PO DAILY BD Ultra-Fine Short Pen Needle (pen needle, diabetic) As directed once a day NS blood sugar diagnostic ([employer] Verio test strips) 3 times a day blood-glucose meter ([employer] Verio Flex Meter) 3 times a day cholecalciferol (vitamin D3) 25 mcg PO DAILY famotidine-Ca carb-mag hydrox 10-800-165 mg (Acid Assembling Fabricator Complete (famotidine)) 1 tab PO BEDTIME PRN flash glucose scanning reader (FreeStyle Halina 2 [place]) use as directed flash glucose sensor (FreeStyle Halina 2 Sensor kit) use As directed hydrochlorothiazide 25 mg PO DAILY insulin degludec (Tresiba FlexTouch U-100 insulin) 42 units subcut QAM lancets ([employer] Delica Lancets) 3 times a day lisinopril 20 mg PO DAILY lorazepam 0.5 mg PO DAILY PRN metformin 500 mg PO BID 90 days metoprolol tartrate 50 mg PO BID pen needle, diabetic use for injecting med once a day Trulicity (dulaglutide) 0.75 mg (0.5 mL) subcut QWEEK NS Tobacco use date assessed: 07/07/24 Fall risk assessment: 1 Fall in past year Last assessed Fall Risk: 07/07/24 Dental Screening Dental Screen Date: 07/07/24 Did you have a dental visit in the last 12 months?: No Did you have a dental problem in the last 6 months where you did not have access to dental care?: No Was dental information given to patient?: Patient declined [facility] ER colitis HPI Details 78-year-old lady with diabetes mellitus , anxiety disorder, osteoarthritis, hypertension, dyslipidemia, and atherosclerotic cardiovascular disease, here today for follow-up after recent ER visit, she was recently seen and treated at the ER for acute colitis, currently on Augmentin still, and was again seen 07/02/2024 for an acute anxiety attack, here today for follow-up. Patient states that her abdominal pain has resolved, still taking Augmentin. Still having recurrent anxiety attacks after recent of her , compounded by financial problems. She does have her sons who have been helping her.. [facility] Medical History (Updated 07/07/24 @ 12:33 by Jasmine Vasquez MD) Depression with anxiety Generalized anxiety disorder with panic attacks Arthritis of carpometacarpal (CMC) joint of right thumb Tenosynovitis of right wrist Dermatitis, contact Elevated vitamin B12 level Essential hypertension Atherosclerotic cardiovascular disease Obesity (BMI 30-39.9) Dyslipidemia 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 type 2 diabetes mellitus watermaster (current) use of insulin Spondylosis of lumbar region without myelopathy or radiculopathy Sacroiliitis Surgical History Stented coronary artery Hx of shoulder surgery History of back surgery Hx of section Hx of hysterectomy Hx of colonoscopy Family History Father Colon cancer Family history of prostate cancer in father Mother Diabetes CVA (cerebral vascular accident) Social History (Updated 07/11/24 @ 18:31 by Jasmine Vasquez MD) Housing: Apartment Alcohol intake: current Patient Tobacco Use Status: Former Tobacco user Years Smoked: 2 e-Cigarette/Vaping Use: Never Used Advance Directives Date on File: 06/01/24 service: No Current occupational status: retired Cognitive needs: No Hearing needs: No Vision needs: No Questionnaire Thrive Questionnaire Date Thrive assessed: 04/06/24 I am a: Patient What is your living situation today?: I have a steady place to live Within the past 12 months, did the food you bought not last and you didn't have the money to get more?: Never true Within the past 12 months, did you worry whether your food would run out before you got money to buy more?: Never true Do you have trouble paying for medicines?: No Do you have trouble getting transportation to medical appointments?: No Do you have trouble paying your heating and electricity bill?: No Do you have trouble taking care of your child, family member or friend?: No Do you have trouble with day-to-day activities such as bathing, preparing meals, shopping, managing finances, etc.?: No Are you currently unemployed and looking for a job?: No Are you interested in more education?: No Please select the resources that you would like help with: None THRIVE Score: 0 SACHA-7 AMB Questionnaire SACHA-7 Date SACHA - 7 assessed: 05/26/24 Source: Developed by Drs. Golden Moe, Palma Sullivan, Devin Orozco and colleagues, with an educational arlen from [employer]. Review of Systems Const All systems reviewed & are unremarkable except as noted in HPI and below Reports no additional complaints Eyes Reports no additional complaints ENT Reports no additional complaints Card Reports no additional complaints Resp Reports no additional complaints GI Reports no additional complaints Reports no additional complaints Musc Reports no additional complaints Skin/Breast Reports system reviewed and no additional complaints, except as documented Neuro Reports no additional complaints Psych Reports no additional complaints Endo Reports no additional complaints Seymour/Lymph Reports no additional complaints Aller/Immun Reports no additional complaints Physical exam (Primary Care) Vital Signs: Last Vital Signs Pulse 65 07/07/24 11:56 BP 100/50 L 07/07/24 11:56 Pulse Ox 98 07/07/24 11:56 Oxygen Delivery Method Room Air 07/07/24 11:56 BMI result Body Mass Index 30.6 Tobacco/Smoking Status: Tobacco use Status Tobacco use date assessed 07/07/24 07/07/24 11:58 Patient Tobacco Use Status Former Tobacco user 07/07/24 11:50 e-Cigarette/Vaping Use Never Used 07/07/24 11:50 Thrive Assessment: Date of Thrive Assessment Date Thrive assessed 04/06/24 07/07/24 11:50 Const General: alert and awake Nutritional Appearance: obese Orientation/consciousness: patient oriented x3 HENMT Face and sinus: Yes face symmetric Mouth: Normal oral and palatal mucosa present, oropharynx normal and moist mucous membranes Eyes General: appearance normal, both eyes and all related structures Neck Other: Supple, full range of motion, no lymphadenopathy Resp Effort & Inspection: normal respiratory effort and able to speak in complete sentences Auscultation: clear to auscultation bilaterally Cardio Other: S1-S2 present regular rate and rhythm GI Palpation (GI): Soft to palpation, nontender, no guarding and no masses Neuro General: patient oriented x3, gait normal, tone normal, moves all extremities, Normal light touch and pain sensation, no focal motor deficits and CN's II-XI intact bilaterally Extrem General: Yes full ROM, Yes no joint enlargement, Yes no clubbing, cyanosis or edema, Yes no calf tenderness and Yes normal gait Psych Appearance: grossly normal and well kempt Mental Status: mental status grossly normal Speech and movement: Normal speech and movement present Affect: Sad affect present Attitude: cooperative Thought process: Normal thought process present Thought content: Normal thought content present Results Reviewed Results Reviewed: Laboratory Tests 07/06/24 08:52 Estimat Average Glucose 128 Hemoglobin A1c % 6.1 H Name: Savanna Fernandez Age/Sex: 78/F : 1945 Unit#: [id number] Attend Dr: Jasmine Vasquez MD Re07/06/24 Status: DEP REF Location: [facility] Disch: SPEC : [id number] JEFRY: 07/06/24 STATUS: COMP REQ : [id number] RECD: 07/06/[address]: Jasmine Vasquez MD COMP: 07/06/24 ENTERED: 07/06/[address]: ORDERED: Met Prof Fast, AST, ALT, Lipid Panel, Vitamin D 25-OH Test Result Flag Reference Sodium 134 L 135-145 mmol/L Potassium 4.3 3.3-5.1 mmol/L CL 100 96-108 mmol/L CO2 28 22-29 mmol/L Gap 10 L 12-20 BUN 15 9-16 mg/dL Creat 0.98 0.5-1.4 mg/dL EGFR 55 NOTE: For -[place] individuals, multiply the result by 1.210. Chronic Kidney Disease: Estimated GFR < 60 mL/min/1.73m2 Severe Kidney Disease: Estimated GFR < 15 mL/min/1.73m2 FBS 102 H 60-99 mg/dL A fasting glucose from 100-125 mg/dl is considered impaired (pre-diabetes). CA 9.2 8.4-10.2 mg/dL AST (GOT) 42 H 5-31 U/L ALT (GPT) 32 H 0-31 U/L Triglyceride 65 <150 mg/dL Desirable Triglyceride: less than 150 mg/dL Borderline High Triglyceride 150-199 mg/dL High Triglyceride: 200-499 mg/dL Very High Triglyceride: greater than or equal to 5OO mg/dL Cholesterol 94 <200 mg/dL Desirable Cholesterol: less than 200 mg/dL Borderline High Cholesterol: 200-239 mg/dL High Cholesterol: greater than 239 mg/dL LDL Calculated 37 <100 mg/dL Desirable LDL: less than 100 mg/dL Near Optimal/Above Optimal LDL: 110-129 mg/dL Borderline High LDL: 130-159 mg/dL High LDL: 160-189 mg/dL Very High LDL: greater than or equal to 190 mg/dL HDL 44 >40 mg/dL Desirable HDL: greater than 40 mg/dL Note: This HDL assay may give artificially low results in patients with liver disease. Vit D 25-OH Tot 39.0 >30 ng/mL Health Based Reference Values* < 20 ng/mL Deficient 20-30 ng/mL Insufficient > 30 ng/mL Sufficient Coding Level of Care Code Est Pt Level 4 (44843) Complex EM visit Add On G2211 Diagnoses Depression with anxiety F41.8 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 type 2 diabetes mellitus E11.42 Essential hypertension I10 Dyslipidemia E78.5 Acute colitis K52.9 Assessment & Plan Assessment & Plan (1) Depression with anxiety: Code(s): F41.8 - Other specified anxiety disorders Category: Medical Plan: Currently takes lorazepam 0.5 mg once a day only as needed for acute anxiety attacks, patient states that she usually takes it when she has to drive long distances she has been referred back to see outpatient psychiatry for follow-up. (2) 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 type 2 diabetes mellitus: Code(s): E11.42 - Type 2 diabetes mellitus with diabetic polyneuropathy Category: Medical Plan: Hemoglobin A1c today is at 6.1%. Continued on Trulicity 0.75 mg once a week, and metformin 500 mg 1 tablet twice a day. Podiatry consult obtained for her diabetes foot exam (3) Essential hypertension: Code(s): I10 - Essential (primary) hypertension Category: Medical Plan: Blood pressure at goal of less than 130/80. Continue 2 chlorothiazide 25 mg daily plus lisinopril 20 mg daily and metoprolol tartrate 2 mg 1 tablet twice a day.. Reinforced importance of following a low sodium diet, getting regular exercise, and lowering stress levels. (4) Dyslipidemia: Code(s): E78.5 - Hyperlipidemia, unspecified Category: Medical Plan: Reviewed recent fasting lipid profile with patient with levels within normal limits . Continue atorvastatin 80 mg daily , in addition to adherence to low-cholesterol diet and regular exercise, at least 30 minutes 3 to 4 times a week. Advised patient to make healthy food choices, eat more fruits, vegetables, whole grains, wild caught fish and low-fat dairy. Limit amount of meat and fried or fatty food products, as well as processed foods and fast foods. Follow-up scheduled with repeat fasting lipid panel in 4 months. (5) Acute colitis: Code(s): K52.9 - Noninfective gastroenteritis and colitis, unspecified Plan: Patient's abdominal pain has resolved, advised to finish prescription for her Augmentin Orders: Referrals Podiatry Referral E11.42 - Type 2 diabetes mellitus with diabetic polyneuropathy
[2024-07-07 11:56] VITALS: BP 100/50; PULSE 65; O2SAT 98; BMI 30.6
== END 2024-07-07 12:53 | disposition home or self-care (01) ==
LOC: HO.HMCC 11:04
PROVIDERS: PCP Internal Medicine; Visit Provider Internal Medicine
DX: F41.8 Other specified anxiety disorders (principal); E11.42 Type 2 diabetes mellitus with diabetic polyneuropathy; I10 Essential (primary) hypertension; E78.5 Hyperlipidemia, unspecified; K52.9 Noninfective gastroenteritis and colitis, unspecified

== ENCOUNTER → 2024-07-07 11:03 | Outpatient (BNVA) | payer MEDICARE, OTHER, SELFPAY | PROVIDERS: PCP Internal Medicine; Visit Provider Internal Medicine | DX: F41.8 Other specified anxiety disorders (principal); E11.42 Type 2 diabetes mellitus with diabetic polyneuropathy; E78.5 Hyperlipidemia, unspecified; I10 Essential (primary) hypertension; K52.9 Noninfective gastroenteritis and colitis, unspecified | CPT/HCPCS: 99212 ==

== ENCOUNTER 2024-07-16 12:55 | Outpatient (AMB) | payer MEDICARE, SELFPAY ==
--- NOTE | 2024-07-16 13:04 | A.OFFPSYCH_ITS ---
Intake Intake Visit Reasons: consultation Senior Account Director Required: No Allergies codeine [CODEINE] Allergy (Intermediate, Verified 07/11/24 18:18) HIVES morphine [MORPHINE] Allergy (Intermediate, Verified 07/11/24 18:18) HIVES oxycodone [OXYCODONE] Allergy (Intermediate, Verified 07/11/24 18:18) HIVES Sulfa (Sulfonamide Antibiotics) [SULFA (SULFONAMIDE ANTIBIOTICS)] Allergy (Intermediate, Verified 07/11/24 18:18) DEHYDRATION, hives, hives OPIATES Allergy (Unknown, Uncoded 07/11/24 18:18) hives Medication List - Last Reconciled 07/16/24 by Ирина Arciniega APRN amoxicillin-pot clavulanate 875-125 mg 1 tab PO BID aspirin 81 mg PO DAILY atorvastatin 80 mg PO DAILY BD Ultra-Fine Short Pen Needle (pen needle, diabetic) As directed once a day NS blood sugar diagnostic ([employer]uch Verio test strips) 3 times a day blood-glucose meter ([employer] Verio Flex Meter) 3 times a day cholecalciferol (vitamin D3) 25 mcg PO DAILY famotidine-Ca carb-mag hydrox 10-800-165 mg (Acid Mural Painter Complete (famotidine)) 1 tab PO BEDTIME PRN flash glucose scanning reader (Unicorn [employer]Style Halina 2 [place]) use as directed flash glucose sensor (FreeStyle Halina 2 Sensor kit) use As directed hydrochlorothiazide 25 mg PO DAILY insulin degludec (Tresiba FlexTouch U-100 insulin) 42 units subcut QAM lancets (OneTouch Delica Lancets) 3 times a day lisinopril 20 mg PO DAILY lorazepam 0.5 mg PO DAILY PRN metformin 500 mg PO BID 90 days metoprolol tartrate 50 mg PO BID pen needle, diabetic use for injecting med once a day Trulicity (dulaglutide) 0.75 mg (0.5 mL) subcut QWEEK NS HPI- Psychiatric Chief Complaint: consultation HPI Narrative: pt recently in ED due to side effects from antibiotic which she says triggered a panic attack; pt grieving loss of . pt eaily tearrful; bursts into tears frequently; reports good support from family. no SI or HI PHQ9= 10 and GAD7 = 8. Past Psychiatric History: outpt tx SACHA Subjective Subjective Subjective Medication Compliance: Yes Side effects from medications: No Review of Systems Medical Review of Systems: unchanged Mental Status Exam Mental Status Exam Patient Appearance: Well Grooomed Patient Orientation: Person, Place, Time and Situation Level of Consciousness: Awake and Appropriate Patient Behavior: Good Eye Contact and Crying Mood Description: Anxious and Sad Affect Description: Anxious and Sad Patient Cognition Impaired: No Ability to Follow Directions: Good Speech Pattern: Clear and Appropriate Memory Description: Intact Hallucinations: None Delusions: Not Present Thought Process: Intact and Goal Oriented Thought Content: positive for Intact and positive for Goal Oriented Judgement: Good Assessment and Plan Assessment & Plan (1) Generalized anxiety disorder with panic attacks: Status: Acute Code(s): F41.1 - Generalized anxiety disorder; F41.0 - Panic disorder [episodic paroxysmal anxiety] (2) Major depressive disorder, single episode, moderate: Status: Acute Code(s): F32.1 - Major depressive disorder, single episode, moderate Plan start lexapro 5mg daily continue ativan prn return in 8 weeks Medications: New escitalopram oxalate (Lexapro) 5 mg PO DAILY 30 tabs 2RF Refilled lorazepam 0.5 mg PO DAILY PRN 14 tabs 3RF Acute panic attack Counseling and coordination of Care Pt. Self Management counseling: Maintenance-social rhythm, Sleep hygiene and Greif counseling Medication management counseling: Effectiveness, Side effects, Dosing range, Duration, Drug interaction and Adherence Diagnosis and Prognosis Counseling: Accuracy of diagnosis, Prognosis over time, Impact of diagnosis on life functions, Impact of family relationship, Problematic behaviors secondary to diagnosis and Adequacy of current interventions Details: I spent 45 minutes reviewing the record, seeing the patient and documenting in the medical record. Counseling provided to the patient/caregiver as outlined below. Addressed p atient/caregiver concerns regarding current medication regime including effective adherence. Addressed patient/caregiver concerns regarding diagnosis and prognosis including accuracy of diagnosis, prognosis over time, impact of diagnosis. Addressed patient/caregiver concerns regarding impact of recent stressors. [facility] Medical History (Updated 07/16/24 @ 13:38 by Ирина Aricniega APRN) Depression with anxiety Generalized anxiety disorder with panic attacks Arthritis of carpometacarpal (CMC) joint of right thumb Tenosynovitis of right wrist Dermatitis, contact Elevated vitamin B12 level Essential hypertension Atherosclerotic cardiovascular disease Obesity (BMI 30-39.9) Dyslipidemia 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 type 2 diabetes mellitus correction (current) use of insulin Spondylosis of lumbar region without myelopathy or radiculopathy Sacroiliitis Surgical History Stented coronary artery Hx of shoulder surgery History of back surgery Hx of section Hx of hysterectomy Hx of colonoscopy Family History Father Colon cancer Family history of prostate cancer in father Mother Diabetes CVA (cerebral vascular accident) Social History (Updated 07/11/24 @ 18:31 by Jasmine Vasquez MD) Housing: Apartment Alcohol intake: current Patient Tobacco Use Status: Former Tobacco user Years Smoked: 2 e-Cigarette/Vaping Use: Never Used Advance Directives Date on File: 06/01/24 service: No Current occupational status: retired Cognitive needs: No Hearing needs: No Vision needs: No Social History: lives alone has 3 adult children and 13 grandchildren who all live nearby Substance History: denies Trauma History: loss of Coding Level of Care Code Est Pt Level 4 (20338) Therapy 30m w/E&M (10906) Diagnoses Generalized anxiety disorder with panic attacks F41.1; F41.0 Major depressive disorder, single episode, moderate F32.1
== END 2024-07-16 15:14 | disposition home or self-care (01) ==
LOC: HO.HOP 12:55
PROVIDERS: PCP Internal Medicine; Visit Provider Clinical Nurse Specialist Psychiatric/Mental Health
DX: F41.1 Generalized anxiety disorder (principal); F41.0 Panic disorder [episodic paroxysmal anxiety]; F32.1 Major depressive disorder, single episode, moderate
CPT/HCPCS: 90833; 99214

== ENCOUNTER → 2024-07-16 12:55 | Outpatient (BNVA) | payer MEDICARE, SELFPAY | PROVIDERS: PCP Internal Medicine; Visit Provider Clinical Nurse Specialist Psychiatric/Mental Health | DX: F41.1 Generalized anxiety disorder (principal); F41.0 Panic disorder [episodic paroxysmal anxiety]; F32.1 Major depressive disorder, single episode, moderate | CPT/HCPCS: 99212 ==

== ENCOUNTER 2024-07-21 12:53 | Outpatient (AMB) | payer MEDICARE, MEDICAID, SELFPAY ==
[2024-07-21 12:58] VITALS: BP 126/62; PULSE 68; BMI 30.1
--- NOTE | 2024-07-21 12:58 | MHC.OFFVIS ---
Vital Signs 07/21/24 12:58 Height 5 ft 3 in Weight 169 lb 12.095 oz BMI 30.1 BP 126/62 Blood Pressure Location Rt brachial Position Sitting Pulse 68 Pulse Source Pulse Oximeter Intake Visit Reasons: 6 mth f/up Allergies codeine [CODEINE] Allergy (Intermediate, Verified 07/21/24 14:13) HIVES morphine [MORPHINE] Allergy (Intermediate, Verified 07/21/24 14:13) HIVES oxycodone [OXYCODONE] Allergy (Intermediate, Verified 07/21/24 14:13) HIVES Sulfa (Sulfonamide Antibiotics) [SULFA (SULFONAMIDE ANTIBIOTICS)] Allergy (Intermediate, Verified 07/21/24 14:13) DEHYDRATION, hives, hives OPIATES Allergy (Unknown, Uncoded 07/21/24 14:13) hives Medication List - Last Reconciled 07/21/24 by Casa Blackburn MD aspirin 81 mg PO DAILY atorvastatin 80 mg PO DAILY BD Ultra-Fine Short Pen Needle (pen needle, diabetic) As directed once a day NS blood sugar diagnostic ([employer]uch Verio test strips) 3 times a day blood-glucose meter ([employer] Verio Flex Meter) 3 times a day cholecalciferol (vitamin D3) 25 mcg PO DAILY escitalopram oxalate (Lexapro) 5 mg PO DAILY famotidine-Ca carb-mag hydrox 10-800-165 mg (Acid Computer Equipment Repairer Complete (famotidine)) 1 tab PO BEDTIME PRN flash glucose scanning reader (FreeStyle Halina 2 [place]) use as directed flash glucose sensor (FreeStyle Halina 2 Sensor kit) use As directed hydrochlorothiazide 25 mg PO DAILY insulin degludec (Tresiba FlexTouch U-100 insulin) 42 units subcut QAM lancets (OneTouch Delica Lancets) 3 times a day lisinopril 20 mg PO DAILY lorazepam 0.5 mg PO DAILY PRN metformin 500 mg PO BID 90 days metoprolol tartrate 50 mg PO BID pen needle, diabetic use for injecting med once a day Trulicity (dulaglutide) 0.75 mg (0.5 mL) subcut QWEEK NS HPI Comments Details: Savanna returns for follow-up regarding coronary disease. To recall, she has a history of myocardial infarction and stent placement around 2000. Multiple cardiovascular risk factors including diabetes, hypertension, dyslipidemia. She states that she lost her in April and since been very upset. She is in fact very tearful in the clinic today. From the cardiac standpoint, no clear-cut complaints. [facility] Medical History (Updated 07/16/24 @ 13:38 by Ирина Arciniega APRN) Depression with anxiety Generalized anxiety disorder with panic attacks Arthritis of carpometacarpal (CMC) joint of right thumb Tenosynovitis of right wrist Dermatitis, contact Elevated vitamin B12 level Essential hypertension Atherosclerotic cardiovascular disease Obesity (BMI 30-39.9) Dyslipidemia 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 type 2 diabetes mellitus group home (current) use of insulin Spondylosis of lumbar region without myelopathy or radiculopathy Sacroiliitis Surgical History Stented coronary artery Hx of shoulder surgery History of back surgery Hx of section Hx of hysterectomy Hx of colonoscopy Family History Father Colon cancer Family history of prostate cancer in father Mother Diabetes CVA (cerebral vascular accident) Social History (Updated 07/11/24 @ 18:31 by Jasmine Vasquez MD) Housing: Apartment Alcohol intake: current Patient Tobacco Use Status: Former Tobacco user Years Smoked: 2 e-Cigarette/Vaping Use: Never Used Advance Directives Date on File: 06/01/24 service: No Current occupational status: retired Cognitive needs: No Hearing needs: No Vision needs: No Review of Systems Const Denies weakness ENT Denies dizziness Card Denies chest pain, Denies chest pain with activity, Denies syncope, Denies rapid heart rate, Denies pedal edema, Denies edema, Denies leg edema, Denies lightheadedness, Denies palpitations, Denies dyspnea, Denies dyspnea on exertion and Denies orthopnea Resp Denies cough, Denies dyspnea and Denies dyspnea on exertion GI Denies hematochezia and Denies change in stool character Musc Denies abnormal gait, Denies muscle cramps, Denies muscle weakness, Denies numbness, Denies radiating pain into limb and Denies tingling Neuro Denies abnormal gait, Denies dizziness, Denies syncope, Denies numbness, Denies tingling and Denies weakness Endo Denies palpitations Physical Exam Vital Signs: Last Vital Signs Pulse 68 07/21/24 12:58 BP 126/62 07/21/24 12:58 BMI result Body Mass Index 30.1 Const General: comfortable and no acute distress Orientation/consciousness: patient oriented x3 HEENT Other: Unremarkable Head: Yes normal to inspection Neck Neck: Yes normal visual inspection Chest Chest palpation & inspection: normal inspection of the chest Resp Auscultation: clear to auscultation bilaterally Cardio Palpation: normal PMI Heart sounds: S1 normal heart sound present, S2 normal heart sound present, no gallops, no murmurs and no rubs GI Palpation (GI): Soft to palpation Back/Spine/Pelvis Other: unremarkable Skin General skin exam: no rashes or lesions noted Neuro General: patient oriented x3 Extrem General: Yes normal to inspection Psych Mental Status: mental status grossly normal Assessment & Plan Assessment & Plan (1) Atherosclerotic cardiovascular disease: Code(s): I25.10 - Atherosclerotic heart disease of [place] coronary artery without angina pectoris Category: Medical Plan: Cardiac [id number] occluded circumflex; status post balloon angioplasty and stenting; indeterminate mid LAD lesion, FFR negative. Myocardial perfusion [id number] and apical ischemia. Clinically, free of angina. Hence continue optimal medical therapy. On aspirin, beta-blockers, statins. Last LDL 37 mg/dL. Triglycerides 65 mg/dL. (2) Type 2 diabetes mellitus with unspecified complications: Code(s): E11.8 - Type 2 diabetes mellitus with unspecified complications Category: Medical Plan: Current regimen includes insulin, metformin, Trulicity. Last hemoglobin A1c is 6.1%. (3) Essential hypertension: Code(s): I10 - Essential (primary) hypertension Category: Medical Plan: Stable. No changes. Coding Level of Care Code Est Pt Level 4 (35614) Diagnoses Atherosclerotic cardiovascular disease I25.10 Type 2 diabetes mellitus with unspecified complications E11.8 Essential hypertension I10
== END 2024-07-21 13:13 | disposition home or self-care (01) ==
PROVIDERS: PCP Internal Medicine; Visit Provider Internal Medicine
DX: I25.10 Atherosclerotic heart disease of native coronary artery without angina pectoris (principal); E11.8 Type 2 diabetes mellitus with unspecified complications; I10 Essential (primary) hypertension
CPT/HCPCS: 99214

== ENCOUNTER → 2024-07-21 12:53 | Outpatient (BNVA) | payer MEDICARE, MEDICAID, SELFPAY | PROVIDERS: PCP Internal Medicine; Visit Provider Internal Medicine | DX: N30.00 Acute cystitis without hematuria (principal); I25.10 Atherosclerotic heart disease of native coronary artery without angina pectoris; I10 Essential (primary) hypertension; E11.8 Type 2 diabetes mellitus with unspecified complications; Z95.5 Presence of coronary angioplasty implant and graft | CPT/HCPCS: 81003; 99212 ==

== ENCOUNTER 2024-07-21 13:57 | Outpatient (AMB) | payer MEDICARE, MEDICAID, SELFPAY ==
--- NOTE | 2024-07-21 14:13 | AM.OFFWIN_ITS ---
Intake Vital Signs 07/21/24 14:15 Weight 168 lb BP 120/86 Blood Pressure Location Lt brachial Position Sitting Pulse 64 Pulse Source Pulse Oximeter Temp 97.9 F Temp Source Oral Pulse Oximetry (%) 97 Oxygen Delivery Method Room Air Intake Visit Reasons: EP UTI? Intake Note: Patient here for feeling pressure in vaginal area. Patient Tobacco Use Status: Former Tobacco user Allergies codeine [CODEINE] Allergy (Intermediate, Verified 07/21/24 14:13) HIVES morphine [MORPHINE] Allergy (Intermediate, Verified 07/21/24 14:13) HIVES oxycodone [OXYCODONE] Allergy (Intermediate, Verified 07/21/24 14:13) HIVES Sulfa (Sulfonamide Antibiotics) [SULFA (SULFONAMIDE ANTIBIOTICS)] Allergy (Inte rmediate, Verified 07/21/24 14:13) DEHYDRATION, hives, hives OPIATES Allergy (Unknown, Uncoded 07/21/24 14:13) hives Do you need a note to return to daycare/school/sports/work: No HPI EP UTI? HPI Details This note is constructed using voice recognition software. While every effort has been made to ensure accuracy, head silverman errors may have been included. The patient is a 79 year old female who presents to the clinic today with urinary frequency, urgency, and pressure for the past few days. She denies fever, chills, back pain. She reports she has tried to increase her hydration with no effect. She notes that her urine has a slight odor to it. She denies any vaginal itch. 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 Spondylosis of lumbar region without myelopathy or radiculopathy Sacroiliitis Surgical History Stented coronary artery Hx of shoulder surgery History of back surgery Hx of section Hx of hysterectomy Hx of colonoscopy Family History Father Colon cancer Family history of prostate cancer in father Mother Diabetes CVA (cerebral vascular accident) Social History (Updated 07/11/24 @ 18:31 by Jasmine Vasquez MD) Housing: Apartment Alcohol intake: current Patient Tobacco Use Status: Former Tobacco user Years Smoked: 2 e-Cigarette/Vaping Use: Never Used Advance Directives Date on File: 06/01/24 service: No Current occupational status: retired Cognitive needs: No Hearing needs: No Vision needs: No Review of Systems Const All systems reviewed & are unremarkable except as noted in HPI and below Physical Exam Vital Signs: Last Vital Signs Temp 97.9 F 07/21/24 14:15 Pulse 64 07/21/24 14:15 BP 120/86 07/21/24 14:15 Pulse Ox 97 07/21/24 14:15 Oxygen Delivery Method Room Air 07/21/24 14:15 Const General: cooperative, healthy appearing, comfortable, no acute distress and alert Orientation/consciousness: patient oriented x3 Limitations: no limitations Resp Effort & Inspection: normal respiratory effort and able to speak in complete sentences Other: Deferred General: Yes no CVA tenderness Back/Spine/Pelvis Back: no CVA tenderness Skin General skin exam: no rashes or lesions noted, elasticity normal and turgor normal Neuro General: patient oriented x3 Psych Appearance: grossly normal Mental Status: mental status grossly normal Speech and movement: Normal speech and movement present Affect: normal affect Results AMB Urinalysis, Automated UA Leukoctes 125 Nae/uL Last Edit by KIERRA Cline on 07/21/24 14: 41 UA Nitrite Positive Last Edit by KIERRA Cline on 07/21/24 14:41 UA Urobilinogen 0.2 mg/dL Last Edit by KIERRA Cline on 07/21/24 14:41 UA Protein 0 mg/dL Last Edit by KIERRA Cline on 07/21/24 14:41 UA pH 6.0 Last Edit by KIERRA Cline on 07/21/24 14:41 UA Blood 0 Rakesh/uL Last Edit by KIERRA Cline on 07/21/24 14:41 UA Specific [employer] 1.020 Last Edit by KIERRA Cline on 07/21/24 14:41 UA Ketone Negative Last Edit by KIERRA Cline on 07/21/24 14:41 UA Bilirubin 0 mg/dL Last Edit by KIERRA Cline on 07/21/24 14:41 UA Glucose 0 mg/dL Last Edit by KIERRA Cline on 07/21/24 14:41 Results Reviewed Results Reviewed: Laboratory Last Values Urine pH (Auto) 6.0 07/21/24 14:37 Specific [employer] (Auto) 1.020 07/21/24 14:37 Urine Protein (Auto) 0 mg/dL 07/21/24 14:37 Glucose (UA)(Auto) 0 mg/dL 07/21/24 14:37 Urine Ketones (Auto) Negative 07/21/24 14:37 Urine Blood (Auto) 0 Rakesh/uL 07/21/24 14:37 Urine Nitrite (Auto) Positive 07/21/24 14:37 Urine Bilirubin (Auto) 0 mg/dL 07/21/24 14:37 Urine Urobilinogen (Auto) 0.2 mg/dL 07/21/24 14:37 Leukocyte Esterase (Auto) 125 Nae/uL 07/21/24 14:37 Assessment & Plan Assessment & Plan (1) UTI (urinary tract infection): Code(s): N39.0 - Urinary tract infection, site not specified Qualifiers: Urinary tract infection type: acute cystitis Hematuria presence: without hematuria Qualified Code(s): N30.00 - Acute cystitis without hematuria Plan: Supportive measures encouraged and reviewed. Antibiotic sent to requested pharmacy, advised patient to take antibiotics until completed and not to stop if feeling better, unless the patient has side effects. Advised patient to follow up with primary care provider with worsening or failure to resolve. Plan See above for full details and plan. Orders: Orders AMB Urinalysis Automated Today Z13.9 - Encounter for screening, unspecified Medications: New nitrofurantoin monohyd/m-cryst 100 mg must administer with a meal/food 100 mg PO BID 5 days 10 caps 0RF Coding Level of Care Code Est Pt Level 3 (61290) Diagnoses Acute cystitis without hematuria N30.00 Urinary tract infection type: acute cystitis Hematuria presence: without hematuria
[2024-07-21 14:15] VITALS: BP 120/86; PULSE 64; TEMP 36.6; O2SAT 97
== END 2024-07-21 15:45 | disposition home or self-care (01) ==
PROVIDERS: PCP Internal Medicine; Visit Provider Registered Nurse
DX: Z13.9 Encounter for screening, unspecified (principal); N30.00 Acute cystitis without hematuria

== ENCOUNTER 2024-08-13 14:47 | Outpatient (AMB) | payer MEDICARE, MEDICAID, SELFPAY ==
[2024-08-13 14:59] VITALS: BP 122/80; PULSE 72; O2SAT 98; BMI 29.8
--- NOTE | 2024-08-13 14:59 | AM.OFFWIN_ITS ---
Intake Vital Signs 08/13/24 14:59 Height 5 ft 3 in Weight 168 lb BMI 29.8 BP 122/80 Blood Pressure Location Rt brachial Position Sitting Pulse 72 Pulse Source Pulse Oximeter Pulse Oximetry (%) 98 Oxygen Delivery Method Room Air Intake Visit Reasons: EP-uti Intake Note: pt is here for UTI Patient Tobacco Use Status: Former Tobacco user Allergies codeine [CODEINE] Allergy (Intermediate, Verified 08/13/24 15:00) HIVES morphine [MORPHINE] Allergy (Intermediate, Verified 08/13/24 15:00) HIVES oxycodone [OXYCODONE] Allergy (Intermediate, Verified 08/13/24 15:00) HIVES Sulfa (Sulfonamide Antibiotics) [SULFA (SULFONAMIDE ANTIBIOTICS)] Allergy (Intermediate, Verified 08/13/24 15:00) DEHYDRATION, hives, hives OPIATES Allergy (Unknown, Uncoded 07/21/24 14:13) hives Do you need a note to return to daycare/school/sports/work: No HPI HPI Comments History of Present Illness Details History of Present Illness The patient is a 79-year-old female presenting with symptoms indicative of a recurrent urinary tract infection (UTI). The patient reports experiencing similar infections, with her last occurrence about a month ago, which resolved with treatment. She mentioned that the symptoms subsided for a couple of weeks and subsequently recurred. This current episode is characterized by burning during urination and frequent urination with a sensation of incomplete bladder emptying, particularly at night. She denies experiencing fever, back pain, or hematuria. The patient's UTI history includes a positive culture on May 14, which identified Escherichia coli and was sensitive to cephalosporins. A prior pseudomonas infection was noted in May 2022. Recent treatment involved Macrobid, which was not the optimal choice given the bacterial sensitivity profile. Her recurring UTIs are attributed to E. coli, and previous urine cultures align with this finding. Physical Exam General: Cooperative, healthy appearing, comfortable, no acute distress and well developed Orientation: Patient oriented x3 Limitations: No limitations Head: Normal to inspection Ears: Hearing grossly normal bilaterally Nose: Normal external nose present Face and sinus: Normal facial exam Eyes: Appearance normal, both eyes and all related structures Neck: Normal visual inspection and Yes full ROM Respiratory: Normal respiratory effort and able to speak in complete sentences Skin: No rashes or lesions noted Neuro: Patient oriented x3 Extremities: Normal to inspection PFSH Medical History (Updated 07/16/24 @ 13:38 by Ирина Arciniega APRN) Depression with anxiety Generalized anxiety disorder with panic attacks Arthritis of carpometacarpal (CMC) joint of right thumb Tenosynovitis of right wrist Dermatitis, contact Elevated vitamin B12 level Essential hypertension Atherosclerotic cardiovascular disease Obesity (BMI 30-39.9) Dyslipidemia 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 type 2 diabetes mellitus [facility] (current) use of insulin Spondylosis of lumbar region without myelopathy or radiculopathy Sacroiliitis Surgical History Stented coronary artery Hx of shoulder surgery History of back surgery Hx of section Hx of hysterectomy Hx of colonoscopy Family History Father Colon cancer Family history of prostate cancer in father Mother Diabetes CVA (cerebral vascular accident) Social History (Updated 07/11/24 @ 18:31 by Jasmine Vasquez MD) Housing: Apartment Alcohol intake: current Patient Tobacco Use Status: Former Tobacco user Years Smoked: 2 e-Cigarette/Vaping Use: Never Used Advance Directives Date on File: 06/01/24 service: No Current occupational status: retired Cognitive needs: No Hearing needs: No Vision needs: No Review of Systems Const All systems reviewed & are unremarkable except as noted in HPI and below Physical Exam Vital Signs: Last Vital Signs Pulse 72 08/13/24 14:59 BP 122/80 08/13/24 14:59 Pulse Ox 98 08/13/24 14:59 Oxygen Delivery Method Room Air 08/13/24 14:59 BMI result Body Mass Index 29.8 Results AMB Urinalysis, Automated UA Leukoctes 500 Nae/uL Last Edit by Jhonny Velasco CMA on 08/13/24 15:0 2 UA Nitrite Positive Last Edit by Jhonny Velasco CMA on 08/13/24 15:02 UA Urobilinogen 0.2 mg/dL Last Edit by Jhonny Velasco CMA on 08/13/24 15 :02 UA Protein 0 mg/dL Last Edit by Jhonny Velasco CMA on 08/13/24 15:02 UA pH 6.0 Last Edit by Jhonny Velasco CMA on 08/13/24 15:02 UA Blood 0 Rakesh/uL Last Edit by Jhonny Velasco CMA on 08/13/24 15:02 UA Specific [place] 1.025 Last Edit by Jhonny Velasco CMA on 08/13/24 15:02 UA Ketone Negative Last Edit by Jhonny Velasco CMA on 08/13/24 15:02 UA Bilirubin 0 mg/dL Last Edit by Jhonny Velasco CMA on 08/13/24 15:02 UA Glucose 0 mg/dL Last Edit by Jhonny Velasco CMA on 08/13/24 15:02 Results Reviewed Results Reviewed: Laboratory Last Values Urine pH (Auto) 6.0 08/13/24 15:01 Specific [place] (Auto) 1.025 08/13/24 15:01 Urine Protein (Auto) 0 mg/dL 08/13/24 15:01 Glucose (UA)(Auto) 0 mg/dL 08/13/24 15:01 Urine Ketones (Auto) Negative 08/13/24 15:01 Urine Blood (Auto) 0 Rakesh/uL 08/13/24 15:01 Urine Nitrite (Auto) Positive 08/13/24 15:01 Urine Bilirubin (Auto) 0 mg/dL 08/13/24 15:01 Urine Urobilinogen (Auto) 0.2 mg/dL 08/13/24 15:01 Leukocyte Esterase (Auto) 500 Nae/uL 08/13/24 15:01 Assessment & Plan Assessment & Plan (1) UTI (urinary tract infection): Code(s): N39.0 - Urinary tract infection, site not specified Qualifiers: Urinary tract infection type: acute cystitis Hematuria presence: with hematuria Qualified Code(s): N30.01 - Acute cystitis with hematuria Plan: Plan - Prescribe cefuroxime, a cephalosporin, to be administered twice daily for five days, given its coverage effectiveness against Escherichia coli. - Initiate a urine culture to confirm bacterial susceptibility and ensure appropriate antibiotic selection. - Discuss the importance of contacting primary care if recurrent infections persist, and consider adjusting the timing of her appointment if symptoms continue. - Reinforce proper hygiene practices to potentially reduce future occurrences and talking to her PCP about recurrent UTI's. Patient was informed and verbally consented to the use of an ambient scribe for clinic note documentation during this visit. Orders: Orders Urine Culture Today N39.0 - Urinary tract infection, site not specified AMB Urinalysis Automated Today Z13.9 - Encounter for screening, unspecified Medications: New cefuroxime axetil 500 mg PO Q12H 10 tabs 0RF Coding Level of Care Code Est Pt Level 3 (78583) Diagnoses Acute cystitis with hematuria N30.01 Urinary tract infection type: acute cystitis Hematuria presence: with hematuria
== END 2024-08-13 15:17 | disposition home or self-care (01) ==
PROVIDERS: PCP Internal Medicine; Visit Provider Physician Assistant
DX: Z13.9 Encounter for screening, unspecified (principal); N30.01 Acute cystitis with hematuria

== ENCOUNTER 2024-08-13 14:47 | Outpatient (REF) | payer MEDICARE, MEDICAID, SELFPAY ==
--- OUTSIDE RECORDS SUMMARY | 2024-08-13 15:12 | XMS_ITS | Clinical Summary ---
Author Organization Unknown Care Team Providers Care Stitch Bonding Machine Tender Name Role Phone ALPHONSO MONCADA, OZZY REDD Unavailable Unavaila tisha KINGSLEY RN, NATALIE Unavailable Unavailable Payers Payer Name Policy Type Policy Number Effective Date Expira tion Date ZZZ [employer] MEDICARE ADVANTAGE FFS [id number] [place]IC[place] [id number] Problems Condition Name Condition Details Condition Category Status Onset Date Resolution Date Last Treatment Date Treating Clinician Comments ANXIETY DISORDER, UNSPECIFIED Active 2023-09 00:00: 00 ESSENTIAL (PRIMARY) HYPERTENSION Active 2023-09 00:00: 00 TYPE 2 DIABETES MELLITUS WITH DIABETIC POLYNEUROPAT HY Active 2023-09 00:00: 00 ATHSCL HEART DISEASE OF [place] CORONARY ARTERY W/O ANG PCTRS Active 2023-09 00:00: 00 BODY MASS INDEX [BMI]30.0-30 .9, ADULT Active 2023-09 00:00: 00 HYPERLIPIDEM IA, UNSPECIFIED Active 2023-09 00:00: 00 ARTIST SCIENTIFIC (CURRENT) USE OF INSULIN Active 2023-09 00:00: 00 SPONDYLOSIS W/O MYELOPATHY OR RADICULOPATH Y, LUMBAR REGION Active 2023-09 00:00: 00 SACROILIITIS , NOT ELSEWHERE CLASSIFIED Active 2023-09 00:00: 00 Allergies, Adverse Reactions, Alerts Allergy Name Allergy Type Status Severity Reaction(s) Onset Date Inactive Date Treating Clinician Comments MORPHINE ANALOUGES Propensity to adverse reactions Inactive 2023-09 09:23: 42 7 12:49:33 CODEINE SULFATES Propensity to adverse reactions Inactive 2023-09 09:23: 59 7 12:49:33 OXYCODONE HYDROCHLORI DE Propensity to adverse reactions Inactive 2023-09 09:24: 18 7 12:49:33 CODEINE Propensity to adverse reactions Active 2023-09 12:49: 33 MORPHINE Propensity to adverse reactions Active 2023-09 12:49: 33 OPIATES Propensity to adverse reactions Active 2023-09 12:49: 33 OXYCODONE Propensity to adverse reactions Active 2023-09 12:49: 33 SULFA (SULFONAMID E ANTIBIOTICS ) Propensity to adverse reactions Active 2023-09 12:49: 33 Medications Ordered Medication Name Filled Medication Name Start Date Stop Date Current Medication? Ordering Clinician Indication Dosage Frequency Signature (SIG) Comments Components ciprofloxac in 500 mg tablet 2023-09 00:00: 00 07-06 23:59 :00 No [id number] Per instruc tions EVERY 12 HOURS Per instructio ns EVERY 12 HOURS (route: oral) Med Classific ation: Anti-Infe ctive Agents metronidazo le 500 mg tablet 2023-09 00:00: 00 07-06 00:00 :00 No [id number] Per instruc tions EVERY 8 HOURS Per instructio ns EVERY 8 HOURS (route: oral) Med Classific ation: Anti-Infe ctive Agents Trulicity 0.75 mg/0.5 mL subcutaneou s pen injector 2023-09 016 00:00: 00 07-06 00:00 :00 No [id number] Unavailable Per instruc tions 075 MG (05 ML) SUBCUTANEO USLY ONCE A WEEK Per instructio ns 075 MG (05 ML) SUBCUTANEO USLY ONCE A WEEK (route: subcutaneo us) Med Classific ation: Endocrine aspirin 81 mg tablet,timi yed release 2023-09 00:00: 00 Yes [id number] 1 tablet EVERY PM 1 tablet EVERY PM (route: oral) Med Classific ation: Hematolog ical Agents atorvastati n 80 mg tablet 2023-09 00:00: 00 Yes [id number] 1 tablet DAILY 1 tablet DAILY (route: oral) Med Classific ation: Cardiovas cular Therapy Agents metformin 500 mg tablet 2023-09 00:00: 00 Yes [id number] 1 tablet 2 TIMES DAILY 1 tablet 2 TIMES DAILY (route: oral) Med Classific ation: Endocrine metoprolol tartrate 50 mg tablet 2023-09 00:00: 00 Yes [id number] 1 tablet 2 TIMES DAILY 1 tablet 2 TIMES DAILY (route: oral) Med Classific ation: Cardiovas cular Therapy Agents Tresiba FlexTouch U-100 insulin 100 unit/mL (3 mL) subcutaneou s pen 2023-09 00:00: 00 Yes [id number] 42 unit DAILY 42 unit DAILY (route: subcutaneo us) Med Classific ation: Endocrine Ativan 0.5 mg tablet 2023-09 00:00: 00 Yes [id number] 1 tablet DAILY 1 tablet DAILY (route: oral) Med Classific ation: Central Nervous System Agents amoxicillin 875 mg-potassiu m clavulanate 125 mg tablet 2023-09 00:00: 00 07-08 23:59 :00 No [id number] 1 tablet 2 TIMES DAILY 1 tablet 2 TIMES DAILY (route: oral) Med Classific ation: Anti-Infe ctive Agents Vital Signs Vital Name Observation Time Observation Value Commen ts Temperature 2024-08-10 12:34:00.000 97.8 [degF] Temperature 2024-08-03 15:03:00.000 97.6 [degF] Temperature 2024-07-27 12:29:00.000 97.3 [degF] Temperature 2024-07-19 14:07:00.000 97.6 [degF] Temperature 2024-07-15 13:57:00.000 97.8 [degF] Temperature 2024-07-13 12:51:00.000 97.5 [degF] Temperature 2024-07-08 14:36:00.000 97.6 [degF] Temperature 2024-07-06 10:21:00.000 98.6 [degF] BMI (%) 2024-07-06 10:21:00.000 30 kg/m2 Height 2024-07-06 10:21:00.000 63 [in_us] Pulse 2024-08-10 12:34:00.000 86 /min Pulse 2024-08-03 15:03:00.000 84 /min Pulse 2024-07-27 12:29:00.000 78 /min Pulse 2024-07-19 14:07:00.000 72 /min Pulse 2024-07-15 13:57:00.000 66 /min Pulse 2024-07-13 12:51:00.000 68 /min Pulse 2024-07-08 14:36:00.000 88 /min Pulse 2024-07-06 10:21:00.000 70 /min O2 Saturation (%) 2024-07-06 10:22:00.000 98 % Respirations 2024-08-10 12:34:00.000 16 /min Respirations 2024-08-03 15:03:00.000 16 /min Respirations 2024-07-27 12:29:00.000 16 /min Respirations 2024-07-19 14:07:00.000 16 /min Respirations 2024-07-15 13:57:00.000 16 /min Respirations 2024-07-13 12:51:00.000 16 /min Respirations 2024-07-08 14:37:00.000 16 /min Respirations 2024-07-06 10:21:00.000 18 /min Weight (lbs) 2024-07-06 10:21:00.000 175 [lb_av] Systolic Blood Pressure 2024-08-10 12:34:00.000 120 mm [Hg] Systolic Blood Pressure 2024-08-03 15:03:00.000 120 mm [Hg] Systolic Blood Pressure 2024-07-27 12:29:00.000 118 mm [Hg] Systolic Blood Pressure 2024-07-19 14:07:00.000 120 mm [Hg] Systolic Blood Pressure 2024-07-15 13:57:00.000 120 mm [Hg] Systolic Blood Pressure 2024-07-13 12:51:00.000 130 mm [Hg] Systolic Blood Pressure 2024-07-08 14:36:00.000 122 mm [Hg] Systolic Blood Pressure 2024-07-06 10:21:00.000 140 mm [Hg] Diastolic Blood Pressure 2024-08-10 12:34:00.000 60 mm [Hg] Diastolic Blood Pressure 2024-08-03 15:03:00.000 70 mm [Hg] Diastolic Blood Pressure 2024-07-27 12:29:00.000 70 mm [Hg] Diastolic Blood Pressure 2024-07-19 14:07:00.000 64 mm [Hg] Diastolic Blood Pressure 2024-07-15 13:57:00.000 70 mm [Hg] Diastolic Blood Pressure 2024-07-13 12:51:00.000 60 mm [Hg] Diastolic Blood Pressure 2024-07-08 14:36:00.000 70 mm [Hg] Diastolic Blood Pressure 2024-07-06 10:21:00.000 60 mm [Hg] Plan of Treatment Planned Activity Planned Date Details Comments Future Scheduled Test SKILLED NU RSE TO EVALUATE PATIENT, IDENTIFY PRIMARY AND CO-MORBID CONDITIONS CODED PER CODING GUIDELINES, AND DEVELOP PATIENT SPECIFIC PLAN OF CARE THAT INCLUDES PATIENT GOAL FOR HOME HEALTH. [code = SKILLED NURSE TO EVALUATE PATIENT, IDENTIFY PRIMARY AND CO-MORBID CONDITIONS CODED PER CODING GUIDELINES, AND DEVELOP PATIENT SPECIFIC PLAN OF CARE THAT INCLUDES PATIENT GOAL FOR HOME HEALTH.] Future Scheduled Test SKILLED NU RSE TO O/A OF PATIENTS MENTAL/BEHAVIORAL STATUS, ASSESS VITAL SIGNS 3WK8 ALLOW 2 PRNS FOR MEDICATION MANAGEMENT. [code = SKILLED NURSE TO O/A OF PATIENTS MENTAL/BEHAVIORAL STATUS, ASSESS VITAL SIGNS 3WK8 ALLOW 2 PRNS FOR MEDICATION MANAGEMENT.] Future Scheduled Test SKILLED NU RSE FOR O/A OF GENERAL HEALTH STATUS OF PAIN, CARDIAC, RESPIRATORY, GASTROINTESTINAL, GENITOURINARY, SKIN, NEUROLOGIC, ENDOCRINE SYSTEMS TO IDENTIFY CHANGES ASSOCIATED WITH EXACERBATION FOR EARLY INTERVENTION OF COMPLICATIONS WEEKLY. [code = SKILLED NURSE FOR O/A OF GENERAL HEALTH STATUS OF PAIN, CARDIAC, RESPIRATORY, GASTROINTESTINAL, GENITOURINARY, SKIN, NEUROLOGIC, ENDOCRINE SYSTEMS TO IDENTIFY CHANGES ASSOCIATED WITH EXACERBATION FOR EARLY INTERVENTION OF COMPLICATIONS WEEKLY.] Future Scheduled Test SKILLED NU RSE FOR O/A AND SKILLED TEACHING OF COPING SKILLS TO MANAGE ANXIETY AND MAINTAIN SAFETY. [code = SKILLED NURSE FOR O/A AND SKILLED TEACHING OF COPING SKILLS TO MANAGE ANXIETY AND MAINTAIN SAFETY.] Future Scheduled Test SKILLED NU RSE FOR O/A AND SKILLED TEACHING RELATED TO MANAGEMENT OF DEPRESSIVE SYMPTOMS AND/OR DEPRESSION. SN TO REPORT SIGNIFICANT CHANGE IN DEPRESSIVE SYMPTOMS TO CLINICAL PROVIDER FOR EARLY INTERVENTION. [code = SKILLED NURSE FOR O/A AND SKILLED TEACHING RELATED TO MANAGEMENT OF DEPRESSIVE SYMPTOMS AND/OR DEPRESSION. SN TO REPORT SIGNIFICANT CHANGE IN DEPRESSIVE SYMPTOMS TO CLINICAL PROVIDER FOR EARLY INTERVENTION.] Future Scheduled Test SKILLED NU RSE FOR O/A AND TEACHING OF DIABETIC MANAGEMENT INCLUDING BLOOD SUGAR MONITORING/USE OF GLUCOMETER, DIABETIC DIET, LOWER EXTREMITY SKIN INSPECTION, PROPER SKIN/FOOT CARE, AND SIGNS AND SYMPTOMS HYPO/HYPERGLYCEMIA TO REPORT. [code = SKILLED NURSE FOR O/A AND TEACHING OF DIABETIC MANAGEMENT INCLUDING BLOOD SUGAR MONITORING/USE OF GLUCOMETER, DIABETIC DIET, LOWER EXTREMITY SKIN INSPECTION, PROPER SKIN/FOOT CARE, AND SIGNS AND SYMPTOMS HYPO/HYPERGLYCEMIA TO REPORT.] Future Scheduled Test SKILLED NU RSE TO PERFORM AND RECORD BLOOD SUGAR READING WEEKLY, AND PRN FOR SIGNS AND SYMPTOMS OF HYPO/HYPERGLYCEMIA. [code = SKILLED NURSE TO PERFORM AND RECORD BLOOD SUGAR READING WEEKLY, AND PRN FOR SIGNS AND SYMPTOMS OF HYPO/HYPERGLYCEMIA.] Future Scheduled Test SKILLED NU RSE TO PROVIDE TEACHING ON SIGNS AND SYMPTOMS AND MANAGEMENT OF HYPERTENSION. [code = SKILLED NURSE TO PROVIDE TEACHING ON SIGNS AND SYMPTOMS AND MANAGEMENT OF HYPERTENSION.] Future Scheduled Test SKILLED NU RSE TO PERFORM HOME SAFETY AND FALL ASSESSMENT AND PROVIDE INSTRUCTION TO IMPLEMENT HOME SAFETY AND FALL PREVENTION STRATEGIES. [code = SKILLED NURSE TO PERFORM HOME SAFETY AND FALL ASSESSMENT AND PROVIDE INSTRUCTION TO IMPLEMENT HOME SAFETY AND FALL PREVENTION STRATEGIES.] Future Scheduled Test SKILLED NU RSE FOR OBSERVATION AND ASSESSMENT OF PATIENTS PAIN LEVEL AND EFFECTIVENESS OF PAIN MANAGEMENT REGIMEN. SKILLED NURSE TO INSTRUCT PATIENT/CAREGIVER REGARDING PHARMACOLOGIC AND NON-PHARMACOLOGIC PAIN CONTROL MEASURES. SKILLED NURSE TO REPORT TO PHYSICIAN IF PAIN IS UNCONTROLLED WITH CURRENT PAIN MANAGEMENT REGIMEN. [code = SKILLED NURSE FOR OBSERVATION AND ASSESSMENT OF PATIENTS PAIN LEVEL AND EFFECTIVENESS OF PAIN MANAGEMENT REGIMEN. SKILLED NURSE TO INSTRUCT PATIENT/CAREGIVER REGARDING PHARMACOLOGIC AND NON-PHARMACOLOGIC PAIN CONTROL MEASURES. SKILLED NURSE TO REPORT TO PHYSICIAN IF PAIN IS UNCONTROLLED WITH CURRENT PAIN MANAGEMENT REGIMEN.] Future Scheduled Test PHYSICAL T HERAPIST TO EVALUATE PATIENT FOR IMBALANCE [code = PHYSICAL THERAPIST TO EVALUATE PATIENT FOR IMBALANCE ] Future Scheduled Test OCCUPATION AL THERAPIST TO EVALUATE PATIENT FOR ADLS [code = OCCUPATIONAL THERAPIST TO EVALUATE PATIENT FOR ADLS] Future Scheduled Test SKILLED NU RSE FOR O/A, TEACHING RELATED TO COLITIS FOR EARLY IDENTIFICATION OF EXACERBATION OF DISEASE PROCESS. [code = SKILLED NURSE FOR O/A, TEACHING RELATED TO COLITIS FOR EARLY IDENTIFICATION OF EXACERBATION OF DISEASE PROCESS.] Future Scheduled Test PATIENT GIBSON S A RISK OF HOSPITALIZATION AND ED USE. SKILLED NURSE TO ESTABLISH SUPPORT MEASURES TO MINIMIZE RISK OF HOSPITALIZATION AND ED USE, AND INSTRUCT PATIENT/CAREGIVER ON METHODS TO REDUCE AVOIDABLE HOSPITALIZATION AND ED USE. [code = PATIENT HAS A RISK OF HOSPITALIZATION AND ED USE. SKILLED NURSE TO ESTABLISH SUPPORT MEASURES TO MINIMIZE RISK OF HOSPITALIZATION AND ED USE, AND INSTRUCT PATIENT/CAREGIVER ON METHODS TO REDUCE AVOIDABLE HOSPITALIZATION AND ED USE.] Future Scheduled Test SKILLED NU RSE TO REVIEW PATIENT MEDICATIONS. INSTRUCT PATIENT/CAREGIVER ON MONITORING OF EFFECTIVENESS, ADVERSE DRUG REACTIONS, SIDE EFFECTS OF ALL MEDICATIONS (PRESCRIPTION/-OTC), AND HOW AND WHEN TO REPORT PROBLEMS. [code = SKILLED NURSE TO REVIEW PATIENT MEDICATIONS. INSTRUCT PATIENT/CAREGIVER ON MONITORING OF EFFECTIVENESS, ADVERSE DRUG REACTIONS, SIDE EFFECTS OF ALL MEDICATIONS (PRESCRIPTION/-OTC), AND HOW AND WHEN TO REPORT PROBLEMS.] Future Scheduled Test SKILLED NU RSE FOR ADMINISTRATION AND TEACHING OF PRESCRIBED INJECTION THERAPY FOR TRULICITY [code = SKILLED NURSE FOR ADMINISTRATION AND TEACHING OF PRESCRIBED INJECTION THERAPY FOR TRULICITY] Future Scheduled Test SKILLED NU RSE FOR O/A AND SKILLED TEACHING RELATED TO SIGNS AND SYMPTOMS AND MANAGEMENT OF ARTHRITIS [code = SKILLED NURSE FOR O/A AND SKILLED TEACHING RELATED TO SIGNS AND SYMPTOMS AND MANAGEMENT OF ARTHRITIS ] Future Scheduled Test SKILLED NU RSE FOR O/A OF CLIENT'S SOCIAL ISOLATION AND PROVIDE ASSISTANCE TO CLIENT IN DEVELOPMENT OF PLANNED ACTIVITIES [code = SKILLED NURSE FOR O/A OF CLIENT'S SOCIAL ISOLATION AND PROVIDE ASSISTANCE TO CLIENT IN DEVELOPMENT OF PLANNED ACTIVITIES] Future Scheduled Test SKILLED NU RSE FOR O/A OF CLIENT'S CURRENT GRIEVING STATUS AND PROVIDE KNOWLEDGE AND SUPPORT FOR IMPROVED COPING WITH GRIEF [code = SKILLED NURSE FOR O/A OF CLIENT'S CURRENT GRIEVING STATUS AND PROVIDE KNOWLEDGE AND SUPPORT FOR IMPROVED COPING WITH GRIEF] Future Scheduled Test SKILLED NU RSE TO ASSESS PATIENTS PSYCHOSOCIAL STATUS TO IDENTIFY POTENTIAL ISSUES THAT MAY COMPLICATE THE PROVISION OF THE PLAN OF CARE INCLUDING THE PATIENTS ABILITY TO ACCESS COMMUNITY RESOURCES AND PSYCHOSOCIAL SUPPORT SERVICES. [code = SKILLED NURSE TO ASSESS PATIENTS PSYCHOSOCIAL STATUS TO IDENTIFY POTENTIAL ISSUES THAT MAY COMPLICATE THE PROVISION OF THE PLAN OF CARE INCLUDING THE PATIENTS ABILITY TO ACCESS COMMUNITY RESOURCES AND PSYCHOSOCIAL SUPPORT SERVICES.] Future Scheduled Test SKILLED NU RSE WILL MAINTAIN SITUATIONAL AWARENESS FOR SAFETY AND WILL NOTIFY CLINICAL RADIO ANNOUNCER AND PHYSICIAN/PROVIDER WITH ANY CHANGE IN CONDITION. [code = SKILLED NURSE WILL MAINTAIN SITUATIONAL AWARENESS FOR SAFETY AND WILL NOTIFY CLINICAL RADIO ANNOUNCER AND PHYSICIAN/PROVIDER WITH ANY CHANGE IN CONDITION.] Future Scheduled Test SKILLED NU RSE TO PROVIDE INSTRUCTION TO PATIENT/CAREGIVER RELATED TO DISCHARGE PLANNING. [code = SKILLED NURSE TO PROVIDE INSTRUCTION TO PATIENT/CAREGIVER RELATED TO DISCHARGE PLANNING. ] Goal Patient Goal - P ATIENT VERBALIZES GOAL OF IMPROVING STAMINA Goal Provider Goal - A PLAN OF CARE WILL BE ESTABLISHED THAT MEETS PATIENT'S PRISON NEEDS AND INCLUDES PATIENT GOAL FOR HOME HEALTH. Goal Provider Goal - ALTERED MENTAL/BEHAVIORAL STATUS WILL BE IDENTIFIED PROMPTLY AND INTERVENTION INITIATED QUICKLY TO MINIMIZE ASSOCIATED RISKS THROUGHOUT CERTIFICATION PERIOD. Goal Provider Goal - CHANGE IN GENERAL HEALTH STATUS WILL BE IDENTIFIED AND REPORTED TO PHYSICIAN FOR PROMPT INTERVENTION TO MINIMIZE ASSOCIATED RISKS THROUGHOUT CERTIFICATION PERIOD. Goal Provider Goal - PATIENT WILL BE ABLE TO PERFORM DAILY FUNCTIONS AND HAVE OPTIMAL IMPROVEMENT IN LEVEL OF ANXIETY THROUGHOUT CERTIFICATION PERIOD. Goal Provider Goal - PATIENT WILL REMAIN SAFE WITHOUT DECOMPENSATION IN DEPRESSIVE CONDITION, WHILE MAINTAINING OPTIMAL LEVEL OF MENTAL HEALTH AND WELL BEING THROUGHOUT CERTIFICATION PERIOD. Goal Provider Goal - PATIENT/CAREGIVER WILL VERBALIZE/DEMONSTRATE KNOWLEDGE OF DIABETIC MANAGEMENT. CHANGES IN DIABETIC STATUS WILL BE IDENTIFIED AND REPORTED TO PHYSICIAN FOR PROMPT INTERVENTION THROUGHOUT THE CERTIFICATION PERIOD. Goal Provider Goal - BLOOD SUGAR READING WILL BE OBTAINED ORDERED THROUGHOUT CERTIFICATION PERIOD. Goal Provider Goal - PATIENT/CAREGIVER WILL VERBALIZE SIGNS AND SYMPTOMS OF HYPERTENSION AND WILL BE ABLE TO DEMONSTRATE ABILITY TO MANAGE EXACERBATION BY END OF THE EPISODE. Goal Provider Goal - PATIENT/CAREGIVER WILL VERBALIZE/DEMONSTRATE EFFECTIVE HOME SAFETY AND FALL PREVENTION STRATEGIES THROUGHOUT CERTIFICATION PERIOD. Goal Provider Goal - PATIENT/CAREGIVER WILL DEMONSTRATE UNDERSTANDING OF PHARMACOLOGIC AND NONPHARMACOLOGIC PAIN CONTROL MEASURES AND PATIENT WILL HAVE IMPROVEMENT IN PAIN INTERFERING WITH ACTIVITY EVIDENCED BY PAIN CONTROLLED AT LEVEL OF 7 OR LESS BY END OF CERTIFICATION PERIOD. Goal Provider Goal - A PHYSICAL THERAPY EVALUATION TO BE COMPLETED WITH RECOMMENDATIONS AND/OR WRITTEN PLAN OF TREATMENT ESTABLISHED FOR PHYSICIANS SIGNATURE. Goal Provider Goal - OCCUPATIONAL THERAPY EVALUATION TO BE COMPLETED WITH RECOMMENDATIONS AND WRITTEN PLAN OF TREATMENT ESTABLISHED FOR THE PHYSICIANS SIGNATURE. Goal Provider Goal - EXACERBATIONS OF COLITIS GASTROINTESTINAL DISEASE WILL BE PROMPTLY IDENTIFIED AND INTERVENTIONS IMPLEMENTED TO MINIMIZE RISKS TO PATIENT BY END OF EPISODE. Goal Provider Goal - PATIENT WILL HAVE SUPPORT MEASURES ESTABLISHED TO PREVENT HOSPITALIZATION AND ED USE AND PATIENT/CAREGIVER WILL VERBALIZE/DEMONSTRATE METHODS TO REDUCE AVOIDABLE HOSPITALIZATION AND ED USE BY END OF EPISODE. Goal Provider Goal - PATIENT/CAREGIVER WILL VERBALIZE UNDERSTANDING OF EDUCATION PROVIDED ON MEDICATIONS BY THE END OF THE CERTIFICATION PERIOD. Goal Provider Goal - PATIENT WILL RECEIVE TRULICITY ORDERED. PATIENT/CAREGIVER WILL VERBALIZE/DEMONSTRATE KNOWLEDGE OF INJECTION THERAPY BY THE END OF THE CERTIFICATION PERIOD. Goal Provider Goal - PATIENT/CAREGIVER WILL VERBALIZE UNDERSTANDING OF ARTHRITIS MUSCULOSKELETAL DISEASE INCLUDING SIGNS AND SYMPTOMS, MANAGEMENT, AND PRESCRIBED TREATMENT REGIMEN BY END OF EPISODE. Goal Provider Goal - PATIENT WILL DEMONSTRATE AN INCREASED INTEREST IN SOCIALIZATION AND ACTIVITIES BY THE END OF THE CERTIFICATION PERIOD. Goal Provider Goal - PATIENT WILL VERBALIZE STAGES OF GRIEF AND ACCEPTANCE OF OWN GRIEVING PROCESSES BY THE SIXTH THERAPEUTIC VISIT. Goal Provider Goal - PSYCHOSOCIAL NEEDS WILL BE IDENTIFIED AND PLAN IMPLEMENTED TO MINIMIZE RISK THROUGHOUT CERTIFICATION PERIOD. Goal Provider Goal - PATIENT WILL REMAIN SAFE IN THE COMMUNITY AND WILL BE FREE OF DANGER TO SELF AND OTHERS THROUGHOUT THE CERTIFICATION PERIOD. Goal Provider Goal - PATIENT/CAREGIVER WILL VERBALIZE UNDERSTANDING OF DISCHARGE PLANNING INSTRUCTIONS BY DATE OF DISCHARGE. Progress Notes Progress Notes <paragraph>[Visit Date: 2023 by NATALIE KINGSLEY RN]:</paragraph><paragraph>08/10/24 - PRISON VISIT MADE TO ASSESS MENTAL HEALTH STATUS SAFETY MEDICATION COMPLIANCE. PATIENT DENIES ANY ANXIETY ATTACKS HAS NOT NEEDED TO TAKE HER P.R.N. LORAZEPAM. MOOD STABLE APPETITE GOOD NO SIGNS AND SYMPTOMS OF CARDIAC OR RESPIRATORY DISTRESS. NO SIGNS SYMPTOMS OF HYPO OR HYPERGLYCEMIA. PATIENT HAS A FOLLOW UP APPOINTMENT IN SEPTEMBER ON 09/21/24 WITH PSYCH PROVIDER AND 11-04-24 WITH PCP.</paragraph> Encounters Start Date/Time End Date/Time Encounter Type Admission Type Attending Clinicians Care Facility Care Department Encounter ID Discharge Date Discharge Status Discharge Condition Discharge Reason Percent Goals Met 2024-07-06 00:00:00 2024-09-03 00:00:00 Outpatient NEW ADMISSION NATALIE KINGSLEY [facility] [id number] 12 .77
--- OUTSIDE RECORDS SUMMARY | 2024-08-13 15:12 | XMS_ITS | Clinical Summary ---
Author Organization Unknown Care Team Providers Care Security Monitor Name Role Phone ALPHONSO MONCADA, OZZY REDD Unavailable Unavaila tisha KINGSLEY RN, NATALIE Unavailable Unavailable Payers Payer Name Policy Type Policy Number Effective Date Expira tion Date [employer] MEDICARE ADVANTAGE FFS [id number] [place]ICARE - [place] [id number] Problems Condition Name Condition Details Condition Category Status Onset Date Resolution Date Last Treatment Date Treating Clinician Comments ANXIETY DISORDER, UNSPECIFIED Active 2023-09 00:00: 00 ESSENTIAL (PRIMARY) HYPERTENSION Active 2023-09 00:00: 00 TYPE 2 DIABETES MELLITUS WITH DIABETIC POLYNEUROPAT HY Active 2023-09 00:00: 00 ATHSCL HEART DISEASE OF [place] CORONARY ARTERY W/O ANG PCTRS Active 2023-09 00:00: 00 BODY MASS INDEX [BMI]30.0-30 .9, ADULT Active 2023-09 00:00: 00 HYPERLIPIDEM IA, UNSPECIFIED Active 2023-09 00:00: 00 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 Active 2023-09 00:00: [...] 2023-09 00:00: 00 07-06 23:59 :00 No [id number] Per instruc tions EVERY 12 HOURS Per instructio ns EVERY 12 HOURS (route: oral) Med Classific ation: Anti-Infe ctive Agents metronidazo le 500 mg tablet 2023-09 00:00: 00 07-06 00:00 :00 No [id number] Per instruc tions EVERY 8 HOURS Per instructio ns EVERY 8 HOURS (route: oral) Med Classific ation: Anti-Infe ctive Agents Trulicity 0.75 mg/0.5 mL subcutaneou s pen injector 2023-09 016 00:00: 00 07-06 00:00 :00 No [id number] Unavailable Per instruc tions 075 MG (05 ML) SUBCUTANEO USLY ONCE A WEEK Per instructio ns 075 MG (05 ML) SUBCUTANEO USLY ONCE A WEEK (route: subcutaneo us) Med Classific ation: Endocrine aspirin 81 mg tablet,timi yed release 2023-09 00:00: 00 Yes [id number] 1 tablet EVERY PM 1 tablet EVERY PM (route: oral) Med Classific ation: Hematolog ical Agents atorvastati n 80 mg tablet 2023-09 00:00: 00 Yes [id number] 1 tablet DAILY 1 tablet DAILY (route: oral) Med Classific ation: Cardiovas cular Therapy Agents metformin 500 mg tablet 2023-09 00:00: 00 Yes [id number] 1 tablet 2 TIMES DAILY 1 tablet 2 TIMES DAILY (route: oral) Med Classific ation: Endocrine metoprolol tartrate 50 mg tablet 2023-09 00:00: 00 Yes [id number] 1 tablet 2 TIMES DAILY 1 tablet 2 TIMES DAILY (route: oral) Med Classific ation: Cardiovas cular Therapy Agents Tresiba FlexTouch U-100 insulin 100 unit/mL (3 mL) subcutaneou s pen 2023-09 00:00: 00 Yes [id number] 42 unit DAILY 42 unit DAILY (route: subcutaneo us) Med Classific ation: Endocrine Ativan 0.5 mg tablet 2023-09 00:00: 00 Yes [id number] 1 tablet DAILY 1 tablet DAILY (route: oral) Med Classific ation: Central Nervous System Agents amoxicillin 875 mg-potassiu m clavulanate 125 mg tablet 2023-09 00:00: 00 07-08 23:59 :00 No [id number] 1 tablet 2 TIMES DAILY 1 tablet [...] AWARENESS FOR SAFETY AND WILL NOTIFY CLINICAL COLD REDUCTION ROLLER AND PHYSICIAN/PROVIDER WITH ANY CHANGE IN CONDITION. [code = SKILLED NURSE WILL MAINTAIN SITUATIONAL AWARENESS FOR SAFETY AND WILL NOTIFY CLINICAL COLD REDUCTION ROLLER AND PHYSICIAN/PROVIDER WITH ANY CHANGE IN CONDITION.] Future Scheduled Test SKILLED NU RSE TO PROVIDE INSTRUCTION TO PATIENT/CAREGIVER RELATED TO DISCHARGE PLANNING. [code = SKILLED NURSE TO PROVIDE INSTRUCTION TO PATIENT/CAREGIVER RELATED TO DISCHARGE PLANNING. ] Goal Patient Goal - P ATIENT VERBALIZES GOAL OF IMPROVING STAMINA Goal Provider Goal - A PLAN OF CARE WILL BE ESTABLISHED THAT MEETS PATIENT'S [facility] NEEDS AND INCLUDES PATIENT GOAL FOR HOME [...] Date: 2023 by NATALIE KINGSLEY RN]:</paragraph><paragraph>08/10/24 - [facility] VISIT MADE TO ASSESS MENTAL HEALTH STATUS [...] 2024-09-03 00:00:00 Outpatient NEW ADMISSION NATALIE KINGSLEY [facility] [id number] 12 .77
== END 2024-08-13 14:48 | disposition home or self-care (01) ==
LOC: HO.LAB 14:47
PROVIDERS: PCP Internal Medicine; Visit Provider Physician Assistant
DX: N30.01 Acute cystitis with hematuria (principal)
CPT/HCPCS: 81003; 87086; 87088; 87186; 99212

== ENCOUNTER 2024-08-24 14:33 | Outpatient (AMB) | payer MEDICARE, MEDICAID, SELFPAY ==
--- OUTSIDE RECORDS SUMMARY | 2024-08-24 14:35 | XMS_ITS | Clinical Summary ---
Author Organization Unknown Care Team Providers Care Immunologist Name Role Phone ALPHONSO MONCADA, OZZY REDD Unavailable Unavaila tisha KINGSLEY RN, NATALIE Unavailable Unavailable Payers Payer Name Policy Type Policy Number Effective Date Expira tion Date ZZZ [employer]ETNA MEDICARE ADVANTAGE FFS [id number] MEDICARE - [place] - PDGM [id number] Problems Condition Name Condition Details Condition Category Status Onset Date Resolution Date Last Treatment Date Treating Clinician Comments ANXIETY DISORDER, UNSPECIFIED Active 2023-09 00:00: 00 ESSENTIAL (PRIMARY) HYPERTENSION Active 2023-09 00:00: 00 TYPE 2 DIABETES MELLITUS WITH DIABETIC POLYNEUROPAT HY Active 2023-09 00:00: 00 ATHSCL HEART DISEASE OF [place] CORONARY ARTERY W/O ANG PCTRS Active 2023-09 00:00: 00 BODY MASS INDEX [BMI]30.0-30 .9, ADULT Active 2023-09 00:00: 00 HYPERLIPIDEM IA, UNSPECIFIED Active 2023-09 00:00: 00 SNF (CURRENT) USE OF INSULIN Active 2023-09 00:00: [...] 2023-09 00:00: 00 07-06 23:59 :00 No [id number] Per instruc tions EVERY 12 HOURS Per instructio ns EVERY 12 HOURS (route: oral) Med Classific ation: Anti-Infe ctive Agents metronidazo le 500 mg tablet 2023-09 00:00: 00 07-06 00:00 :00 No [id number] Per instruc tions EVERY 8 HOURS Per instructio ns EVERY 8 HOURS (route: oral) Med Classific ation: Anti-Infe ctive Agents Trulicity 0.75 mg/0.5 mL subcutaneou s pen injector 2023-09 016 00:00: 00 07-06 00:00 :00 No [id number] Unavailable Per instruc tions 075 MG (05 ML) SUBCUTANEO USLY ONCE A WEEK Per instructio ns 075 MG (05 ML) SUBCUTANEO USLY ONCE A WEEK (route: subcutaneo us) Med Classific ation: Endocrine aspirin 81 mg tablet,timi yed release 2023-09 00:00: 00 Yes [id number] 1 tablet EVERY PM 1 tablet EVERY PM (route: oral) Med Classific ation: Hematolog ical Agents atorvastati n 80 mg tablet 2023-09 00:00: 00 Yes [id number] 1 tablet DAILY 1 tablet DAILY (route: oral) Med Classific ation: Cardiovas cular Therapy Agents metformin 500 mg tablet 2023-09 00:00: 00 Yes [id number] 1 tablet 2 TIMES DAILY 1 tablet 2 TIMES DAILY (route: oral) Med Classific ation: Endocrine metoprolol tartrate 50 mg tablet 2023-09 00:00: 00 Yes [id number] 1 tablet 2 TIMES DAILY 1 tablet 2 TIMES DAILY (route: oral) Med Classific ation: Cardiovas cular Therapy Agents Tresiba FlexTouch U-100 insulin 100 unit/mL (3 mL) subcutaneou s pen 2023-09 00:00: 00 Yes [id number] 42 unit DAILY 42 unit DAILY (route: subcutaneo us) Med Classific ation: Endocrine Ativan 0.5 mg tablet 2023-09 00:00: 00 Yes [id number] 1 tablet DAILY 1 tablet DAILY (route: oral) Med Classific ation: Central Nervous System Agents amoxicillin 875 mg-potassiu m clavulanate 125 mg tablet 2023-09 00:00: 00 07-08 23:59 :00 No [id number] 1 tablet 2 TIMES DAILY 1 tablet 2 TIMES DAILY (route: oral) Med Classific ation: Anti-Infe ctive Agents Vital Signs Vital Name Observation Time Observation Value Commen ts Temperature 2024-08-17 13:49:00.000 97.8 [degF] Temperature 2024-08-10 12:34:00.000 97.8 [degF] Temperature 2024-08-03 15:03:00.000 97.6 [degF] Temperature 2024-07-27 12:29:00.000 97.3 [degF] Temperature 2024-07-19 14:07:00.000 97.6 [degF] Temperature 2024-07-15 13:57:00.000 97.8 [degF] Temperature 2024-07-13 12:51:00.000 97.5 [degF] Temperature 2024-07-08 14:36:00.000 97.6 [degF] Temperature 2024-07-06 10:21:00.000 98.6 [degF] BMI (%) 2024-07-06 10:21:00.000 30 kg/m2 Height 2024-07-06 10:21:00.000 63 [in_us] Pulse 2024-08-17 13:49:00.000 68 /min Pulse 2024-08-10 12:34:00.000 86 /min Pulse 2024-08-03 15:03:00.000 84 /min Pulse 2024-07-27 12:29:00.000 78 /min Pulse 2024-07-19 14:07:00.000 72 /min Pulse 2024-07-15 13:57:00.000 66 /min Pulse 2024-07-13 12:51:00.000 68 /min Pulse 2024-07-08 14:36:00.000 88 /min Pulse 2024-07-06 10:21:00.000 70 /min O2 Saturation (%) 2024-07-06 10:22:00.000 98 % Respirations 2024-08-17 13:49:00.000 16 /min Respirations 2024-08-10 12:34:00.000 16 /min Respirations 2024-08-03 15:03:00.000 16 /min Respirations 2024-07-27 12:29:00.000 16 /min Respirations 2024-07-19 14:07:00.000 16 /min Respirations 2024-07-15 13:57:00.000 16 /min Respirations 2024-07-13 12:51:00.000 16 /min Respirations 2024-07-08 14:37:00.000 16 /min Respirations 2024-07-06 10:21:00.000 18 /min Weight (lbs) 2024-07-06 10:21:00.000 175 [lb_av] Systolic Blood Pressure 2024-08-17 13:49:00.000 118 mm [Hg] Systolic Blood Pressure 2024-08-10 12:34:00.000 120 mm [...] 10:21:00.000 140 mm [Hg] Diastolic Blood Pressure 2024-08-17 13:49:00.000 70 mm [Hg] Diastolic Blood Pressure 2024-08-10 12:34:00.000 [...] AWARENESS FOR SAFETY AND WILL NOTIFY CLINICAL FINISHER FINE DIAMOND DIES AND PHYSICIAN/PROVIDER WITH ANY CHANGE IN CONDITION. [code = SKILLED NURSE WILL MAINTAIN SITUATIONAL AWARENESS FOR SAFETY AND WILL NOTIFY CLINICAL FINISHER FINE DIAMOND DIES AND PHYSICIAN/PROVIDER WITH ANY CHANGE IN CONDITION.] Future Scheduled Test SKILLED NU RSE TO PROVIDE INSTRUCTION TO PATIENT/CAREGIVER RELATED TO DISCHARGE PLANNING. [code = SKILLED NURSE TO PROVIDE INSTRUCTION TO PATIENT/CAREGIVER RELATED TO DISCHARGE PLANNING. ] Goal Patient Goal - P ATIENT VERBALIZES GOAL OF IMPROVING STAMINA Goal Provider Goal - A PLAN OF CARE WILL BE ESTABLISHED THAT MEETS PATIENT'S PENITENTIARY NEEDS AND INCLUDES PATIENT GOAL FOR HOME [...] DISCHARGE PLANNING INSTRUCTIONS BY DATE OF DISCHARGE. Encounters Start Date/Time End Date/Time Encounter Type Admission Type Attending [facility] Care Department Encounter ID Discharge Date Discharge Status Discharge Condition Discharge Reason Percent Goals Met 2024-07-06 00:00:00 2024-09-03 00:00:00 Outpatient NEW ADMISSION NATALIE KINGSLEY [facility] [id number] 12 .77
--- NOTE | 2024-08-24 14:36 | AM.OFFWIN_ITS ---
Intake Vital Signs 08/24/24 14:41 Weight 170 lb BP 110/76 Blood Pressure Location Rt brachial Position Sitting Pulse 58 Pulse Source Pulse Oximeter Temp 97.9 F Temp Source Oral Pulse Oximetry (%) 100 Oxygen Delivery Method Room Air Intake Visit Reasons: EP-uti Intake Note: Patient here for burning on urination. Patient Tobacco Use Status: Former Tobacco user Allergies codeine [CODEINE] Allergy (Intermediate, Verified 08/24/24 14:53) HIVES morphine [MORPHINE] Allergy (Intermediate, Verified 08/24/24 14:53) HIVES oxycodone [OXYCODONE] Allergy (Intermediate, Verified 08/24/24 14:53) HIVES Sulfa (Sulfonamide Antibiotics) [SULFA (SULFONAMIDE ANTIBIOTICS)] Allergy (Intermediate, Verified 08/24/24 14:53) DEHYDRATION, hives, hives OPIATES Allergy (Unknown, Uncoded 08/24/24 14:53) hives Medication List - Last Reconciled 08/24/24 by Manoj Berg MD aspirin 81 mg PO DAILY atorvastatin 80 mg PO DAILY BD Ultra-Fine Short Pen Needle (pen needle, diabetic) As directed once a day NS blood sugar diagnostic ([employer] Verio test strips) 3 times a day blood-glucose meter ([employer] Verio Flex Meter) 3 times a day cholecalciferol (vitamin D3) 25 mcg PO DAILY escitalopram oxalate (Lexapro) 5 mg PO DAILY famotidine-Ca carb-mag hydrox 10-800-165 mg (Acid Auto Technician Complete (famotidine)) 1 tab PO BEDTIME PRN flash glucose scanning reader (FreeStyle Halina 2 [place]) use as directed flash glucose sensor (FreeStyle Halina 2 Sensor kit) use As directed hydrochlorothiazide 25 mg PO DAILY insulin degludec (Tresiba FlexTouch U-100 insulin) 42 units subcut QAM lancets (OneTouch Delica Lancets) 3 times a day lisinopril 20 mg PO DAILY lorazepam 0.5 mg PO DAILY PRN metformin 500 mg PO BID 90 days metoprolol tartrate 50 mg PO BID nitrofurantoin monohyd/m-cryst 100 mg (Macrobid) 100 mg PO BID pen needle, diabetic use for injecting med once a day phenazopyridine 200 mg PO TID Trulicity (dulaglutide) 0.75 mg (0.5 mL) subcut QWEEK NS HPI EP-uti HPI Details Increased frequency of urination, hesitation symptoms. 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 Spondylosis of lumbar region without myelopathy or radiculopathy Sacroiliitis Surgical History Stented coronary artery Hx of shoulder surgery History of back surgery Hx of section Hx of hysterectomy Hx of colonoscopy Family History Father Colon cancer Family history of prostate cancer in father Mother Diabetes CVA (cerebral vascular accident) Social History Housing: Apartment Alcohol intake: current Patient Tobacco Use Status: Former Tobacco user Years Smoked: 2 e-Cigarette/Vaping Use: Never Used Advance Directives Date on File: 06/01/24 service: No Current occupational status: retired Cognitive needs: No Hearing needs: No Vision needs: No Physical Exam Vital Signs: Last Vital Signs Temp 97.9 F 08/24/24 14:41 Pulse 58 08/24/24 14:41 BP 110/76 08/24/24 14:41 Pulse Ox 100 08/24/24 14:41 Oxygen Delivery Method Room Air 08/24/24 14:41 Const General: cooperative and healthy appearing Nutritional Appearance: well nourished Orientation/consciousness: patient oriented x3 Limitations: no limitations HEENT Head: Yes normal to inspection Eyes General: appearance normal, both eyes and all related structures Neck Neck: Yes normal visual inspection Chest Chest palpation & inspection: normal palpation of entire chest wall Resp Effort & Inspection: normal respiratory effort Neuro General: patient oriented x3 Results AMB Urinalysis, Automated UA Leukoctes 125 Nae/uL Last Edit by KIERRA Cline on 08/24/24 14: 52 UA Nitrite Negative Last Edit by Cj [facility] on 08/24/24 14:52 UA Urobilinogen 0.2 mg/dL Last Edit by Cj Brandon [facility] on 08/24/24 14:52 UA Protein 0 mg/dL Last Edit by JuliannaDuke Brandon [facility] on 08/24/24 14:52 UA pH 6.0 Last Edit by Cj Brandon [facility] on 08/24/24 14:52 UA Blood 0 Rakesh/uL Last Edit by JuliannaDuke Brandon [facility] on 08/24/24 14:52 UA Specific Steger 1.015 Last Edit by Cj Brandon [facility] on 08/24/24 14:52 UA Ketone Negative Last Edit by Cj Brandon [facility] on 08/24/24 14:52 UA Bilirubin 0 mg/dL Last Edit by Cj Brandon [facility] on 08/24/24 14:52 UA Glucose 0 mg/dL Last Edit by JuliannaDuke Brandon [facility] on 08/24/24 14:52 Results Reviewed Results Reviewed: Laboratory Last Values Urine pH (Auto) 6.0 08/24/24 14:51 Specific Steger (Auto) 1.015 08/24/24 14:51 Urine Protein (Auto) 0 mg/dL 08/24/24 14:51 Glucose (UA)(Auto) 0 mg/dL 08/24/24 14:51 Urine Ketones (Auto) Negative 08/24/24 14:51 Urine Blood (Auto) 0 Rakesh/uL 08/24/24 14:51 Urine Nitrite (Auto) Negative 08/24/24 14:51 Urine Bilirubin (Auto) 0 mg/dL 08/24/24 14:51 Urine Urobilinogen (Auto) 0.2 mg/dL 08/24/24 14:51 Leukocyte Esterase (Auto) 125 Nae/uL 08/24/24 14:51 Assessment & Plan Assessment & Plan (1) Low back pain: Code(s): M54.50 - Low back pain, unspecified Plan: Urine positive for infection. Abx and pyridium called in. Encouraged to increase fluid intake. If sx not better, to follow up here. Orders: Orders AMB Urinalysis Automated Today Z13.9 - Encounter for screening, unspecified Medications: New nitrofurantoin monohyd/m-cryst 100 mg (Macrobid) must administer with a meal/food 100 mg PO BID 14 caps 0RF phenazopyridine TID daily after meals for 2 days 200 mg PO TID 6 tabs 0RF Coding Level of Care Code Est Pt Level 3 (67729) Diagnoses Low back pain M54.50
[2024-08-24 14:41] VITALS: BP 110/76; PULSE 58; TEMP 36.6; O2SAT 100
== END 2024-08-24 14:55 | disposition home or self-care (01) ==
PROVIDERS: PCP Internal Medicine; Visit Provider Internal Medicine
DX: M54.50 Low back pain, unspecified (principal); Z13.9 Encounter for screening, unspecified

== ENCOUNTER → 2024-08-24 14:33 | Outpatient (BNVA) | payer MEDICARE, MEDICAID, SELFPAY | PROVIDERS: PCP Internal Medicine; Visit Provider Internal Medicine | DX: M54.50 Low back pain, unspecified (principal); N39.0 Urinary tract infection, site not specified | CPT/HCPCS: 81003; 99212 ==

== ENCOUNTER 2024-08-30 13:43 | Outpatient (AMB) | payer MEDICARE, MEDICAID, SELFPAY ==
--- OUTSIDE RECORDS SUMMARY | 2024-08-30 13:46 | XMS_ITS | Clinical Summary ---
Author Organization Unknown Care Team Providers Care Explosive Operator Grenade Name Role Phone ALPHONSO MONCADA, OZZY REDD Unavailable Unavaila tisha KINGSLEY RN, NATALIE Unavailable Unavailable Payers Payer Name Policy Type Policy Number Effective Date Expira tion Date ZZZ [employer]NA MEDICARE ADVANTAGE FFS [id number] [place]IC[place] - [place] [id number] Problems Condition Name Condition Details Condition Category Status Onset Date Resolution Date Last Treatment Date Treating Clinician Comments ANXIETY DISORDER, UNSPECIFIED Active 2023-09 00:00: 00 ESSENTIAL (PRIMARY) HYPERTENSION Active 2023-09 00:00: 00 TYPE 2 DIABETES MELLITUS WITH DIABETIC POLYNEUROPAT HY Active 2023-09 00:00: 00 ATHSCL HEART DISEASE OF [place] CORONARY ARTERY W/O ANG PCTRS Active 2023-09 00:00: 00 BODY MASS INDEX [BMI]30.0-30 .9, ADULT Active 2023-09 00:00: 00 HYPERLIPIDEM IA, UNSPECIFIED Active 2023-09 00:00: 00 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 Active 2023-09 00:00: [...] 2023-09 00:00: 00 07-06 23:59 :00 No [id number] Per instruc tions EVERY 12 HOURS Per instructio ns EVERY 12 HOURS (route: oral) Med Classific ation: Anti-Infe ctive Agents metronidazo le 500 mg tablet 2023-09 00:00: 00 07-06 00:00 :00 No [id number] Per instruc tions EVERY 8 HOURS Per instructio ns EVERY 8 HOURS (route: oral) Med Classific ation: Anti-Infe ctive Agents Trulicity 0.75 mg/0.5 mL subcutaneou s pen injector 2023-09 016 00:00: 00 07-06 00:00 :00 No [id number] Unavailable Per instruc tions 075 MG (05 ML) SUBCUTANEO USLY ONCE A WEEK Per instructio ns 075 MG (05 ML) SUBCUTANEO USLY ONCE A WEEK (route: subcutaneo us) Med Classific ation: Endocrine aspirin 81 mg tablet,timi yed release 2023-09 00:00: 00 Yes [id number] 1 tablet EVERY PM 1 tablet EVERY PM (route: oral) Med Classific ation: Hematolog ical Agents atorvastati n 80 mg tablet 2023-09 00:00: 00 Yes [id number] 1 tablet DAILY 1 tablet DAILY (route: oral) Med Classific ation: Cardiovas cular Therapy Agents metformin 500 mg tablet 2023-09 00:00: 00 Yes [id number] 1 tablet 2 TIMES DAILY 1 tablet 2 TIMES DAILY (route: oral) Med Classific ation: Endocrine metoprolol tartrate 50 mg tablet 2023-09 00:00: 00 Yes [id number] 1 tablet 2 TIMES DAILY 1 tablet 2 TIMES DAILY (route: oral) Med Classific ation: Cardiovas cular Therapy Agents Tresiba FlexTouch U-100 insulin 100 unit/mL (3 mL) subcutaneou s pen 2023-09 00:00: 00 Yes [id number] 42 unit DAILY 42 unit DAILY (route: subcutaneo us) Med Classific ation: Endocrine Ativan 0.5 mg tablet 2023-09 00:00: 00 Yes [id number] 1 tablet DAILY 1 tablet DAILY (route: oral) Med Classific ation: Central Nervous System Agents amoxicillin 875 mg-potassiu m clavulanate 125 mg tablet 2023-09 00:00: 00 07-08 23:59 :00 No [id number] 1 tablet 2 TIMES DAILY 1 tablet 2 TIMES DAILY (route: oral) Med Classific ation: Anti-Infe ctive Agents Vital Signs Vital Name Observation Time Observation Value Commen ts Temperature 2024-08-24 14:03:00.000 97.6 [degF] Temperature 2024-08-17 13:49:00.000 97.8 [degF] Temperature 2024-08-10 12:34:00.000 97.8 [degF] Temperature 2024-08-03 15:03:00.000 97.6 [degF] Temperature 2024-07-27 12:29:00.000 97.3 [degF] Temperature 2024-07-19 14:07:00.000 97.6 [degF] Temperature 2024-07-15 13:57:00.000 97.8 [degF] Temperature 2024-07-13 12:51:00.000 97.5 [degF] Temperature 2024-07-08 14:36:00.000 97.6 [degF] Temperature 2024-07-06 10:21:00.000 98.6 [degF] BMI (%) 2024-07-06 10:21:00.000 30 kg/m2 Height 2024-07-06 10:21:00.000 63 [in_us] Pulse 2024-08-24 14:03:00.000 64 /min Pulse 2024-08-17 13:49:00.000 68 /min Pulse 2024-08-10 12:34:00.000 86 /min Pulse 2024-08-03 15:03:00.000 84 /min Pulse 2024-07-27 12:29:00.000 78 /min Pulse 2024-07-19 14:07:00.000 72 /min Pulse 2024-07-15 13:57:00.000 66 /min Pulse 2024-07-13 12:51:00.000 68 /min Pulse 2024-07-08 14:36:00.000 88 /min Pulse 2024-07-06 10:21:00.000 70 /min O2 Saturation (%) 2024-07-06 10:22:00.000 98 % Respirations 2024-08-24 14:03:00.000 16 /min Respirations 2024-08-17 13:49:00.000 16 /min Respirations 2024-08-10 12:34:00.000 16 /min Respirations 2024-08-03 15:03:00.000 16 /min Respirations 2024-07-27 12:29:00.000 16 /min Respirations 2024-07-19 14:07:00.000 16 /min Respirations 2024-07-15 13:57:00.000 16 /min Respirations 2024-07-13 12:51:00.000 16 /min Respirations 2024-07-08 14:37:00.000 16 /min Respirations 2024-07-06 10:21:00.000 18 /min Weight (lbs) 2024-07-06 10:21:00.000 175 [lb_av] Systolic Blood Pressure 2024-08-24 14:03:00.000 120 mm [Hg] Systolic Blood Pressure 2024-08-17 13:49:00.000 118 mm [...] 10:21:00.000 140 mm [Hg] Diastolic Blood Pressure 2024-08-24 14:03:00.000 66 mm [Hg] Diastolic Blood Pressure 2024-08-17 13:49:00.000 [...] AWARENESS FOR SAFETY AND WILL NOTIFY CLINICAL SITE ENGINEER AND PHYSICIAN/PROVIDER WITH ANY CHANGE IN CONDITION. [code = SKILLED NURSE WILL MAINTAIN SITUATIONAL AWARENESS FOR SAFETY AND WILL NOTIFY CLINICAL SITE ENGINEER AND PHYSICIAN/PROVIDER WITH ANY CHANGE IN CONDITION.] Future Scheduled Test SKILLED NU RSE TO PROVIDE INSTRUCTION TO PATIENT/CAREGIVER RELATED TO DISCHARGE PLANNING. [code = SKILLED NURSE TO PROVIDE INSTRUCTION TO PATIENT/CAREGIVER RELATED TO DISCHARGE PLANNING. ] Goal Patient Goal - P ATIENT VERBALIZES GOAL OF IMPROVING STAMINA Goal Provider Goal - A PLAN OF CARE WILL BE ESTABLISHED THAT MEETS PATIENT'S FPC NEEDS AND INCLUDES PATIENT GOAL FOR HOME [...] Notes <paragraph>[Visit Date: 2023 by NATALIE KINGSLEY RN]:</paragraph><paragraph>08-24-20 FOR FPC VISIT MADE TO ASSESS MENTAL HEALTH STATUS SAFETY MEDICATION COMPLIANCE. PATIENT REPORTS MOOD STABLE NO PANIC ATTACKS HAS NOT NEEDED TO USE P.R.N. LORAZEPAM. PATIENT IS BECOMING LESS HOMEBOUND GOING OUT VISITING FAMILY. NO APPOINTMENT SCHEDULED UNTIL SEPTEMBER. VITAL SIGNS STABLE PATIENT INDEPENDENT MANAGING MEDICATIONS NO SIGNS AND SYMPTOMS OF HYPO OR HYPERGLYCEMIA. RN DISCUSSED DISCHARGE NEXT WEEK IF NO CHANGES IN STATUS ...</paragraph> Encounters Start Date/Time End Date/Time Encounter Type Admission Type Attending [facility] Care [facility] Care Department Encounter ID Discharge Date Discharge Status Discharge Condition Discharge Reason Percent Goals Met 2024-07-06 00:00:00 2024-09-03 00:00:00 Outpatient NEW ADMISSION NATALIE KINGSLEY [facility] [id number] 12 .77
--- OUTSIDE RECORDS SUMMARY | 2024-08-30 13:46 | XMS_ITS | Clinical Summary ---
Author Organization Unknown Care Team Providers Care Twenty One Dealer Name Role Phone ALPHONSO MONCADA, OZZY REDD Unavailable Unavaila tisha KINGSLEY RN, NATALIE Unavailable Unavailable Payers Payer Name Policy Type Policy Number Effective Date Expira tion Date ZZZ [employer] MEDICARE ADVANTAGE FFS [id number] MEDICARE - [place] PDGM [id number] Problems Condition Name Condition Details Condition Category Status Onset Date Resolution Date Last Treatment Date Treating Clinician Comments ANXIETY DISORDER, UNSPECIFIED Active 2023-09 00:00: 00 ESSENTIAL (PRIMARY) HYPERTENSION Active 2023-09 00:00: 00 TYPE 2 DIABETES MELLITUS WITH DIABETIC POLYNEUROPAT HY Active 2023-09 00:00: 00 ATHSCL HEART DISEASE OF [place] CORONARY ARTERY W/O ANG PCTRS Active 2023-09 00:00: 00 BODY MASS INDEX [BMI]30.0-30 .9, ADULT Active 2023-09 00:00: 00 HYPERLIPIDEM IA, UNSPECIFIED Active 2023-09 00:00: 00 ANIMAL BEHAVIOURIST (CURRENT) USE OF INSULIN Active 2023-09 00:00: [...] 2023-09 00:00: 00 07-06 23:59 :00 No [id number] Per instruc tions EVERY 12 HOURS Per instructio ns EVERY 12 HOURS (route: oral) Med Classific ation: Anti-Infe ctive Agents metronidazo le 500 mg tablet 2023-09 00:00: 00 07-06 00:00 :00 No [id number] Per instruc tions EVERY 8 HOURS Per instructio ns EVERY 8 HOURS (route: oral) Med Classific ation: Anti-Infe ctive Agents Trulicity 0.75 mg/0.5 mL subcutaneou s pen injector 2023-09 016 00:00: 00 07-06 00:00 :00 No [id number] Unavailable Per instruc tions 075 MG (05 ML) SUBCUTANEO USLY ONCE A WEEK Per instructio ns 075 MG (05 ML) SUBCUTANEO USLY ONCE A WEEK (route: subcutaneo us) Med Classific ation: Endocrine aspirin 81 mg tablet,timi yed release 2023-09 00:00: 00 Yes [id number] 1 tablet EVERY PM 1 tablet EVERY PM (route: oral) Med Classific ation: Hematolog ical Agents atorvastati n 80 mg tablet 2023-09 00:00: 00 Yes [id number] 1 tablet DAILY 1 tablet DAILY (route: oral) Med Classific ation: Cardiovas cular Therapy Agents metformin 500 mg tablet 2023-09 00:00: 00 Yes [id number] 1 tablet 2 TIMES DAILY 1 tablet 2 TIMES DAILY (route: oral) Med Classific ation: Endocrine metoprolol tartrate 50 mg tablet 2023-09 00:00: 00 Yes [id number] 1 tablet 2 TIMES DAILY 1 tablet 2 TIMES DAILY (route: oral) Med Classific ation: Cardiovas cular Therapy Agents Tresiba FlexTouch U-100 insulin 100 unit/mL (3 mL) subcutaneou s pen 2023-09 00:00: 00 Yes [id number] 42 unit DAILY 42 unit DAILY (route: subcutaneo us) Med Classific ation: Endocrine Ativan 0.5 mg tablet 2023-09 00:00: 00 Yes [id number] 1 tablet DAILY 1 tablet DAILY (route: oral) Med Classific ation: Central Nervous System Agents amoxicillin 875 mg-potassiu m clavulanate 125 mg tablet 2023-09 00:00: 00 07-08 23:59 :00 No [id number] 1 tablet 2 TIMES DAILY 1 tablet [...] AWARENESS FOR SAFETY AND WILL NOTIFY CLINICAL RETIREMENT OFFICER AND PHYSICIAN/PROVIDER WITH ANY CHANGE IN CONDITION. [code = SKILLED NURSE WILL MAINTAIN SITUATIONAL AWARENESS FOR SAFETY AND WILL NOTIFY CLINICAL RETIREMENT OFFICER AND PHYSICIAN/PROVIDER WITH ANY CHANGE IN CONDITION.] Future Scheduled Test SKILLED NU RSE TO PROVIDE INSTRUCTION TO PATIENT/CAREGIVER RELATED TO DISCHARGE PLANNING. [code = SKILLED NURSE TO PROVIDE INSTRUCTION TO PATIENT/CAREGIVER RELATED TO DISCHARGE PLANNING. ] Goal Patient Goal - P ATIENT VERBALIZES GOAL OF IMPROVING STAMINA Goal Provider Goal - A PLAN OF CARE WILL BE ESTABLISHED THAT MEETS PATIENT'S HALFWAY NEEDS AND INCLUDES PATIENT GOAL FOR HOME [...] Date: 2023 by NATALIE KINGSLEY RN]:</paragraph><paragraph>08-24-20 FOR HALFWAY VISIT MADE TO ASSESS MENTAL HEALTH STATUS [...] End Date/Time Encounter Type Admission Type Attending [facility] Care [facility] Care Department Encounter ID Discharge Date Discharge Status Discharge Condition Discharge Reason Percent Goals Met 2024-07-06 00:00:00 2024-09-03 00:00:00 Outpatient NEW ADMISSION NATALIE KINGSLEY [facility] [id number] 12 .77
--- NOTE | 2024-08-30 14:19 | AM.OFFWIN_ITS ---
Intake Vital Signs 08/30/24 14:28 Weight 170 lb BP 126/78 Blood Pressure Location Lt brachial Position Sitting Pulse 70 Pulse Source Pulse Oximeter Temp 97.6 F Temp Source Oral Pulse Oximetry (%) 96 Oxygen Delivery Method Room Air Intake Visit Reasons: EP ? UTI Intake Note: Patient here for frequent urination and pressure Patient Tobacco Use Status: Former Tobacco user Allergies codeine [CODEINE] Allergy (Intermediate, Verified 08/30/24 14:27) HIVES morphine [MORPHINE] Allergy (Intermediate, Verified 08/30/24 14:27) HIVES oxycodone [OXYCODONE] Allergy (Intermediate, Verified 08/30/24 14:27) HIVES Sulfa (Sulfonamide Antibiotics) [SULFA (SULFONAMIDE ANTIBIOTICS)] Allergy (Inter mediate, Verified 08/30/24 14:27) DEHYDRATION, hives, hives OPIATES Allergy (Unknown, Uncoded 08/30/24 14:27) hives Do you need a note to return to daycare/school/sports/work: No HPI HPI Comments History of Present Illness Details History of Present Illness - The patient is a 79-year-old female pr esenting with recurrent urinary tract infections. - Recurrent UTIs have been diagnosed, mo st recently beginning on July 21, treated initially with Macrobid (Nitrofurantoin) for a 5-day course. - Relapse occurred in August, at which point Cefuroxime was prescribed based upon susceptibility reports. - Current symptoms include low back pain , dysuria, urinary urgency, and a sensation of incomplete bladder emptying, with intermittent high urine volume. - Nitrofurantoin rendered ineffective du e to E.coli resistance as per cultures, with color change in urine noted. - Levaquin had shown previous efficacy a s interpreted from past patient history of urine cultures. - Recent history of C. difficile infecti on affects considerations for antibiotic choice. Physical Exam General: Cooperative, healthy appearing, comfortable, no acute distress and well developed Orientation: Patient oriented x3 Head: Normal to inspection Ears: Hearing grossly normal bilaterally Nose: Normal external nose present Face and sinus: Normal facial exam Eyes: Appearance normal, both eyes and all related structures Neck: Normal visual inspection and Yes full ROM Respiratory: Normal respiratory effort and able to speak in complete sentences Skin: No rashes or lesions noted Neuro: Patient oriented x3 Extremities: Normal to inspection [facility] Medical History Depression with anxiety Generalized anxiety disorder with panic attacks Arthritis of carpometacarpal (CMC) joint of right thumb Tenosynovitis of right wrist Dermatitis, contact Elevated vitamin B12 level Essential hypertension Atherosclerotic cardiovascular disease Obesity (BMI 30-39.9) Dyslipidemia 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 type 2 diabetes mellitus prison (current) use of insulin Spondylosis of lumbar region without myelopathy or radiculopathy Sacroiliitis Surgical History Stented coronary artery Hx of shoulder surgery History of back surgery Hx of section Hx of hysterectomy Hx of colonoscopy Family History Father Colon cancer Family history of prostate cancer in father Mother Diabetes CVA (cerebral vascular accident) Social History Housing: Apartment Alcohol intake: current Patient Tobacco Use Status: Former Tobacco user Years Smoked: 2 e-Cigarette/Vaping Use: Never Used Advance Directives Date on File: 06/01/24 service: No Current occupational status: retired Cognitive needs: No Hearing needs: No Vision needs: No Review of Systems Const All systems reviewed & are unremarkable except as noted in HPI and below Physical Exam Vital Signs: Last Vital Signs Temp 97.6 F 08/30/24 14:28 Pulse 70 08/30/24 14:28 BP 126/78 08/30/24 14:28 Pulse Ox 96 08/30/24 14:28 Oxygen Delivery Method Room Air 08/30/24 14:28 Assessment & Plan Assessment & Plan (1) Complicated UTI (urinary tract infection): Code(s): N39.0 - Urinary tract infection, site not specified Plan: UA 3+ leuks, neg nitrite, negative blood The patient was identified to have a recurrent complicated urinary tract infection 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 Levofloxacin was chosen for a 5-day regimen after considering the patient's prior cultures with good susceptibilites with this medication. Potential side effects, particularly tendinopathy, were discussed, advising the patient to avoid activities that increase strain risk, such as gymnastics or running or jumping. A urine culture will be obtained to verify microbial susceptibilities, ensuring optimal targeting of the pathogen with the selected treatment. Surveillance for side effects and efficacy will be conducted. Past C. difficile infection history guide the careful choice of antibiotic, balancing effective microbial eradication with the risk of recurrence. Patient was informed and verbally consented to the use of an ambient scribe for clinic note documentation during this visit. Orders: Orders Urine Culture Today N39.0 - Urinary tract infection, site not specified Medications: New levofloxacin 750 mg PO Q24H 5 tabs 0RF Coding Level of Care Code Est Pt Level 4 (46583) Diagnoses Complicated UTI (urinary tract infection) N39.0
[2024-08-30 14:28] VITALS: BP 126/78; PULSE 70; TEMP 36.4; O2SAT 96
== END 2024-08-30 14:45 | disposition home or self-care (01) ==
PROVIDERS: PCP Internal Medicine; Visit Provider Physician Assistant
DX: N39.0 Urinary tract infection, site not specified (principal); R35.0 Frequency of micturition

== ENCOUNTER 2024-08-30 13:43 | Outpatient (REF) | payer MEDICARE, MEDICAID, SELFPAY | END 2024-08-30 13:44 | disposition home or self-care (01) | LOC: HO.LNP 13:43 | PROVIDERS: PCP Internal Medicine; Visit Provider Physician Assistant | DX: N39.0 Urinary tract infection, site not specified (principal); B96.5 Pseudomonas (aeruginosa) (mallei) (pseudomallei) as the cause of diseases classified elsewhere | CPT/HCPCS: 81003; 87086; 87088; 87186; 99212 ==

== ENCOUNTER 2024-09-22 14:40 | Outpatient (AMB) | payer MEDICARE, MEDICAID, SELFPAY ==
--- NOTE | 2024-09-22 15:09 | MHC.OFFWIV ---
Intake Vital Signs 09/22/24 15:20 Weight 171 lb BP 114/70 Blood Pressure Location Rt brachial Position Sitting Pulse 74 Pulse Source Pulse Oximeter Temp 97.6 F Temp Source Oral Pulse Oximetry (%) 98 Oxygen Delivery Method Room Air Intake Visit Reasons: EP UTI Intake Note: Patient here for frequent urination which has been present for almost 2 weeks. Patient Tobacco Use Status: Former Tobacco user Allergies codeine [CODEINE] Allergy (Intermediate, Verified 09/22/24 15:17) HIVES morphine [MORPHINE] Allergy (Intermediate, Verified 09/22/24 15:17) HIVES oxycodone [OXYCODONE] Allergy (Intermediate, Verified 09/22/24 15:17) HIVES Sulfa (Sulfonamide Antibiotics) [SULFA (SULFONAMIDE ANTIBIOTICS)] Allergy (Intermediate, Verified 09/22/24 15:17) DEHYDRATION, hives, hives levofloxacin Allergy (Verified 09/22/24 15:17) Hallucinations cefpodoxime Adverse Reaction (Intermediate, Verified 09/22/24 15:19) uknown phenazopyridine Adverse Reaction (Intermediate, Verified 09/22/24 15:19) Unknown OPIATES Allergy (Unknown, Uncoded 09/22/24 15:17) hives Do you need a note to return to daycare/school/sports/work: No HPI HPI Comments History of Present Illness Details This is a 79-year-old female with a past medical history of hypertension, hyperlipidemia and insulin-dependent diabetes presenting for evaluation of urinary frequency and dysuria that she has had for the past 3 days. Patient denies having any fevers, chills, vaginal discharge or overt abdominal pain. Additionally, patient denies any episodes of hyperglycemia. Upon review of her record the patient has been seen several times for acute urinary tract infections with various etiologies. Patient denies ever seeing Urology as an outpatient. Patient has not taken any medication for treatment of her symptoms. 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 Spondylosis of lumbar region without myelopathy or radiculopathy Sacroiliitis Surgical History Stented coronary artery Hx of shoulder surgery History of back surgery Hx of section Hx of hysterectomy Hx of colonoscopy Family History Father Colon cancer Family history of prostate cancer in father Mother Diabetes CVA (cerebral vascular accident) Social History Housing: Apartment Alcohol intake: current Patient Tobacco Use Status: Former Tobacco user Years Smoked: 2 e-Cigarette/Vaping Use: Never Used Advance Directives Date on File: 06/01/24 service: No Current occupational status: retired Cognitive needs: No Hearing needs: No Vision needs: No Review of Systems Const All systems reviewed & are unremarkable except as noted in HPI and below Denies chills, Denies fatigue, Denies fever(s) and Denies headache(s) Eyes Reports no additional complaints ENT Reports no additional complaints and Denies headache(s) Card Reports no additional complaints Resp Reports no additional complaints GI Reports no additional complaints, Denies diarrhea, Denies nausea and Denies vomiting Reports dysuria, Denies urinary incontinence, Denies urinary hesitancy, Reports urinary urgency, Denies vaginal discharge and Denies vaginal pruritus Musc Reports no additional complaints Skin/Breast Reports system reviewed and no additional complaints, except as documented Neuro Reports no additional complaints and Denies headache(s) Endo Reports no additional complaints and Denies fatigue Seymour/Lymph Reports no additional complaints Aller/Immun Reports no additional complaints Physical Exam Vital Signs: Last Vital Signs Temp 97.6 F 09/22/24 15:20 Pulse 74 09/22/24 15:20 BP 114/70 09/22/24 15:20 Pulse Ox 98 09/22/24 15:20 Oxygen Delivery Method Room Air 09/22/24 15:20 Patient is afebrile. Const General: cooperative, healthy appearing, comfortable, no acute distress, well developed, alert, awake and Physically active; No acute distress Nutritional Appearance: overweight Orientation/consciousness: patient oriented x3 Limitations: no limitations Cardio Rate: regular rate Rhythm: regular rhythm GI Palpation (GI): Soft to palpation, Tenderness to palpation present (GI) suprapubicly, no guarding and Bladder palpation abnormal Auscultation: normal bowel sounds General: Yes Bimanual renal exam normal bilaterally, Yes Bladder palpation abnormal tender; not distended and Yes no CVA tenderness Back/Spine/Pelvis Back: no CVA tenderness Skin General skin exam: no rashes or lesions noted Neuro General: patient oriented x3 Psych Appearance: grossly normal Mental Status: mental status grossly normal Insight: Good insight present (Psych) Judgement: Good judgement present (Psych) Results AMB Urinalysis, Automated UA Leukoctes 500 Nae/uL Last Edit by Cj Brandon [facility] on 09/22/24 15:31 UA Nitrite Negative Last Edit by Cj Brandon [facility] on 09/22/24 15:31 UA Urobilinogen 0.2 mg/dL Last Edit by JuliannaDuke Brandon [facility] on 09/22/24 15:31 UA Protein 15 mg/dL Last Edit by JuliannaDuke Brandon [facility] on 09/22/24 15:31 UA pH 7.0 Last Edit by JuliannaDuke Brandon [facility] on 09/22/24 15:31 UA Blood 25 Rakesh/uL Last Edit by Cj Brandon [facility] on 09/22/24 15:31 UA Specific [place] 1.015 Last Edit by JuliannaDuke Brandon [facility] on 09/22/24 15:31 UA Ketone Negative Last Edit by JuliannaDuke rBandon [facility] on 09/22/24 15:31 UA Bilirubin 0 mg/dL Last Edit by JuliannaDuke Brandon [facility] on 09/22/24 15:31 UA Glucose 0 mg/dL Last [facility] on 09/22/24 15:31 Results Reviewed Results Reviewed: Urinalysis is reviewed and is suspicious for acute UTI. Assessment & Plan Assessment & Plan (1) Dysuria: Comment: Urinalysis is consistent with an acute urinary tract infection. Given this patient's recurrent UTIs, patient will take Azo and await the results of the culture prior to prescribing antibiotic therapy. Patient is in agreement with this plan of care. Code(s): R30.0 - Dysuria Plan: Azo TID prn, increase clear fluids daily, PCP is informed about recurrent UTIs and will consider referral to Urology. Antibiotic therapy is NOT prescribed today -- urine cx. to be followed by Dr. Vasquez. Orders: Orders Urine Culture Today R30.0 - Dysuria AMB Urinalysis Automated Today Z13.9 - Encounter for screening, unspecified Coding Level of Care Code Est Pt Level 3 (85658) Diagnoses Dysuria R30.0 Time Spent (min) 20
[2024-09-22 15:20] VITALS: BP 114/70; PULSE 74; TEMP 36.4; O2SAT 98
--- OUTSIDE RECORDS SUMMARY | 2024-09-22 17:08 | XMS_ITS | Clinical Summary ---
Author Organization Unknown Care Team Providers Care Slip Seat Coverer Name Role Phone ALPHONSO MONCADA, OZZY REDD Unavailable Unavaila tisha KINGSLEY RN, NATALIE Unavailable Unavailable Payers Payer Name Policy Type Policy Number Effective Date Expira tion Date ZZZ [employer] MEDICARE ADVANTAGE FFS [id number] MEDICARE - [place] - PDGM [id number] Problems Condition Name Condition Details Condition Category Status Onset Date Resolution Date Last Treatment Date Treating Clinician Comments ANXIETY DISORDER, UNSPECIFIED Active 2023-09 00:00: 00 ESSENTIAL (PRIMARY) HYPERTENSION Active 2023-09 00:00: 00 TYPE 2 DIABETES MELLITUS WITH DIABETIC POLYNEUROPAT HY Active 2023-09 00:00: 00 ATHSCL HEART DISEASE OF [place] CORONARY ARTERY W/O ANG PCTRS Active 2023-09 00:00: 00 BODY MASS INDEX [BMI]30.0-30 .9, ADULT Active 2023-09 00:00: 00 HYPERLIPIDEM IA, UNSPECIFIED Active 2023-09 00:00: 00 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 Active 2023-09 00:00: [...] 2023-09 00:00: 00 07-06 23:59 :00 No [id number] Per instruc tions EVERY 12 HOURS Per instructio ns EVERY 12 HOURS (route: oral) Med Classific ation: Anti-Infe ctive Agents metronidazo le 500 mg tablet 2023-09 00:00: 00 07-06 00:00 :00 No [id number] Per instruc tions EVERY 8 HOURS Per instructio ns EVERY 8 HOURS (route: oral) Med Classific ation: Anti-Infe ctive Agents Trulicity 0.75 mg/0.5 mL subcutaneou s pen injector 2023-09 016 00:00: 00 07-06 00:00 :00 No [id number] Unavailable Per instruc tions 075 MG (05 ML) SUBCUTANEO USLY ONCE A WEEK Per instructio ns 075 MG (05 ML) SUBCUTANEO USLY ONCE A WEEK (route: subcutaneo us) Med Classific ation: Endocrine aspirin 81 mg tablet,timi yed release 2023-09 00:00: 00 Yes [id number] 1 tablet EVERY PM 1 tablet EVERY PM (route: oral) Med Classific ation: Hematolog ical Agents atorvastati n 80 mg tablet 2023-09 00:00: 00 Yes [id number] 1 tablet DAILY 1 tablet DAILY (route: oral) Med Classific ation: Cardiovas cular Therapy Agents metformin 500 mg tablet 2023-09 00:00: 00 Yes [id number] 1 tablet 2 TIMES DAILY 1 tablet 2 TIMES DAILY (route: oral) Med Classific ation: Endocrine metoprolol tartrate 50 mg tablet 2023-09 00:00: 00 Yes [id number] 1 tablet 2 TIMES DAILY 1 tablet 2 TIMES DAILY (route: oral) Med Classific ation: Cardiovas cular Therapy Agents Tresiba FlexTouch U-100 insulin 100 unit/mL (3 mL) subcutaneou s pen 2023-09 00:00: 00 Yes [id number] 42 unit DAILY 42 unit DAILY (route: subcutaneo us) Med Classific ation: Endocrine Ativan 0.5 mg tablet 2023-09 00:00: 00 Yes [id number] 1 tablet DAILY 1 tablet DAILY (route: oral) Med Classific ation: Central Nervous System Agents amoxicillin 875 mg-potassiu m clavulanate 125 mg tablet 2023-09 00:00: 00 07-08 23:59 :00 No [id number] 1 tablet 2 TIMES DAILY 1 tablet 2 TIMES DAILY (route: oral) Med Classific ation: Anti-Infe ctive Agents Vital Signs Vital Name Observation Time Observation Value Commen ts Temperature 2024-08-31 15:40:00.000 97.6 [degF] Temperature 2024-08-24 14:03:00.000 97.6 [degF] Temperature 2024-08-17 [...] Saturation (%) 2024-07-06 10:22:00.000 98 % Respirations 2024-08-31 15:40:00.000 16 /min Respirations 2024-08-24 14:03:00.000 16 /min Respirations 2024-08-17 13:49:00.000 16 /min Respirations 2024-08-10 12:34:00.000 16 /min Respirations 2024-08-03 15:03:00.000 16 /min Respirations 2024-07-27 12:29:00.000 16 /min Respirations 2024-07-19 14:07:00.000 16 /min Respirations 2024-07-15 13:57:00.000 16 /min Respirations 2024-07-13 12:51:00.000 16 /min Respirations 2024-07-08 14:37:00.000 16 /min Respirations 2024-07-06 10:21:00.000 18 /min Weight (lbs) 2024-07-06 10:21:00.000 175 [lb_av] Systolic Blood Pressure 2024-08-31 15:40:00.000 120 mm [Hg] Systolic Blood Pressure 2024-08-24 14:03:00.000 120 mm [...] 10:21:00.000 140 mm [Hg] Diastolic Blood Pressure 2024-08-31 15:40:00.000 70 mm [Hg] Diastolic Blood Pressure 2024-08-24 14:03:00.000 [...] AWARENESS FOR SAFETY AND WILL NOTIFY CLINICAL INVESTIGATIVE REPORTER AND PHYSICIAN/PROVIDER WITH ANY CHANGE IN CONDITION. [code = SKILLED NURSE WILL MAINTAIN SITUATIONAL AWARENESS FOR SAFETY AND WILL NOTIFY CLINICAL INVESTIGATIVE REPORTER AND PHYSICIAN/PROVIDER WITH ANY CHANGE IN CONDITION.] Future Scheduled Test SKILLED NU RSE TO PROVIDE INSTRUCTION TO PATIENT/CAREGIVER RELATED TO DISCHARGE PLANNING. [code = SKILLED NURSE TO PROVIDE INSTRUCTION TO PATIENT/CAREGIVER RELATED TO DISCHARGE PLANNING. ] Goal 2024-08-31 Patient Goal - P ATIENT VERBALIZES GOAL OF IMPROVING STAMINA Goal Provider Goal - A PLAN OF CARE WILL BE ESTABLISHED THAT MEETS PATIENT'S SNF NEEDS AND INCLUDES PATIENT GOAL FOR HOME [...] DISCHARGE PLANNING INSTRUCTIONS BY DATE OF DISCHARGE. Reason for Visit INDEPENDENT IN THE COMMUNITY Encounters Start Date/Time End Date/Time Encounter Type Admission Type Attending Page [facility] Care Department Encounter ID Discharge Date Discharge Status Discharge Condition Discharge Reason Percent Goals Met 2024-07-06 00:00:00 2024-08-31 00:00:00 Outpatient NEW ADMISSION TEETEE NATALIE [facility] [id number] 2024-08-31 00:00:00 DISCHARGE TO HOME OR SELF CARE INDEPENDEN T IN THE COMMUNITY GOALS MET ( ONLY) 87.23
== END 2024-09-22 16:06 | disposition home or self-care (01) ==
PROVIDERS: PCP Internal Medicine; Visit Provider Physician Assistant
DX: Z13.9 Encounter for screening, unspecified (principal); R30.0 Dysuria

== ENCOUNTER 2024-09-22 14:41 | Outpatient (REF) | payer MEDICARE, MEDICAID, SELFPAY | END 2024-09-22 14:42 | disposition home or self-care (01) | LOC: HO.LNP 14:41 | PROVIDERS: PCP Internal Medicine; Visit Provider Physician Assistant | DX: R30.0 Dysuria (principal) | CPT/HCPCS: 81003; 87086; 87088; 87186; 99212 ==

== ENCOUNTER → 2024-09-23 10:28 | Outpatient (BNVA) | payer MEDICARE, MEDICAID, SELFPAY | PROVIDERS: PCP Internal Medicine; Visit Provider Clinical Nurse Specialist Psychiatric/Mental Health | DX: F41.1 Generalized anxiety disorder (principal); F41.0 Panic disorder [episodic paroxysmal anxiety]; Z71.89 Other specified counseling | CPT/HCPCS: 99212 ==

== ENCOUNTER 2024-11-04 12:34 | Outpatient (REF) | payer MEDICARE, MEDICAID, SELFPAY ==
--- OUTSIDE RECORDS SUMMARY | 2024-11-04 15:05 | XMS_ITS | Patient Health Record ---
Author Organization [facility] Address [address] [place] [address] Care Team Providers Care Product Communications Manager Name Role Phone Christina MONCADA, Jasmine Escalera Primary Care Provider Un available Trena Trejo Unavailable [phone] Reason For Referral No Information Encounters Encounter Location Date Provider Diagnosis [facility] [address] [place] [address] 10/22/2024 Trena Trejo Plan Of Treatment Next Appt Details Provider Name:Trena blount, 12/31/2024 10:30:00 AM, [address] [place], [address], Insurance Providers Payer Name Payer Address Payer Phone Subscriber Number Group Number Insured Name Patient Relationship to Insured Coverage Start Date Coverage End Date [employer] [id number] JERRY Wade [phone] [id number] Savanna Fernandez Self - patient is the insured
--- OUTSIDE RECORDS SUMMARY | 2024-11-04 15:05 | XMS_ITS ---
Author Organization [facility] Address [address] [place] [address] Care Team Providers Care Diver Pumper Name Role Phone Christina MONCADA, Jasmine Escalera Primary Care Provider Un available Trena Trejo Unavailable [phone] REASON FOR VISIT CIS COORDINATOR Encounters Encounter Location Date Provider Diagnosis [address] [address] 10/22/2024 Trena Trejo Plan Of Treatment Next Appt Details Provider Name:Trena blount, 12/31/2024 10:30:00 AM, [address] [place], [address], Progress Notes * Savanna NEGRONDOB: 5 (79 yo F)Acc No.[id number]:10/22/2024 Patient:?Savanna NEGRON :1945???Age:79 Y???Sex:Female Address:[address] [place] [address] [address] , [place], [address] * true * Date:? Generated for Daniellei subha/Kevin/eTransmitting on:?11/04/2024 03:05 PM EST
[2024-11-04 16:50] LABS: Estimated Average Glucose 146 mg/dL; Hemoglobin A1c % 6.7 % (<6.0)
[2024-11-04 17:03] LABS: Alanine Aminotransferase 24 U/L (0-31); Albumin Level 3.8 g/dL (3.5-5.0); Alkaline Phosphatase 75 U/L (39-117); Anion Gap 13 (12-20); Aspartate Amino Transferase 34 U/L (5-31); Bilirubin Total 1.6 mg/dL (0.0-1.0); Blood Urea Nitrogen 13 mg/dL (9-16); Calcium 9.3 mg/dL (8.4-10.2); Carbon Dioxide 27 mmol/L (22-29); Chloride 102 mmol/L (96-108); Cholesterol 117 mg/dL (<200); Estimated Glomerular Filt Rate 54; Glucose Fasting 136 mg/dL (60-99); HDL Cholesterol 49 mg/dL (>40); LDL Cholesterol Calculated 49 mg/dL (<100); Potassium 4.5 mmol/L (3.3-5.1); Sodium 137 mmol/L (135-145); Total Protein 6.9 g/dL (6.5-8.0); Triglycerides 97 mg/dL (<150)
[2024-11-04 17:21] LABS: Vitamin D 25-OH Total 63.8 ng/mL (>30)
[2024-11-04 17:31] LABS: Creatinine Urine 116.23 mg/dL; Microalbum/Creatinine Ratio Ur 30.1 ug/mg cr (<30)
== END 2024-11-04 12:35 | disposition home or self-care (01) ==
LOC: HO.HMGCLDS 12:34
PROVIDERS: PCP Internal Medicine; Visit Provider Internal Medicine
DX: E66.9 Obesity, unspecified (principal); I10 Essential (primary) hypertension; I25.10 Atherosclerotic heart disease of native coronary artery without angina pectoris; E11.42 Type 2 diabetes mellitus with diabetic polyneuropathy; E78.5 Hyperlipidemia, unspecified
CPT/HCPCS: 36415; 80053; 80061; 82043; 82306; 82570; 83036

== ENCOUNTER 2024-11-05 11:21 | Outpatient (AMB) | payer MEDICARE, MEDICAID, SELFPAY ==
--- NOTE | 2024-11-05 11:17 | MHC.PC.OV ---
Intake Visit Reasons: f/u labs [phone] Andriod Allergies codeine [CODEINE] Allergy (Intermediate, Verified 11/05/24 11:32) HIVES morphine [MORPHINE] Allergy (Intermediate, Verified 11/05/24 11:32) HIVES oxycodone [OXYCODONE] Allergy (Intermediate, Verified 11/05/24 11:32) HIVES Sulfa (Sulfonamide Antibiotics) [SULFA (SULFONAMIDE ANTIBIOTICS)] Allergy (Intermediate, Verified 11/05/24 11:32) DEHYDRATION, hives, hives levofloxacin Allergy (Verified 11/05/24 11:32) Hallucinations cefpodoxime Adverse Reaction (Intermediate, Verified 11/05/24 11:32) uknown phenazopyridine Adverse Reaction (Intermediate, Verified 11/05/24 11:32) Unknown OPIATES Allergy (Unknown, Uncoded 11/05/24 11:32) hives Medication List - Last Reconciled 11/05/24 by Jasmine Vasquez MD aspirin 81 mg PO DAILY atorvastatin 80 mg PO DAILY BD Ultra-Fine Short Pen Needle (pen needle, diabetic) As directed once a day NS blood sugar diagnostic ([employer] Verio test strips) 3 times a day blood-glucose meter (Deal Pepper Verio Flex Meter) 3 times a day cefuroxime axetil 250 mg PO BID cholecalciferol (vitamin D3) 25 mcg PO DAILY famotidine-Ca carb-mag hydrox 10-800-165 mg (Acid Hand Painter Complete (famotidine)) 1 tab PO BEDTIME PRN flash glucose scanning reader (FreeStyle Halina 2 Weiner) use as directed flash glucose sensor (FreeStyle Halina 2 Sensor kit) use As directed hydrochlorothiazide 25 mg PO QAM insulin degludec (Tresiba FlexTouch U-100 insulin) 42 units subcut QAM lancets (OneTouch Delica Lancets) 3 times a day lisinopril 20 mg PO DAILY lorazepam 0.5 mg PO DAILY PRN metformin 500 mg PO BID 90 days metoprolol tartrate 50 mg PO BID pen needle, diabetic use for injecting med once a day Trulicity (dulaglutide) 0.75 mg (0.5 mL) subcut QWEEK NS Tobacco use date assessed: 11/05/24 Fall risk assessment: No Falls in past year Last assessed Fall Risk: 11/05/24 Dental Screening Dental Screen Date: 11/05/24 Did you have a dental visit in the last 12 months?: Yes Did you have a dental problem in the last 6 months where you did not have access to dental care?: Yes Was dental information given to patient?: Patient has dentist HPI f/u labs [phone] Andriod HPI Details 79-year-old lady with dyslipidemia, diabetes mellitus, hypertension, and anxiety disorder, here for Telehealth visit for follow-up . She has been feeling well, no longer sees psychiatrist, currently taking lorazepam only as needed for acute attacks of anxiety which has been helping. She tries to stay active visits her children 2 to 3 times a week. Has been compliant with taking her medications but admits to not being fully compliant with her diet. Recent fasting labs showed hemoglobin A1c at 6.7%, with fasting lipids showing results within normal limits. 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 Spondylosis of lumbar region without myelopathy or radiculopathy Sacroiliitis Surgical History Stented coronary artery Hx of shoulder surgery History of back surgery Hx of section Hx of hysterectomy Hx of colonoscopy Family History Father Colon cancer Family history of prostate cancer in father Mother Diabetes CVA (cerebral vascular accident) Social History Housing: Apartment Alcohol intake: current Patient Tobacco Use Status: Former Tobacco user Years Smoked: 2 e-Cigarette/Vaping Use: Never Used Advance Directives Date on File: 06/01/24 service: No Current occupational status: retired Cognitive needs: No Hearing needs: No Vision needs: No Questionnaire PHQ-9 Over the last 2 weeks, how often have you been bothered by any of the following problems? 1. Little interest or pleasure in doing things: not at all 2. Feeling down, depressed, or hopeless: not at all 3. Trouble falling or staying asleep, or sleeping too much: not at all 4. Feeling tired or having little energy: not at all 5. Poor appetite or overeating: not at all 6. Feeling bad about yourself - or that you are a failure or have let yourself or your family down: not at all 7. Trouble concentrating on things, such as reading the newspaper or watching television: not at all 8. Moving or speaking so slowly that other people could have noticed. Or the opposite - being so fidgety or restless that you have been moving around a lot more than usual: not at all 9. Thoughts that you would be better off or of hurting yourself in some way: not at all Total score: 0 Depression Screening Interpretation: Negative Depression Screening Done: Yes 77209 - PHQ-9 Billing: Yes Source: Developed by Drs. Golden Moe, Palma Sullivan, Devin Orozco and colleagues, with an educational arlen from [employer]. Thrive Questionnaire Date Thrive assessed: 11/05/24 I am a: Patient What is your living situation today?: I have a steady place to live Within the past 12 months, did the food you bought not last and you didn't have the money to get more?: Never true Within the past 12 months, did you worry whether your food would run out before you got money to buy more?: Never true Do you have trouble paying for medicines?: No Do you have trouble getting transportation to medical appointments?: No Do you have trouble paying your heating and electricity bill?: No Do you have trouble taking care of your child, family member or friend?: No Do you have trouble with day-to-day activities such as bathing, preparing meals, shopping, managing finances, etc.?: No Are you currently unemployed and looking for a job?: No Are you interested in more education?: No Please select the resources that you would like help with: None THRIVE Score: 0 AUDIT C Alcohol Use Questionnaire (AUDIT-C) 1. How often do you have a drink containing alcohol?: Never Total Score: 0 SACHA-7 AMB Questionnaire SACHA-7 Date SACHA - 7 assessed: 11/05/24 Feeling nervous, anxious, or on edge: 0 = Not at all Not being able to stop or control worryin = Not at all Worrying too much about different things: 1 = Several days Trouble relaxin = Not at all Being so restless that it is hard to sit still: 0 = Not at all Becoming easily annoyed or irritable: 0 = Not at all Feeling afraid as if something awful might happen: 0 = Not at all Total SACHA-7 score (0-4 normal; 5-9 mild; 10-14 moderate; 15-21 severe): 1 Source: Developed by Drs. Golden Moe, Palma Sullivan, Devin Orozco and colleagues, with an educational arlen from [employer]. SACHA-7 Assessment Billing SACHA-7 Assessment Tool: SACHA-7 Assessment 81932 Review of Systems Const Denies chills, Denies fatigue, Denies fever(s) and Denies headache(s) Eyes Reports no additional complaints ENT Reports no additional complaints and Denies headache(s) Card Reports no additional complaints Resp Reports no additional complaints GI Reports no additional complaints Reports dysuria, Denies urinary incontinence, Denies urinary hesitancy, Reports urinary urgency, Denies vaginal discharge and Denies vaginal pruritus Musc Reports no additional complaints Neuro Reports no additional complaints and Denies headache(s) Psych Reports no additional complaints Endo Reports no additional complaints and Denies fatigue Seymour/Lymph Reports no additional complaints Aller/Immun Reports no additional complaints Physical exam (Primary Care) Tobacco/Smoking Status: Tobacco use Status Tobacco use date assessed 11/05/24 11/05/24 11:20 Patient Tobacco Use Status Former Tobacco user 11/05/24 11:20 e-Cigarette/Vaping Use Never Used 11/05/24 11:20 Depression Screening Interpretation: Negative Thrive Assessment: Date of Thrive Assessment Date Thrive assessed 10/30/24 11/05/24 11:20 Telehealth Telehealth Telehealth Platform: [facility] Location of provider rendering services: practice address Location of patient: address on file Patient Identification confirmed using: Name, : Yes Telehealth method: video Patient verbally consented to treatment: Yes Patient verbally consented to billing insurance company: Yes Patient informed of any privacy concerns related to visit: Yes Minutes spent on Phone/Video with Pt.: 15 Results Reviewed Results Reviewed: Laboratory Tests 11/04/24 11/04/24 12:37 12:45 Estimat Average Glucose 146 Hemoglobin A1c % 6.7 H Urine Creatinine 116.23 Urine Microalbumin 35.0 Microalb/Creat Ratio 30.1 H Name: Savanna Fernandez Age/Sex: 79/F : 1945 Unit#: [id number] Attend Dr: Jasmine Vasquez MD Re11/04/24 Status: DEP [facility]: SPEC : [id number] JEFRY: 11/04/24 STATUS: COMP REQ : [id number] RECD: 11/04/[address]: Jasmine Vasquez MD COMP: 11/04/24 ENTERED: 11/04/[address]: ORDERED: CMP Fast, Lipid Panel, Vitamin D 25-OH Test Result Flag Reference Sodium 137 135-145 mmol/L Potassium 4.5 3.3-5.1 mmol/L CL 102 96-108 mmol/L CO2 27 22-29 mmol/L Gap 13 12-20 BUN 13 9-16 mg/dL Creat 0.99 0.5-1.4 mg/dL eGFR 54 Chronic Kidney Disease: Estimated GFR < 60 mL/min/1.73m2 Severe Kidney Disease: Estimated GFR < 15 mL/min/1.73m2 FBS 136 H 60-99 mg/dL A fasting glucose of 126 mg/dl or greater on more than one occasion is considered diagnostic of diabetes. CA 9.3 8.4-10.2 mg/dL Total Bili 1.6 H 0.0-1.0 mg/dL AST (GOT) 34 H 5-31 U/L ALT (GPT) 24 0-31 U/L Protein, Total 6.9 6.5-8.0 g/dL Alb 3.8 3.5-5.0 g/dL Triglyceride 97 <150 mg/dL Desirable Triglyceride: less than 150 mg/dL Borderline High Triglyceride 150-199 mg/dL High Triglyceride: 200-499 mg/dL Very High Triglyceride: greater than or equal to 5OO mg/dL Cholesterol 117 <200 mg/dL Desirable Cholesterol: less than 200 mg/dL Borderline High Cholesterol: 200-239 mg/dL High Cholesterol: greater than 239 mg/dL LDL Calculated 49 <100 mg/dL Desirable LDL: less than 100 mg/dL Near Optimal/Above Optimal LDL: 110-129 mg/dL Borderline High LDL: 130-159 mg/dL High LDL: 160-189 mg/dL Very High LDL: greater than or equal to 190 mg/dL HDL 49 >40 mg/dL Desirable HDL: greater than 40 mg/dL Note: This HDL assay may give artificially low results in patients with liver disease. Alk Phos 75 39-117 U/L Vit D 25-OH Tot 63.8 >30 ng/mL Health Based Reference Values* < 20 ng/mL Deficient 20-30 ng/mL Insufficient > 30 ng/mL Sufficient Coding Level of Care Code Tele Est Pt Level 4 (41210) Complex EM visit Add On G2211 Diagnoses 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 type 2 diabetes mellitus E11.42 Dyslipidemia E78.5 Essential hypertension I10 Generalized anxiety disorder with panic attacks F41.1; F41.0 Additional Codes PHQ-9 - 60193 - PHQ-9 Billing: Yes ([id number]) SACHA-7 Assessment Billing - SACHA-7 Assessment Tool: SACHA-7 Assessment 36539 ([id number]) Assessment & Plan Assessment & Plan (1) 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 type 2 diabetes mellitus: Code(s): E11.42 - Type 2 diabetes mellitus with diabetic polyneuropathy Category: Medical Plan: Latest hemoglobin A1c at 6.7%, continue on metformin 500 mg 1 tablet twice a day together with Tresiba 42 units in the morning, and Trulicity 0.75 mg injected subcutaneously once weekly. Will see her back for follow-up in 03/2025, reminded to get fasting labs done prior to appointment (2) Dyslipidemia: Code(s): E78.5 - Hyperlipidemia, unspecified Category: Medical Plan: Continued on atorvastatin 80 mg daily reinforced importance of following a low-cholesterol diet and staying active, get regular exercise (3) Essential hypertension: Code(s): I10 - Essential (primary) hypertension Category: Medical Plan: Continue lisinopril 20 mg daily and hydrochlorothiazide 25 mg in the morning (4) Generalized anxiety disorder with panic attacks: Code(s): F41.1 - Generalized anxiety disorder; F41.0 - Panic disorder [episodic paroxysmal anxiety] Category: Medical Plan: Takes lorazepam as needed, no longer sees psychiatry or therapist, does not feel the need to see 1 at present time. Orders: Orders Lipid Panel 03/01/25 E11.42 - Type 2 diabetes mellitus with diabetic polyneuropathy, E66.9 - Obesity, unspecified, E78.5 - Hyperlipidemia, unspecified, F41.0 - Panic disorder [episodic paroxysmal anxiety], F41.1 - Generalized anxiety disorder, I10 - Essential (primary) hypertension, I25.10 - Atherosclerotic heart disease of [place] coronary artery without angina pectoris, Z79.4 - penitentiary (current) use of insulin Hemoglobin A1c 03/01/25 E11.42 - Type 2 diabetes mellitus with diabetic polyneuropathy, E66.9 - Obesity, unspecified, E78.5 - Hyperlipidemia, unspecified, F41.0 - Panic disorder [episodic paroxysmal anxiety], F41.1 - Generalized anxiety disorder, I10 - Essential (primary) hypertension, I25.10 - Atherosclerotic heart disease of [place] coronary artery without angina pectoris, Z79.4 - penitentiary (current) use of insulin Comprehensive [place]. 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
--- OUTSIDE RECORDS SUMMARY | 2024-11-05 13:12 | XMS_ITS ---
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 Generated for Daniellei subha/Kevin/eTransmitting on:?11/05/2024 01:11 PM EST
== END 2024-11-05 12:29 | disposition home or self-care (01) ==
LOC: HO.HMCC 11:21
PROVIDERS: PCP Internal Medicine; Visit Provider Internal Medicine
DX: E11.42 Type 2 diabetes mellitus with diabetic polyneuropathy (principal); E78.5 Hyperlipidemia, unspecified; I10 Essential (primary) hypertension; F41.1 Generalized anxiety disorder; F41.0 Panic disorder [episodic paroxysmal anxiety]

== ENCOUNTER → 2024-11-05 11:21 | Outpatient (BNVA) | payer MEDICARE, MEDICAID, SELFPAY | PROVIDERS: PCP Internal Medicine; Visit Provider Internal Medicine | DX: E11.42 Type 2 diabetes mellitus with diabetic polyneuropathy (principal); E78.5 Hyperlipidemia, unspecified; I10 Essential (primary) hypertension; F41.1 Generalized anxiety disorder; F41.0 Panic disorder [episodic paroxysmal anxiety] | CPT/HCPCS: 96127 ==

== ENCOUNTER 2024-11-22 12:54 | Outpatient (REF) | payer MEDICARE, MEDICAID, SELFPAY | END 2024-11-22 12:55 | disposition home or self-care (01) | LOC: HO.LNP 12:54 | PROVIDERS: PCP Internal Medicine; Visit Provider Nurse Practitioner Family | DX: N39.0 Urinary tract infection, site not specified (principal); R33.9 Retention of urine, unspecified | CPT/HCPCS: 51798; 81003; 87086; 99202 ==

== ENCOUNTER 2024-11-22 12:54 | Outpatient (AMB) | payer MEDICARE, MEDICAID, SELFPAY ==
--- NOTE | 2024-11-22 13:16 | MHC.OFFVIS ---
"Intake Visit Reasons: recurrent UTI Intake Note: New Patient presents for initial visit for recurrent uti Urology Medications: none Blood Thinner: asa PVR: 97ml's Panelboard Assembler Required: No Accompanied by: Self / Same As Patient Allergies codeine [CODEINE] Allergy (Intermediate, Verified 11/22/24 14:34) HIVES morphine [MORPHINE] Allergy (Intermediate, Verified 11/22/24 14:34) HIVES oxycodone [OXYCODONE] Allergy (Intermediate, Verified 11/22/24 14:34) HIVES Sulfa (Sulfonamide Antibiotics) [SULFA (SULFONAMIDE ANTIBIOTICS)] Allergy (Intermediate, Verified 11/22/24 14:34) DEHYDRATION, hives, hives levofloxacin Allergy (Verified 11/22/24 14:34) Hallucinations cefpodoxime Adverse Reaction (Intermediate, Verified 11/22/24 14:34) uknown phenazopyridine Adverse Reaction (Intermediate, Verified 11/22/24 14:34) Unknown OPIATES Allergy (Unknown, Uncoded 11/22/24 14:34) hives Medication List - Last Reconciled 11/22/24 by AURA Christine- aspirin 81 mg PO DAILY atorvastatin 80 mg PO DAILY BD Ultra-Fine Short Pen Needle (pen needle, diabetic) As directed once a day NS blood sugar diagnostic (Cooledge Lightinguch Verio test strips) 3 times a day blood-glucose meter (Cooledge Lightinguch Verio Flex Meter) 3 times a day cholecalciferol (vitamin D3) 25 mcg PO DAILY estradiol 0.01%(0.1mg/gram) 2 grams vaginal DAILY 90 days famotidine-Ca carb-mag hydrox 10-800-165 mg (Acid Java Lead Engineer Complete (famotidine)) 1 tab PO BEDTIME PRN flash glucose scanning reader (FreeStyle Halina 2 [place]) use as directed flash glucose sensor (FreeStyle Halina 2 Sensor kit) use As directed hydrochlorothiazide 25 mg PO QAM insulin degludec (Tresiba FlexTouch U-100 insulin) 42 units subcut QAM lancets (OneTouch Delica Lancets) 3 times a day lisinopril 20 mg PO DAILY lorazepam 0.5 mg PO DAILY PRN metformin 500 mg PO BID 90 days metoprolol tartrate 50 mg PO BID pen needle, diabetic use for injecting med once a day Trulicity (dulaglutide) 0.75 mg (0.5 mL) subcut QWEEK NS HPI Comments Details: Savanna is a pleasant 79-year-old female patient of . She has a past medical history of depression, recurrent urinary tract infections, anxiety, arthritis, hypertension, atherosclerotic cardiovascular disease, obesity, dyslipidemia, type 2 diabetes, and spondylosis of lumbar region. She presents to the office today as a new patient for recurrent urinary tract infections. In discussion with the patient today she reports noting over the last 18 months to be having issues with recurrent urinary tract infections and following up with urgent care as well as PCP at which time recommendations were made for urology referral for further assessment evaluation. She reports typically UTI like symptoms are dysuria, painful urination, and bladder discomfort. She reports having had UTI like symptoms approximately 2 weeks ago however started azo and felt symptoms improved. In office urinalysis results reviewed with the patient today 3+ leukocytes negative nitrates. We discussed potential causes of recurrent urinary tract infections as well as further treatment options and risks and benefits of these treatment options. PVR 97 mL. She discusses the loss of her 6 months ago. She discussed staying busy and feels this has been helpful. She also discusses having trialed vinegar douches. She discusses a previous history of bowel issues however feels symptoms have resolved. She reports having had colitis June of last year. She currently denies urinary urgency, urinary frequency, incontinence, hematuria, dysuria, foul smelling urine, changes to urinary stream, flank pain, fever, and or chills. She does report nocturia however feels symptoms are managed independently. She denies any signs or symptoms of sleep apnea. She is happy with her current voiding parameters. In review of patient's chart it appears urine cultures are as follows: 04/21 E coli, 05/23 Pseudomonas aeruginosa, 05/24 E coli, 02/22 E coli, 05/25 E coli, 08/24 E coli, 08/24 Pseudomonas aeruginosa, 09/25 Pseudomonas aeruginosa [facility] Medical History Major depressive disorder, single episode, moderate Recurrent UTI Depression with anxiety Generalized anxiety disorder with panic attacks Arthritis of carpometacarpal (CMC) joint of right thumb Tenosynovitis of right wrist Dermatitis, contact Elevated vitamin B12 level Essential hypertension Atherosclerotic cardiovascular disease Obesity (BMI 30-39.9) Dyslipidemia 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 type 2 diabetes mellitus pen[facility]iary (current) use of insulin Spondylosis of lumbar region without myelopathy or radiculopathy Sacroiliitis Surgical History Stented coronary artery Hx of shoulder surgery History of back surgery Hx of section Hx of hysterectomy Hx of colonoscopy Family History Father Colon cancer Family history of prostate cancer in father Mother Diabetes CVA (cerebral vascular accident) Social History Housing: Apartment Alcohol intake: current Patient Tobacco Use Status: Former Tobacco user Years Smoked: 2 e-Cigarette/Vaping Use: Never Used Advance Directives Date on File: 06/01/24 service: No Current occupational status: retired Cognitive needs: No Hearing needs: No Vision needs: No Review of Systems Eyes Reports no additional complaints ENT Reports no additional complaints Card Reports as per HPI Resp Reports no additional complaints GI Reports as per HPI Reports as per HPI Musc Reports as per HPI Neuro Reports no additional complaints Psych Reports as per HPI Endo Reports as per HPI Seymour/Lymph Reports no additional complaints Aller/Immun Reports no additional complaints Physical Exam Const General: cooperative, healthy appearing, comfortable, no acute distress, well developed, alert and awake Orientation/consciousness: patient oriented x3 Limitations: no limitations HEENT Head: Yes normal to inspection, Yes normocephalic and Yes atraumatic Ears: hearing grossly normal bilaterally Eyes General: appearance normal, both eyes and all related structures Neck Neck: Yes normal visual inspection and Yes trachea midline Chest Chest palpation & inspection: normal inspection of the chest Resp Effort & Inspection: normal respiratory effort and able to speak in complete sentences Cardio Rate: regular rate GI Inspection: Yes normal to inspection General: Yes no CVA tenderness Back/Spine/Pelvis Back: no CVA tenderness Skin General skin exam: no rashes or lesions noted Neuro General: patient oriented x3 Extrem General: Yes normal to inspection Psych Appearance: grossly normal and well kempt Mental Status: mental status grossly normal Speech and movement: Normal speech and movement present and Clear speech present Affect: normal affect Attitude: cooperative Thought process: Normal thought process present Thought content: Normal thought content present Insight: Fair insight present (Psych) Judgement: Fair judgement present (Psych) Office Procedures Post Void Residual Post Residual Void Post Void Residual (PVR): 97 [id number] Void Residual by ultrasound Results AMB Urinalysis, Automated UA Leukoctes 500 Nae/uL Last Edit by Gita Oneil on 11/22/24 13:46 UA Nitrite Last Edit by Gita Oneil on 11/22/24 13:46 UA Urobilinogen 0.2 mg/dL Last Edit by Gita Oneil on 11/22/24 13:46 UA Protein 15 mg/dL Last Edit by NeedFeedjunie OneWheellillie on 11/22/24 13:46 UA pH 7.5 Last Edit by ePaisa - [employer]ments Anytime | Anywherelillie on 11/22/24 13:46 UA Blood 0 Rakesh/uL Last Edit by Fast Orientationjerrica OneWheellillie on 11/22/24 13:46 UA Specific [place] 1.010 Last Edit by Fast Orientationjerrica Oneil on 11/22/24 13:46 UA Ketone Last Edit by NeedFeedjunie Oneil on 11/22/24 13:46 UA Bilirubin 0 mg/dL Last Edit by Fast Orientationjerrica OneWheellillie on 11/22/24 13:46 UA Glucose 0 mg/dL Last Edit by ePaisa - [employer]ytime | Anywherelillie on 11/22/24 13:46 Results Reviewed Results Reviewed: Laboratory Last Values Urine pH (Auto) 7.5 11/22/24 13:40 Specific [place] (Auto) 1.010 11/22/24 13:40 Urine Protein (Auto) 15 mg/dL 11/22/24 13:40 Glucose (UA)(Auto) 0 mg/dL 11/22/24 13:40 Urine Blood (Auto) 0 Rakesh/uL 11/22/24 13:40 Urine Bilirubin (Auto) 0 mg/dL 11/22/24 13:40 Urine Urobilinogen (Auto) 0.2 mg/dL 11/22/24 13:40 Leukocyte Esterase (Auto) 500 Nae/uL 11/22/24 13:40 Assessment & Plan Assessment & Plan (1) Recurrent UTI: Code(s): N39.0 - Urinary tract infection, site not specified Category: Medical (2) Incomplete bladder emptying: Code(s): R33.9 - Retention of urine, unspecified Category: Medical Plan In office urinalysis results reviewed with the patient today; as noted above; will send for urine culture; will await results for potential treatment PVR 97 mL. We discussed at length potential causes of recurrent urinary tract infections as well as further treatment options and risks and benefits of these treatment options. Will obtain retroperitoneal ultrasound for further assessment evaluation. Discussed UTI prevention with D mannose supplement, vitamin-C, increasing fluid intake, behavioral therapy with timed voiding, perineal hygiene and postcoital voiding, and management of constipation with stool softeners and increased fiber intake. Start Estrace cream as discussed and prescribed. We discussed attempting to double void to assist with bladder emptying. We discussed potential near future in office cystoscopy if symptoms continue and or persists. Follow-up in 1-3 months with imaging and PVR; or sooner with any issues, concerns, and or questions. Orders: Orders AMB Urinalysis Automated Today Z13.9 - Encounter for screening, unspecified AMB Post Void Residual by ultrasound Today N39.0 - Urinary tract infection, site not specified US retroperitoneal comp Today N39.0 - Urinary tract infection, site not specified Medications: New estradiol 0.01%(0.1mg/gram) Pea-sized amount to urethra daily x1 month and then 3 times per week thereafter 2 grams vaginal DAILY 90 days 42.5 grams 2RF N30.20 - Other chronic cystitis without hematuria, N39.0 - Urinary tract infection, site not specified, N95.2 - Postmenopausal atrophic vaginitis Patient Instructions: The patient had an opportunity to ask questions regarding the treatment plan. All questions were answered. Physical exam, labs, and imaging were discussed and reviewed in detail. As well as risks, benefits, and discussion of treatment choices. No major barriers to understanding were identified. The patient expressed understanding and agreement with the above treatment plan. The patient was made aware they should contact our office by phone for worsening of their current condition, the appearance of new symptoms, or with any questions or concerns. Compliance is encouraged with any medications and follow up testing that is ordered. It is a privilege to be allowed the opportunity to participate in? your urological care.? Again, if you have any questions or concerns If you have any questions or concerns please do not hesitate to contact me. The office is [phone]. This note is constructed using voice recognition software. While every effort has been made to ensure accuracy home designer errors may have been included. Yours sincerely, AURA Christine-BC Coding Level of Care Code New Pt Level 4 (75097) Diagnoses Recurrent UTI N39.0 Incomplete bladder emptying R33.9 CPT Codes Post Residual Void - PVR CPT Code: 56924-Aomq Void Residual by ultrasound ([id number])"
== END 2024-11-22 14:06 | disposition home or self-care (01) ==
LOC: HO.HUSH 12:55
PROVIDERS: PCP Internal Medicine; Visit Provider Nurse Practitioner Family
DX: N39.0 Urinary tract infection, site not specified (principal); R33.9 Retention of urine, unspecified; Z13.9 Encounter for screening, unspecified
CPT/HCPCS: 99204

== ENCOUNTER 2024-12-16 09:20 | Outpatient (REF) | payer OTHER, SELFPAY ==
--- OUTSIDE RECORDS SUMMARY | 2024-12-16 10:31 | XMS_ITS ---
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 Generated for Daniellei subha/Kevin/eTransmitting on:?12/16/2024 10:31 AM EDT
--- OUTSIDE RECORDS SUMMARY | 2024-12-16 10:31 | XMS_ITS | Patient Health Record ---
Author Organization [facility] Address [address] [place] [address] Care Team Providers Care Interior Design Director Name Role Phone Christina MONCADA, Jasmine Escalera Primary Care Provider Un available Trena Trejo Unavailable [phone] Allergies Allergen (clinical drug ingredient) Drug/Non Drug Allergy documented on EMR Reaction Allergy Type Onset Date Status sulfamethoxazole / trimethoprim Bactrim Unknown Drug Allergy Active codeine Codeine Unknown Drug Allergy Active morphine Morphine Unknown Drug Allergy Active Reason For Referral No Information Social History Tobacco Use: Social History Observation Description Date Details (start date - stop date) Never Smoker NA - NA Tobacco use other than smoking: Question Answer Notes Are you an other tobacco user? No Tobacco Control (Standard) Question Answer Notes Tobacco use: Nonsmoker Additional Findings: Tobacco non-user Current no nsmoker AUDIT-C (Standard) Question Answer Notes Did you have a drink containing alcohol in the p ast year? No Points 0 Interpretation Negative Encounters Encounter Location Date Provider Diagnosis [facility] [address] [place] [address] 10/22/2024 Trena Trejo Plan Of Treatment Next Appt Details Provider Name:Trena blount, 12/31/2024 10:30:00 AM, [address] [place] [address], [id number], Insurance Providers Payer Name Payer Address Payer Phone Subscriber Number Group Number Insured Name Patient Relationship to Insured Coverage Start Date Coverage End Date [employer] [address] [place] [address] [id number] Savanna Fernandez Self - patient is the insured Medical (General) History Medical History History ICD Code Anxiety Diabetic High Blood Pressure Reflux ( GERD) Sciatica Heart valve conditions/replacement Heart disease Surgical History Surgery Date(Month/Year) Colitis
[2024-12-16 13:56] LABS: Appearance Urine Cloudy; Color Urine Yellow; Glucose Urine UA Negative (Negative); Leukocyte Esterase Urine Large (3+) (Negative); Nitrite Urine Negative (Negative); Specific Gravity - Urine 1.015 (1.005-1.025); UMIC TRIGGER UA YES; Urine Blood Trace (Negative); Urine Ketones Negative (Negative); Urine Protein Trace mg/dL (Neg-Trace)
[2024-12-16 14:02] LABS: Bacteria Urine Trace (None Seen); Hyaline Casts Urine 0-2 /LPF (0-2); RBC Urine 0-2 /HPF (0-2); Squamous Epithelial Cell Urine 0-2 /HPF (0-2); WBC Urine >50 /HPF (0-5)
== END 2024-12-16 09:21 | disposition home or self-care (01) ==
LOC: HO.HMGCLDS 09:20
PROVIDERS: PCP Internal Medicine; Visit Provider Nurse Practitioner Family
DX: N39.0 Urinary tract infection, site not specified (principal)
CPT/HCPCS: 81001; 87086; 87088; 87186

== ENCOUNTER → 2025-01-05 11:12 | Outpatient (BNVA) | payer OTHER, SELFPAY | PROVIDERS: PCP Internal Medicine; Visit Provider Nurse Practitioner Family | DX: Z13.89 Encounter for screening for other disorder (principal) ==

== ENCOUNTER 2025-01-12 12:44 | Outpatient (AMB) | payer OTHER, MEDICAID, SELFPAY ==
[2025-01-12 12:50] VITALS: BP 120/58; PULSE 68; BMI 29.3
--- NOTE | 2025-01-12 12:50 | MHC.OFFVIS ---
Vital Signs 01/12/25 12:50 Height 5 ft 3 in Weight 165 lb 5.547 oz BMI 29.3 BP 120/58 L Blood Pressure Location Lt brachial Position Sitting Pulse 68 Pulse Source Pulse Oximeter Intake Visit Reasons: 6m follow up Allergies codeine [CODEINE] Allergy (Intermediate, Verified 11/22/24 14:34) HIVES morphine [MORPHINE] Allergy (Intermediate, Verified 11/22/24 14:34) HIVES oxycodone [OXYCODONE] Allergy (Intermediate, Verified 11/22/24 14:34) HIVES Sulfa (Sulfonamide Antibiotics) [SULFA (SULFONAMIDE ANTIBIOTICS)] Allergy (Intermediate, Verified 11/22/24 14:34) DEHYDRATION, hives, hives levofloxacin Allergy (Verified 11/22/24 14:34) Hallucinations cefpodoxime Adverse Reaction (Intermediate, Verified 11/22/24 14:34) uknown phenazopyridine Adverse Reaction (Intermediate, Verified 11/22/24 14:34) Unknown OPIATES Allergy (Unknown, Uncoded 11/22/24 14:34) hives Medication List - Last Reconciled 01/12/25 by Casa Blackburn MD aspirin 81 mg PO DAILY atorvastatin 80 mg PO DAILY BD Ultra-Fine Short Pen Needle (pen needle, diabetic) As directed once a day NS blood sugar diagnostic (SPOuch Verio test strips) 3 times a day blood-glucose meter (Doculynx Verio Flex Meter) 3 times a day cholecalciferol (vitamin D3) 25 mcg PO DAILY famotidine-Ca carb-mag hydrox 10-800-165 mg (Acid Flood Control Engineer Complete (famotidine)) 1 tab PO BEDTIME PRN flash glucose scanning reader (FreeStyle Halina 2 [place]) use as directed flash glucose sensor (FreeStyle Halina 2 Sensor kit) use As directed hydrochlorothiazide 25 mg PO QAM insulin degludec (Tresiba FlexTouch U-100 insulin) 42 units subcut QAM lancets (OneTouch Delica Lancets) 3 times a day lisinopril 20 mg PO DAILY lorazepam 0.5 mg PO DAILY PRN metformin 500 mg PO BID 90 days metoprolol tartrate 50 mg PO BID nitrofurantoin monohyd/m-cryst 100 mg (Macrobid) 100 mg PO BID 3 days pen needle, diabetic use for injecting med once a day Trulicity (dulaglutide) 0.75 mg (0.5 mL) subcut QWEEK NS HPI Comments Details: Savanna returns for follow-up regarding coronary disease. To recall, she has a history of myocardial infarction and stent placement around 2000. Multiple cardiovascular risk factors including diabetes, hypertension, dyslipidemia. Overall, she is feeling good. No cardiac symptoms whatsoever. [facility] Medical History Major depressive disorder, single episode, moderate Recurrent UTI Depression with anxiety Generalized anxiety disorder with panic attacks Arthritis of carpometacarpal (CMC) joint of right thumb Tenosynovitis of right wrist Dermatitis, contact Elevated vitamin B12 level Essential hypertension Atherosclerotic cardiovascular disease Obesity (BMI 30-39.9) Dyslipidemia 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 type 2 diabetes mellitus senior living (current) use of insulin Spondylosis of lumbar region without myelopathy or radiculopathy Sacroiliitis Surgical History Stented coronary artery Hx of shoulder surgery History of back surgery Hx of section Hx of hysterectomy Hx of colonoscopy Family History Father Colon cancer Family history of prostate cancer in father Mother Diabetes CVA (cerebral vascular accident) Social History Housing: Apartment Alcohol intake: current Patient Tobacco Use Status: Former Tobacco user Years Smoked: 2 e-Cigarette/Vaping Use: Never Used Advance Directives Date on File: 06/01/24 service: No Current occupational status: retired Cognitive needs: No Hearing needs: No Vision needs: No Review of Systems Const Denies weakness ENT Denies dizziness Card Denies chest pain, Denies chest pain with activity, Denies syncope, Denies rapid heart rate, Denies pedal edema, Denies edema, Denies leg edema, Denies lightheadedness, Denies palpitations, Denies dyspnea, Denies dyspnea on exertion and Denies orthopnea Resp Denies cough, Denies dyspnea and Denies dyspnea on exertion GI Denies hematochezia and Denies change in stool character Musc Denies abnormal gait, Denies muscle cramps, Denies muscle weakness, Denies numbness, Denies radiating pain into limb and Denies tingling Neuro Denies abnormal gait, Denies dizziness, Denies syncope, Denies numbness, Denies tingling and Denies weakness Endo Denies palpitations Physical Exam Vital Signs: Last Vital Signs Pulse 68 01/12/25 12:50 BP 120/58 L 01/12/25 12:50 BMI result Body Mass Index 29.3 Const General: comfortable and no acute distress Orientation/consciousness: patient oriented x3 HEENT Other: Unremarkable Head: Yes normal to inspection Neck Neck: Yes normal visual inspection Chest Chest palpation & inspection: normal inspection of the chest Resp Auscultation: clear to auscultation bilaterally Cardio Palpation: normal PMI Heart sounds: S1 normal heart sound present, S2 normal heart sound present, no gallops, no murmurs and no rubs GI Palpation (GI): Soft to palpation Back/Spine/Pelvis Other: unremarkable Skin General skin exam: no rashes or lesions noted Neuro General: patient oriented x3 Extrem General: Yes normal to inspection Psych Mental Status: mental status grossly normal Assessment & Plan Assessment & Plan (1) Atherosclerotic cardiovascular disease: Code(s): I25.10 - Atherosclerotic heart disease of [place] coronary artery without angina pectoris Category: Medical Plan: Cardiac [id number] occluded circumflex; status post balloon angioplasty and stenting; indeterminate mid LAD lesion, FFR negative. Myocardial perfusion [id number] and apical ischemia. Clinically, she has got no angina or in fact any cardiac symptoms whatsoever. Hence continue guideline based medical therapy. Remains on aspirin, beta-blockers, statins. On aspirin, beta-blockers, statins. LDL 49 mg/dL. Triglycerides 97 mg/dL. (2) Type 2 diabetes mellitus with unspecified complications: Code(s): E11.8 - Type 2 diabetes mellitus with unspecified complications Category: Medical Plan: Current regimen includes insulin, metformin, Trulicity. Last hemoglobin A1c is 6.7%. (3) Essential hypertension: Code(s): I10 - Essential (primary) hypertension Category: Medical Plan: Stable. On lisinopril/HCTZ. Plan Discussion Notes During our discussion, the patient and I reviewed her current health status, focusing on the management of essential hypertension, hypercholesterolemia, and diabetes mellitus. We discussed maintaining her current treatment plan due to stability and absence of significant symptoms or complications. Given that she prefers frequent check-ups, the patient agreed to follow up every six months. The conversation confirmed that there were no immediate risks prompting changes to her care plan, and continued monitoring would suffice in her case. All management options and the rationale for the decision to maintain her treatment plan without changes were communicated clearly, ensuring she feels comfortable and informed. Patient was informed and verbally consented to the use of an ambient scribe for clinic note documentation during this visit. Patient Instructions: - Continue current medications as prescribed. - Follow up in six months for routine monitoring. - Maintain current lifestyle and dietary management for diabetes, hypertension, and cholesterol. - Report any new or worsening symptoms immediately. - Enjoy regular activities as they feel comfortable. - Return for routine visits and as needed if new concerns arise. Coding Level of Care Code Est Pt Level 4 (06936) Complex EM visit Add On G2211 Diagnoses Atherosclerotic cardiovascular disease I25.10 Type 2 diabetes mellitus with unspecified complications E11.8 Essential hypertension I10
--- OUTSIDE RECORDS SUMMARY | 2025-01-12 13:05 | XMS_ITS | Patient Health Record ---
Author Organization [facility] Address [address] [facility] [place] [address] Care Team Providers Care Retail Beauty Specialist Name Role Phone Christina MONCADA, Jasmine Escalera Primary Care Provider Un available Trena Trejo Unavailable [phone] Allergies Allergen (clinical drug ingredient) Drug/Non Drug Allergy documented on EMR Reaction Allergy Type Onset Date Status sulfamethoxazole / trimethoprim Bactrim Unknown Drug Allergy Active codeine Codeine Unknown Drug Allergy Active morphine Morphine Unknown Drug Allergy Active Results Component Value Reference Range Notes HEMOGLOBIN A1C (GLYCOHEMOGLO BIN) Reviewed date:12/31/2024 11:05:11 AM Interpretation: Performing Lab: Notes/Report: HEMOGLOBIN A1C % (HH) 6.1 Reason For Referral No Information Medications Medication SIG (Take, Route, Frequency, Duration) Notes Start Date End Date Status Ketoconazole 2 % 1 application Apply a thin layer to externally to feet, even between toes Twice a day for 30 days Active Vitamin D3 Active Lisinopril 20 MG 1 tablet Orally Once a day Active Atorvastatin Calcium 80 MG 1 tablet Oral ly Once a day Active Extra Depth Orthopedic Shoes (1 Pair) with Customized Heat Molded Multidensity Innersoles (3 Pair) as directed Dx: NIDDM/Polyneuropathy (E11.42), Hammertoe Foot Deformity (M20.41,M20.42), Preulcerative Skin Lesion(s) (L85.1 12/31/2024 Active Metamucil Free & Natural Active [place] Aspirin Active Tresiba 100 UNIT/ML as directed Subcutaneous Active Magnesium 250 MG 1 tablet with a meal Orally Once a day Active metFORMIN HCl 500 MG 1 tablet with a kenneth l Orally Once a day Active Trulicity 0.75 MG/0.5ML as directed Subcutaneous Active hydroCHLOROthiazide 25 MG 1 tablet in th e morning Orally Once a day Active Metoprolol Succinate 50 MG 1 capsule Ora lly Once a day Active Social History Tobacco Use: Social History Observation [...] ast year? No Points 0 Interpretation Negative Problems Problem Type SNOMED Code ICD Code Onset Dates Problem Status W/U Status Risk Notes Problem Diabetic acute painful polyneuropathy (461889396) Type 2 diabetes mellitus with diabetic polyneuropathy (E11.42) Active confirmed Vital Signs Blood pressure diastolic 80 mm Hg 12/31/2024 Height 5ft3in in 12/31/2024 Blood pressure systolic 120 mm Hg 12/31/2024 Weight 170 lbs 12/31/2024 BMI 30.11 kg/m2 12/31/2024 Encounters Encounter Location Date Provider Diagnosis [facility] [address] 12/31/2024 Trena Trejo Type 2 diabetes mellitus with diabetic polyneuropathy E11.42 ; Other hammer toe(s) (acquired), right foot M20.41 ; Tinea unguium B35.1 ; Tinea pedis of both feet B35.3 and Other hammer toe(s) (acquired), left foot M20.42 [facility] [address] [address] 10/22/2024 Trena Trejo Assessments Encounter Date Diagnosis (ICD Code) Assessment Notes Treatment Notes Treatment Clinical Notes Section Notes 12/31/2024 Other hammer toe(s) (acquired), right foot (ICD-10 - M20.41) Patient Educated with: DIABETIC FOOT CARE INSTRUCTIONS. pdf (DIABETIC FOOT CARE INSTRUCTIONS. pdf) 12/31/2024 Type 2 diabetes mellitus with diabetic polyneuropathy (ICD-10 - E11.42) 12/31/2024 Tinea unguium (ICD-10 - B35.1) 12/31/2024 Tinea pedis of both feet (ICD-10 - B35.3) 12/31/2024 Other hammer toe(s) (acquired), left foot (ICD-10 - M20.42) Plan Of Treatment Next Appt Details Provider Name:Trena Kasia blount, 03/25/2025 12:15:00 PM, [address] [place] [address], [id number], Insurance Providers Payer Name Payer Address Payer Phone Subscriber Number Group Number Insured Name Patient Relationship to Insured Coverage Start Date Coverage End Date [employer] Medicare [id number] [address] [address] [place] [address] [id number] Savanna Fernandez Self - patient is the insured Medical (General) History Medical History History ICD Code Anxiety Diabetic High Blood Pressure Reflux ( GERD) Sciatica Heart valve conditions/replacement Heart disease Surgical History Surgery Date(Month/Year) Colitis
--- OUTSIDE RECORDS SUMMARY | 2025-01-12 13:05 | XMS_ITS ---
Author Organization [facility] Address [address] [place] [address] Care Team Providers Care Tomography Technologist Name Role Phone Christina MONCADA, Jasmine Escalera Primary Care Provider Un available Trena Trejo Unavailable [phone] REASON FOR VISIT VACCINE SPECIALIST Encounters Encounter Location Date Provider Diagnosis [address] [address] 10/22/2024 Trena Trejo Plan Of Treatment Next Appt Details Provider Name:Trena blount, 03/25/2025 12:15:00 PM, [address] [place], [address], Progress Notes * Savanna NEGRONDOB: 5 (79 yo F)Acc No.[id number]:10/22/2024 Patient:?Savanna NEGRON :1945???Age:79 Y???Sex:Female Address:[address] [place] [address] , [place], [address] * true * Date:? Generated for Daniellei subha/Kevin/eTransmitting on:?01/12/2025 01:05 PM EDT
--- OUTSIDE RECORDS SUMMARY | 2025-01-12 13:06 | XMS_ITS ---
[facility] Organization [facility] Address [address] [place] [address] Care Team Providers Care Improvement Director Name Role Phone Christina MONCADA, Jasmine Escalera Primary Care Provider Un available Trena Trejo Unavailable [phone] Allergies Allergen (clinical drug ingredient) Drug/Non Drug Allergy documented on EMR Reaction Allergy Type Onset Date Status sulfamethoxazole / trimethoprim Bactrim Unknown Drug Allergy Active codeine Codeine Unknown Drug Allergy Active morphine Morphine Unknown Drug Allergy Active REASON FOR VISIT At Risk Footcare, Skin Problem, Toe Irritation Medications Medication SIG (Take, Route, Frequency, Duration) Notes Start Date End Date Status metFORMIN HCl 500 MG 1 tablet with a kenneth l Orally Once a day Active Ketoconazole 2 % 1 application Apply a thin layer to externally to feet, even between toes Twice a day for 30 days Active hydroCHLOROthiazide 25 MG 1 tablet in th e morning Orally Once a day Active Metoprolol Succinate 50 MG 1 capsule Ora lly Once a day Active Lisinopril 20 MG 1 tablet Orally Once a day Active Metamucil Free & Natural Active [place] Aspirin Active Magnesium 250 MG 1 tablet with a meal Orally Once a day Active Vitamin D3 Active Atorvastatin Calcium 80 MG 1 tablet Oral ly Once a day Active Extra Depth Orthopedic Shoes (1 Pair) with Customized Heat Molded Multidensity Innersoles (3 Pair) as directed Dx: NIDDM/Polyneuropathy (E11.42), Hammertoe Foot Deformity (M20.41,M20.42), Preulcerative Skin Lesion(s) (L85.1 12/31/2024 Active Tresiba 100 UNIT/ML as directed Subcutaneous Active Trulicity 0.75 MG/0.5ML as directed Subcutaneous Active Social History Tobacco Use: Social History [...] Risk Notes Problem Diabetic acute painful polyneuropathy (280770337) Type 2 diabetes mellitus with diabetic polyneuropathy (E11.42) Active confirmed Vital Signs Height 5ft3in in 12/31/2024 Weight 170 lbs 12/31/2024 BMI 30.11 kg/m2 12/31/2024 Blood pressure systolic 120 mm Hg 01/01/20 25 Blood pressure diastolic 80 mm Hg 025 Encounters Encounter Location Date Provider Diagnosis [facility] [address] [address] 12/31/2024 Trena Trejo Type 2 diabetes mellitus with diabetic polyneuropathy E11.42 ; Other hammer toe(s) (acquired), right foot M20.41 ; Tinea unguium B35.1 ; Tinea pedis of both feet B35.3 and Other hammer toe(s) (acquired), left foot M20.42 Assessments Encounter Date Diagnosis (ICD Code) Assessment Notes Treatment Notes Treatment Clinical Notes Section Notes 12/31/2024 Type 2 diabetes mellitus with diabetic polyneuropathy (ICD-10 - E11.42) 12/31/2024 Other hammer toe(s) (acquired), right foot (ICD-10 - M20.41) Patient Educated with: DIABETIC FOOT CARE INSTRUCTIONS. pdf (DIABETIC FOOT CARE INSTRUCTIONS. pdf) 12/31/2024 Tinea unguium (ICD-10 - B35.1) 12/31/2024 Tinea pedis of both feet (ICD-10 - B35.3) 12/31/2024 Other hammer toe(s) (acquired), left foot (ICD-10 - M20.42) Plan Of Treatment Medication Medication Name Sig Start Date Stop Date Notes Ketoconazole 2 % 1 application Apply a thin layer to externally to feet, even between toes Twice a day for 30 days Extra Depth Orthopedic Shoes (1 Pair) with Customized Heat Molded Multidensity Innersoles (3 Pair) as directed Dx: NIDDM/Polyneuropathy (E11.42), Hammertoe Foot Deformity (M20.41,M20.42), Preulcerative Skin Lesion(s) (L85.1 12/31/2024 Treatment Notes Assessment Notes Other hammer toe(s) (acquired), right fo ot Patient Educated with: DIABETIC FOOT CARE INSTRUCTIONS.pdf (DIABETIC FOOT CARE INSTRUCTIONS.pdf) Next Appt Details Follow Up: 2 Months, Reason: Provider Name:Trena blount, 03/25/2025 12:15:00 PM, [address] [place] [address], [id number], Procedure Notes * Category Sub-Category Detail Notes Debride Nail 6-10 Nail debridement Due to the cl inical pathology outlined in the exam findings, performance of this nail treatment is medically necessary as its management by an unskilled/untrained nonprofessional would put this patients foot and overall health at risk. Therefore, debridement to affected nail(s), as described in exam ( TA, T1, T2, T3, T4, T5, T6, T7, T8, T9, ), was performed exclusively by the physician of record to reduce/remove overall nail length, girth, thickness, subungual debris, and necrotic tissue, by manual and/or electrical means through the use of a nail nipper and/or dremel-type rail grinder, to a more viable healthy nail plate or bed tissue 6-10 nails in total. Silver nitrate was used for any petechial bleeding as necessary. Definitive antifungal treatment options, both pharmaceutical and surgical, have been reviewed and discussed with the patient. The patient solely prefers the use of intermittent/as needed professional debridement services for their nail condition and understands the need for additional periodic treatments to maintain effectiveness in symptomatic relief - 52079 Keratoma Treatment Parring or Cutting o f Benign Hyperkeratotic Lesion(s) (-57) More than 4 Lesions - Due to the at risk nature of the patients medical condition as documented in the exam findings, performance of this keratoderma treatment is medically necessary as its management by an unskilled/untrained nonprofessional would put this patients foot and overall health at risk. Therefore, the benign hyperkeratotic lesions, (6) in total, locations as stated and described in the exam ( Medial plantar, TA, T5, SUB MTH (s), 1, B/L, Plantar Heel(s), B/L ), were pared, and/or cut utilizing a sterile 15 blade, tissue nippers, and/or power dremel instrumentation by the physician of [facility] - [id number] Progress Notes * Savanna NEGRONDOB: 5 (79 yo F)Acc No.[id number]:12/31/2024 Progress Notes Patient:?Savanna NEGRON Provider:?Trena Trejo DPM :1945???Age:79 Y???Sex:Female D ate:12/31/2024 Address:[address] [place] [address] Pcp:Massiel Leone Subjective: * Chief Complaints: * ???At Risk FootcareSkin Prob lemToe Irritation * HPI: ???At Risk footcare:?Pt States Last PCP Visit:?Date?09/16/2024 ???Skin problems:?Nature:?scaling , redness.?Location:?B/L .?Course:?worse.?Treatments:?none.?Toe pain:?Location:?B/L feet.?Duration:?several years.?Course:?worse.?Aggravated by:?shoes, any pressure.?Treatments:?change in shoes.? * ROS:?General/Constitutional:?Nausea?denies.?Vomiting?denies.?Hunger Thirst?denies.?Loss appetite?denies.?Chills?denies.?Fatigue?denies.?Fever?denies.?Night Sweats?denies.?Unexplained weight loss?denies.?Unexplained weight gain?denies.?HEENTM:?Dentures?admits.?Dizziness?denies.?Glasses/contacts?denies.?Retinopathy?den ies.?Blurred/double vision?denies.?TMJ?denies.?Discharge/drainage?denies.?Implants?denies.?Sore throat?denies.?Dental implants?denies.?Hard of hearing ?admits.?Difficulty chewing/swallowing/speaking?denies.?Nose bleeds?denies.?Sore mouth?denies.?Respiratory:?On O xygen?denies.?Pneumonia/pleurisy?denies.?Bronchitis?denies.?Emphysema?denies.?Co ughing?admits.?Cough blood?denies.?Shortness of breath?denies.?Wheezing?denies.?Cardiovascular:?Pacemaker?denies.?MVP?denies.?WPW?denies.?CHF?denies.?Heart attack?denies.?Septal defect?denies.?Rapid beat?denies.?Chest pain ?denies.?Atrial Fib.?denies.?Murmur/Palpitations?denies.?Gastrointestinal:?Hemorrhoids?denies.?Stomach/Abdominal pain?denies.?Dark blood stool?denies.?Irritable bowel ?denies.?Constipation?denies.?Diarrhea?denies.?Hematology:?Swelling?denies.?Clots?denies.?Varicose Veins?denies.?Bruising?denies.?Bleeding problem?denies.?Genitourinary:?Blood urine?denies.?Frequent/Painfu/urination/bladder control?denies.?Kidney stones?denies.?Infection (UTI)?denies.?Nephropathy?denies.?sex trans dis (STD)?denies.?Prostate?denies.?Musculoskeletal:?Hammertoes?denies.?Bunions?admits.?Back Pain?denies.?Muscle Cramps/ Resting?admits.?Muscle cramps / walking?denies.?Generalized aches and pains?denies.?Weakness?denies.?Integ.:?Mcgregor?denies.?Scars?denies.?Corns/calluses?denies.?Ingrown nails?denies.?Painful nails?denies.?Open Sores?denies.?Rashes?denies.?Neurologic:?Difficulty sleeping?denies.?Brain disorder?denies.?Numbness?denies.?Balance t rouble?denies.?Confusion?denies.?Fainting/blackouts?denies.?Tingling?admits.?Bladimir mors?denies.? * Medical History:? * Surgical History:?Colitis * Hospitalization/Major Diagno stic Procedure:?Denies Past Hospitalization * Family History:?Mother: dece ased, diagnosed with Diabetic - NIDDM.?Father: , diagnosed with Unspecified heart disease.? * Social History:?Tobacco Use:?Tobacco use other than smoking?Are you an other tobacco user??No ?Tobacco Control (Standard)?Tobacco use:?Nonsmoker ?Additional Findings: Tobacco non-user?Current nonsmoker ???Drugs/Alcohol:?Drugs?Have you used drugs other than those for medical reasons in the past 12 months??No ???Miscellaneous:?Caffeine: yes, frequency:. ?Children: yes, 4. ?Exercise: no. ?Marital status: . ?Occupation: Retired. ???Drug/Alcohol:?AUDIT-C (Standard)?Did you have a drink containing alcohol in the past year??No ?Points?0 ?Interpretation?Negative * Medications:?TakingTrulicity 0.75 MG/0.5ML Solution Auto-injector as directed Subcutaneous Tresiba 100 UNIT/ML Solution as directed Subcutaneous Magnesium 250 MG Tablet 1 tablet with a meal Orally Once a day Metamucil Free & Natural [place] Aspirin Atorvastatin Calcium 80 MG Tablet 1 tablet Orally Once a day Vitamin D3 Lisinopril 20 MG Tablet 1 tablet Orally Once a day hydroCHLOROthiazide 25 MG Tablet 1 tablet in the morning Orally Once a day Metoprolol Succinate 50 MG Capsule ER 24 Hour Sprinkle 1 capsule Orally Once a day metFORMIN HCl 500 MG Tablet 1 tablet with a meal Orally Once a day Medication List reviewed and reconciled with the patientTaking Trulicity 0.75 MG/0.5ML Solution Auto-injector as directed Subcutaneous Taking Tresiba 100 UNIT/ML Solution as directed Subcutaneous Taking Magnesium 250 MG Tablet 1 tablet with a meal Orally Once a day Taking Metamucil Free & Natural Taking [place] Aspirin Taking Atorvastatin Calcium 80 MG Tablet 1 tablet Orally Once a day Taking Vitamin D3 Taking Lisinopril 20 MG Tablet 1 tablet Orally Once a day Taking hydroCHLOROthiazide 25 MG Tablet 1 tablet in the morning Orally Once a day Taking Metoprolol Succinate 50 MG Capsule ER 24 Hour Sprinkle 1 capsule Orally Once a day Taking metFORMIN HCl 500 MG Tablet 1 tablet with a meal Orally Once a day Medication List reviewed and reconciled with the patient * Allergies:?Bactrim: AllergyM orphine: AllergyCodeine: Allergyyes[Allergies Verified] Objective: * Vitals:?Ht: 5ft3in, Wt: 170, BMI: 30.11, Shoe size: 9, BP: 120/80 mm Hg, BS: 112, Ht-cm: 160.02 cm, Wt-k.11 kg. * ???Past Orders: ???Lab:HEMOGLOBIN A1C (GLYCO HEMOGLOBIN) (Order Date - 11/30/2024) (Collection Date & Time - 11/30/2024 11:04 AM) ? Value Reference Range ?HEMOGLOBIN A1C % (HH) 6.1 * Examination: ???Ophthalmology Referral: ?DIABETES EYE EXAM?Procedure Performed:?Yes ?Date of Exam Performed?10/02/2024 ?Findings of Diabetic Eye Exam:?no retinopathy?Neurological: ?SENSORY:? Neurological exam demonstrates, reduced light touch sensation, reduced sharp/dull pin prick discrimination , B/L, 5.07 monofilament test performed at plantar aspects of 5 varied sites per foot shows sensation, reduced , B/L.?Nails: ?NAILS are:?Elongated, overgrown, dystrophic, lytic, greater than 3mm thick, discolored and friable with crumbly malodorous subungual debris , TA, T1, T2, T3, T4, T5, T6, T7, T8, T9.?Dermatologic: ?SKIN FINDINGS:?Skin shows sign(s) of, erythema, scaling, in a moccasin fashion, no fissure(s) present, B/L , Skin exam reveals Keratotic lesion(s) located at, Medial plantar, TA, T5, SUB MTH (s), 1, B/L, Plantar Heel(s), B/L.?Vascular: ?DP PULSES (B):?3/4, B/L.?PT PULSES (B):?3/4, B/L.?CAPILLARY FILL TIME:?immediate, all digits, B/L.?TROPHIC CONDITION-TEXTURE/ELASTICITY/TURGOR/HAIR GROWTH (B):?normal, B/L.?TEMPERTURE GRADIENT (C):?normal, warm to cool, proximal to distal, B/L, B/L.?PIGMENTATION:?normal, B/L.?EDEMA (C):?absent, B/L.?Orthopedic: ?MUSCLE STRENGTH:?5/5 all groups in a symmetrical fashion, B/L.?FOOT MORPHOLOGY:?(-) Charcot collapse/destruction noted at [facility].?DIGITAL DEFORMITIES:?Digital contracture, PIPJ, 2-5 B/L, incompl-reducible to push-up test, no over, nor underlapping,?there is?evidence of shoe producing skin irritation.?FOOTWEAR EVALUATION:?worn, non-supportive, shoe gear properties exacerbate patient's foot/toe deformity.?General Examination: ?GENERAL APPEARANCE:?Reveals a pleasant, alert, well nourished, well- developed, well hydrated individual, who demonstrates proper attention to hygiene/body habitus, and is in no acute distress, Pt serves as own historian for office visit today.?ORIENTED:?person, place, and time.?FOOT EXAM:?Lower Extremity Neurological Exam performed:?Yes ?Visual exam of foot performed:?Yes ?Date?12/31/2024 ?Footwear Evaluation?Footwear Evaluation performed:?Yes??? Assessment: * Assessment: 1.?Other hammer toe(s) (acqu ired), right foot - M20.41 (Primary)???Specify :Chronic problem, Worse (4),Rx Management (4)???2.?Type 2 diabetes mellitus with diabetic polyneuropathy - E11.42???3.?Tinea unguium - B35.1???4.?Tinea pedis of both feet - B35.3???Specify :Acute problem, Uncomplicated (3),Rx drug management (4)???5.?Other hammer toe(s) (acquired), left foot - M20.42???Specify :Chronic problem, Worse (4),Rx Management (4)??? Plan: * Treatment: 2.?Tinea pedis of both feet? Start Ketoconazole Cream, 2 %, 1 application, Apply a thin layer to externally to feet, even between toes, Twice a day, 30 days, 30 Gram, Refills 3.?? * Procedures:?Debride Nail 6-10:?Nail debridement?Due to the clinical pathology outlined in the exam findings, performance of this nail treatment is medically necessary as its management by an unskilled/untrained nonprofessional would put this patients foot and overall health at risk. Therefore, debridement to affected nail(s), as described in exam ( TA, T1, T2, T3, T4, T5, T6, T7, T8, T9, ), was performed exclusively by the physician of record to reduce/remove overall nail length, girth, thickness, subungual debris, and necrotic tissue, by manual and/or electrical means through the use of a nail nipper and/or dremel-type rail grinder, to a more viable healthy nail plate or bed tissue 6- 10 nails in total. Silver nitrate was used for any petechial bleeding as necessary. Definitive antifungal treatment options, both pharmaceutical and surgical, have been reviewed and discussed with the patient. The patient solely prefers the use of intermittent/as needed professional debridement services for their nail condition and understands the need for additional periodic treatments to maintain effectiveness in symptomatic relief - 29957.?Keratoma Treatment:?Parring or Cutting of Benign Hyperkeratotic Lesion(s)?(-57) More than 4 Lesions - Due to the at risk nature of the patients medical condition as documented in the exam findings, performance of this keratoderma treatment is medically necessary as its management by an unskilled/untrained nonprofessional would put this patients foot and overall health at risk. Therefore, the benign hyperkeratotic lesions, (6) in total, locations as stated and described in the exam (?Medial plantar,?TA,?T5,?SUB MTH (s),?1,?B/L,?Plantar Heel(s),?B/L?), were pared, and/or cut utilizing a sterile 15 blade, tissue nippers, and/or power dremel instrumentation by the physician of record - [id number].? * Procedure Codes:?13960 DEBRI DE NAIL, 6 OR MORE, Modifiers: XS 00731 TRIM SKIN LESIONS, OVER 4, Modifiers: XS * Preventive Medicine:? ??Counseling:?Discussion:?-04: Office or other outpatient visit for the evaluation and management of a new patient, which required a medically appropriate history and/or examination and MODERATE level of DECISION MAKING for: 1 OR MORE CHRONIC PROBLEM(S) THATS WORSENING, 2 STABLE CHRONIC PROBLEMS, A NEWLY DIAGNOSED PROBLEM WITH UNCERTAIN PROGNOSIS, AN ACUTE COMPLICATED INJURY WITH MULTIPLE TREATMENT OPTIONS, OR AN ACUTE PROBLEM WITH ACCOMPANYING SYSTEMIC SYMPTOMS, THAT POSE(S) A MODERATE RISK OF MORBIDITY. THIS CONDITION MAY ALSO INCLUDE RX DRUG MANAGEMENT, OR A DECISON FOR MINOR SURGERY. The visit on the day of the encounter encompassed interpreting the data and educating the patient as to the nature of their condition, treatment options available according to their individual PMH, meds, allergies, and overall health/living conditions, as well as any potential risks or complications that may occur from a failure to adhere to, and participate in, the recommended course of therapy. The discussion included a complete verbal, and/or written explanation of the examination results, any x-rays taken, the proposed diagnosis, and outline of the treatment plan. A schedule for future care needs was also explained. The patient verbalized an understanding of the instructions at this time and agreed to be an active participant in their treatment. If the patient should think of any questions or concerns after the visit, I have encouraged the patient to call the office.?Digital Surgery:?Digital surgery was discussed with the patient, We elected to try conservative treatment at the present time, due to the patients medical history and increased asssociated post-operative risks.?Digital Treatment:?HT- I explained to the patient the possible etiologies of Hammertoes, including genetics/foot type/shoegear/activity level/exercise routine and the risks/benefits of all the different treatment options for their pain including: No treatment at all, Rest, Ice, New/supportive/wider/deeper Shoegear, Digital Padding/Strapping/Taping/Bracing/Gel protective sleeves, Foot/Ankle AFO Bracing, Stretching exercises, Deep Tissue Massage, Arch support/shoe inserts with splay metatarsal padding, and Custom orthoses. I insisted that any digital devices be removed daily and not worn overnight for safety. The patient is to carefully examine the toes daily for any skin irritation while using any splinting or padding device. The advantages and disadvantages of each option were discussed and the patients questions re: shoegear, padding, custom vs prefabricated inserts, activity level, and consistency in home treatment regimens for optimal success were answered to their verbally confirmed satisfaction.?Shoe Gear Counseling:?SHOE Rx - The patient was counseled in great detail on their muscoloskeletal foot and toe deformities which coincided with the dermatological presentations visualized on exam. We discussed how their deformities put the integrity of their feet at risk for potential pedal complications which makes the accomidative diabetic shoes and cutomizable inserts medically necessary. We discussed the different shoe and insert treatment types and options, as well as the important advantages for adhering to regularly wearing these accomidative devices daily. The patient was made aware of the fact that a failure to abide by these recommedations may be deleterious to their foot health as they are able to prevent many pedal complications such as skin irritation, skin ulceration, infection, and even loss of toe/foot/leg/or life. Time was also spent with the patient dispensing and discussing proper diabetic footcare techniques including daily skin moisturization, daily foot inspection for any interruption in skin integrity including open lesions, or sign of infection such as redness/malodor/drainage/swelling. Also discussed and recommended were procedures regarding daily shoe inspection for the presence of internal foreign bodies as well as any visualized irregular shoe or insert wear. Patient questions re: shoes, inserts, and self foot inspections were answered to their satisfaction as the patient verbally confirmed a full understanding of the above information. A Rx for Extra Depth Orthopedic Shoes with 3 pair of custom heat-molded inserts was dispensed.?Tinea Pedis:?The patient was counseled on the diagnosis, potential etiologies, and treatment options for their skin condition. We discussed the risks and benefits of each option from performing no treatment, to utilizing OTC topical skin creams, prescription topical creams, customized compounded topical medications, and, if necessary, to utilize oral antifungal therapy. We discussed the advantages and disadvantages of each possible treatment and importance for adherence to all the recommended therapies for optimum success and avoid potential complications such as open sore/infection/possible hospitalization. We discussed the potential effectiveness of each topical preparation as well as each ones possible side effects and/or patient medication interactions if oral therapy is selected. Patient questions re: the advantages and disadvantages of each treatment choice, medication use/dosage, successful outcomes, and application consistency were reviewed and the patient verbalized that all answers were clearly understood. The patient was told they can help alleviate symptoms by utilizing moisture absorbant innersoles with activated charcoal and baking soda, applying antifungal sprays daily, aerating toe web spaces at night by putting cotton or lambs wool between the toes, alternating shoe gear daily if possible so they can dry out, changing socks at least once during the day, wearing well-ventilated shoes or sandals. The patient has decided to apply antifungal skin creams to their feet as directed. Rx was sent to their pharmacy at the time of visit.? ??Screening/Special Tests:?Fall Risk?Screening:?No falls in the past year ?FALLS: Screening for Future Fall Risk?Have you had any falls with injury in the past year??No * Follow Up:?2 Months * Images: * Sign off status: Completed true * Provider:?Trena Trejo DPM Date:?10/2024 Generated for Lul mascorro/Kevin/Helenitting on:?01/12/2025 01:05 PM EDT History and Physical Notes * HPI (History of Present Illness) Category Sub-Category Detail Notes Category Not es Toe pain Location: B/L feet Duration: several years Course: worse Aggravated by: shoes, any pressure Treatments: change in shoes Skin problems Nature: scaling , redness Location: B/L Course: worse Treatments: none At Risk footcare Pt States Last PCP Visit: Date: 5 Examination Category Sub-Category Detail Notes Category Not es Neurological SENSORY: Neurological exa m demonstrates, reduced light touch sensation, reduced sharp/dull pin prick discrimination , B/L, 5.07 monofilament test performed at plantar aspects of 5 varied sites per foot shows sensation, reduced , B/L Dermatologic SKIN FINDINGS: Skin shows sign( s) of, erythema, scaling, in a moccasin fashion, no fissure(s) present, B/L , Skin exam reveals Keratotic lesion(s) located at, Medial plantar, TA, T5, SUB MTH (s), 1, B/L, Plantar Heel(s), B/L Orthopedic FOOT MORPHOLOGY: (-) Charcot col lapse/destruction noted at [facility] FOOTWEAR EVALUATION: worn, non-supportiv e, shoe gear properties exacerbate patient's foot/toe deformity DIGITAL DEFORMITIES: Digital contracture , PIPJ, 2-5 B/L, incompl-reducible to push-up test, no over, nor underlapping, there is evidence of shoe producing skin irritation MUSCLE STRENGTH: 5/5 all groups in a symmetrical fashion, B/L General Examination GENERAL APPEARANCE: Reveals a pleasant, alert, well nourished, well-developed, well hydrated individual, who demonstrates proper attention to hygiene/body habitus, and is in no acute distress, Pt serves as own historian for office visit today FOOT EXAM: Lower Extremity Neurological Exa m performed:: Yes Visual exam of foot performed:: Yes Date: 12/31/2024 ORIENTED: person, place, and t jose Footwear Evaluation Footwear Evaluation performe d:: Yes Ophthalmology Referral DIABETES EYE EXAM Procedure Perform ed:: Yes ?Date of Exam Performed: 10/02/2024 Findings of Diabetic Eye Exam:: no retin opathy Vascular DP PULSES (B): 3/4, B/L PT PULSES (B): 3/4, B/L CAPILLARY FILL TIME: immediate, all digi ts, B/L TEMPERTURE GRADIENT (C): normal, warm to cool, proximal to distal, B/L, B/L TROPHIC CONDITION-TEXTURE/ELASTICITY/TURGOR/HAIR GROWTH (B): normal, B/L EDEMA (C): absent, B/L PIGMENTATION: normal, B/L Nails NAILS are: Elongated, overg rown, dystrophic, lytic, greater than 3mm thick, discolored and friable with crumbly malodorous subungual debris , TA, T1, T2, T3, T4, T5, T6, T7, T8, T9
== END 2025-01-12 13:02 | disposition home or self-care (01) ==
LOC: HO.HCS 12:45
PROVIDERS: PCP Internal Medicine; Visit Provider Internal Medicine
DX: I25.10 Atherosclerotic heart disease of native coronary artery without angina pectoris (principal); E11.8 Type 2 diabetes mellitus with unspecified complications; I10 Essential (primary) hypertension
CPT/HCPCS: 99214; G2211

== ENCOUNTER → 2025-01-12 12:44 | Outpatient (BNVA) | payer OTHER, MEDICAID, SELFPAY | PROVIDERS: PCP Internal Medicine; Visit Provider Internal Medicine | DX: I25.10 Atherosclerotic heart disease of native coronary artery without angina pectoris (principal); I10 Essential (primary) hypertension; E11.9 Type 2 diabetes mellitus without complications; E78.5 Hyperlipidemia, unspecified; Z87.891 Personal history of nicotine dependence | CPT/HCPCS: 99212 ==

== ENCOUNTER 2025-01-31 12:47 | Outpatient (REF) | payer OTHER, MEDICAID, SELFPAY ==
--- OUTSIDE RECORDS SUMMARY | 2025-01-31 13:47 | XMS_ITS | Patient Health Record ---
Author Organization [facility] Address [address] [place] [address] Care Team Providers Care Healthcare Administrative Assistant Name Role Phone Christina MONCADA, Jasmine Escalera Primary Care Provider Un available Trena Trejo Unavailable [phone] Allergies Allergen (clinical drug ingredient) Drug/Non Drug [...] Risk Notes Problem Diabetic acute painful polyneuropathy (584820867) Type 2 diabetes mellitus with diabetic polyneuropathy (E11.42) Active confirmed Vital Signs Blood pressure diastolic 80 mm Hg 12/31/2024 Height 5ft3in in 12/31/2024 Blood pressure systolic 120 mm Hg 12/31/2024 Weight 170 lbs 12/31/2024 BMI 30.11 kg/m2 12/31/2024 Encounters Encounter Location Date Provider Diagnosis [facility] [address] 12/31/2024 Trena Trejo Type 2 diabetes mellitus with diabetic polyneuropathy E11.42 ; Other hammer toe(s) (acquired), right foot M20.41 ; Tinea unguium B35.1 ; Tinea pedis of both feet B35.3 and Other hammer toe(s) (acquired), left foot M20.42 [facility] [address] [address] 10/22/2024 Trena Trejo Assessments Encounter Date Diagnosis [...] Provider Name:Trena Kasia blount, 03/25/2025 12:15:00 PM, [address] [place] [address], [phone], Insurance Providers Payer Name Payer Address Payer Phone Subscriber Number Group Number Insured Name Patient Relationship to Insured Coverage Start Date Coverage End Date [employer] Medicare [id number] [address] [address] [place] [address] [id number] Savanna Fernandez Self - patient is the insured Medical (General) History Medical History History ICD Code Anxiety Diabetic High Blood Pressure Reflux ( GERD) Sciatica Heart valve conditions/replacement Heart disease Surgical History Surgery Date(Month/Year) Colitis
== END 2025-01-31 12:48 | disposition home or self-care (01) ==
LOC: HO.HMGCX 12:47
PROVIDERS: PCP Internal Medicine; Visit Provider Nurse Practitioner Family
DX: Z13.89 Encounter for screening for other disorder (principal)

== ENCOUNTER 2025-02-01 10:09 | Outpatient (REF) | payer OTHER, MEDICAID, SELFPAY ==
--- NOTE | ~2025-02-01 | US_ITS ---
CLINICAL HISTORY: N39.0 - Urinary tract infection, site not specified Ultrasound kidneys. COMPARISON: None Technique: Real time sonographic imaging, including color-flow imaging, was performed by the sheet metal helper. Multiple sales and service representative static images were saved for review. FINDINGS: Right kidney: Cortical medullary differentiation is maintained. Normal color flow by Doppler. Exophytic simple cyst at the midportion of the right kidney measuring 0.8 x 0.7 x 0.7 cm. No hydronephrosis. Right kidney size: 10.9 x 5.5 x 5.3 cm Left kidney: Cortical medullary differentiation is maintained. Normal color flow by Doppler. Exophytic simple cyst present at the inferior pole measuring 1.0 x 0.9 x 0.8 cm. No hydronephrosis. Left kidney size: 11.0 x 4.5 x 4.3 cm The urinary bladder is unremarkable. Bilateral ureteral jets visualized. Prevoid volume: 135 mL Postvoid volume: 36 mL IMPRESSION: 1. No evidence of renal obstruction. No calculus identified bilaterally. This document has been electronically signed by: Zachary Badillo MD on 02/01/2025 15:35:09
--- OUTSIDE RECORDS SUMMARY | 2025-02-01 11:39 | XMS_ITS | Patient Health Record ---
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) Active confirmed Vital Signs Blood pressure diastolic 80 mm Hg 12/31/2024 Height 5ft3in in 12/31/2024 Blood pressure systolic 120 mm Hg 12/31/2024 Weight 170 lbs 12/31/2024 BMI 30.11 kg/m2 12/31/2024 Encounters Encounter Location Date Provider Diagnosis [facility] [address] 12/31/2024 Trena Trejo Type 2 diabetes mellitus with diabetic polyneuropathy E11.42 ; Other hammer toe(s) (acquired), right foot M20.41 ; Tinea unguium B35.1 ; Tinea pedis of both feet B35.3 and Other hammer toe(s) (acquired), left foot M20.42 [facility] [address] [address] 10/22/2024 Trena Trejo Assessments Encounter Date Diagnosis [...] Provider Name:Trena Kasia blount, 03/25/2025 12:15:00 PM, [address] [place] [address], [phone], Insurance Providers Payer Name Payer Address Payer Phone Subscriber Number Group Number Insured Name Patient Relationship to Insured Coverage Start Date Coverage End Date [employer] Medicare [id number] [address] [address] [place] [address] [id number] Savanna Fernandez Self - patient is the insured Medical (General) History Medical History History ICD Code Anxiety Diabetic High Blood Pressure Reflux ( GERD) Sciatica Heart valve conditions/replacement Heart disease Surgical History Surgery Date(Month/Year) Colitis
== END 2025-02-01 10:10 | disposition home or self-care (01) ==
LOC: HO.HMGCX 10:09
PROVIDERS: PCP Internal Medicine; Visit Provider Nurse Practitioner Family
DX: N39.0 Urinary tract infection, site not specified (principal)
CPT/HCPCS: 76770

== ENCOUNTER → 2025-02-01 10:32 | Outpatient (BNV) | payer OTHER, MEDICAID, SELFPAY | PROVIDERS: PCP Internal Medicine; Visit Provider Radiology Diagnostic Radiology | DX: N39.0 Urinary tract infection, site not specified (principal) | CPT/HCPCS: 76770 ==

== ENCOUNTER 2025-02-08 15:02 | Outpatient (AMB) | payer OTHER, MEDICAID, SELFPAY ==
--- NOTE | 2025-02-08 15:15 | MHC.OFFVIS ---
Intake Visit Reasons: 3m/US/PVR Intake Note: New Patient presents for initial visit for recurrent uti, incomplete bladder emptying, and ultrasound results Imaging Completed: 02/01/25 Urology Medications: none Blood Thinner: Aspirin PVR: 8ml's Education And Training Manager Required: No Accompanied by: Self / Same As Patient Allergies codeine [CODEINE] Allergy (Intermediate, Verified 02/08/25 16:21) HIVES morphine [MORPHINE] Allergy (Intermediate, Verified 02/08/25 16:21) HIVES oxycodone [OXYCODONE] Allergy (Intermediate, Verified 02/08/25 16:21) HIVES Sulfa (Sulfonamide Antibiotics) [SULFA (SULFONAMIDE ANTIBIOTICS)] Allergy (Intermediate, Verified 02/08/25 16:21) DEHYDRATION, hives, hives levofloxacin Allergy (Verified 02/08/25 16:21) Hallucinations cefpodoxime Adverse Reaction (Intermediate, Verified 02/08/25 16:21) uknown phenazopyridine Adverse Reaction (Intermediate, Verified 02/08/25 16:21) Unknown OPIATES Allergy (Unknown, Uncoded 02/08/25 16:21) hives Medication List - Last Reconciled 02/08/25 by PARAMJIT Christine aspirin 81 mg PO DAILY atorvastatin 80 mg PO DAILY BD Ultra-Fine Short Pen Needle (pen needle, diabetic) As directed once a day NS blood sugar diagnostic (FramebridgeTouch Verio test strips) 3 times a day blood-glucose meter ([employer] Verio Flex Meter) 3 times a day cholecalciferol (vitamin D3) 25 mcg PO DAILY famotidine-Ca carb-mag hydrox 10-800-165 mg (Acid Solid Waste Truck Driver Complete (famotidine)) 1 tab PO BEDTIME PRN flash glucose scanning reader (FreeStyle Halina 2 [place]) use as directed flash glucose sensor (FreeStyle Halina 2 Sensor kit) use As directed hydrochlorothiazide 25 mg PO QAM insulin degludec (Tresiba FlexTouch U-100 insulin) 42 units subcut QAM lancets (OneTouch Delica Lancets) 3 times a day lisinopril 20 mg PO DAILY lorazepam 0.5 mg PO DAILY PRN metformin 500 mg PO BID 90 days metoprolol tartrate 50 mg PO BID pen needle, diabetic use for injecting med once a day Trulicity (dulaglutide) 0.75 mg (0.5 mL) subcut QWEEK NS HPI Comments Details: Savanna is a pleasant 79-year-old female patient of . She has a past medical history of depression, recurrent urinary tract infections, anxiety, arthritis, hypertension, atherosclerotic cardiovascular disease, obesity, dyslipidemia, type 2 diabetes, and spondylosis of lumbar region. She presents to the office today for follow-up. Of note, patient was seen approximately 3 months ago as a new patient for recurrent urinary tract infections at which time a retroperitoneal ultrasound was ordered for further assessment evaluation, microgen, and the patient was started on Estrace cream. Retroperitoneal ultrasound 01/23 noted no evidence of renal obstruction. No calculi or hydronephrosis noted bilaterally. Bilateral simple cyst per radiology report. Microgen 01/23 noted Pseudomonas aeruginosa, Enterococcus faecalis, and gardnerella vaginalis she has since completed fosfomycin as prescribed. She reports bladder pressure and dysuria she had been experiencing has since subsided however she does continue to experience urinary frequency. In office urinalysis results reviewed with the patient today 3+ leukocytes positive nitrates. We discussed sending urine for urine culture. She discusses at length her longstanding history of urinary tract infections. She does report compliance with Estrace cream as prescribed. We did discuss methenamine and vitamin-C for additional suppression. PVR 8 mL. She becomes tearful throughout today's appointment as she discusses the loss of her . When asked she does report issues with her bowels as she suffers from colitis. We discussed correlation of constipation with recurrent urinary tract infections. She denies incontinence, hematuria, dysuria, foul smelling urine, changes to urinary stream, flank pain, fever, and or chills. She does report episodes of nocturia 2-4 times per night. She denies any signs or symptoms of sleep apnea. She is happy with her current voiding parameters. In review of patient's chart it appears urine cultures are as follows: 04/21 E coli, 05/23 Pseudomonas aeruginosa, 05/24 E coli, 02/22 E coli, 05/25 E coli, 08/24 E coli, 08/24 Pseudomonas aeruginosa, 09/25 Pseudomonas aeruginosa, 12/24 Pseudomonas aeruginosa. We discussed at length potential causes of recurrent urinary tract infections as well as further treatment options and risks and benefits of these treatment options. We also discussed potential near future in office cystoscopy for further assessment evaluation. 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 Spondylosis of lumbar region without myelopathy or radiculopathy Sacroiliitis Surgical History Stented coronary artery Hx of shoulder surgery History of back surgery Hx of section Hx of hysterectomy Hx of colonoscopy Family History Father Colon cancer Family history of prostate cancer in father Mother Diabetes CVA (cerebral vascular accident) Social History Housing: Apartment Alcohol intake: current Patient Tobacco Use Status: Former Tobacco user Years Smoked: 2 e-Cigarette/Vaping Use: Never Used Advance Directives Date on File: 06/01/24 service: No Current occupational status: retired Cognitive needs: No Hearing needs: No Vision needs: No Review of Systems Const Reports no additional complaints Eyes Reports no additional complaints ENT Reports no additional complaints Card Reports as per HPI Resp Reports no additional complaints GI Reports as per HPI Reports as per HPI Musc Reports as per HPI Neuro Reports no additional complaints Psych Reports as per HPI Endo Reports as per HPI Seymour/Lymph Reports no additional complaints Aller/Immun Reports no additional complaints Physical Exam Const General: cooperative, healthy appearing, comfortable, no acute distress, well developed, alert and awake Orientation/consciousness: patient oriented x3 Limitations: no limitations HEENT Head: Yes normal to inspection, Yes normocephalic and Yes atraumatic Ears: hearing grossly normal bilaterally Eyes General: appearance normal, both eyes and all related structures Neck Neck: Yes normal visual inspection and Yes trachea midline Chest Chest palpation & inspection: normal inspection of the chest Resp Effort & Inspection: normal respiratory effort and able to speak in complete sentences Cardio Rate: regular rate GI Inspection: Yes normal to inspection General: Yes no CVA tenderness Back/Spine/Pelvis Back: no CVA tenderness Skin General skin exam: no rashes or lesions noted Neuro General: patient oriented x3 Extrem General: Yes normal to inspection Psych Appearance: grossly normal and well kempt Mental Status: mental status grossly normal Speech and movement: Normal speech and movement present and Clear speech present Affect: normal affect Attitude: cooperative Thought process: Normal thought process present Thought content: Normal thought content present Insight: Fair insight present (Psych) Judgement: Fair judgement present (Psych) Office Procedures Post Void Residual Post Residual Void Post Void Residual (PVR): 8 64307-Bvex Void Residual by ultrasound Results AMB Urinalysis, Automated UA Leukoctes 500 Nae/uL Last Edit by Gita Oneil [facility] on 02/08/25 15:42 UA Nitrite Last Edit by [facility] on 02/08/25 15:42 UA Urobilinogen 0.2 mg/dL Last Edit by Gita Oneil [facility] on 02/08/25 15:42 UA Protein 15 mg/dL Last Edit by Gita Harry [facility] on 02/08/25 15:42 UA pH 6.0 Last Edit by Gita Oneil [facility] on 02/08/25 15:42 UA Blood 10 Rakesh/uL Last Edit by Gita Oneil [facility] on 02/08/25 15:42 UA Specific [place] 1.015 Last Edit by Gita Oneil [facility] on 02/08/25 15:42 UA Ketone Last Edit by Gita Oneil [facility] on 02/08/25 15:42 UA Bilirubin 1 mg/dL Last Edit by Gita Harry [facility] on 02/08/25 15:42 UA Glucose 0 mg/dL Last Edit by [facility] on 02/08/25 15:42 Results Reviewed Results Reviewed: Laboratory Last Values Urine pH (Auto) 6.0 02/08/25 15:41 Specific [place] (Auto) 1.015 02/08/25 15:41 Urine Protein (Auto) 15 mg/dL 02/08/25 15:41 Glucose (UA)(Auto) 0 mg/dL 02/08/25 15:41 Urine Blood (Auto) 10 Rakesh/uL 02/08/25 15:41 Urine Bilirubin (Auto) 1 mg/dL 02/08/25 15:41 Urine Urobilinogen (Auto) 0.2 mg/dL 02/08/25 15:41 Leukocyte Esterase (Auto) 500 Nae/uL 02/08/25 15:41 Date of Service: 02/01/25 Procedure(s): US retroperitoneal comp FINDINGS: Right kidney: Cortical medullary differentiation is maintained. Normal color flow by Doppler. Exophytic simple cyst at the midportion of the right kidney measuring 0.8 x 0.7 x 0.7 cm. No hydronephrosis. Right kidney size: 10.9 x 5.5 x 5.3 cm Left kidney: Cortical medullary differentiation is maintained. Normal color flow by Doppler. Exophytic simple cyst present at the inferior pole measuring 1.0 x 0.9 x 0.8 cm. No hydronephrosis. Left kidney size: 11.0 x 4.5 x 4.3 cm The urinary bladder is unremarkable. Bilateral ureteral jets visualized. Prevoid volume: 135 mL Postvoid volume: 36 mL IMPRESSION: 1. No evidence of renal obstruction. No calculus identified bilaterally. Assessment & Plan Assessment & Plan (1) Recurrent UTI: Code(s): N39.0 - Urinary tract infection, site not specified Category: Medical (2) Urinary frequency: Code(s): R35.0 - Frequency of micturition Category: Medical Plan In office urinalysis results reviewed with the patient today; as noted above; will send for urine culture; will await results for potential treatment. PVR 8 mL. Recent retroperitoneal ultrasound results reviewed with the patient today; as noted above. Previous microgen results reviewed with the patient today; as noted above. Continue Estrace cream as discussed and prescribed. Start VESIcare as discussed and prescribed We discussed recurrent urinary tract infections and further treatment options and risks and benefits of these treatment options. We discussed correlation of constipation with recurrent urinary tract infections. Discussed UTI prevention with D mannose supplement, vitamin-C, increasing fluid intake, behavioral therapy with timed voiding, perineal hygiene and postcoital voiding, and management of constipation with stool softeners and increased fiber intake. Orders: Orders AMB Urinalysis Automated Today Z13.9 - Encounter for screening, unspecified AMB Post Void Residual by ultrasound Today R33.9 - Retention of urine, unspecified Urine Culture Today N39.0 - Urinary tract infection, site not specified Medications: New solifenacin (Vesicare) 5 mg PO DAILY 30 days 30 tabs 3RF Patient Instructions: The patient had an opportunity to ask questions regarding the treatment plan. All questions were answered. Physical exam, labs, and imaging were discussed and reviewed in detail. As well as risks, benefits, and discussion of treatment choices. No major barriers to understanding were identified. The patient expressed understanding and agreement with the above treatment plan. The patient was made aware they should contact our office by phone for worsening of their current condition, the appearance of new symptoms, or with any questions or concerns. Compliance is encouraged with any medications and follow up testing that is ordered. It is a privilege to be allowed the opportunity to participate in? your urological care.? Again, if you have any questions or concerns If you have any questions or concerns please do not hesitate to contact me. The office is [phone]. This note is constructed using voice recognition software. While every effort has been made to ensure accuracy reports analyst errors may have been included. Yours sincerely, AURA Christine-DRE Coding Level of Care Code Est Pt Level 4 (74792) Complex EM visit Add On G2211 Diagnoses Recurrent UTI N39.0 Urinary frequency R35.0 CPT Codes Post Residual Void - PVR CPT Code: 12119-Owcc Void Residual by ultrasound ([id number])
--- OUTSIDE RECORDS SUMMARY | 2025-02-08 18:08 | XMS_ITS | Patient Health Record ---
Author Organization [facility] Address [address] [place] [address] Care Team Providers Care Production Operations Inspector Name Role Phone Christina MONCADA, Jasmine Escalera Primary Care Provider Un available Trena Trejo Unavailable [phone] Allergies Allergen (clinical drug ingredient) Drug/Non Drug [...] Risk Notes Problem Diabetic acute painful polyneuropathy (232224726) Type 2 diabetes mellitus with diabetic polyneuropathy (E11.42) Active confirmed Vital Signs Blood pressure diastolic 80 mm Hg 12/31/2024 Height 5ft3in in 12/31/2024 Blood pressure systolic 120 mm Hg 12/31/2024 Weight 170 lbs 12/31/2024 BMI 30.11 kg/m2 12/31/2024 Encounters Encounter Location Date Provider Diagnosis [facility] [address] 12/31/2024 Trena Trejo Type 2 diabetes mellitus with diabetic polyneuropathy E11.42 ; Other hammer toe(s) (acquired), right foot M20.41 ; Tinea unguium B35.1 ; Tinea pedis of both feet B35.3 and Other hammer toe(s) (acquired), left foot M20.42 [facility] [address] [address] 10/22/2024 Trena Trejo Assessments Encounter Date Diagnosis [...] Provider Name:Trena Kasia blount, 03/25/2025 12:15:00 PM, [address] [place] [address], [phone], Insurance Providers Payer Name Payer Address Payer Phone Subscriber Number Group Number Insured Name Patient Relationship to Insured Coverage Start Date Coverage End Date [employer] Medicare [id number] [address] [address] [place] [address] [id number] Savanna Fernandez Self - patient is the insured Medical (General) History Medical History History ICD Code Anxiety Diabetic High Blood Pressure Reflux ( GERD) Sciatica Heart valve conditions/replacement Heart disease Surgical History Surgery Date(Month/Year) Colitis
== END 2025-02-08 16:09 | disposition home or self-care (01) ==
PROVIDERS: PCP Internal Medicine; Visit Provider Nurse Practitioner Family
DX: N39.0 Urinary tract infection, site not specified (principal); R35.0 Frequency of micturition; Z13.9 Encounter for screening, unspecified
CPT/HCPCS: 99214

== ENCOUNTER 2025-02-08 15:02 | Outpatient (REF) | payer MEDICARE, OTHER, SELFPAY | END 2025-02-08 15:03 | disposition home or self-care (01) | LOC: HO.LNP 15:02 | PROVIDERS: PCP Internal Medicine; Visit Provider Nurse Practitioner Family | DX: N39.0 Urinary tract infection, site not specified (principal); Z13.9 Encounter for screening, unspecified | CPT/HCPCS: 51798; 81003; 87086; 87088; 87186 ==

== ENCOUNTER 2025-03-01 08:41 | Outpatient (REF) | payer OTHER, MEDICAID, SELFPAY ==
[2025-03-01 10:53] LABS: Alanine Aminotransferase 24 U/L (0-31); Albumin Level 4.1 g/dL (3.5-5.0); Alkaline Phosphatase 73 U/L (39-117); Anion Gap 15 (12-20); Aspartate Amino Transferase 28 U/L (5-31); Blood Urea Nitrogen 24 mg/dL (9-16); Calcium 9.4 mg/dL (8.4-10.2); Carbon Dioxide 24 mmol/L (22-29); Chloride 102 mmol/L (96-108); Cholesterol 133 mg/dL (<200); Estimated Glomerular Filt Rate 46; HDL Cholesterol 41 mg/dL (>40); Potassium 3.8 mmol/L (3.3-5.1); Sodium 137 mmol/L (135-145); Total Protein 6.6 g/dL (6.5-8.0); Triglycerides 133 mg/dL (<150)
[2025-03-01 10:54] LABS: Hemoglobin A1C 188.9678 umol/L; Total Hemoglobin (HGBA1C) 3244.4739 umol/L
== END 2025-03-01 08:42 | disposition home or self-care (01) ==
LOC: HO.HMGCLDS 08:41
PROVIDERS: PCP Internal Medicine; Visit Provider Internal Medicine
DX: I25.10 Atherosclerotic heart disease of native coronary artery without angina pectoris (principal); F41.1 Generalized anxiety disorder; F41.0 Panic disorder [episodic paroxysmal anxiety]; E66.9 Obesity, unspecified; Z79.4 Long term (current) use of insulin; I10 Essential (primary) hypertension; E11.42 Type 2 diabetes mellitus with diabetic polyneuropathy; E78.5 Hyperlipidemia, unspecified
CPT/HCPCS: 36415; 80053; 80061; 82306; 83036

== ENCOUNTER 2025-03-07 11:23 | Outpatient (AMB) | payer MEDICARE, MEDICAID, SELFPAY ==
--- NOTE | 2025-03-07 12:17 | A.OFFPC_ITS ---
Vital Signs 03/07/25 12:21 Height 5 ft 3 in Weight 173 lb BMI 30.6 BP 142/60 H Blood Pressure Location Lt brachial Position Sitting Respiration 16 Pulse 60 Pulse Source Pulse Oximeter Temp 97.7 F Temp Source Oral Pulse Oximetry (%) 98 Oxygen Delivery Method Room Air Intake Visit Reasons: 4m f/u-labs Intake Note: Pt is here today for her 4mo. f/u labs Allergies codeine (CODEINE) Allergy (Intermediate, Verified 03/07/25 12:39) HIVES morphine (MORPHINE) Allergy (Intermediate, Verified 03/07/25 12:39) HIVES oxycodone (OXYCODONE) Allergy (Intermediate, Verified 03/07/25 12:39) HIVES Sulfa (Sulfonamide Antibiotics) (SULFA (SULFONAMIDE ANTIBIOTICS)) Allergy (Intermediate, Verified 03/07/25 12:39) DEHYDRATION, hives, hives levofloxacin Allergy (Verified 03/07/25 12:39) Hallucinations cefpodoxime Adverse Reaction (Intermediate, Verified 03/07/25 12:39) uknown phenazopyridine Adverse Reaction (Intermediate, Verified 03/07/25 12:39) Unknown OPIATES Allergy (Unknown, Uncoded 03/07/25 12:39) hives Medication List - Last Reconciled 03/07/25 by Jasmine Vasquez MD aspirin 81 mg PO DAILY atorvastatin 80 mg PO DAILY BD Ultra-Fine Short Pen Needle (pen needle, diabetic) As directed once a day NS blood sugar diagnostic (Zet UniverseTouch Verio test strips) 3 times a day blood-glucose meter (HiringSolved Verio Flex Meter) 3 times a day cholecalciferol (vitamin D3) 25 mcg PO DAILY famotidine-Ca carb-mag hydrox 10-800-165 mg (Acid Sales Service Coordinator Complete (famotidine)) 1 tab PO BEDTIME PRN flash glucose scanning reader (FreeStyle Halina 2 [place]) use as directed flash glucose sensor (FreeStyle Halina 2 Sensor kit) use As directed hydrochlorothiazide 25 mg PO QAM insulin degludec (Tresiba FlexTouch U-100 insulin) 42 units subcut QAM lancets (OneTouch Delica Lancets) 3 times a day lisinopril 20 mg PO DAILY lorazepam 0.5 mg PO DAILY PRN metformin 500 mg PO BID 90 days metoprolol tartrate 50 mg PO BID pen needle, diabetic use for injecting med once a day solifenacin (Vesicare) 5 mg PO DAILY 30 days Trulicity (dulaglutide) 0.75 mg (0.5 mL) subcut QWEEK NS Tobacco use date assessed: 03/07/25 Fall risk assessment: No Falls in past year Last assessed Fall Risk: 03/07/25 Dental Screening Dental Screen Date: 03/07/25 Did you have a dental visit in the last 12 months?: No Did you have a dental problem in the last 6 months where you did not have access to dental care?: No Was dental information given to patient?: Patient declined HPI 4m f/u-labs HPI Details 79 year-old lady with dyslipidemia, diab etes mellitus, hypertension, and anxiety disorder, here for a follow-up visit. Has been compliant with taking her medication but not so much with diet and no regular exercise done . Latest fasting labs showed hemoglobin A1c at 7.5%, has gained weight since last visit. Fasting lipids however are within normal limits. Blood pressure today showed elevated systolic blood pressure, patient however states that she forgot to take her blood pressure medicines morning prior to visit. [facility] Medical History Major depressive disorder, single episode, moderate Recurrent UTI Depression with anxiety Generalized anxiety disorder with panic attacks Arthritis of carpometacarpal (CMC) joint of right thumb Tenosynovitis of right wrist Dermatitis, contact Elevated vitamin B12 level Essential hypertension Atherosclerotic cardiovascular disease Obesity (BMI 30-39.9) Dyslipidemia 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 type 2 diabetes mellitus senior living (current) use of insulin Spondylosis of lumbar region without myelopathy or radiculopathy Sacroiliitis Surgical History Stented coronary artery Hx of shoulder surgery History of back surgery Hx of section Hx of hysterectomy Hx of colonoscopy Family History Father Colon cancer Family history of prostate cancer in father Mother Diabetes CVA (cerebral vascular accident) Social History Housing: Apartment Alcohol intake: current Patient Tobacco Use Status: Former Tobacco user Years Smoked: 2 e-Cigarette/Vaping Use: Never Used Advance Directives Date on File: 06/01/24 service: No Current occupational status: retired Cognitive needs: No Hearing needs: No Vision needs: No Questionnaire Thrive Questionnaire Date Thrive assessed: 10/30/24 I am a: Patient What is your living situation today?: I have a steady place to live Within the past 12 months, did the food you bought not last and you didn't have the money to get more?: Never true Within the past 12 months, did you worry whether your food would run out before you got money to buy more?: Never true Do you have trouble paying for medicines?: No Do you have trouble getting transportation to medical appointments?: No Do you have trouble paying your heating and electricity bill?: No Do you have trouble taking care of your child, family member or friend?: No Do you have trouble with day-to-day activities such as bathing, preparing meals, shopping, managing finances, etc.?: No Are you currently unemployed and looking for a job?: No Are you interested in more education?: No Please select the resources that you would like help with: None Currently or been in a relationship where the following occur: No concerns rep orted THRIVE Score: 0 SACHA-7 AMB Questionnaire SACHA-7 Date SACHA - 7 assessed: 11/05/24 Source: Developed by Drs. Golden Moe, Palma Sullivan, Devin Orozco and colleagues, with an educational arlen from [employer]. Review of Systems Const Denies weakness and Reports weight gain Eyes Details: No retinopathy, sees [facility] Denies dizziness Card Denies chest pain, Denies chest pain with activity, Denies syncope, Denies rapid heart rate, Denies pedal edema, Denies lightheadedness, Denies palpitations, Denies dyspnea and Denies dyspnea on exertion Resp Denies cough, Denies dyspnea and Denies dyspnea on exertion GI Denies hematochezia and Denies change in stool character Musc Denies abnormal gait, Denies muscle cramps, Denies muscle weakness, Denies numbness, Denies radiating pain into limb and Denies tingling Neuro Denies abnormal gait, Denies dizziness, Denies syncope, Denies numbness, Denies tingling and Denies weakness Endo Denies palpitations Seymour/Lymph Reports no additional complaints Aller/Immun Reports no additional complaints Physical exam (Primary Care) Vital Signs: Last Vital Signs Temp 97.7 F 03/07/25 12:21 Pulse 60 03/07/25 12:21 Resp 16 03/07/25 12:21 BP 142/60 H 03/07/25 12:21 Pulse Ox 98 03/07/25 12:21 Oxygen Delivery Method Room Air 03/07/25 12:21 BMI result Body Mass Index 30.6 Tobacco/Smoking Status: Tobacco use Status Tobacco use date assessed 03/07/25 03/07/25 12:19 Patient Tobacco Use Status Former Tobacco user 03/07/25 12:19 e-Cigarette/Vaping Use Never Used 03/07/25 12:19 Thrive Assessment: Date of Thrive Assessment Date Thrive assessed 10/30/24 03/07/25 12:19 Currently or been in a relationship where the following occur: No concerns reported Const General: alert and awake Nutritional Appearance: obese Orientation/consciousness: patient oriented x3 HENMT Face and sinus: Yes face symmetric Mouth: Normal oral and palatal mucosa present, oropharynx normal and moist mucous membranes Eyes General: appearance normal, both eyes and all related structures Neck Other: Supple, full range of motion, no lymphadenopathy Resp Effort & Inspection: normal respiratory effort and able to speak in complete sentences Auscultation: clear to auscultation bilaterally Cardio Other: S1-S2 present regular rate and rhythm GI Palpation (GI): Soft to palpation, nontender, no guarding and no masses General: Yes no CVA tenderness Back/Spine/Pelvis Back: no CVA tenderness and No back tenderness Skin General skin exam: no rashes or lesions noted Neuro General: patient oriented x3, gait normal, tone normal, moves all extremities, no focal motor deficits, CN's II-XI intact bilaterally and decrease sensation to monofilament Extrem General: Yes full ROM, Yes no joint enlargement, Yes no clubbing, cyanosis or edema, Yes no calf tenderness and Yes normal gait Psych Appearance: grossly normal and well kempt Mental Status: mental status grossly normal Speech and movement: Normal speech and movement present Affect: Sad affect present Attitude: cooperative Thought process: Normal thought process present Thought content: Normal thought content present Results Reviewed Results Reviewed: Name: Savanna Fernandez Age/Sex: 79/F : 1945 Unit#: [id number] Attend Dr: Jasmine Vasquez MD Re03/01/25 Status: DEP REF [facility] Disch: SPEC : [id number] JEFRY: 03/01/25 STATUS: COMP REQ : [id number] RECD: 03/01/[address]: Jasmine Vasquez MD COMP: 03/01/25 ENTERED: 03/01/[address]: ORDERED: CMP Fast, Lipid Panel, Vitamin D 25-OH Test Result Flag Reference Sodium 137 135-145 mmol/L Potassium 3.8 3.3-5.1 mmol/L CL 102 96-108 mmol/L CO2 24 22-29 mmol/L Gap 15 12-20 BUN 24 H 9-16 mg/dL Creat 1.15 0.5-1.4 mg/dL eGFR 46 Chronic Kidney Disease: Estimated GFR < 60 mL/min/1.73m2 Severe Kidney Disease: Estimated GFR < 15 mL/min/1.73m2 FBS 147 H 60-99 mg/dL A fasting glucose of 126 mg/dl or greater on more than one occasion is considered diagnostic of diabetes. CA 9.4 8.4-10.2 mg/dL Total Bili 1.5 H 0.0-1.0 mg/dL AST (GOT) 28 5-31 U/L ALT (GPT) 24 0-31 U/L Protein, Total 6.6 6.5-8.0 g/dL Alb 4.1 3.5-5.0 g/dL Triglyceride 133 <150 mg/dL Desirable Triglyceride: less than 150 mg/dL Borderline High Triglyceride 150-199 mg/dL High Triglyceride: 200-499 mg/dL Very High Triglyceride: greater than or equal to 5OO mg/dL Cholesterol 133 <200 mg/dL Desirable Cholesterol: less than 200 mg/dL Borderline High Cholesterol: 200-239 mg/dL High Cholesterol: greater than 239 mg/dL LDL Calculated 66 <100 mg/dL Desirable LDL: less than 100 mg/dL Near Optimal/Above Optimal LDL: 110-129 mg/dL Borderline High LDL: 130-159 mg/dL High LDL: 160-189 mg/dL Very High LDL: greater than or equal to 190 mg/dL HDL 41 >40 mg/dL Desirable HDL: greater than 40 mg/dL Note: This HDL assay may give artificially low results in patients with liver disease. Alk Phos 73 39-117 U/L Vitamin D 25-OH 72.8 >30 ng/mL Health Based Reference Values* < 20 ng/mL Deficient 20-30 ng/mL Insufficient > 30 ng/mL Sufficient Laboratory Tests 03/01/25 08:44 Estimat Average Glucose 169 Hemoglobin A1c % 7.5 H Coding Level of Care Code Est Pt Level 4 (92010) Diagnoses 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 type 2 diabetes mellitus E11.42 Dyslipidemia E78.5 Essential hypertension I10 Assessment & Plan Assessment & Plan (1) 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 type 2 diabetes mellitus: Code(s): E11.42 - Type 2 diabetes mellitus with diabetic polyneuropathy Category: Medical Plan: Diabetes not well controlled, increased Trulicity to 1.5 mg injected subcutaneously once a week in addition to her Tresiba at 42 units daily in a.m. and metformin 500 mg 1 tablet twice a day. (2) Dyslipidemia: Code(s): E78.5 - Hyperlipidemia, unspecified Category: Medical Plan: Reviewed recent fasting lipid profile with patient with levels within normal limit . Continue atorvastatin 80 mg daily , in addition to adherence to low-cholesterol diet and regular exercise, at least 30 minutes 3 to 4 times a week. Advised patient to make healthy food choices, eat more fruits, vegetables, whole grains, wild caught fish and low-fat dairy. Limit amount of meat and fried or fatty food products, as well as processed foods and fast foods. Follow-up scheduled with repeat fasting lipid panel in 3 months. (3) Essential hypertension: Code(s): I10 - Essential (primary) hypertension Category: Medical Plan: Continued on hydrochlorothiazide and lisinopril at the same dose in addition to metoprolol 50 mg 1 tablet twice a day. Reinforced importance of following a low-salt diet and adhering to healthy eating habits and getting regular exercise. Repeat basic metabolic panel and follow-up in 3 months Orders: Orders Hemoglobin A1c 06/02/25 E11.42 - Type 2 diabetes mellitus with diabetic polyneuropathy, E78.5 - Hyperlipidemia, unspecified, I10 - Essential (primary) hypertension Alanine Aminotransferase 06/02/25 E11.42 - Type 2 diabetes mellitus with diabetic polyneuropathy, E78.5 - Hyperlipidemia, unspecified, I10 - Essential (primary) hypertension Aspartate Amino Transferase 06/02/25 E11.42 - Type 2 diabetes mellitus with diabetic polyneuropathy, E78.5 - Hyperlipidemia, unspecified, I10 - Essential (primary) hypertension Basic Metabolic Panel Fasting 06/02/25 E11.42 - Type 2 diabetes mellitus with diabetic polyneuropathy, E78.5 - Hyperlipidemia, unspecified, I10 - Essential (primary) hypertension Lipid Panel 06/02/25 E11.42 - Type 2 diabetes mellitus with diabetic polyneuropathy, E78.5 - Hyperlipidemia, unspecified, I10 - Essential (primary) hypertension Medications: New Trulicity (dulaglutide) 1.5 mg (0.5 mL) subcut QWEEK 2 mL 3RF NS E11.42 - Type 2 diabetes mellitus with diabetic polyneuropathy Discontinued Trulicity (dulaglutide) Discontinued Reason: Doctor's Order 0.75 mg (0.5 mL) subcut QWEEK 2 mL 5RF NS E11.9 - Type 2 diabetes mellitus without complications, Z79.4 - 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
--- OUTSIDE RECORDS SUMMARY | 2025-03-07 12:19 | XMS_ITS | Patient Health Record ---
Author Organization [facility] Address [address] [place] [address] Care Team Providers Care Farmer Cash Grain Name Role Phone Christina MONCADA, Jasmine Escalera Primary Care Provider Un available Trena Trejo Unavailable [phone] Allergies Allergen (clinical drug ingredient) Drug/Non Drug [...] to feet, even between toes Twice a day; Duration: 30 days Active Vitamin D3 Active Lisinopril [...] Problem Status W/U Status Risk Notes Problem Polyneuropathy due to type 2 diabetes mellitus ([id number]) Type 2 diabetes mellitus with diabetic polyneuropathy (E11.42) Active confirmed Vital Signs Blood pressure diastolic 80 mm Hg 12/31/2024 Height 5ft3in in 12/31/2024 Blood pressure systolic 120 mm Hg 12/31/2024 Weight 170 lbs 12/31/2024 BMI 30.11 kg/m2 12/31/2024 Encounters Encounter Location Date Provider Diagnosis [facility] [address] 12/31/2024 Trena Trejo Type 2 diabetes mellitus with diabetic polyneuropathy E11.42 ; Other hammer toe(s) (acquired), right foot M20.41 ; Tinea unguium B35.1 ; Tinea pedis of both feet B35.3 and Other hammer toe(s) (acquired), left foot M20.42 [facility] [address] [address] 10/22/2024 Trena Trejo Assessments Encounter Date Diagnosis [...] Details Provider Name:Trena blount, 03/25/2025 12:15:00 PM, [address] [place] [address], [id number], Insurance Providers Payer Name Payer Address Payer Phone Subscriber Number Group Number Insured Name Patient Relationship to Insured Coverage Start Date Coverage End Date [employer] Medicare [id number] [address] [address] [place] [address] [id number] Savanna Fernandez Self - patient is the insured Medical (General) History Medical History History ICD Code Anxiety Diabetic High Blood Pressure Reflux ( GERD) Sciatica Heart valve conditions/replacement Heart disease Surgical History Surgery Date(Month/Year) Colitis
[2025-03-07 12:21] VITALS: BP 142/60; PULSE 60; RESP 16; TEMP 36.5; O2SAT 98; BMI 30.6
== END 2025-03-07 12:51 | disposition home or self-care (01) ==
LOC: HO.HMCC 11:24
PROVIDERS: PCP Internal Medicine; Visit Provider Internal Medicine
DX: E11.42 Type 2 diabetes mellitus with diabetic polyneuropathy (principal); E78.5 Hyperlipidemia, unspecified; I10 Essential (primary) hypertension

== ENCOUNTER → 2025-03-07 11:23 | Outpatient (BNVA) | payer MEDICARE, OTHER, SELFPAY | PROVIDERS: PCP Internal Medicine; Visit Provider Internal Medicine | DX: E11.42 Type 2 diabetes mellitus with diabetic polyneuropathy (principal); E78.5 Hyperlipidemia, unspecified; I10 Essential (primary) hypertension | CPT/HCPCS: 99212 ==

== ENCOUNTER 2025-05-12 13:41 | Outpatient (AMB) | payer OTHER, MEDICAID, SELFPAY ==
--- NOTE | 2025-05-12 13:43 | MHC.OFFVIS ---
Intake Visit Reasons: 3 follow up/ PVR Intake Note: Patient is present for 3M/PVR Urology Medication:NONE Antibiotic Allergy:SULFA,LEVOFLOXACIN Blood Thinner:ASPIRIN TODAY'S PVR 0ML'S Web Analyst Required: No Allergies codeine (CODEINE) Allergy (Intermediate, Verified 05/12/25 14:24) HIVES morphine (MORPHINE) Allergy (Intermediate, Verified 05/12/25 14:24) HIVES oxycodone (OXYCODONE) Allergy (Intermediate, Verified 05/12/25 14:24) HIVES Sulfa (Sulfonamide Antibiotics) (SULFA (SULFONAMIDE ANTIBIOTICS)) Allergy (Intermediate, Verified 05/12/25 14:24) DEHYDRATION, hives, hives levofloxacin Allergy (Verified 05/12/25 14:24) Hallucinations cefpodoxime Adverse Reaction (Intermediate, Verified 05/12/25 14:24) uknown phenazopyridine Adverse Reaction (Intermediate, Verified 05/12/25 14:24) Unknown OPIATES Allergy (Unknown, Uncoded 05/12/25 14:24) hives Medication List - Last Reconciled 05/12/25 by AURA Christine-DRE ascorbic acid (vitamin C) 1 g PO DAILY 90 days aspirin 81 mg PO DAILY atorvastatin 80 mg PO DAILY BD Ultra-Fine Short Pen Needle (pen needle, diabetic) As directed once a day NS cholecalciferol (vitamin D3) 25 mcg PO DAILY ciprofloxacin HCl 250 mg PO BID 7 days famotidine-Ca carb-mag hydrox 10-800-165 mg (Acid Bill Hiker Complete (famotidine)) 1 tab PO BEDTIME PRN flash glucose scanning reader (FreeStyle Halina 2 [place]) use as directed flash glucose sensor (FreeStyle Halina 2 Sensor kit) use As directed hydrochlorothiazide 25 mg PO QAM insulin degludec (Tresiba FlexTouch U-100 insulin) 42 units subcut QAM lancets (OneTouch Delica Lancets) 3 times a day lisinopril 20 mg PO DAILY lorazepam 0.5 mg PO DAILY PRN metformin 500 mg PO BID 90 days methenamine hippurate 1 g PO DAILY 90 days metoprolol tartrate 50 mg PO BID mirabegron ER 25 mg PO DAILY Trulicity (dulaglutide) 1.5 mg (0.5 mL) subcut QWEEK NS HPI Comments Details: Savanna is a pleasant 79-year-old female patient of Dr. Vasquez. She has a past medical history of depression, recurrent urinary tract infections, anxiety, arthritis, hypertension, atherosclerotic cardiovascular disease, obesity, dyslipidemia, type 2 diabetes, and spondylosis of lumbar region. She presents to the office today for follow-up. In discussion with the patient today she reports noting over the last week she has been experiencing dysuria, and urinary frequency. In office urinalysis results reviewed with the patient today. Positive leukocytes positive nitrates and patient with a longstanding history of recurrent urinary tract infections. We did discussed potential and likelihood of current urinary tract infection with lower urinary tract symptoms and positive urinalysis today. When asked she does report compliance with Estrace cream as prescribed. Previous workup has included a retroperitoneal ultrasound 01/23 noted no evidence of renal obstruction. No calculi or hydronephrosis noted bilaterally. Bilateral simple cyst per radiology report. Microgen 01/23 noted Pseudomonas aeruginosa, Enterococcus faecalis, and gardnerella vaginalis. We did discuss methenamine and vitamin-C for additional suppression. PVR 0mL. When asked she does report issues with her bowels as she suffers from colitis. We discussed correlation of constipation with recurrent urinary tract infections. She denies incontinence, hematuria, dysuria, foul smelling urine, changes to urinary stream, flank pain, fever, and or chills. She does report episodes of nocturia 2-4 times per night. She denies any signs or symptoms of sleep apnea. She is happy with her current voiding parameters. In review of patient's chart it appears urine cultures are as follows: 04/21 E coli, 05/23 Pseudomonas aeruginosa, 05/24 E coli, 02/22 E coli, 05/25 E coli, 08/24 E coli, 08/24 Pseudomonas aeruginosa, 09/25 Pseudomonas aeruginosa, 12/24 Pseudomonas aeruginosa, 02/23 Klebsiella oxytoca We discussed at length potential causes of recurrent urinary tract infections as well as further treatment options and risks and benefits of these treatment options. We also discussed potential near future in office cystoscopy for further assessment evaluation. [facility] Medical History Major depressive disorder, single episode, moderate Recurrent UTI Depression with anxiety Generalized anxiety disorder with panic attacks Arthritis of carpometacarpal (CMC) joint of right thumb Tenosynovitis of right wrist Dermatitis, contact Elevated vitamin B12 level Essential hypertension Atherosclerotic cardiovascular disease Obesity (BMI 30-39.9) Dyslipidemia 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 type 2 diabetes mellitus USP (current) use of insulin Spondylosis of lumbar region without myelopathy or radiculopathy Sacroiliitis Surgical History Stented coronary artery Hx of shoulder surgery History of back surgery Hx of section Hx of hysterectomy Hx of colonoscopy Family History Father Colon cancer Family history of prostate cancer in father Mother Diabetes CVA (cerebral vascular accident) Social History Housing: Apartment Alcohol intake: current Patient Tobacco Use Status: Former Tobacco user Years Smoked: 2 e-Cigarette/Vaping Use: Never Used Advance Directives Date on File: 06/01/24 service: No Current occupational status: retired Cognitive needs: No Hearing needs: No Vision needs: No Review of Systems Const Reports no additional complaints Eyes Reports no additional complaints ENT Reports no additional complaints Card Reports as per HPI Resp Reports no additional complaints GI Reports as per HPI Reports as per HPI Musc Reports as per HPI Neuro Reports no additional complaints Psych Reports as per HPI Endo Reports as per HPI Seymour/Lymph Reports no additional complaints Aller/Immun Reports no additional complaints Physical Exam Const General: cooperative, healthy appearing, comfortable, no acute distress, well developed, alert and awake Orientation/consciousness: patient oriented x3 Limitations: no limitations HEENT Head: Yes normal to inspection, Yes normocephalic and Yes atraumatic Ears: hearing grossly normal bilaterally Eyes General: appearance normal, both eyes and all related structures Neck Neck: Yes normal visual inspection and Yes trachea midline Chest Chest palpation & inspection: normal inspection of the chest Resp Effort & Inspection: normal respiratory effort and able to speak in complete sentences Cardio Rate: regular rate GI Inspection: Yes normal to inspection General: Yes no CVA tenderness Back/Spine/Pelvis Back: no CVA tenderness Skin General skin exam: no rashes or lesions noted Neuro General: patient oriented x3 Extrem General: Yes normal to inspection Psych Appearance: grossly normal and well kempt Mental Status: mental status grossly normal Speech and movement: Normal speech and movement present and Clear speech present Affect: normal affect Attitude: cooperative Thought process: Normal thought process present Thought content: Normal thought content present Insight: Fair insight present (Psych) Judgement: Fair judgement present (Psych) Results AMB Urinalysis, Automated UA Leukoctes 500 Nae/uL Last Edit by Crys Henderson CCM on 05/12/25 14:26 UA Nitrite Negative Last Edit by Crys Henderson [facility] [place] on 05/12/25 14:26 UA Urobilinogen 0.2 mg/dL Last Edit by Crys Henderson [facility] [place] on 05/12/25 14:26 UA Protein 30 mg/dL Last Edit by Crys Henderson [facility] [place] on 05/12/25 14:26 UA pH 6.0 Last Edit by Crys Henderson [facility] [place] on 05/12/25 14:26 UA Blood 80 Rakesh/uL Last Edit by Crys Henderson [facility] [place] on 05/12/25 14:26 UA Specific Hundred 1.015 Last Edit by Crys Henderson [facility] [place] on 05/12/25 14:26 UA Ketone Negative Last Edit by Crys Henderson [facility] [place] on 05/12/25 14:26 UA Bilirubin 0 mg/dL Last Edit by Crys Henderson [facility] [place] on 05/12/25 14:26 UA Glucose 0 mg/dL Last Edit by Crys Henderson [facility] [place] on 05/12/25 14:26 Results Reviewed Results Reviewed: Laboratory Last Values Urine pH (Auto) 6.0 05/12/25 14: Specific Hundred (Auto) 1.015 05/12/25 14:26 Urine Protein (Auto) 30 mg/dL 05/12/25 14:26 Glucose (UA)(Auto) 0 mg/dL 05/12/25 14: Urine Ketones (Auto) Negative 05/12/25 14: Urine Blood (Auto) 80 Rakesh/uL 05/12/25 14:26 Urine Nitrite (Auto) Negative 05/12/25 14: Urine Bilirubin (Auto) 0 mg/dL 05/12/25 14: Urine Urobilinogen (Auto) 0.2 mg/dL 05/12/25 14: Leukocyte Esterase (Auto) 500 Nae/uL 05/12/25 14:26 Assessment & Plan Assessment & Plan (1) Recurrent UTI: Code(s): N39.0 - Urinary tract infection, site not specified Category: Medical Plan In office urinalysis results reviewed with the patient today; as noted above; will send for urine culture as well as urine cytology. PVR 0 mL Start ciprofloxacin as discussed and prescribed. We discussed initiation of methenamine and vitamin-C status post completion of current antibiotic therapy. Continue Estrace cream. Discussed UTI prevention with D mannose supplement, vitamin-C, increasing fluid intake, behavioral therapy with timed voiding, perineal hygiene and postcoital voiding, and management of constipation with stool softeners and increased fiber intake. We discussed in office cystoscopy for further assessment evaluation in assessment. All questions were answered. We discussed importance of calling office with UTI like symptoms and not awaiting near future appointments. We did discuss correlation of bowel issues with recurrent urinary tract infections. Follow-up in 1-3 months with PVR; or sooner with any issues, concerns, and or questions. Orders: Orders AMB Urinalysis Automated Today Z13.9 - Encounter for screening, unspecified Urine Cytology Today R31.29 - Other microscopic hematuria Urine Culture Today R31.29 - Other microscopic hematuria Medications: New methenamine hippurate Start after completion of antibiotic therapy. And always hold medication while on antibiotics 1 g PO DAILY 90 tabs 1RF 90 days N39.0 - Urinary tract infection, site not specified ciprofloxacin HCl 250 mg PO BID 14 tabs 0RF 7 days N39.0 - Urinary tract infection, site not specified ascorbic acid (vitamin C) 1 g PO DAILY 90 tabs 1RF 90 days N39.0 - Urinary tract infection, site not specified Patient Instructions: The patient had an opportunity to ask questions regarding the treatment plan. All questions were answered. Physical exam, labs, and imaging were discussed and reviewed in detail. As well as risks, benefits, and discussion of treatment choices. No major barriers to understanding were identified. The patient expressed understanding and agreement with the above treatment plan. The patient was made aware they should contact our office by phone for worsening of their current condition, the appearance of new symptoms, or with any questions or concerns. Compliance is encouraged with any medications and follow up testing that is ordered. It is a privilege to be allowed the opportunity to participate in? your urological care.? Again, if you have any questions or concerns If you have any questions or concerns please do not hesitate to contact me. The office is [phone]. This note is constructed using voice recognition software. While every effort has been made to ensure accuracy waiter/waitress buffet errors may have been included. Yours sincerely, PARAMJIT Christine Coding Level of Care Code Est Pt Level 4 (42256) Complex EM visit Add On G2211 Diagnoses Recurrent UTI N39.0
--- OUTSIDE RECORDS SUMMARY | 2025-05-12 17:31 | XMS_ITS | Patient Health Record ---
Author Organization [facility] Address [address] [place] [address] Care Team Providers Care Planning Intern Name Role Phone Christina MONCADA, Jasmine Escalera Primary Care Provider Un available Trena Trejo Unavailable [phone] Allergies Allergen (clinical drug ingredient) Drug/Non Drug [...] Duration) Notes Start Date End Date Status Trulicity 0.75 MG/0.5ML as directed Subcutaneous Active Tresiba 100 UNIT/ML as directed Subcutaneous Active Lisinopril 20 MG 1 tablet Orally Once a day Active Ketoconazole 2 % 1 application Apply a thin layer to externally to feet, even between toes Twice a day; Duration: 30 days Active Vitamin D3 Active Extra Depth Orthopedic Shoes (1 Pair) with Customized Heat Molded Multidensity Innersoles (3 Pair) as directed Dx: NIDDM/Polyneuropathy (E11.42), Hammertoe Foot Deformity (M20.41,M20.42), Preulcerative Skin Lesion(s) (L85.1 12/31/2024 Active metFORMIN HCl 500 MG 1 tablet with a kenneth l Orally Once a day Active Atorvastatin Calcium 80 MG 1 tablet Oral ly Once a day Active [place] Aspirin Active Metoprolol Succinate 50 MG 1 capsule Ora lly Once a day Active Metamucil Free & Natural Active hydroCHLOROthiazide 25 MG 1 tablet in th e morning Orally Once a day Active Magnesium 250 MG 1 tablet with a meal Orally Once a day Active Immunizations Vaccine Route Administration Date Status Comme nts Influenza Unknown 05/02/2024 Administered Social History Tobacco Use: Social History Observation [...] Polyneuropathy due to type 2 diabetes mellitus ([id number]) Type 2 diabetes mellitus with diabetic polyneuropathy (E11.42) Active confirmed Vital Signs Blood pressure diastolic 80 mm Hg 03/25/2025 Height 5ft3in in 03/25/2025 Blood pressure systolic 120 mm Hg 03/25/2025 Weight 173 lbs 03/25/2025 BMI 30.64 kg/m2 03/25/2025 Encounters Encounter Location Date Provider [facility] [address] 12/31/2024 Trena Trejo Type 2 diabetes mellitus with diabetic polyneuropathy E11.42 ; Other hammer toe(s) (acquired), right foot M20.41 ; Tinea unguium B35.1 ; Tinea pedis of both feet B35.3 and Other hammer toe(s) (acquired), left foot M20.[address] [facility] [address] 03/25/2025 Trena Trejo Type 2 diabetes mellitus with diabetic polyneuropathy E11.42 ; Tinea unguium B35.1 and Tinea pedis of both feet B35.3 [facility] [address] 10/22/2024 Trena Trejo Assessments Encounter Date Diagnosis (ICD Code) Assessment Notes Treatment Notes Treatment Clinical Notes Section Notes 12/31/2024 Other hammer toe(s) (acquired), right foot (ICD-10 - M20.41) Patient Educated with: DIABETIC FOOT CARE INSTRUCTIONS. pdf (DIABETIC FOOT CARE INSTRUCTIONS. pdf) 12/31/2024 Type 2 diabetes mellitus with diabetic polyneuropathy (ICD-10 - E11.42) 03/25/2025 Type 2 diabetes mellitus with diabetic polyneuropathy (ICD-10 - E11.42) 03/25/2025 Tinea unguium (ICD-10 - B35.1) 03/25/2025 Tinea pedis of both feet (ICD-10 - B35.3) 12/31/2024 Tinea unguium (ICD-10 - B35.1) 12/31/2024 Tinea pedis of both feet (ICD-10 - B35.3) 12/31/2024 Other hammer toe(s) (acquired), left foot (ICD-10 - M20.42) Plan Of Treatment Next Appt Details Provider Name:Trena blount, 06/17/2025 01:00:00 PM, [address] [place] [address], [id number], Insurance Providers Payer Name Payer Address Payer Phone Subscriber Number Group Number Insured Name Patient Relationship to Insured Coverage Start Date Coverage End Date [employer] Medicare [id number] [facility] [address] [place] [address] [phone] [id number] Savanna Fernandez Self - patient is the insured Medical (General) History Medical History History ICD Code Anxiety Diabetic High Blood Pressure Reflux ( GERD) Sciatica Heart valve conditions/replacement Heart disease Surgical History Surgery Date(Month/Year) Colitis
== END 2025-05-12 14:31 | disposition home or self-care (01) ==
LOC: HO.HUSH 13:41
PROVIDERS: PCP Internal Medicine; Visit Provider Nurse Practitioner Family
DX: Z13.9 Encounter for screening, unspecified (principal); N39.0 Urinary tract infection, site not specified
CPT/HCPCS: 99214

== ENCOUNTER 2025-05-12 13:41 | Outpatient (REF) | payer OTHER, MEDICAID, SELFPAY | END 2025-05-12 13:42 | disposition home or self-care (01) | LOC: HO.LAB 13:41 | PROVIDERS: PCP Internal Medicine; Visit Provider Nurse Practitioner Family | DX: N39.0 Urinary tract infection, site not specified (principal); Z13.89 Encounter for screening for other disorder | CPT/HCPCS: 81003; 87086; 87088; 87186; 88112 ==

== ENCOUNTER 2025-06-01 12:29 | Emergency (ER) | payer MEDICARE, MEDICAID, SELFPAY ==
--- NOTE | ~2025-06-01 | XR_ITS ---
EXAMINATION: XR CHEST 2 VIEWS HISTORY: SOB COMPARISON: Comparison is made with the prior examination dated 06/11/2024. FINDINGS: PA and lateral views of the chest are submitted. The lungs are expanded and clear. There is no pleural effusion, pneumothorax, or pulmonary vascular congestion. The heart is normal in size. The aorta is calcified. There is degenerative disc disease of the spine. XR/XR chest 2V IMPRESSION: No acute cardiopulmonary abnormality. Electronically signed by: Golden Paige MD 06/01/2025 01:18 PM EDT
[2025-06-01 12:35] VITALS: BP 170/90; PULSE 68; O2SAT 99
[2025-06-01 12:53] VITALS: BP 207/88; PULSE 64; RESP 18; TEMP 36.8; O2SAT 97; BMI 30.3
--- NOTE | 2025-06-01 13:00 | ED_ITS ---
HPI - Back Pain/Injury General Chief Complaint: Back Pain/Injury Stated Complaint: anxiety, lower back pain Time Seen by Provider: 06/01/25 17:29 History of Present Illness ED Provider: Samia ONOFRE Narrative: The patient is a 79-year-old female. She says that last year, after her , she began to experience panic attacks. She was prescribed lorazepam which she took for awhile to help prevent panic attacks. She stopped taking these medications about 9 months ago. She says that she did well from the point of view of panic attacks until yesterday. Yesterday she was at home when she started to feel a sense of numbness in her feet that seemed to move up her body into her torso and then her arms and then her head. She lives in an apartment building and she spoke to a neighbor who told her that she was having a panic attack. Eventually she calmed down. Today she had picked up her granddaughter from school. She was driving when she started to feel a similar sensation of her feet feeling numb. She then felt a numbness rise upper body. She was near a fire station and pulled over at a fire station. At that point an ambulance was called and she was brought to the hospital. The patient says that her next door neighbor about a month ago and this has been very upsetting for her. She has also recently had a recurrence of her sciatica in her right leg which has also been bothering her but at the moment her sciatica is not bothering her when I spoke to her. Related Data Home Medications ?Medication ?Instructions ?Recorded ?Confirmed aspirin 81 mg tablet,delayed 81 mg PO DAILY 06/15/20 0 05/12/25 release famotidine-Ca carb-mag hydrox 10 1 tab PO BEDTIME PRN Acid Reflux 02/02/21 05/12/25 mg-800 mg-165 mg chewable tablet ([employer] Electrician Supervisor Complete (famotidine)) insulin degludec 100 unit/mL (3 42 unit subcut QAM 05/12/25 mL) subcutaneous pen (Tresiba FlexTouch U-100 insulin) cholecalciferol (vitamin D3) 25 25 mcg PO DAILY 05/12/25 mcg (1,000 unit) capsule Previous Rx's ?Medication ?Instructions ?Recorded lancets 33 gauge ([employer] [place] [employer] Delica #300 ea 12/06/22 Lancets) flash glucose scanning reader #2 ea 08/01/23 (FreeStyle Halina 2 [place]) BD Ultra-Fine Short Pen Needle 31 #100 ea 05/26/24 gauge x 5/16 (pen needle, diabetic) lorazepam 0.5 mg tablet 0.5 mg PO DAILY PRN Acute pa kiel 07/16/24 attack #14 tabs metformin 500 mg tablet 500 mg PO BID 90 days #180 t abs 11/03/24 flash glucose sensor (FreeStyle #6 ea 12/20/24 Halina 2 Sensor kit) metoprolol tartrate 50 mg tablet 50 mg PO BID #180 tab s 02/16/25 hydrochlorothiazide 25 mg tablet 25 mg PO QAM #90 tabs 02/20/25 Trulicity 1.5 mg/0.5 mL 1.5 mg (0.5 mL) subcut QWEEK #2 mL 03/07/25 subcutaneous pen injector (dulaglutide) atorvastatin 80 mg tablet 80 mg PO DAILY #90 tabs 04/01 03/25 mirabegron 25 mg tablet,extended 25 mg PO DAILY #30 ta bs 04/21/25 release 24 hr ascorbic acid (vitamin C) 1,000 mg 1 g PO DAILY 90 day s #90 tabs 05/12/25 tablet methenamine hippurate 1 gram tablet 1 g PO DAILY 90 da ys #90 tabs 05/12/25 fosfomycin tromethamine 3 gram 3 g PO Q3D 3 doses #3 e a 05/16/25 oral packet lisinopril 20 mg tablet 20 mg PO DAILY #90 tabs 05/02 03/25 Allergies Allergy/AdvReac Type Severity Reaction Status Date / Time codeine (CODEINE) Allergy Intermediate HIVES Verified 06/01/25 13:01 morphine (MORPHINE) Allergy Intermediate HIVES Verified 06/01/25 13:01 oxycodone (OXYCODONE) Allergy Intermediate HIVES Verified 06/01/25 13:01 Sulfa (Sulfonamide Allergy Intermediate DEHYDRATION, Verified 06/01/25 13:01 Antibiotics) (SULFA hives, (SULFONAMIDE ANTIBIOTICS)) hives levofloxacin Allergy Hallucinati Verified 06/01/25 13:01 ons cefpodoxime AdvReac Intermediate uknown Verified 06/01/25 13:01 phenazopyridine AdvReac Intermediate Unknown Verified 06/01/25 13:01 OPIATES Allergy Unknown hives Uncoded 05/12/25 14:24 Review of Systems 2 Review of Systems: Yes all other systems are reviewed and are negative [facility] Past Medical History Medical History Major depressive disorder, single episode, moderate Recurrent UTI Depression with anxiety Generalized anxiety disorder with panic attacks Arthritis of carpometacarpal (CMC) joint of right thumb Tenosynovitis of right wrist Dermatitis, contact Elevated vitamin B12 level Essential hypertension Atherosclerotic cardiovascular disease Obesity (BMI 30-39.9) Dyslipidemia 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 type 2 diabetes mellitus 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 Spondylosis of lumbar region without myelopathy or radiculopathy Sacroiliitis Surgical History Stented coronary artery Hx of shoulder surgery History of back surgery Hx of section Hx of hysterectomy Hx of colonoscopy Family History Family History Father Colon cancer Family history of prostate cancer in father Mother Diabetes CVA (cerebral vascular accident) Social History Social History Housing: Apartment Alcohol intake: current Patient Tobacco Use Status: Former Tobacco user Years Smoked: 2 Smoked in Last 30 Days: No e-Cigarette/Vaping Use: Never Used Use of substances other than those prescribed or required for medical reasons: No Advance Directives: Yes Advance Directives Information Provided: Yes Advance Directives on File: Yes Advance Directives Date on File: 06/01/24 Do you have a plan to hurt others: No Plan service: No Current occupational status: retired Cognitive needs: No Hearing needs: No Vision needs: No Physical Exam 2 Vital Signs: Vital Signs: Last Vital Signs Temp 98.3 F 06/01/25 18:42 Pulse 64 06/01/25 18:42 Resp 18 06/01/25 18:42 BP 174/95 H 06/01/25 18:42 Pulse Ox 97 06/01/25 18:42 O2 Del Method Room Air 06/01/25 18:42 BMI result Body Mass Index 30.3 HEENT: Other: The patient is a 79-year-old woman who is sitting up on the stretcher unassisted. She was awake and alert. She did not appear in any distress. She looked comfortable and well. Eyes: Other: Pupils are round equal, conjunctivae are clear, extraocular movements intact Neck: Neck: Yes normal visual inspection and Yes no JVD Resp: Effort & Inspection: normal respiratory effort Auscultation: clear to auscultation bilaterally Cardio: Rate: regular rate Rhythm: regular rhythm Heart sounds: S1 normal heart sound present and S2 normal heart sound present GI: Other: Abdomen is soft and nontender Skin: Other: The skin is dry and unremarkable Neuro: Other: The patient is awake and alert with normal mental status. Cranial nerves 2-12 are intact. She moves her extremities normally and appropriately. She has normal strength, sensation, and coordination. NIH stroke scale is 0. She seems neurologically intact. Extrem: Other: There is no calf swelling or tenderness. No asymmetry. No peripheral edema. Course Course Course Narrative: This is an RME: Additional HPI, ROS, PE not included below will be deferred to primary provider. RME assessment and note performed by: Meryl Gill PA-C This is a 79 year old female, with a hx of DM, neuropathy, Dyslipidemia chronic back pain, HTN, who presents emergency department via with complaints of low back pain. She also reports increasing anxiety, shortness for breath, and numbness and tingling into her bilateral feet. She states that approximately 1- 1/2 weeks ago she had lifted whit litter box of cat food and has had pain since. No urinary or bowel retention or incontinence. No saddle anesthesia. She is speaking in full sentences under no acute distress. Her blood pressure elevated at 207/88. Plan: Labs, EKG, further ER eval needed Medical Decision Making Medical Decision Making MDM Narrative: The patient is a 79-year-old woman who comes to the emergency room by ambulance after falling her car over at a fire station. She felt that she was having a panic attack. She describes a similar episode yesterday that occurred when she was at home. The patient says that she had panic attacks last year following the of her . Certainly the patient's description of the episode that happened yesterday and again today sounds as if these episodes might have been panic attacks. She looks entirely well at the time that I saw her. She had mentioned back pain and sciatic the at triage but she mentioned these symptoms only and passing when I spoke to her and I did not get the sense that she was having any significant ongoing pain. My overall impression was that she looked quite well and had an unremarkable EKG and laboratory evaluation and she seems to have an unremarkable neurological exam currently. I suspect that these new panic episodes might be related to the of her neighbor who recently. She seemed entirely coherent uncomfortable the time that I saw her. I think she may be discharged to follow-up with her regular doctor. She has an appointment next week. She has some lorazepam at home that she may use as needed. She was advised not to drive until these episodes have been further evaluated. Lab Data 06/01/25 14:31 06/01/25 14:31 Labs: Lab Results 06/01/25 Range/Units 14:31 WBC 11.8 H (4.8-10.8) X10*3/uL RBC 4.01 L (4.20-5.50) X10*6/uL Hgb 12.7 (12.0-16.0) g/dl Hct 35.6 L (37.0-47.0) % MCV 88.8 (80.0-98.0) fL MCH 31.7 (27.0-33.0) pg MCHC 35.7 H (31.0-35.0) g/dl RDW 13.0 (11.0-16.0) % Plt Count 313 (160-400) X10*3/uL MPV 10.6 (9.4-12.3) fL Immature Gran % (Auto) 0.4 (0.0-0.4) % Neut % (Auto) 66.4 (45-73) % Lymph % (Auto) 23.2 (20-40) % [place] % (Auto) 7.4 (2-11) % Eos % (Auto) 2.2 (0-4) % Baso % (Auto) 0.4 (0-2) % Lymph # (Auto) 2.7 (1.2-4.9) X10*3/uL [place] # (Auto) 0.9 (0.1-1.2) X10*3/uL Eos # (Auto) 0.3 (0.0-0.4) X10*3/uL Baso # (Auto) 0.1 (0.0-0.2) X10*3/uL Abs Immat Gran (auto) 0.05 H (0.00-0.03) X10*3/uL Absolute Neuts (auto) 7.8 (2.0-8.3) x10*3/uL Absolute Nucleated RBC 0.000 (0.0-0.012) X10*3/uL Nucleated RBC % (auto) 0.0 (0.0-0.2) /100WBC Sodium 139 (135-145) mmol/L Potassium 4.0 (3.3-5.1) mmol/L Chloride 104 (96-108) mmol/L Carbon Dioxide 27 (22-29) mmol/L Anion Gap 12 (12-20) BUN 17 H (9-16) mg/dL Creatinine 0.98 (0.5-1.4) mg/dL Estim Creat Clear Calc 45.8 Estimated GFR 55 Random Glucose 130 H (60-115) mg/dL Calcium 9.7 (8.4-10.2) mg/dL Magnesium 1.9 (1.6-2.6) mg/dL Total Bilirubin 1.4 H (0.0-1.0) mg/dL Direct Bilirubin 0.5 (0.0-0.5) mg/dL AST 36 H (5-31) U/L ALT 29 (0-31) U/L Alkaline Phosphatase 83 (39-117) U/L Troponin I High Sens < 2.7 (<3.5-17.0) ng/L Total Protein 6.9 (6.5-8.0) g/dL Albumin 4.1 (3.5-5.0) g/dL Discharge Plan Discharge Clinical Impression: Panic attacks Patient Disposition: Home, Self-Care Additional Instructions: Please continue your regular medications. You may use the lorazepam that you have at home on an as-needed basis if you feel that you were having another panic attack. Please contact your regular doctor in the morning to make a follow up appointment to discuss this episode further. (or keep your appointment if 1 is already scheduled). Also contact your therapist's office to set up a new appointment to discuss the fact that your panic attacks seemed to have returned. I would recommend not driving until these seem to be better under control. Return to the emergency room if significantly worse. Prescriptions: No Action (DME) lancets [OneTouch Delica Lancets] 33 gauge misc See Rx Instructions miscellaneous .MEDSUPPLY Qty: 300 0RF Rx Instructions: 3 times a day (DME) FreeStyle Halina 2 [place] Misc See Rx Instructions .Route Qty: 2 11RF Rx Instructions: use as directed metformin 500 mg tablet 500 mg PO BID 90 Days Qty: 180 1RF (DME) FreeStyle Halina 2 Sensor Kit See Rx Instructions .Route Qty: 6 1RF Rx Instructions: use As directed metoprolol tartrate 50 mg tablet 50 mg PO BID Qty: 180 1RF hydrochlorothiazide 25 mg tablet 25 mg PO QAM Qty: 90 1RF atorvastatin 80 mg tablet 80 mg PO DAILY Qty: 90 1RF mirabegron 25 mg tablet extended release 24 hr 25 mg PO DAILY Qty: 30 1RF fosfomycin tromethamine 3 gram packet 3 g PO Q3D Qty: 3 0RF Rx Instructions: Take one packet every 3 days for 3 doses. lisinopril 20 mg tablet 20 mg PO DAILY Qty: 90 1RF insulin degludec [Tresiba FlexTouch U-100] 100 unit/mL (3 mL) insulin pen 42 unit subcut QAM [employer] Electrician Supervisor Complete (famot) 10-800-165 mg tablet,chewable 1 tab PO BEDTIME PRN (Reason: Acid Reflux) aspirin 81 mg tablet,delayed release (DR/EC) 81 mg PO DAILY (DME) pen needle, diabetic [BD Ultra-Fine Short Pen Needle] 31 gauge x 5/16 needle See Rx Instructions .Route Qty: 100 5RF Rx Instructions: As directed once a day lorazepam 0.5 mg tablet 0.5 mg PO DAILY PRN (Reason: Acute panic attack) Qty: 14 3RF ascorbic acid (vitamin C) 1,000 mg tablet 1 g PO DAILY 90 Days Qty: 90 1RF methenamine hippurate 1 gram tablet 1 g PO DAILY 90 Days Qty: 90 1RF Rx Instructions: Start after completion of antibiotic therapy. And always hold medication while on antibiotics cholecalciferol (vitamin D3) 25 mcg (1,000 unit) capsule 25 mcg PO DAILY Trulicity 1.5 mg/0.5 mL pen injector 1.5 mg subcut QWEEK Qty: 2 3RF Interventions: ED Discharge Assessment Last Done: 06/01/25 18:42 Discharge Date/Time: 06/01/25 18:57 Print Language: Divehi
--- NOTE | 2025-06-01 13:02 | ECG_ITS ---
Test Reason : BACK PAIN Blood Pressure : */* mmHG Vent. Rate : 62 BPM Atrial Rate : 62 BPM P-R Int : 200 ms QRS Dur : 88 ms QT Int : 440 ms P-R-T Axes : 39 1 33 degrees QTcB Int : 446 ms Normal sinus rhythm Possible Anterior infarct , age undetermined Abnormal ECG When compared with ECG of 01-Jul-2024 05:25, No significant change was found Referred By: Meryl Gill Electronically Signed By: CESAR BENNETT
[2025-06-01 14:36] LABS: MANUAL DIFF FLAG NO
[2025-06-01 14:45] LABS: Hematocrit 35.6 % (37.0-47.0); Hemoglobin 12.7 g/dl (12.0-16.0); Imm Gran Abs Auto 0.05 X10*3/uL (0.00-0.03); Imm Gran Pct Auto 0.4 % (0.0-0.4); Lymphocytes Absolute Auto 2.7 X10*3/uL (1.2-4.9); Mean Corpuscular HGB Conc 35.7 g/dl (31.0-35.0); Mean Corpuscular Hemoglobin 31.7 pg (27.0-33.0); Mean Corpuscular Volume 88.8 fL (80.0-98.0); NRBC Abs Auto 0.000 X10*3/uL (0.0-0.012); NRBC Pct Auto 0.0 /100WBC (0.0-0.2); Platelet Count 313 X10*3/uL (160-400); Red Blood Count 4.01 X10*6/uL (4.20-5.50); White Blood Count 11.8 X10*3/uL (4.8-10.8)
[2025-06-01 14:53] LABS: Alanine Aminotransferase 29 U/L (0-31); Albumin Level 4.1 g/dL (3.5-5.0); Alkaline Phosphatase 83 U/L (39-117); Anion Gap 12 (12-20); Aspartate Amino Transferase 36 U/L (5-31); Blood Urea Nitrogen 17 mg/dL (9-16); Calcium 9.7 mg/dL (8.4-10.2); Carbon Dioxide 27 mmol/L (22-29); Chloride 104 mmol/L (96-108); Creatinine Clr Calc Pharmacy 45.8; Estimated Glomerular Filt Rate 55; Magnesium 1.9 mg/dL (1.6-2.6); Potassium 4.0 mmol/L (3.3-5.1); Sodium 139 mmol/L (135-145); Total Protein 6.9 g/dL (6.5-8.0)
[2025-06-01 15:08] LABS: Troponin-I High Sensitivity < 2.7 ng/L (<3.5-17.0)
[2025-06-01 17:30] VITALS: BP 207/88; PULSE 64; RESP 18; TEMP 36.8; O2SAT 97
[2025-06-01 18:42] VITALS: BP 174/95; PULSE 64; RESP 18; TEMP 36.8; O2SAT 97
== END 2025-06-01 18:57 | disposition home or self-care (01) ==
PROVIDERS: Physician Assistant Medical; Emergency Provider Emergency Medicine; PCP Internal Medicine
DX: F41.0 Panic disorder [episodic paroxysmal anxiety] (principal); R20.0 Anesthesia of skin
CPT/HCPCS: 36415; 71046; 80048; 80076; 83735; 84484; 85025; 93005; 99283; 99285

== ENCOUNTER → 2025-06-01 13:02 | Outpatient (BNV) | payer OTHER, MEDICAID, SELFPAY | PROVIDERS: Visit Provider Radiology Diagnostic Radiology | DX: R06.02 Shortness of breath (principal) | CPT/HCPCS: 71046 ==

== ENCOUNTER → 2025-06-01 13:02 | Outpatient (BNV) | payer OTHER, MEDICAID, SELFPAY | PROVIDERS: Emergency Provider Emergency Medicine; PCP Internal Medicine; Visit Provider Internal Medicine | DX: R94.31 Abnormal electrocardiogram [ECG] [EKG] (principal); R06.02 Shortness of breath | CPT/HCPCS: 93010 ==

== ENCOUNTER 2025-06-06 10:44 | Outpatient (AMB) | payer MEDICARE, MEDICAID, SELFPAY ==
--- NOTE | 2025-06-06 11:02 | MHC.PC.OV ---
Vital Signs 06/06/25 11:04 Height 5 ft 3 in Weight 171 lb BMI 30.3 BP 134/54 L Blood Pressure Location Rt brachial Position Sitting Respiration 16 Pulse 76 Pulse Source Pulse Oximeter Temp 97.7 F Temp Source Oral Pulse Oximetry (%) 97 Oxygen Delivery Method Room Air Intake Visit Reasons: 3m follow upp Intake Note: Pt is here today for her 3mo. f/u Allergies codeine (CODEINE) Allergy (Intermediate, Verified 06/06/25 11:29) HIVES morphine (MORPHINE) Allergy (Intermediate, Verified 06/06/25 11:29) HIVES oxycodone (OXYCODONE) Allergy (Intermediate, Verified 06/06/25 11:29) HIVES Sulfa (Sulfonamide Antibiotics) (SULFA (SULFONAMIDE ANTIBIOTICS)) Allergy (Intermediate, Verified 06/06/25 11:29) DEHYDRATION, hives, hives levofloxacin Allergy (Verified 06/06/25 11:29) Hallucinations cefpodoxime Adverse Reaction (Intermediate, Verified 06/06/25 11:29) uknown phenazopyridine Adverse Reaction (Intermediate, Verified 06/06/25 11:29) Unknown OPIATES Allergy (Unknown, Uncoded 06/06/25 11:29) hives Medication List - Last Reconciled 06/06/25 by Jasmine Vasquez MD ascorbic acid (vitamin C) 1 g PO DAILY 90 days aspirin 81 mg PO DAILY atorvastatin 80 mg PO DAILY BD Ultra-Fine Short Pen Needle (pen needle, diabetic) As directed once a day NS cholecalciferol (vitamin D3) 25 mcg PO DAILY famotidine-Ca carb-mag hydrox 10-800-165 mg (Acid Radial Drill Operator Complete (famotidine)) 1 tab PO BEDTIME PRN flash glucose scanning reader (FreeStyle Halina 2 Mullin) use as directed flash glucose sensor (FreeStyle Halina 2 Sensor kit) use As directed hydrochlorothiazide 25 mg PO QAM insulin degludec (Tresiba FlexTouch U-100 insulin) 42 units subcut QAM lancets (OneTouch Delica Lancets) 3 times a day lisinopril 20 mg PO DAILY lorazepam 0.5 mg PO DAILY PRN mecobalamin (vitamin B12) 500mg once a day tablet metformin 500 mg PO BID 90 days methenamine hippurate 1 g PO DAILY 90 days metoprolol tartrate 50 mg PO BID mirabegron ER 25 mg PO DAILY Trulicity (dulaglutide) 1.5 mg (0.5 mL) subcut QWEEK NS Tobacco use date assessed: 06/06/25 Fall risk assessment: No Falls in past year Last assessed Fall Risk: 06/06/25 Dental Screening Dental Screen Date: 06/06/25 Did you have a dental visit in the last 12 months?: No Did you have a dental problem in the last 6 months where you did not have access to dental care?: No Was dental information given to patient?: Patient declined HPI 3m follow upp HPI Details 79 year-old lady with dyslipidemia, diabetes mellitus, hypertension, and anxiety disorder, here for a follow-up visit. Was recently seen at emergency room at [facility] for an acute panic attack, resolved spontaneously, blood pressure now within normal limits. Was taking lorazepam as needed for acute anxiety attacks in the past. Unfortunately patient has not yet had her fasting labs done At present patient states that she has been feeling better, [facility] Medical History Major depressive disorder, single episode, moderate Recurrent UTI Depression with anxiety Generalized anxiety disorder with panic attacks Arthritis of carpometacarpal (CMC) joint of right thumb Tenosynovitis of right wrist Dermatitis, contact Elevated vitamin B12 level Essential hypertension Atherosclerotic cardiovascular disease Obesity (BMI 30-39.9) Dyslipidemia 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 type 2 diabetes mellitus MCC (current) use of insulin Spondylosis of lumbar region without myelopathy or radiculopathy Sacroiliitis Surgical History Stented coronary artery Hx of shoulder surgery History of back surgery Hx of section Hx of hysterectomy Hx of colonoscopy Family History Father Colon cancer Family history of prostate cancer in father Mother Diabetes CVA (cerebral vascular accident) Social History Housing: Apartment Alcohol intake: current Patient Tobacco Use Status: Former Tobacco user Years Smoked: 2 e-Cigarette/Vaping Use: Never Used Advance Directives Date on File: 06/01/24 service: No Current occupational status: retired Cognitive needs: No Hearing needs: No Vision needs: No Questionnaire PHQ-9 Over the last 2 weeks, how often have you been bothered by any of the following problems? 1. Little interest or pleasure in doing things: not at all 2. Feeling down, depressed, or hopeless: not at all 3. Trouble falling or staying asleep, or sleeping too much: not at all 4. Feeling tired or having little energy: not at all 5. Poor appetite or overeating: not at all 6. Feeling bad about yourself - or that you are a failure or have let yourself or your family down: not at all 7. Trouble concentrating on things, such as reading the newspaper or watching television: not at all 8. Moving or speaking so slowly that other people could have noticed. Or the opposite - being so fidgety or restless that you have been moving around a lot more than usual: not at all 9. Thoughts that you would be better off or of hurting yourself in some way: not at all Total score: 0 Depression Screening Interpretation: Negative Depression Screening Done: Yes 29808 - PHQ-9 Billing: Yes Source: Developed by Drs. Golden Moe, Palma Sullivan, Devin Orozco and colleagues, with an educational arlen from [employer] Thrive Questionnaire Date Thrive assessed: 10/30/24 I am a: Patient What is your living situation today?: I have a steady place to live Within the past 12 months, did the food you bought not last and you didn't have the money to get more?: Never true Within the past 12 months, did you worry whether your food would run out before you got money to buy more?: Never true Do you have trouble paying for medicines?: No Do you have trouble getting transportation to medical appointments?: No Do you have trouble paying your heating and electricity bill?: No Do you have trouble taking care of your child, family member or friend?: No Do you have trouble with day-to-day activities such as bathing, preparing meals, shopping, managing finances, etc.?: No Are you currently unemployed and looking for a job?: No Are you interested in more education?: No Please select the resources that you would like help with: None Currently or been in a relationship where the following occur: No concerns reported THRIVE Score: 0 AUDIT C Alcohol Use Questionnaire (AUDIT-C) 1. How often do you have a drink containing alcohol?: Never Total Score: 0 SACHA-7 AMB Questionnaire SACHA-7 Date SACHA - 7 assessed: 06/06/25 Feeling nervous, anxious, or on edge: 1 = Several days Not being able to stop or control worryin = Several days Worrying too much about different things: 2 = More than half the days Trouble relaxin = Not at all Being so restless that it is hard to sit still: 0 = Not at all Becoming easily annoyed or irritable: 0 = Not at all Feeling afraid as if something awful might happen: 1 = Several days Total SACHA-7 score (0-4 normal; 5-9 mild; 10-14 moderate; 15-21 severe): 5 Source: Developed by Drs. Golden Moe, Palma Sullivan, Devin Orozco and colleagues, with an educational arlen from [employer] SACHA-7 Assessment Billing SACHA-7 Assessment Tool: SACHA-7 Assessment 34078 Review of Systems Const Denies weakness Eyes Details: No retinopathy, sees [facility]NT Denies dizziness Card Denies chest pain, Denies chest pain with activity, Denies syncope, Denies rapid heart rate, Denies pedal edema, Denies lightheadedness, Denies palpitations, Denies dyspnea and Denies dyspnea on exertion Resp Denies cough, Denies dyspnea and Denies dyspnea on exertion GI Denies hematochezia and Denies change in stool character Musc Denies abnormal gait, Denies muscle cramps, Denies muscle weakness, Denies numbness, Denies radiating pain into limb and Denies tingling Neuro Denies abnormal gait, Denies dizziness, Denies syncope, Denies numbness, Denies tingling and Denies weakness Endo Denies palpitations Seymour/Lymph Reports no additional complaints Aller/Immun Reports no additional complaints Physical exam (Primary Care) Vital Signs: Last Vital Signs Temp 97.7 F 06/06/25 11:04 Pulse 76 06/06/25 11:04 Resp 16 06/06/25 11:04 BP 134/54 L 06/06/25 11:04 Pulse Ox 97 06/06/25 11:04 Oxygen Delivery Method Room Air 06/06/25 11:04 BMI result Body Mass Index 30.3 Tobacco/Smoking Status: Tobacco use Status Tobacco use date assessed 06/06/25 06/06/25 11:24 Patient Tobacco Use Status Former Tobacco user 06/06/25 11:03 e-Cigarette/Vaping Use Never Used 06/06/25 11:03 PHQ-9: PHQ-9 Score PHQ-9: Total score 5 06/06/25 11:36 Depression Screening Interpretation: Negative Thrive Assessment: Date of Thrive Assessment Date Thrive assessed 10/30/24 06/06/25 11:03 Currently or been in a relationship where the following occur: No concerns reported Results AMB Hemoglobin A1c AMB Hemoglobin A1c 6.9 % Last Edit by Radha Iglesias CMA on 06/06/25 11:47 Coding Diagnoses Generalized anxiety disorder with panic attacks F41.1; F41.0 Essential hypertension I10 Atherosclerotic cardiovascular disease I25.10 Dyslipidemia E78.5 Obesity (BMI 30-39.9) E66.9 Recurrent UTI N39.0 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 type 2 diabetes mellitus E11.42 Additional Codes SACHA-7 Assessment Billing - SACHA-7 Assessment Tool: SACHA-7 Assessment 70125 ([id number]) PHQ-9 - 94219 - PHQ-9 Billing: Yes ([id number]) Assessment & Plan Assessment & Plan (1) Generalized anxiety disorder with panic attacks: Code(s): F41.1 - Generalized anxiety disorder; F41.0 - Panic disorder [episodic paroxysmal anxiety] Category: Medical (2) Essential hypertension: Code(s): I10 - Essential (primary) hypertension Category: Medical (3) Atherosclerotic cardiovascular disease: Code(s): I25.10 - Atherosclerotic heart disease of [place] coronary artery without angina pectoris Category: Medical (4) Dyslipidemia: Code(s): E78.5 - Hyperlipidemia, unspecified Category: Medical (5) Obesity (BMI 30-39.9): Code(s): E66.9 - Obesity, unspecified Category: Medical (6) Recurrent UTI: Code(s): N39.0 - Urinary tract infection, site not specified Category: Medical (7) 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 type 2 diabetes mellitus: Code(s): E11.42 - Type 2 diabetes mellitus with diabetic polyneuropathy Category: Medical Orders: Orders AMB Hemoglobin A1c Today Z13.9 - Encounter for screening, unspecified Medications: New escitalopram oxalate 5 mg PO DAILY 30 tabs 3RF Refilled lorazepam 0.5 mg PO DAILY PRN 14 tabs 3RF Acute panic attack
[2025-06-06 11:04] VITALS: BP 134/54; PULSE 76; RESP 16; TEMP 36.5; O2SAT 97; BMI 30.3
--- OUTSIDE RECORDS SUMMARY | 2025-06-06 12:55 | XMS_ITS | Patient Health Record ---
Author Organization [facility] Address [address] [facility] [place] [address] Care Team Providers Care Wheel Polisher Name Role Phone Christina MONCADA, Jasmine Escalera Primary Care Provider Un available Trena Trejo Unavailable [phone] Allergies Allergen (clinical drug ingredient) Drug/Non Drug [...] Polyneuropathy due to type 2 diabetes mellitus ([id number]) Type 2 diabetes mellitus with diabetic polyneuropathy (E11.42) Active confirmed Vital Signs Blood pressure diastolic 80 mm Hg 03/25/2025 Height 5ft3in in 03/25/2025 Blood pressure systolic 120 mm Hg 03/25/2025 Weight 173 lbs 03/25/2025 BMI 30.64 kg/m2 03/25/2025 Encounters Encounter Location Date Provider Diagnosis [facility] [address] 12/31/2024 Trena Treoj Type 2 diabetes mellitus with diabetic polyneuropathy E11.42 ; Other hammer toe(s) (acquired), right foot M20.41 ; Tinea unguium B35.1 ; Tinea pedis of both feet B35.3 and Other hammer toe(s) (acquired), left foot M20.[address] [facility] [address] 03/25/2025 Trena Trejo Type 2 diabetes mellitus with diabetic polyneuropathy E11.42 ; Tinea unguium B35.1 and Tinea pedis of both feet B35.3 [facility] [address] 10/22/2024 Trena Trejo Assessments Encounter Date Diagnosis [...] Treatment Next Appt Details Provider Name:Trena blount, 06/08/2025 01:30:00 PM, [address] [place] [address], [phone], Insurance Providers Payer Name Payer Address Payer Phone Subscriber Number Group Number Insured Name Patient Relationship to Insured Coverage Start Date Coverage End Date [employer] Medicare Adv-[id number] [facility] [address] [place] [phone] [id number] Savanna Fernandez Self - patient is the insured Medical (General) History Medical History History ICD Code Anxiety Diabetic High Blood Pressure Reflux ( GERD) Sciatica Heart valve conditions/replacement Heart disease Surgical History Surgery Date(Month/Year) Colitis
== END 2025-06-06 12:02 | disposition home or self-care (01) ==
LOC: HO.HMCC 10:45
PROVIDERS: PCP Internal Medicine; Visit Provider Internal Medicine
DX: Z13.9 Encounter for screening, unspecified (principal)

== ENCOUNTER → 2025-06-06 10:44 | Outpatient (BNVA) | payer MEDICARE, MEDICAID, SELFPAY | PROVIDERS: PCP Internal Medicine; Visit Provider Internal Medicine | DX: I10 Essential (primary) hypertension (principal); E78.5 Hyperlipidemia, unspecified; E11.9 Type 2 diabetes mellitus without complications; F41.1 Generalized anxiety disorder; F41.0 Panic disorder [episodic paroxysmal anxiety]; E11.42 Type 2 diabetes mellitus with diabetic polyneuropathy; I25.10 Atherosclerotic heart disease of native coronary artery without angina pectoris; N39.0 Urinary tract infection, site not specified | CPT/HCPCS: 83036; 96127; 99212 ==

== ENCOUNTER 2025-07-13 11:08 | Outpatient (REF) | payer MEDICARE, MEDICAID, SELFPAY ==
--- OUTSIDE RECORDS SUMMARY | 2025-06-08 08:30 | XMS_ITS ---
Author Organization [facility] Address [address] [place] [address] Care Team Providers Care Web Worker Name Role Phone Christina MONCADA, Jasmine Escalera Primary Care Provider Un available Trena Trejo Unavailable [phone] Phillips Encounters Encounter Location Date Provider Diagnosis [facility] [address] [place] [address] 06/08/2025 Trena Trejo Plan Of Treatment Next Appt Details Provider Name:Leticia turner, 08/02/2025 03:45:00 PM, [address] [facility], [address] [facility], [place], [address], Progress Notes * Savanna NEGRONDOB: 5 (79 yo F)Acc No.[id number]:06/08/2025 Progress Note Patient: Savanna ALBA Provider: Raheem Trejo DPM :1945 A ge:79 Y S ex:Female Date:06/08/2025 Address:[address] [place] [address] 2 , [place], [place] Pcp:Massiel Leone Subjective: * Chief Complaints: * [address] Phillips[address] * Medical History: Objective: * Vitals: Assessment: Plan: * Treatment: * Images: * The named appointment provid er may or may not be the originator of this progress note, and it is not deemed complete until electronically signed by the appointment provider. Sign off status: Pending * Provider: Raheem Trejo DPM Date: Generated for Lul Castillo/Brian on: 09/12/2024 01:47 PM EST
--- OUTSIDE RECORDS SUMMARY | 2025-06-10 07:15 | XMS_ITS ---
Author [facility] Address [address] [place] [address] Care Team Providers Care Corporate Aircraft Mechanic Name Role Phone Christina MONCADA, Jasmine Escalera Primary Care Provider Un available Trena Trejo Unavailable [phone] Medications Medication SIG (Take, Route, Frequency, Duration) Notes Start Date End Date Status Ketoconazole 2 % 1 application Apply a thin layer to externally to feet, even between toes Twice a day; Duration: 30 days Active metFORMIN HCl 500 MG 1 tablet with a kenneth l Orally Once a day Active Metoprolol Succinate 50 MG 1 capsule Ora lly Once a day Active hydroCHLOROthiazide 25 MG 1 tablet in th e morning Orally Once a day Active Extra Depth Orthopedic Shoes (1 Pair) with Customized Heat Molded Multidensity Innersoles (3 Pair) as directed Dx: NIDDM/Polyneuropathy (E11.42), Hammertoe Foot Deformity (M20.41,M20.42), Preulcerative Skin Lesion(s) (L85.1 12/31/2024 Active Lisinopril 20 MG 1 tablet Orally Once a day Active Vitamin D3 Active Atorvastatin Calcium 80 MG 1 tablet Oral ly Once a day Active [place] Aspirin Active Metamucil Free & Natural Active Tresiba 100 UNIT/ML as directed Subcutaneous Active Trulicity 0.75 MG/0.5ML as directed Subcutaneous Active Magnesium 250 MG 1 tablet with a meal Orally Once a day Active Encounters Encounter Location Date [facility] [address] [place] [address] 06/10/2025 Trena Treoj Plan Of Treatment Next Appt Details Provider Name:Leticia turner, 08/02/2025 03:45:00 PM, [address] [facility], [address], [place], [address], Progress Notes * Savanna NEGRONDOB: 5 (79 yo F)Acc No.[id number]:06/10/2025 Progress Note Patient: Savanna ALBA Provider: Raheem Trejo DPM :1945 A ge:79 Y S ex:Female Date:06/10/2025 Address:[address] [place], [place] [id number] Pcp:Massiel Leone Subjective: * Chief Complaints: * * Medical History: * Medications: T aking Trulicity 0.75 MG/0.5ML Solution Auto-injector as directed Subcutaneous , Taking Tresiba 100 UNIT/ML Solution as directed Subcutaneous , Taking Magnesium 250 MG Tablet 1 tablet with a meal Orally Once a day , Taking Metamucil Free & Natural , Taking [place] Aspirin , Taking Atorvastatin Calcium 80 MG Tablet 1 tablet Orally Once a day , Taking Vitamin D3 , Taking Lisinopril 20 MG Tablet 1 tablet Orally Once a day , Taking hydroCHLOROthiazide 25 MG Tablet 1 tablet in the morning Orally Once a day , Taking Metoprolol Succinate 50 MG Capsule ER 24 Hour Sprinkle 1 capsule Orally Once a day , Taking metFORMIN HCl 500 MG Tablet 1 tablet with a meal Orally Once a day , Taking Ketoconazole 2 % Cream 1 application Apply a thin layer to externally to feet, even between toes Twice a day , Taking Extra Depth Orthopedic Shoes (1 Pair) with Customized Heat Molded Multidensity Innersoles (3 Pair) as directed Dx: NIDDM/Polyneuropathy (E11.42), Hammertoe Foot Deformity (M20.41,M20.42), Preulcerative Skin Lesion(s) (L85.1 Objective: * Vitals: Assessment: Plan: * Treatment: * Images: * The named appointment provid er may or may not be the originator of this progress note, and it is not deemed complete until electronically signed by the appointment provider. Sign off status: Pending * Provider: Raheem Trejo DPM Date: 1 Generated for Lul mascorro/Kevin/Brian on: 1 09/12/2024 01:47 PM EST
--- OUTSIDE RECORDS SUMMARY | 2025-06-17 08:00 | XMS_ITS ---
Author Organization [facility] Address [address] [place] [address] Care Team Providers Care Sports Activities Foul Judge Name Role Phone Christina MONCADA, Jasmine Escalera Primary Care Provider Un available Trena Trejo Unavailable [phone] Phillips Encounters Encounter Location Date Provider [facility] [address] [place] [address] 06/17/2025 Trena Trejo Plan Of Treatment Next Appt Details Provider Name:Leticia turner, 08/02/2025 03:45:00 PM, [address] [facility], [address] [facility], [place], [address], Progress Notes * Savanna NEGRONDOB: 5 (79 yo F)Acc No.[id number]:06/17/2025 Progress Note Patient: Savanna ALBA Provider: Raheem Trejo DPM :1945 A ge:79 Y S ex:Female Date:06/17/2025 Address:[address] [place] [address] 2 , [place], [place] Pcp:Massiel Leone Subjective: * Chief Complaints: * [...] Trejo DPM Date: 1 Generated for Lul Castillo/Brian on: 09/12/2024 01:46 PM EST
--- OUTSIDE RECORDS SUMMARY | 2025-07-13 13:47 | XMS_ITS | Patient Health Record ---
Author Organization [facility] Address [address] [facility] [place] [address] Care Team Providers Care Chemical Recovery Operator Name Role Phone Christina MONCADA, Jasmine Escalera Primary Care Provider Un available Trena Trejo Unavailable [phone] Allergies Allergen (clinical drug ingredient) Drug/Non Drug [...] Duration) Notes Start Date End Date Status Tresiba 100 UNIT/ML as directed Subcutaneous Active Trulicity 0.75 MG/0.5ML as directed Subcutaneous Active Ketoconazole 2 % 1 application Apply [...] e morning Orally Once a day Active Lisinopril 20 MG 1 tablet Orally Once a day Active Vitamin D3 Active Atorvastatin Calcium 80 MG 1 tablet Oral ly Once a day Active [place] Aspirin Active Metamucil Free & Natural Active Magnesium 250 MG 1 tablet with a meal Orally Once a day Active Extra Depth Orthopedic Shoes (1 Pair) with Customized Heat Molded Multidensity Innersoles (3 Pair) as directed Dx: NIDDM/Polyneuropathy (E11.42), Hammertoe Foot Deformity (M20.41,M20.42), Preulcerative Skin Lesion(s) (L85.1 12/31/2024 Active Immunizations Vaccine Route Administration Date Status [...] Polyneuropathy due to type 2 diabetes mellitus (431792838) Type 2 diabetes mellitus with diabetic polyneuropathy (E11.42) Active confirmed Vital Signs Blood pressure diastolic 80 mm Hg 03/25/2025 Height 5ft3in in 03/25/2025 Blood pressure systolic 120 mm Hg 03/25/2025 Weight 173 lbs 03/25/2025 BMI 30.64 kg/m2 03/25/2025 Encounters Encounter Location Date Provider Diagnosis [address] [address] 12/31/2024 Terna Trejo Type 2 diabetes mellitus with diabetic polyneuropathy E11.42 ; Other hammer toe(s) (acquired), right foot M20.41 ; Tinea unguium B35.1 ; Tinea pedis of both feet B35.3 and Other hammer toe(s) (acquired), left foot M20.[address] [address] 03/25/2025 Trena Trejo Type 2 diabetes mellitus with diabetic polyneuropathy E11.42 ; Tinea unguium B35.1 and Tinea pedis of both feet B35.[address] [address] 10/22/2024 Trena Trejo [address] [id number] Trena Trejo Assessments Encounter Date Diagnosis (ICD [...] Of Treatment Next Appt Details Provider Name:Leticia Crews yue, 08/02/2025 03:45:00 PM, [address] [facility], [facility] [address], [place], [address], Insurance Providers Payer Name Payer Address Payer Phone Subscriber Number Group Number Insured Name Patient Relationship to Insured Coverage Start Date Coverage End Date [employer] Medicare [id number] [address] [address] [place] [address] [id number] Savanna Fernandez Self - patient is the insured Medical (General) History Medical History History ICD Code Anxiety Diabetic High Blood Pressure Reflux ( GERD) Sciatica Heart valve conditions/replacement Heart disease Surgical History Surgery Date(Month/Year) Colitis
[2025-07-13 14:02] LABS: Alanine Aminotransferase 24 U/L (0-31); Anion Gap 10 (12-20); Aspartate Amino Transferase 32 U/L (5-31); Blood Urea Nitrogen 22 mg/dL (9-16); Calcium 9.5 mg/dL (8.4-10.2); Carbon Dioxide 30 mmol/L (22-29); Chloride 101 mmol/L (96-108); Cholesterol 128 mg/dL (<200); Estimated Glomerular Filt Rate 52; HDL Cholesterol 43 mg/dL (>40); Potassium 4.1 mmol/L (3.3-5.1); Sodium 137 mmol/L (135-145); Triglycerides 130 mg/dL (<150)
== END 2025-07-13 11:09 | disposition home or self-care (01) ==
LOC: HO.HMGCLDS 11:08
PROVIDERS: PCP Internal Medicine; Visit Provider Internal Medicine
DX: I10 Essential (primary) hypertension (principal); E78.5 Hyperlipidemia, unspecified; E11.42 Type 2 diabetes mellitus with diabetic polyneuropathy
CPT/HCPCS: 36415; 80048; 80061; 83036; 84450; 84460

== ENCOUNTER 2025-07-19 12:09 | Outpatient (AMB) | payer OTHER, MEDICAID, SELFPAY ==
--- OUTSIDE RECORDS SUMMARY | 2025-06-08 08:30 | XMS_ITS ---
Author Organization [facility] Address [address] [place] [address] Care Team Providers Care Sample Finisher Name Role Phone Christina MONCADA, Jasmine Escalera Primary Care Provider Un available Leticia Marx Unavailable [phone] Trena Trejo Unavailable [phone] Phillips Encounters Encounter Location Date Provider Diagnosis [facility] [address] [place] [address] 06/08/2025 Trena Trejo Plan Of Treatment Next Appt Details Provider Name:Leticia Mars turner, 08/02/2025 03:45:00 PM, [address] [facility], [address] [place] [address], [address], Progress Notes * Savanna NEGRONDOB: 5 (80 yo F)Acc No.[id number]:06/08/2025 Progress Note Patient: Savanna ALBA Provider: Raheem Trejo DPM :1945 A ge:79 Y S ex:Female Date:06/08/2025 Address:[address] [place] [address] [address] , [place], [place] Pcp:Massiel Leone Subjective: * Chief Complaints: * [...] DPM Date: Generated for Lul Castillo/Brian on: 09/19/2024 02:59 AM EST
--- OUTSIDE RECORDS SUMMARY | 2025-06-10 07:15 | XMS_ITS ---
Author Organization [facility] Address [address] [place] [address] Care Team Providers Care Computer Training Specialist Name Role Phone Christina MONCADA, Jasmine Escalera Primary Care Provider Un available Leticia Marx Unavailable [phone] Trena Trejo Unavailable [phone] Medications Medication SIG (Take, Route, Frequency, Duration) [...] Active Encounters Encounter Location Date [facility] [place] [address] [place] [address] 06/10/2025 Trena Trejo Plan Of Treatment Next Appt Details Provider Name:Leticia turenr, 08/02/2025 03:45:00 PM, [address] [facility], [address], [place], [address], Progress Notes * Savanna NEGRONDOB: 5 (80 yo F)Acc No.[id number]:06/10/2025 Progress Note Patient: Savanna ALBA Provider: Raheem Trejo DPM :1945 A ge:79 Y S ex:Female Date:06/10/2025 Address:[address] [place], [place] [id number] Pcp:Massiel Leone Subjective: * Chief Complaints: * [...] Raheem Trejo DPM Date: Generated for Lul mascorro/Kevin/Brian on: 09/19/2024 03:00 AM EST
--- OUTSIDE RECORDS SUMMARY | 2025-06-17 08:00 | XMS_ITS ---
Author Organization [facility] Address [address] [place] [address] Care Team Providers Care Dry Yard Worker Name Role Phone Christina MONCADA, Jasmine Escalera Primary Care Provider Un available Leticia Marx Unavailable [phone] Trena Trejo Unavailable [phone] Phillips Encounters Encounter Location Date Provider Diagnosis [facility] [address] [place] [address] 06/17/2025 Trena Trejo Plan Of Treatment Next Appt Details Provider Name:Leticia Mars turner, 08/02/2025 03:45:00 PM, [address] [facility], [address] [place] [address], [address], Progress Notes * Savanna NEGRONDOB: 5 (80 yo F)Acc No.[id number]:06/17/2025 Progress Note Patient: Savanna ALBA Provider: Raheem Trejo DPM :1945 A ge:79 Y S ex:Female Date:06/17/2025 Address:[address] [place] [address] [address] , [place], [place] Pcp:Massiel Leone Subjective: * Chief Complaints: * [...]
--- NOTE | 2025-07-19 12:32 | MHC.OFFVIS ---
Vital Signs 07/19/25 12:34 Height 5 ft 3 in Weight 172 lb 13.478 oz BMI 30.6 BP 120/64 Blood Pressure Location Rt brachial Position Sitting Pulse 70 Pulse Source Pulse Oximeter Intake Visit Reasons: 6 mth f/up Logistics Account Manager Required: No Accompanied by: Self / Same As Patient Allergies codeine (CODEINE) Allergy (Intermediate, Verified 06/06/25 11:29) HIVES morphine (MORPHINE) Allergy (Intermediate, Verified 06/06/25 11:29) HIVES oxycodone (OXYCODONE) Allergy (Intermediate, Verified 06/06/25 11:29) HIVES Sulfa (Sulfonamide Antibiotics) (SULFA (SULFONAMIDE ANTIBIOTICS)) Allergy (Intermediate, Verified 06/06/25 11:29) DEHYDRATION, hives, hives levofloxacin Allergy (Verified 06/06/25 11:29) Hallucinations cefpodoxime Adverse Reaction (Intermediate, Verified 06/06/25 11:29) uknown phenazopyridine Adverse Reaction (Intermediate, Verified 06/06/25 11:29) Unknown OPIATES Allergy (Unknown, Uncoded 06/06/25 11:29) hives Medication List - Last Reconciled 07/19/25 by Casa Blackburn MD ascorbic acid (vitamin C) 1 g PO DAILY 90 days aspirin 81 mg PO DAILY atorvastatin 80 mg PO DAILY BD Ultra-Fine Short Pen Needle (pen needle, diabetic) As directed once a day NS cholecalciferol (vitamin D3) 25 mcg PO DAILY escitalopram oxalate 5 mg PO DAILY famotidine-Ca carb-mag hydrox 10-800-165 mg (Acid Recruiter Account Manager Complete (famotidine)) 1 tab PO BEDTIME PRN flash glucose scanning reader (FreeStyle Halina 2 [place]) use as directed flash glucose sensor (FreeStyle Halina 2 Sensor kit) use As directed hydrochlorothiazide 25 mg PO QAM insulin degludec (Tresiba FlexTouch U-100 insulin) 42 units subcut QAM lancets (OneTouch Delica Lancets) 3 times a day lisinopril 20 mg PO DAILY lorazepam 0.5 mg PO DAILY PRN mecobalamin (vitamin B12) 500mg once a day tablet metformin 500 mg PO BID 90 days methenamine hippurate 1 g PO DAILY 90 days metoprolol tartrate 50 mg PO BID mirabegron ER 25 mg PO DAILY Trulicity (dulaglutide) 1.5 mg (0.5 mL) subcut QWEEK NS HPI Comments Details: Savanna returns for follow-up regarding coronary disease. To recall, she has a history of myocardial infarction and stent placement around 2000. Multiple cardiovascular risk factors including diabetes, hypertension, dyslipidemia. She has got no cardiac symptoms whatsoever. She is able to walk or do any form of physical activity without any angina or any other cardiac symptoms. She has been having some panic attacks and that led to ER visits but EKG and troponins were unremarkable. In fact numerous troponins over the last year or so are all normal. 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 Spondylosis of lumbar region without myelopathy or radiculopathy Sacroiliitis Surgical History Stented coronary artery Hx of shoulder surgery History of back surgery Hx of section Hx of hysterectomy Hx of colonoscopy Family History Father Colon cancer Family history of prostate cancer in father Mother Diabetes CVA (cerebral vascular accident) Social History Housing: Apartment Alcohol intake: current Patient Tobacco Use Status: Former Tobacco user Years Smoked: 2 e-Cigarette/Vaping Use: Never Used Advance Directives Date on File: 06/01/24 service: No Current occupational status: retired Cognitive needs: No Hearing needs: No Vision needs: No Review of Systems Const Denies chills, Denies fatigue, Denies fever(s), Denies frequent falls, Denies weakness, Denies weight gain and Denies weight loss ENT Denies dizziness Card Denies chest pain, Denies leg edema, Denies lightheadedness, Denies palpitations, Denies dyspnea and Denies dyspnea on exertion Resp Denies cough, Denies dyspnea and Denies dyspnea on exertion GI Denies hematochezia Musc Denies abnormal gait, Denies muscle weakness, Denies numbness, Denies radiating pain into limb and Denies tingling Neuro Denies abnormal gait, Denies dizziness, Denies frequent falls, Denies numbness, Denies tingling and Denies weakness Endo Denies fatigue and Denies palpitations Physical Exam Vital Signs: Last Vital Signs Pulse 70 07/19/25 12:34 BP 120/64 07/19/25 12:34 BMI result Body Mass Index 30.6 Const General: comfortable and no acute distress Orientation/consciousness: patient oriented x3 HEENT Other: Unremarkable Head: Yes normal to inspection Neck Neck: Yes normal visual inspection Chest Chest palpation & inspection: normal inspection of the chest Resp Auscultation: clear to auscultation bilaterally Cardio Palpation: normal PMI Heart sounds: S1 normal heart sound present, S2 normal heart sound present, no gallops, no murmurs and no rubs GI Palpation (GI): Soft to palpation Back/Spine/Pelvis Other: unremarkable Skin General skin exam: no rashes or lesions noted Neuro General: patient oriented x3 Extrem General: Yes normal to inspection Psych Mental Status: mental status grossly normal Assessment & Plan Assessment & Plan (1) Atherosclerotic cardiovascular disease: Code(s): I25.10 - Atherosclerotic heart disease of [place] coronary artery without angina pectoris Category: Medical Plan: Cardiac [id number] occluded circumflex; status post balloon angioplasty and stenting; indeterminate mid LAD lesion, FFR negative. Myocardial perfusion [id number] and apical ischemia. Clinically, she has got no angina or in fact any cardiac symptoms whatsoever. Continue optimal medical therapy. Remains on aspirin, beta-blockers, statins. On aspirin, beta-blockers, statins. LDL 59 mg/dL. Triglycerides 130 mg/dL. (2) Type 2 diabetes mellitus with unspecified complications: Code(s): E11.8 - Type 2 diabetes mellitus with unspecified complications Category: Medical Plan: Current regimen includes insulin, metformin, Trulicity. Last hemoglobin A1c is 7.4%. (3) Essential hypertension: Code(s): I10 - Essential (primary) hypertension Category: Medical Plan: Stable. On lisinopril/HCTZ. Plan Discussion Notes I reviewed the patient's symptoms of panic attacks, which she reports start with numbness in her feet. We discussed that since she feels fine and is not experiencing chest pain, we will maintain her current regimen. I instructed her to call if she develops any pain. We agreed to a six-month follow-up appointment as per her preference. Patient was informed and verbally consented to the use of an ambient scribe for clinic note documentation during this visit. Patient Instructions: - Continue with your current self-care methods for managing anxiety as they appear to be working for you. - No new medications are needed at this time. - Please call the office immediately if you experience any new or worsening chest pain. - Your next follow-up appointment will be in six months. Coding Level of Care Code Est Pt Level 4 (87769) Complex EM visit Add On G2211 Diagnoses Atherosclerotic cardiovascular disease I25.10 Type 2 diabetes mellitus with unspecified complications E11.8 Essential hypertension I10
[2025-07-19 12:34] VITALS: BP 120/64; PULSE 70; BMI 30.6
--- OUTSIDE RECORDS SUMMARY | 2025-07-20 03:01 | XMS_ITS | Patient Health Record ---
Author Organization [facility] Address [address] [place] [address] Care Team Providers Care Sephora Operations Consultant Name Role Phone Christina MONCADA, Jasmine Escalera Primary Care Provider Un available Leticia Marx Unavailable [phone] Maya Trena Unavailable [phone] Allergies Allergen (clinical drug ingredient) Drug/Non Drug [...] Polyneuropathy due to type 2 diabetes mellitus ([id number]) Type 2 diabetes mellitus with diabetic polyneuropathy (E11.42) Active confirmed Vital Signs Blood pressure diastolic 80 mm Hg 03/25/2025 Height 5ft3in in 03/25/2025 Blood pressure systolic 120 mm Hg 03/25/2025 Weight 173 lbs 03/25/2025 BMI 30.64 kg/m2 03/25/2025 Encounters Encounter Location Date Provider Diagnosis [address] [address] 12/31/2024 Trena Trejo Type 2 diabetes mellitus with diabetic polyneuropathy E11.42 ; Other hammer toe(s) (acquired), right foot M20.41 ; Tinea unguium B35.1 ; Tinea pedis of both feet B35.3 and Other hammer toe(s) (acquired), left foot M20.[address] [address] 03/25/2025 Trena Trejo Type 2 diabetes mellitus with diabetic polyneuropathy E11.42 ; Tinea unguium B35.1 and Tinea pedis of both feet B35.[address] [address] 10/22/2024 Trena Trejo [address] [place] [address] 06/10/2025 Trena Trejo Assessments Encounter Date Diagnosis (ICD [...] Name:Leticia Crews yue, 08/02/2025 03:45:00 PM, [address] [address], [place], [address], Insurance Providers Payer Name Payer Address Payer Phone Subscriber Number Group Number Insured Name Patient Relationship to Insured Coverage Start Date Coverage End Date [employer] Medicare [id number] [address] [address] [place] [address] [id number] Savanna Fernandez Self - patient is the insured Medical (General) History Medical History History ICD Code Anxiety Diabetic High Blood Pressure Reflux ( GERD) Sciatica Heart valve conditions/replacement Heart disease Surgical History Surgery Date(Month/Year) Colitis
== END 2025-07-19 12:47 | disposition home or self-care (01) ==
LOC: HO.HCS 12:10
PROVIDERS: PCP Internal Medicine; Visit Provider Internal Medicine
DX: I25.10 Atherosclerotic heart disease of native coronary artery without angina pectoris (principal); E11.8 Type 2 diabetes mellitus with unspecified complications; I10 Essential (primary) hypertension
CPT/HCPCS: 99214; G2211

== ENCOUNTER → 2025-07-19 12:09 | Outpatient (BNVA) | payer OTHER, MEDICAID, SELFPAY | PROVIDERS: PCP Internal Medicine; Visit Provider Internal Medicine | DX: E11.42 Type 2 diabetes mellitus with diabetic polyneuropathy (principal); I10 Essential (primary) hypertension; E78.5 Hyperlipidemia, unspecified; H61.23 Impacted cerumen, bilateral; F41.0 Panic disorder [episodic paroxysmal anxiety]; E11.8 Type 2 diabetes mellitus with unspecified complications; Z95.5 Presence of coronary angioplasty implant and graft; Z87.891 Personal history of nicotine dependence; Z79.4 Long term (current) use of insulin | CPT/HCPCS: 99212 ==

== ENCOUNTER → 2025-07-19 16:14 | Outpatient (AMB) | payer MEDICARE, MEDICAID, SELFPAY ==
[2025-07-19 16:21] VITALS: BP 132/60; PULSE 75; RESP 16; TEMP 36.8; O2SAT 96; BMI 30.1
--- NOTE | 2025-07-19 16:21 | A.OFFPC_ITS ---
Vital Signs 07/19/25 16:21 Height 5 ft 3 in Weight 170 lb BMI 30.1 BP 132/60 Blood Pressure Location Rt brachial Position Sitting Respiration 16 Pulse 75 Pulse Source Pulse Oximeter Temp 98.3 F Temp Source Oral Pulse Oximetry (%) 96 Oxygen Delivery Method Room Air Intake Visit Reasons: 6 week follow up Intake Note: Pt is here today for her 6weeks f/u labs Former Hand Required: No Allergies codeine (CODEINE) Allergy (Intermediate, Verified 07/19/25 23:45) HIVES morphine (MORPHINE) Allergy (Intermediate, Verified 07/19/25 23:45) HIVES oxycodone (OXYCODONE) Allergy (Intermediate, Verified 07/19/25 23:45) HIVES Sulfa (Sulfonamide Antibiotics) (SULFA (SULFONAMIDE ANTIBIOTICS)) Allergy (Intermediate, Verified 07/19/25 23:45) DEHYDRATION, hives, hives levofloxacin Allergy (Verified 07/19/25 23:45) Hallucinations cefpodoxime Adverse Reaction (Intermediate, Verified 07/19/25 23:45) uknown phenazopyridine Adverse Reaction (Intermediate, Verified 07/19/25 23:45) Unknown OPIATES Allergy (Unknown, Uncoded 07/19/25 23:45) hives Medication List - Last Reconciled 07/20/25 by Jasmine Vasquez MD ascorbic acid (vitamin C) 1 g PO DAILY 90 days aspirin 81 mg PO DAILY atorvastatin 80 mg PO DAILY BD Ultra-Fine Short Pen Needle (pen needle, diabetic) As directed once a day NS cholecalciferol (vitamin D3) 25 mcg PO DAILY famotidine-Ca carb-mag hydrox 10-800-165 mg (Acid Pyrometer Temperature Regulator Complete (famotidine)) 1 tab PO BEDTIME PRN flash glucose scanning reader (FreeStyle Halina 2 [place]) use as directed flash glucose sensor (FreeStyle Halina 2 Sensor kit) use As directed hydrochlorothiazide 25 mg PO QAM insulin degludec (Tresiba FlexTouch U-100 insulin) 42 units subcut QAM lancets (OneTouch Delica Lancets) 3 times a day lisinopril 20 mg PO DAILY lorazepam 0.5 mg PO DAILY PRN mecobalamin (vitamin B12) 500mg once a day tablet metformin 500 mg PO BID 90 days methenamine hippurate 1 g PO DAILY 90 days metoprolol tartrate 50 mg PO BID mirabegron ER 25 mg PO DAILY Trulicity (dulaglutide) 1.5 mg (0.5 mL) subcut QWEEK NS Tobacco use date assessed: 07/19/25 Fall risk assessment: No Falls in past year Last assessed Fall Risk: 07/19/25 Dental Screening Dental Screen Date: 07/19/25 Did you have a dental visit in the last 12 months?: No Did you have a dental problem in the last 6 months where you did not have access to dental care?: No Was dental information given to patient?: Patient has dentist HPI 6 week follow up HPI Details The patient is an 80-year-old female presenting for follow-up of her uncontrolled type 2 diabetes. She has chosen to stop taking escitalopram ([place] pro) and is self-managing her mental health by playing word games on her phone. The patient's diabetes control has worsened, with her hemoglobin A1c increasing from 6.9 in June ton higher at 7.4 %, with an average blood glucose of 168 mg/dL. Historical A1c values have fluctuated, with a low of 6.1 in July of the previous year and a high of 7.5 in March. She reports her morning blood glucose was 168 mg/dL today. Her current medication regimen includes metformin 500 mg twice daily, Trulicity, and Tresiba 42 units administered in the morning. The patient reports a sedentary lifestyle, mainly sitting and watching TV, although she gets up to walk around and is still driving. Her diet includes nighttime snacking on crackers and Chobani yogurt with fruit. She said her anxiety attacks has resolved, has chosen to not take escitalopram (Lexapro) prescribed on last visit, and is self-managing her mental health by playing word games on her phone. Regarding preventative care, the patient is up to date with her pneumonia vaccinations but has not yet received this year's flu shot, with her last one in 2021. 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 Cabrera, scheduled for October. She also complains of diminished hearing in both left more than the right. with ears feeling itchy and feels clogged. FOR[facility]LY [facility], [facility] Medical History (Updated 07/19/25 @ 16:58 by Jasmine Vasquez MD) Impacted cerumen, bilateral Recurrent UTI Generalized anxiety disorder with panic attacks Arthritis of carpometacarpal (CMC) joint of right thumb Tenosynovitis of right wrist Dermatitis, contact Essential hypertension Atherosclerotic cardiovascular disease Obesity (BMI 30-39.9) Dyslipidemia 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 type 2 diabetes mellitus jail (current) use of insulin Spondylosis of lumbar region without myelopathy or radiculopathy Sacroiliitis Surgical History Stented coronary artery Hx of shoulder surgery History of back surgery Hx of section Hx of hysterectomy Hx of colonoscopy Family History Father Colon cancer Family history of prostate cancer in father Mother Diabetes CVA (cerebral vascular accident) Social History Housing: Apartment Alcohol intake: current Patient Tobacco Use Status: Former Tobacco user Years Smoked: 2 e-Cigarette/Vaping Use: Never Used Advance Directives Date on File: 06/01/24 service: No Current occupational status: retired Cognitive needs: No Hearing needs: No Vision needs: No Questionnaire PHQ-9 Over the last 2 weeks, how often have you been bothered by any of the following problems? Depression Screening Interpretation: Negative Depression Screening Done: Yes Source: Developed by Drs. Golden Moe, Palma Sullivan, Devin Orozco and colleagues, with an educational arlen from [employer]. Thrive Questionnaire Date Thrive assessed: 10/30/24 I am a: Patient What is your living situation today?: I have a steady place to live Within the past 12 months, did the food you bought not last and you didn't have the money to get more?: Never true Within the past 12 months, did you worry whether your food would run out before you got money to buy more?: Never true Do you have trouble paying for medicines?: No Do you have trouble getting transportation to medical appointments?: No Do you have trouble paying your heating and electricity bill?: No Do you have trouble taking care of your child, family member or friend?: No Do you have trouble with day-to-day activities such as bathing, preparing meals, shopping, managing finances, etc.?: No Are you currently unemployed and looking for a job?: No Are you interested in more education?: No Please select the resources that you would like help with: None Currently or been in a relationship where the following occur: No concerns r eported THRIVE Score: 0 SACHA-7 AMB Questionnaire SACHA-7 Date SACHA - 7 assessed: 06/06/25 Source: Developed by Drs. Golden Moe, Palma Sullivan, Devin Orozco and colleagues, with an educational arlen from [employer]. Review of Systems Narrative Const Denies fatigue, Denies fever(s), Denies frequent falls and Denies weakness ENT Reports as per HPI and Denies dizziness Card Denies chest pain, Denies lightheadedness, Denies palpitations and Denies dyspnea Resp Denies cough and Denies dyspnea GI Denies hematochezia Musc Denies abnormal gait, Denies muscle weakness, Denies numbness, Denies radiating pain into limb and Denies tingling Neuro Denies abnormal gait, Denies dizziness, Denies frequent falls, Denies numbness, Denies tingling and Denies weakness Endo Denies fatigue and Denies palpitations Physical exam (Primary Care) Vital Signs: Last Vital Signs Temp 98.3 F 07/19/25 16:21 Pulse 75 07/19/25 16:21 Resp 16 07/19/25 16:21 BP 132/60 07/19/25 16:21 Pulse Ox 96 07/19/25 16:21 Oxygen Delivery Method Room Air 07/19/25 16:21 BMI result Body Mass Index 30.1 Tobacco/Smoking Status: Tobacco use Status Tobacco use date assessed 07/19/25 07/19/25 16:26 Patient Tobacco Use Status Former Tobacco user 07/19/25 16:26 e-Cigarette/Vaping Use Never Used 07/19/25 16:26 Depression Screening Interpretation: Negative Thrive Assessment: Date of Thrive Assessment Date Thrive assessed 10/30/24 07/19/25 16:26 Currently or been in a relationship where the following occur: No concerns reported Narrative . Const General: alert, awake and other (daughter present) Nutritional Appearance: obese Orientation/consciousness: patient oriented x3 HENMT Ears: Abnormal EAC present cerumen impaction bilateral Face and sinus: Yes face symmetric Mouth: Normal oral and palatal mucosa present, oropharynx normal and moist mucous membranes Eyes General: appearance normal, both eyes and all related structures Neck Other: Supple, full range of motion, no lymphadenopathy Resp Effort & Inspection: normal respiratory effort and able to speak in complete sentences Auscultation: clear to auscultation bilaterally Cardio Other: S1-S2 present regular rate and rhythm GI Palpation (GI): Soft to palpation, nontender, no guarding and no masses General: Yes no CVA tenderness Back/Spine/Pelvis Back: no CVA tenderness and No back tenderness Skin Other: Crusted lesion on upper back Neuro General: patient oriented x3, gait normal, moves all extremities, no focal motor deficits and CN's II-XI intact bilaterally Extrem General: Yes full ROM, Yes no joint enlargement, Yes no clubbing, cyanosis or edema and Yes normal gait Psych Appearance: grossly normal and well kempt Mental Status: mental status grossly normal Speech and movement: Normal speech and movement present Results Reviewed Results Reviewed: Laboratory Tests 07/13/25 11:10 Estimat Average Glucose 166 Hemoglobin A1c % 7.4 H Name: Savanna Fernandez Age/Sex: 79/F : 1945 Unit#: [id number] Attend Dr: Jasmine Vasquez MD Re07/13/25 Status: DEP [facility] Dis[facility]: SPEC : [id number] JEFRY: 07/13/25 STATUS: COMP REQ : [id number] RECD: 07/13/25-[address]: Jasmine Vasquez MD COMP: 07/13/252 ENTERED: 07/13/25-[address]: ORDERED: Met Prof Fast, AST, ALT, Lipid Panel Test Result Flag Reference Sodium 137 135-145 mmol/L Potassium 4.1 3.3-5.1 mmol/L CL 101 96-108 mmol/L CO2 30 H 22-29 mmol/L Gap 10 L 12-20 BUN 22 H 9-16 mg/dL Creat 1.02 0.5-1.4 mg/dL eGFR 52 Chronic Kidney Disease: Estimated GFR < 60 mL/min/1.73m2 Severe Kidney Disease: Estimated GFR < 15 mL/min/1.73m2 FBS 168 H 60-99 mg/dL A fasting glucose of 126 mg/dl or greater on more than one occasion is considered diagnostic of diabetes. CA 9.5 8.4-10.2 mg/dL AST (GOT) 32 H 5-31 U/L ALT (GPT) 24 0-31 U/L Triglyceride 130 <150 mg/dL Desirable Triglyceride: less than 150 mg/dL Borderline High Triglyceride 150-199 mg/dL High Triglyceride: 200-499 mg/dL Very High Triglyceride: greater than or equal to 5OO mg/dL Cholesterol 128 <200 mg/dL Desirable Cholesterol: less than 200 mg/dL Borderline High Cholesterol: 200-239 mg/dL High Cholesterol: greater than 239 mg/dL LDL Calculated 59 <100 mg/dL Desirable LDL: less than 100 mg/dL Near Optimal/Above Optimal LDL: 110-129 mg/dL Borderline High LDL: 130-159 mg/dL High LDL: 160-189 mg/dL Very High LDL: greater than or equal to 190 mg/dL HDL 43 >40 mg/dL Desirable HDL: greater than 40 mg/dL Note: This HDL assay may give artificially low results in patients with liver disease. Coding Level of Care Code Est Pt Level 4 (60996) Complex EM visit Add On G2211 Diagnoses Essential hypertension I10 Dyslipidemia E78.5 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 type 2 diabetes mellitus E11.42 Impacted cerumen, bilateral H61.23 Assessment & Plan Assessment & Plan (1) Essential hypertension: Code(s): I10 - Essential (primary) hypertension Category: Medical Plan: Currently on metoprolol tartrate mg 1 tablet twice a day and lisinopril 20 mg daily (2) Dyslipidemia: Code(s): E78.5 - Hyperlipidemia, unspecified Category: Medical Plan: Continue atorvastatin 80 mg daily (3) 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 type 2 diabetes mellitus: Code(s): E11.42 - Type 2 diabetes mellitus with diabetic polyneuropathy Category: Medical Plan: Continue with Tresiba, metformin and Trulicity at the same dose. Reinforced importance of taking medicines regularly and adherence to healthy eating habits, importance of doing regular moderate intensity exercise at least 15 minutes daily. Currently up-to-date with her diabetes retinopathy screening, sees Dr. Cabrera (4) Impacted cerumen, bilateral: Code(s): H61.23 - Impacted cerumen, bilateral Category: Medical Plan: had significant, dry cerumen impaction in both ear canals successful in-office removal of the cerumen in both ears using lighted ear curette, which patient tolerated well. Patient advised not to insert Q-tips in ear canal Plan Patient was informed and verbally consented to the use of an ambient scribe for clinic note documentation during this visit. Orders: Orders Basic Metabolic Panel Fasting 10/02/25 E11.42 - Type 2 diabetes mellitus with diabetic polyneuropathy, E78.5 - Hyperlipidemia, unspecified, I10 - Essential (primary) hypertension, Z78.0 - Asymptomatic menopausal state Aspartate Amino Transferase 10/02/25 E11.42 - Type 2 diabetes mellitus with diabetic polyneuropathy, E78.5 - Hyperlipidemia, unspecified, I10 - Essential (primary) hypertension, Z78.0 - Asymptomatic menopausal state Lipid Panel 10/02/25 E11.42 - Type 2 diabetes mellitus with diabetic polyneuropathy, E78.5 - Hyperlipidemia, unspecified, I10 - Essential (primary) hypertension, Z78.0 - Asymptomatic menopausal state Vitamin B12 and Folate 10/02/25 E11.42 - Type 2 diabetes mellitus with diabetic polyneuropathy, E78.5 - Hyperlipidemia, unspecified, I10 - Essential (primary) hypertension, Z78.0 - Asymptomatic menopausal state Vitamin D 25-OH Total 10/02/25 E11.42 - Type 2 diabetes mellitus with diabetic polyneuropathy, E78.5 - Hyperlipidemia, unspecified, I10 - Essential (primary) hypertension, Z78.0 - Asymptomatic menopausal state Hemoglobin A1c 10/02/25 E11.42 - Type 2 diabetes mellitus with diabetic polyneuropathy, E78.5 - Hyperlipidemia, unspecified, I10 - Essential (primary) hypertension, Z78.0 - Asymptomatic menopausal state Microalbumin, Random (w Creat) 10/02/25 E11.42 - Type 2 diabetes mellitus with diabetic polyneuropathy, E78.5 - Hyperlipidemia, unspecified, I10 - Essential (primary) hypertension, Z78.0 - Asymptomatic menopausal state Alanine Aminotransferase 10/02/25 E11.42 - Type 2 diabetes mellitus with diabetic polyneuropathy, E78.5 - Hyperlipidemia, unspecified, I10 - Essential (primary) hypertension, Z78.0 - Asymptomatic menopausal state
== END ==
LOC: HO.HMCC 16:14
PROVIDERS: PCP Internal Medicine; Visit Provider Internal Medicine
DX: I10 Essential (primary) hypertension (principal); E78.5 Hyperlipidemia, unspecified; E11.42 Type 2 diabetes mellitus with diabetic polyneuropathy; H61.23 Impacted cerumen, bilateral

== ENCOUNTER 2025-07-20 13:17 | Outpatient (AMB) | payer OTHER, MEDICAID, SELFPAY ==
--- OUTSIDE RECORDS SUMMARY | 2025-06-08 08:30 | XMS_ITS ---
Author Organization [facility] Address [address] [place] [address] Care Team Providers Care Home Based Assistant Name Role Phone Christina MONCADA, Jasmine Escalera Primary Care Provider Un available Leticia Marx Unavailable [phone] Trena Trejo Unavailable [phone] Phillips Encounters Encounter Location Date Provider Diagnosis [facility] [address] [place] [address] 06/08/2025 Trena Trejo Plan Of Treatment Next Appt Details Provider Name:Leticia Mars turner, 08/02/2025 03:45:00 PM, [address] [facility], [address] [place] [address], [address], Progress Notes * Savanna NEGRONDOB: 5 (80 yo F)Acc No.[id number]:06/08/2025 Progress Note Patient: Savanna ALBA Provider: Raheem Trejo DPM :1945 A ge:79 Y S ex:Female Date:06/08/2025 Address:[address] [place] [address] [address] , [place], [place] Pcp:Massiel Leone Subjective: * Chief Complaints: * [...] Raheem Trejo DPM Date: Generated for Lul Edmonds on: 09/20/2024 01:11 AM EST
--- OUTSIDE RECORDS SUMMARY | 2025-06-10 07:15 | XMS_ITS ---
Author Organization [facility] Address [address] [place] [address] Care Team Providers Care Group Supervisor Yard Name Role Phone Christina MONCADA, Jasmine Escalera Primary Care Provider Un available Leticia Marx Unavailable [phone] Trena Trejo Unavailable [phone] Medications Medication SIG (Take, Route, Frequency, Duration) [...] Active Encounters Encounter Location Date [facility] [place] [address] [place] [address] 06/10/2025 Trena Trejo Plan Of Treatment Next Appt Details Provider Name:Leticia turner, 08/02/2025 03:45:00 PM, [address] [facility], [address], [place], [address], Progress Notes * Savanna NEGRONDOB: 5 (80 yo F)Acc No.[id number]:06/10/2025 Progress Note Patient: Savanna ALBA Provider: Raheem Terjo DPM :1945 A ge:79 Y S ex:Female Date:06/10/2025 Address:[address] [place], [place] [id number] Pcp:Massiel Leone Subjective: * Chief Complaints: * [...] Date: 1 Generated for Lul mascorro/Kevin/Brian on: 09/20/2024 01:11 AM EST
--- OUTSIDE RECORDS SUMMARY | 2025-06-17 08:00 | XMS_ITS ---
Author Organization [facility] Address [address] [place] [address] Care Team Providers Care Accountant Certified Public Name Role Phone Christina MONCADA, Jasmine Escalera Primary Care Provider Un available Leticia Marx Unavailable [phone] Trena Trejo Unavailable [phone] Phillips Encounters Encounter Location Date Provider Diagnosis [facility] [address] [place] [address] 06/17/2025 Trena Trejo Plan Of Treatment Next Appt Details Provider Name:Leticia Mars turner, 08/02/2025 03:45:00 PM, [address] [facility], [address] [place] [address], [id number], Progress Notes * Savanna NEGRONDOB: 5 (80 yo F)Acc No.[id number]:06/17/2025 Progress Note Patient: Savanna ALBA Provider: Raheem Trejo DPM :1945 A ge:79 Y S ex:Female Date:06/17/2025 Address:[address] [place] [address] [address] , [place], [place] Pcp:Massiel Leone Subjective: * Chief Complaints: * [...] DPM Date: Generated for Lul Castillo/Brian on: 09/20/2024 01:10 AM EST
--- NOTE | 2025-07-20 13:23 | MHC.OFFVIS ---
Intake Visit Reasons: 2m/PVR Intake Note: Patient is present for 3 mo follow up Urology Medication:VIT-C Methenamine Antibiotic Allergy:SULFA,LEVOFLOXACIN,CEFPODOXIME,PHENAZOPRIDINE Blood Thinner:ASPIRIN Labs done: Urine cx (+) 05/12/25, Cytology 05/13/25 (-) TODAY'S PVR:0ML'S Produce Manager Required: No Accompanied by: Self / Same As Patient Allergies codeine (CODEINE) Allergy (Intermediate, Verified 07/20/25 14:23) HIVES morphine (MORPHINE) Allergy (Intermediate, Verified 07/20/25 14:23) HIVES oxycodone (OXYCODONE) Allergy (Intermediate, Verified 07/20/25 14:23) HIVES Sulfa (Sulfonamide Antibiotics) (SULFA (SULFONAMIDE ANTIBIOTICS)) Allergy (Intermediate, Verified 07/20/25 14:23) DEHYDRATION, hives, hives levofloxacin Allergy (Verified 07/20/25 14:23) Hallucinations cefpodoxime Adverse Reaction (Intermediate, Verified 07/20/25 14:23) uknown phenazopyridine Adverse Reaction (Intermediate, Verified 07/20/25 14:23) Unknown OPIATES Allergy (Unknown, Uncoded 07/20/25 14:23) hives Medication List - Last Reconciled 07/20/25 by AURA Christine-DRE ascorbic acid (vitamin C) 1 g PO DAILY 90 days aspirin 81 mg PO DAILY atorvastatin 80 mg PO DAILY BD Ultra-Fine Short Pen Needle (pen needle, diabetic) As directed once a day NS cholecalciferol (vitamin D3) 25 mcg PO DAILY famotidine-Ca carb-mag hydrox 10-800-165 mg (Acid Canary Raiser Complete (famotidine)) 1 tab PO BEDTIME PRN flash glucose scanning reader (FreeStyle Halina 2 [place]) use as directed flash glucose sensor (FreeStyle Halina 2 Sensor kit) use As directed hydrochlorothiazide 25 mg PO QAM insulin degludec (Tresiba FlexTouch U-100 insulin) 42 units subcut QAM lancets (OneTouch Delica Lancets) 3 times a day lisinopril 20 mg PO DAILY lorazepam 0.5 mg PO DAILY PRN mecobalamin (vitamin B12) 500mg once a day tablet metformin 500 mg PO BID 90 days methenamine hippurate 1 g PO DAILY 90 days metoprolol tartrate 50 mg PO BID mirabegron ER 25 mg PO DAILY Trulicity (dulaglutide) 1.5 mg (0.5 mL) subcut QWEEK NS HPI Comments Details: Savanna is a pleasant 80-year-old female patient of Dr. Vasquez. She has a past medical history of depression, recurrent urinary tract infections, anxiety, arthritis, hypertension, atherosclerotic cardiovascular disease, obesity, dyslipidemia, type 2 diabetes, and spondylosis of lumbar region. She presents to the office today for follow-up. In discussion with the patient today she reports since completion of fosfomycin for positive urine culture 05/26 Klebsiella pneumoniae she has had no bothersome lower urinary tract symptoms. She reports previously she had been experiencing increased episodes of urinary urgency, urinary frequency, foul-smelling urine, and dysuria. She discusses having recently celebrated her 80th birthday. She reports compliance with Estrace cream, methenamine, and vitamin-C as prescribed. In office urinalysis results reviewed with the patient today. Previous workup has included a retroperitoneal ultrasound 01/23 that noted no evidence of renal obstruction. No calculi or hydronephrosis noted bilaterally. Bilateral simple cyst per radiology report. Microgen 01/23 noted Pseudomonas aeruginosa, Enterococcus faecalis, and gardnerella vaginalis. We did discuss methenamine and vitamin-C for additional suppression. PVR 0mL. When asked she does report issues with her bowels as she suffers from colitis. She currently denies urinary urgency, urinary frequency, incontinence, hematuria, dysuria, foul smelling urine, changes to urinary stream, flank pain, fever, and or chills. She is happy with her current voiding parameters. In review of patient's chart it appears urine cultures are as follows: 04/21 E coli, 05/23 Pseudomonas aeruginosa, 05/24 E coli, 02/22 E coli, 05/25 E coli, 08/24 E coli, 08/24 Pseudomonas aeruginosa, 09/25 Pseudomonas aeruginosa, 12/24 Pseudomonas aeruginosa, 02/23 Klebsiella oxytoca, 05/26 Klebsiella pneumoniae Urine Cytology: 05/26 Negative for high-grade urothelial carcinoma We discussed at length potential causes of recurrent urinary tract infections as well as further treatment options and risks and benefits of these treatment options. We also discussed potential near future in office cystoscopy for further assessment evaluation. All questions were answered. She otherwise offers no other issues or concerns at this time. [facility] Medical History Impacted cerumen, bilateral Recurrent UTI Generalized anxiety disorder with panic attacks Arthritis of carpometacarpal (CMC) joint of right thumb Tenosynovitis of right wrist Dermatitis, contact Essential hypertension Atherosclerotic cardiovascular disease Obesity (BMI 30-39.9) Dyslipidemia 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 type 2 diabetes mellitus custodial (current) use of insulin Spondylosis of lumbar region without myelopathy or radiculopathy Sacroiliitis Surgical History Stented coronary artery Hx of shoulder surgery History of back surgery Hx of section Hx of hysterectomy Hx of colonoscopy Family History Father Colon cancer Family history of prostate cancer in father Mother Diabetes CVA (cerebral vascular accident) Social History Housing: Apartment Alcohol intake: current Patient Tobacco Use Status: Former Tobacco user Years Smoked: 2 e-Cigarette/Vaping Use: Never Used Advance Directives Date on File: 06/01/24 service: No Current occupational status: retired Cognitive needs: No Hearing needs: No Vision needs: No Review of Systems Const Reports no additional complaints Eyes Reports no additional complaints ENT Reports no additional complaints Card Reports as per HPI Resp Reports no additional complaints GI Reports as per HPI Reports as per HPI Musc Reports as per HPI Neuro Reports no additional complaints Psych Reports as per HPI Endo Reports as per HPI Seymour/Lymph Reports no additional complaints Aller/Immun Reports no additional complaints Physical Exam Const General: cooperative, healthy appearing, comfortable, no acute distress, well developed, alert and awake Orientation/consciousness: patient oriented x3 Limitations: no limitations HEENT Head: Yes normal to inspection, Yes normocephalic and Yes atraumatic Ears: hearing grossly normal bilaterally Eyes General: appearance normal, both eyes and all related structures Neck Neck: Yes normal visual inspection and Yes trachea midline Chest Chest palpation & inspection: normal inspection of the chest Resp Effort & Inspection: normal respiratory effort and able to speak in complete sentences Cardio Rate: regular rate GI Inspection: Yes normal to inspection General: Yes no CVA tenderness Back/Spine/Pelvis Back: no CVA tenderness Skin General skin exam: no rashes or lesions noted Neuro General: patient oriented x3 Extrem General: Yes normal to inspection Psych Appearance: grossly normal and well kempt Mental Status: mental status grossly normal Speech and movement: Normal speech and movement present and Clear speech present Affect: normal affect Attitude: cooperative Thought process: Normal thought process present Thought content: Normal thought content present Insight: Fair insight present (Psych) Judgement: Fair judgement present (Psych) Office Procedures Post Void Residual Post Residual Void Post Void Residual (PVR): 0 07705-[id number] Void Residual by ultrasound Results AMB Urinalysis, Automated UA Leukoctes 70 Nae/uL Last Edit by Becky Durán [facility] on 07/20/25 13:51 UA Nitrite Negative Last Edit by [facility] on 07/20/25 13:51 UA Urobilinogen 0.2 mg/dL Last Edit by [facility] on 07/20/25 13:51 UA Protein 15 mg/dL Last Edit by [facility] on 07/20/25 13:51 UA pH 5.5 Last Edit by [facility] on 07/20/25 13:51 UA Blood 0 Rakesh/uL Last Edit by [facility], [facility] on 07/20/25 13:51 UA Specific [place] 1.025 Last Edit by [facility] on 07/20/25 13:51 UA Ketone Negative Last Edit by [facility] on 07/20/25 13:51 UA Bilirubin 0 mg/dL Last Edit by [facility] on 07/20/25 13:51 UA Glucose 0 mg/dL Last Edit by [facility] on 07/20/25 13:51 Results Reviewed Results Reviewed: Laboratory Last Values Urine pH (Auto) 5.5 07/20/25 13:50 Specific [place] (Auto) 1.025 07/20/25 13:50 Urine Protein (Auto) 15 mg/dL 07/20/25 13:50 Glucose (UA)(Auto) 0 mg/dL 07/20/25 13:50 Urine Ketones (Auto) Negative 07/20/25 13:50 Urine Blood (Auto) 0 Rakesh/uL 07/20/25 13:50 Urine Nitrite (Auto) Negative 07/20/25 13:50 Urine Bilirubin (Auto) 0 mg/dL 07/20/25 13:50 Urine Urobilinogen (Auto) 0.2 mg/dL 07/20/25 13:50 Leukocyte Esterase (Auto) 70 Nae/uL 07/20/25 13:50 Assessment & Plan Assessment & Plan (1) Recurrent UTI: Code(s): N39.0 - Urinary tract infection, site not specified Category: Medical Plan In office urinalysis results reviewed with the patient today; as noted above. PVR 0 mL Continue methenamine, vitamin-C, and Estrace cream as prescribed Discussed UTI prevention with D mannose supplement, vitamin-C, increasing fluid intake, behavioral therapy with timed voiding, perineal hygiene and postcoital voiding, and management of constipation with stool softeners and increased fiber intake. We discussed in office cystoscopy for further assessment evaluation in assessment. All questions were answered. She currently denies any bothersome urinary issues or concerns. She reports be happy with current voiding parameters. We did discuss correlation of bowel issues with recurrent urinary tract infections. Follow-up in office cystoscopy; or sooner with any issues, concerns, and or questions. Patient Instructions: The patient had an opportunity to ask questions regarding the treatment plan. All questions were answered. Physical exam, labs, and imaging were discussed and reviewed in detail. As well as risks, benefits, and discussion of treatment choices. No major barriers to understanding were identified. The patient expressed understanding and agreement with the above treatment plan. The patient was made aware they should contact our office by phone for worsening of their current condition, the appearance of new symptoms, or with any questions or concerns. Compliance is encouraged with any medications and follow up testing that is ordered. It is a privilege to be allowed the opportunity to participate in? your urological care.? Again, if you have any questions or concerns If you have any questions or concerns please do not hesitate to contact me. The office is [phone]. This note is constructed using voice recognition software. While every effort has been made to ensure accuracy team physician errors may have been included. Yours sincerely, PARAMJIT Christine Coding Level of Care Code Est Pt Level 3 (09592) Diagnoses Recurrent UTI N39.0 CPT Codes Post Residual Void - PVR CPT Code: 33658-Qzee Void Residual by ultrasound ([id number])
--- OUTSIDE RECORDS SUMMARY | 2025-07-21 01:11 | XMS_ITS | Patient Health Record ---
Author Organization [facility] Address [address] [place] [address] Care Team Providers Care Manager Disaster Recovery Name Role Phone Christina MONCADA, Jasmine Escalera Primary Care Provider Un available Leticia Marx Unavailable [phone] Maya Trena Unavailable [phone] Allergies Allergen (clinical drug ingredient) Drug/Non Drug [...] Polyneuropathy due to type 2 diabetes mellitus (004113048) Type 2 diabetes mellitus with diabetic polyneuropathy (E11.42) Active confirmed Vital Signs Blood pressure diastolic 80 mm Hg 03/25/2025 Height 5ft3in in 03/25/2025 Blood pressure systolic 120 mm Hg 03/25/2025 Weight 173 lbs 03/25/2025 BMI 30.64 kg/m2 03/25/2025 Encounters Encounter Location Date Provider Diagnosis [address] [address] 12/31/2024 Trena Trejo Type 2 diabetes mellitus with diabetic polyneuropathy E11.42 ; Other hammer toe(s) (acquired), right foot M20.41 ; Tinea unguium B35.1 ; Tinea pedis of both feet B35.3 and Other hammer toe(s) (acquired), left foot M20.[address] [address] 03/25/2025 Trena Trejo Type 2 diabetes mellitus with diabetic polyneuropathy E11.42 ; Tinea unguium B35.1 and Tinea pedis of both feet B35.[address] [address] 10/22/2024 Trena Trejo [address] [place] [address] 06/10/2025 Trena Trejo Assessments Encounter Date Diagnosis [...] Name:Leticia Crews yue, 08/02/2025 03:45:00 PM, [address] [address], [place], [address], Insurance Providers Payer Name Payer Address Payer Phone Subscriber Number Group Number Insured Name Patient Relationship to Insured Coverage Start Date Coverage End Date [employer] Medicare [id number] [address] [address] [place] [phone] [id number] Savanna Fernandez Self - patient is the insured Medical (General) History Medical History History ICD Code Anxiety Diabetic High Blood Pressure Reflux ( GERD) Sciatica Heart valve conditions/replacement Heart disease Surgical History Surgery Date(Month/Year) Colitis
== END 2025-07-20 14:23 | disposition home or self-care (01) ==
LOC: HO.HUSH 13:18
PROVIDERS: PCP Internal Medicine; Visit Provider Nurse Practitioner Family
DX: N39.0 Urinary tract infection, site not specified (principal)
CPT/HCPCS: 99213

== ENCOUNTER → 2025-07-20 13:17 | Outpatient (BNVA) | payer OTHER, MEDICAID, SELFPAY | PROVIDERS: PCP Internal Medicine; Visit Provider Nurse Practitioner Family | DX: N39.0 Urinary tract infection, site not specified (principal) | CPT/HCPCS: 51798 ==